=== PATIENT | male | born 1950 | race Caucasian/White ===

== ENCOUNTER 2020-11-12 14:30 | Outpatient (RCR) | payer MEDICARE, SELFPAY ==
[2020-10-07 12:52] VITALS: BMI 21.2
[2020-10-07 13:01] VITALS: BMI 21.2
== END 2020-12-17 11:57 | disposition home or self-care (01) ==
LOC: ANHDMC 14:30
PROVIDERS: PCP Physician Assistant; Visit Provider Physician Assistant
DX: E11.22 Type 2 diabetes mellitus with diabetic chronic kidney disease (principal); I12.9 Hypertensive chronic kidney disease with stage 1 through stage 4 chronic kidney disease, or unspecified chronic kidney disease; N18.9 Chronic kidney disease, unspecified; Z71.89 Other specified counseling; Z71.3 Dietary counseling and surveillance
CPT/HCPCS: 97802; G0108; G0109

== ENCOUNTER 2021-01-21 07:51 | Outpatient (CLI) | payer MEDICARE, SELFPAY ==
--- NOTE | ~2021-01-21 | US_ITS ---
EXAMINATION: US renal BI EXAM DATE: 01/21/2021 08:33 INDICATION: Nonspecific abnormal results of function study of kidney. TECHNIQUE: Multiple grayscale and Doppler images of the kidneys were obtained (by a technologist who performed the scan) and subsequently reviewed. There is no prior study for comparison. FINDINGS: Right kidney: There is normal contour and echogenicity. It measures 10.3 x 5.0 x 4.3 centimeters. T here are no focal renal lesions identified. There is no hydronephrosis. Left kidney: There is normal contour and echogenicity. It measures 10.4 x 4.5 x 5.1 centimeters. Th ere are no focal renal lesions identified. There is no hydronephrosis. Bladder unremarkable. Ureteral jets identified. Prostate is bulging into the bladder base. IMPRESSION: 1. Sonographically unremarkable kidneys. 2. Prostatomegaly. Reviewed, dictated and finalized at location A. [employer] [employer]
== END 2021-01-21 07:52 | disposition home or self-care (01) ==
LOC: ANHIMG 07:52
PROVIDERS: PCP Family Medicine; Visit Provider Internal Medicine Nephrology
DX: R94.4 Abnormal results of kidney function studies (principal); N40.0 Benign prostatic hyperplasia without lower urinary tract symptoms
CPT/HCPCS: 76775

== ENCOUNTER 2021-01-22 11:21 | Outpatient (RCR) | payer MEDICARE, SELFPAY | END 2021-01-22 16:15 | disposition home or self-care (01) | LOC: ANHDMC 11:21 | PROVIDERS: PCP Family Medicine; Visit Provider Physician Assistant | DX: E11.22 Type 2 diabetes mellitus with diabetic chronic kidney disease (principal); Z71.89 Other specified counseling | CPT/HCPCS: G0108 ==

== ENCOUNTER 2022-10-07 15:52 | Observation (INO) | payer MEDICARE, SELFPAY ==
[2022-10-07] VITALS (13 sets, daily range): BP systolic 164–190; BP diastolic 70–102; PULSE 63–89; RESP 16–22; TEMP 36.6–37.2; O2SAT 96–100
--- NOTE | ~2022-10-07 | XR_ITS ---
EXAMINATION: XR chest 2V DATE: 10/07/2022 16:36 INDICATION: Weakness TECHNIQUE: AP and lateral views of the chest are obtained. COMPARISON: 12/20/2015 FINDINGS: The lungs are free of acute opacities. No pleural effusion or pneumothorax. The cardiomedia stinal silhouette is normal. There is moderate thoracic spondylosis. There are healed bilateral rib a nd scapular fractures. Calcified pulmonary nodules are consistent with old granulomatous disease. IMPRESSION: 1. No acute cardiopulmonary abnormality. Reviewed, dictated and finalized at location L.
--- NOTE | 2022-10-07 15:53 | ECG_ITS ---
Measurements Intervals [place] Rate: 68 P: [place]: 0 QRS: 41 QRSD: 94 T: 32 QT: 397 QTc: 425 Interpretive Statements SINUS RHYTHM WITH SECOND-DEGREE AV BLOCK MOBITZ TYPE 1 ABNORMAL RHYTHM ECG NO PREVIOUS ECG AVAILABLE FOR COMPARISON Electronically Signed On 10-08-2022 7:39:54 CDT by Nguyễn Arias M.D.
[2022-10-07 16:06] LABS: Basophils Absolute Auto 0.1 K/mm3 (0.0-0.1); Basophils Percent Auto 0.7 % (0.2-1.2); Eosinophils Absolute Auto 0.2 K/mm3 (0-0.3); Eosinophils Percent Auto 1.6 % (0-4.4); Hematocrit 22.9 % (42.0-52.0); Immature Granulocyte Absolute 0.08 K/mm3 (0.00-0.031); Immature Granulocyte Percent A 0.6 % (0-0.5); Lymphocytes Absolute Auto 1.37 K/mm3 (0.9-3.2); Lymphocytes Percent Auto 10.3 % (18.3-44.2); Mean Corpuscular HGB Conc 26.2 g/dl (32-36); Mean Corpuscular Hemoglobin 17.2 pg (26-34); Mean Corpuscular Volume 65.8 fl (80-100); Mean Platelet Volume 9.3 fl (7.4-10.4); Monocytes Absolute Auto 1.2 K/mm3 (0.1-0.6); Monocytes Percent Auto 8.9 % (2.6-8.5); Neutrophils Absolute Auto 10.4 K/mm3 (1.3-6.7); Neutrophils Percent Auto 77.9 % (45.5-73.1); Platelet Count Result 618 k/mm3 (150-375); Red Blood Count 3.48 M/mm3 (4.6-6.20); Red Cell Distribution Width 21.1 % (11.5-14.5); White Blood Count 13.3 K/mm3 (4.5-10.0)
[2022-10-07 16:17] LABS: Alanine Aminotransferase 20 U/L (6-50); Albumin Level 3.9 g/dL (3.5-5.1); Alkaline Phosphatase 79 U/L (38-126); Anion Gap 10 mmol/L (8-16); Aspartate Amino Transferase 25 U/L (17-59); Bilirubin,Total 0.2 mg/dL (0.2-1.3); Blood Urea Nitrogen 26 mg/dL (9-20); Carbon Dioxide 24 mmol/L (22-30); Chloride 99 mmol/L (98-107); Estimated CRCL calculation 35 ml/min; Estimated Glomerular Filt Rate 46; Glucose 184 mg/dL (65-110); Sodium 133 mmol/L (137-145)
[2022-10-07 16:21] LABS: Anisocytosis 1+ (NORMAL); Hypochromasia 2+ (NORMAL); Microcytosis 2+ (NORMAL); Ovalocytes 1+ (NORMAL); Platelet Estimate Increased (Adequate); Target Cells 1+ (NORMAL)
[2022-10-07 16:22] LABS: Schistocytes None Seen (NORMAL)
[2022-10-07 16:38] LABS: Appearance Urine Clear (Clear); Bacteria Urine None Seen /hpf; Bilirubin Urine Negative (Negative); Blood Urine Negative (Negative); Color Urine Yellow (Yellow); Glucose Urine UA Negative (Negative); Ketones Urine Negative (Negative); Leukocyte Esterase Ur Negative LEU/UL (Negative); Nitrate Urine Negative (Negative); Protein Urine 3+ mg/dL (Negative); RBC Urine 0-2 /hpf (0-2); Specific Grav Ur 1.017 (1.001-1.035); Squamous Epithelial Cell Urine None seen /hpf (Few); Urobilinogen Urine 0.2 mg/dL (<2.0); WBC Urine 0-5 /hpf; pH Urine 5.5 (5.0-9.0)
[2022-10-07 16:49] LABS: Add Urine Microscopic? YES
--- NOTE | 2022-10-07 17:06 | ED.RECABL ---
HPI - Recheck/Abnormal Lab/Rx General Chief Complaint: Recheck/Abnormal Lab/Rx Stated Complaint: SENT IN FOR A TRANSFUSION Time Seen by Provider: 10/07/22 16:20 Source: patient, RN notes reviewed and old records reviewed Mode of arrival: ambulatory Limitations: no limitations History of Present Illness HPI narrative: This is a 72 year old male with history of chronic kidney disease, hypertension, hyperlipidemia who presents for evaluation of anemia. Patient had labs done 2 days for routine follow up . He states he was called today and told he needed to come to ER for transfusion. He denies history of anemia or blood transfusion. HE denies any blood loss. HE denies blood in his stool or nose bleeds. He reports stool is dark brown but that is normal. He denies chest pain, abdominal pain. HE reports shortness of breath for 2 years that is intermittent but he states it is not severe. Related Data Home Medications Medication Instructions Recorded Confirmed bupropion HCl 300 mg 24 hr tablet, 300 mg PO QAM 04/16/19 10/07/22 extended release lamotrigine 100 mg tablet 100 mg PO HS 04/16/19 10/07/22 paroxetine HCl 10 mg tablet 10 mg PO DAILY 04/16/19 10/07/22 paroxetine HCl 40 mg tablet 40 mg PO DAILY 04/16/19 10/07/22 prazosin 1 mg capsule 1 mg PO .QHS 04/16/19 10/07/22 sitagliptin phosphate 100 mg tablet 50 mg PO DAILY 10/07/22 10/07/22 Allergies Allergy/AdvReac Type Severity Reaction Status Date / Time No Known Allergies Allergy Verified 08/11/22 09:56 Review of Systems Constitutional: Constitutional: Denies weakness Cardiovascular: Cardiovascular: Denies syncope, Denies rapid heart rate, Denies irregular heart rhythm, Denies leg edema and Denies dyspnea Respiratory: Respiratory: Denies chest congestion, Denies hemoptysis, Denies excessive phlegm production and Denies dyspnea Gastrointestinal: Gastrointestinal: Denies abdominal pain, Denies hematochezia, Denies diarrhea and Denies vomiting Genitourinary: Genitourinary: Denies hematuria, Denies dysuria, Denies penile discharge and Denies testicular pain Musculoskeletal: Musculoskeletal: Denies joint swelling, Denies loss of height and Denies muscle weakness Neurologic: Denies syncope, Denies focal weakness and Denies weakness PMFSH Past Medical History Medical History (Updated 10/07/22 @ 18:30 by Yanna Boyer PA-C) Anxiety Chronic kidney disease, stage 3 Baseline creatinine ranges between 1.36 and 1.55. Hyperlipidemia Hypertension Type 2 diabetes mellitus Surgical History Surgical History (Updated 10/07/22 @ 18:25 by Yanna Boyer PA-C) History of appendectomy History of surgery on upper extremity Open reduction internal fixation of left upper extremity fracture. Family History Family History Grandparent Diabetes mellitus Hypertension Asthma Cerebrovascular accident Family history of coronary artery disease Mother Hypertension Family history of cardiovascular disease Family history of lymphoma Family history of rheumatic fever Father Family history of throat cancer Other Family history of alcoholism Family history of mental disorder Social History Social History (Updated 10/07/22 @ 21:37 by Yanna Boyer PA-C) Social History: Surrogate medical decision maker: Antonia iWlson, spouse. Code status: Full code. Smoking packs per day: 1 Smoking cigarettes per day: 20.0 Years smoked: 15 Smoking pack-years: 15.00 Smoking status: Never smoker Tobacco type: cigarettes Second hand tobacco smoke exposure: Yes Smoking end date: 02/21/77 Alcohol intake: never Substance use: current Substance use type: marijuana Other substance usage details: Smokes marijuana daily. Last use: Yesterday PM. Lack of Transportation: No Lack of Food: Never True Current Housing: I Have Housing Concerned About Future Housing: No Difficulty Paying Gas
[2022-10-07 17:24] LABS: Iron 33 ug/dL (49-181)
[2022-10-07 17:25] LABS: Reticulocyte Hemoglobin Conten 15.6 pg (28.2-35.7); Reticulocyte Percent 1.66 % (0.7-4.3); Reticulocytes Absolute 0.06 M/mm3 (0.02-0.1)
[2022-10-07 17:33] LABS: Percent Iron Saturation 7 % (20-50)
[2022-10-07 18:01] LABS: Ferritin 4.64 ng/mL (11.1-264)
[2022-10-07 18:21] LABS: Folic Acid 7.3 ng/mL (2.76->20)
--- NOTE | 2022-10-07 18:22 | PM.IMHP ---
H&P: HPI History of Present Illness Date/Time: 10/07/22 17:30 Chief Complaint: Low hemoglobin. Narrative: This is a very pleasant 72-year-old male with hypertension, hyperlipidemia, chronic kidney disease, type 2 diabetes mellitus, and anxiety who presented to the emergency department via private vehicle from home for evaluation of a low hemoglobin. The patient provides the following history. He had a routine appointment with his doctor yesterday, had labs drawn, and was told to come to the ER as his hemoglobin was 6.2. He actually feels fine and he denies feelings of lightheadedness, dizziness, racing heart, shortness of breath, and fatigue. He denies dark stools and he has not noticed any bright red blood in his stools. He also denies other sources of blood loss. Last colonoscopy was probably 5 years ago and was unremarkable, per patient report. He has lost about 35 lb in the past 2 years which he reports as being intentional. Labs done on arrival to the ED were significant for a WBC count of 13.3, RBC 3.48, hemoglobin 6.0, hematocrit 22.9%, MCV 65.8, platelets 618 BUN 26, creatinine 1.50. Stool was Hemoccult negative on rectal exam done per ED physician. He is being admitted in this setting for blood transfusion and further workup. Review of Systems Review of Systems: Twelve systems were reviewed and are negative except for as per HPI. [facility] Past Medical History Medical History (Updated 10/07/22 @ 18:30 by Yanna Boyer PA-C) Anxiety Chronic kidney disease, stage 3 Baseline creatinine ranges between 1.36 and 1.55. Hyperlipidemia Hypertension Type 2 diabetes mellitus Surgical History Surgical History (Updated 10/07/22 @ 18:25 by Yanna Boyer PA-C) History of appendectomy History of surgery on upper extremity Open reduction internal fixation of left upper extremity fracture. Family History Family History Grandparent Diabetes mellitus Hypertension Asthma Cerebrovascular accident Family history of coronary artery disease Mother Hypertension Family history of cardiovascular disease Family history of lymphoma Family history of rheumatic fever Father Family history of throat cancer Other Family history of alcoholism Family history of mental disorder Social History Social History (Updated 10/07/22 @ 21:37 by Yanna G Gerling, PA-C) Social History: Surrogate medical decision maker: Antonia Wilson, spouse. Code status: Full code. Smoking packs per day: 1 Smoking cigarettes per day: 20.0 Years smoked: 15 Smoking pack-years: 15.00 Smoking status: Never smoker Tobacco type: cigarettes Second hand tobacco smoke exposure: Yes Smoking end date: 02/21/77 Alcohol intake: never Substance use: current Substance use type: marijuana Other substance usage details: Smokes marijuana daily. Last use: Yesterday PM. Lack of Transportation: No Lack of Food: Never True Current Housing: I Have Housing Concerned About Future Housing: No Difficulty Paying Gas/Electric Bills: No Difficulty Paying for Meds: No Currently Unemployed: No Education: High School Diploma/GED Difficulty w/ Childcare or Family Care: No Living arrangements: with family Additional living arrangements comments: Lives with spouse in [place]. 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
[2022-10-07] MEDS: SODIUM CHLORIDE 0.9% IV 250 ML 30 ML IV CONT (20:12)
[2022-10-07 21:02] LABS: Glucose Point of Care 214 mg/dl (65-105)
[2022-10-07 21:43] LABS: Free T4 Free Thyroxine Reflex 0.93 ng/dL (0.78-2.19)
[2022-10-07 22:28] LABS: Total Triiodothyronine (T3) 1.27 NG/ML (0.97-1.69)
[2022-10-07] MEDS: hydrALAZINE HCL 20 MG/ML VIAL 10 MG IV PUSH (23:14)
[2022-10-08] VITALS (16 sets, daily range): BP systolic 152–202; BP diastolic 69–100; PULSE 50–93; RESP 14–20; TEMP 36.4–37.3; O2SAT 96–98
[2022-10-08 06:18] LABS: Basophils Absolute Auto 0.1 K/mm3 (0.0-0.1); Basophils Percent Auto 0.5 % (0.2-1.2); Eosinophils Absolute Auto 0.2 K/mm3 (0-0.3); Eosinophils Percent Auto 1.2 % (0-4.4); Hematocrit 29.6 % (42.0-52.0); Hemoglobin 8.7 g/dL (14.0-18.0); Immature Granulocyte Absolute 0.07 K/mm3 (0.00-0.031); Immature Granulocyte Percent A 0.5 % (0-0.5); Lymphocytes Absolute Auto 1.34 K/mm3 (0.9-3.2); Lymphocytes Percent Auto 10.3 % (18.3-44.2); Mean Corpuscular HGB Conc 29.4 g/dl (32-36); Mean Corpuscular Hemoglobin 20.4 pg (26-34); Mean Corpuscular Volume 69.3 fl (80-100); Mean Platelet Volume 9.3 fl (7.4-10.4); Monocytes Absolute Auto 1.3 K/mm3 (0.1-0.6); Monocytes Percent Auto 9.6 % (2.6-8.5); Neutrophils Absolute Auto 10.1 K/mm3 (1.3-6.7); Neutrophils Percent Auto 77.9 % (45.5-73.1); Platelet Count Result 544 k/mm3 (150-375); Red Blood Count 4.27 M/mm3 (4.6-6.20); Red Cell Distribution Width 22.5 % (11.5-14.5)
[2022-10-08 06:22] LABS: Hemoglobin A1C 7.2 % (<5.7)
[2022-10-08 06:24] LABS: Alanine Aminotransferase 16 U/L (6-50); Albumin Level 3.6 g/dL (3.5-5.1); Alkaline Phosphatase 86 U/L (38-126); Anion Gap 8 mmol/L (8-16); Aspartate Amino Transferase 23 U/L (17-59); Bilirubin,Total 0.6 mg/dL (0.2-1.3); Blood Urea Nitrogen 20 mg/dL (9-20); Calcium 8.9 mg/dL (8.4-10.2); Carbon Dioxide 26 mmol/L (22-30); Chloride 102 mmol/L (98-107); Estimated CRCL calculation 38 ml/min; Estimated Glomerular Filt Rate 54; Glucose 176 mg/dL (65-110); Potassium 3.6 mmol/L (3.4-5.0); Sodium 136 mmol/L (137-145)
[2022-10-08 06:25] LABS: Magnesium 1.7 mg/dL (1.6-2.3)
[2022-10-08 06:49] LABS: Anisocytosis 2+ (NORMAL); Hypochromasia 2+ (NORMAL); Microcytosis 1+ (NORMAL); Platelet Estimate Increased (Adequate)
[2022-10-08 06:50] LABS: Schistocytes None Seen (NORMAL)
--- NOTE | 2022-10-08 07:19 | PM.IMPN ---
Progress Note: A&P Assessment and Plan (1) Severe anemia: Code(s): D64.9 - Anemia, unspecified Status: Acute Assessment and Plan: Patient is now status post 2 units PRBCs and iron transfusion. No source of blood loss noted. Patient will likely need outpatient referral to Hematology as he does not have any evidence of acute blood loss or severe renal disease. (2) Microcytic anemia: Code(s): D50.9 - Iron deficiency anemia, unspecified Status: Acute Assessment and Plan: See 1. (3) 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: Code(s): E11.22 - Type 2 diabetes mellitus with diabetic chronic kidney disease; I12.9 - Hypertensive chronic kidney disease with stage 1 through stage 4 chronic kidney disease, or unspecified chronic kidney disease Status: Acute Assessment and Plan: ACHS fingerstick glucose with sliding scale insulin correction. Check hemoglobin A1c (4) Chronic kidney disease, stage 3: Code(s): N18.30 - Chronic kidney disease, stage 3 unspecified Status: Acute Assessment and Plan: Estimated GFR 54 BUN of 20 creatinine 1.3 estimated creatinine clearance 38 (5) Hypertension: Qualifiers: Hypertension type: essential hypertension Qualified Code(s): I10 - Essential (primary) hypertension Code(s): I10 - Essential (primary) hypertension Status: Acute Assessment and Plan: Significant hypertension noted. Continue home medications and p.r.n. medications (6) Anxiety: Code(s): F41.9 - Anxiety disorder, unspecified Status: Acute Assessment and Plan: Stable, continue home medications Plan Recheck a.m. labs for tomorrow. Guaiac stools Anticipate additional iron transfusion and outpatient hematology appointment. Time Spent With Patient Time with patient: 25 - 35 minutes Subjective Date/time seen: 10/08/22 07:19 Interval history: 10/08: Patient admitted to the hospital yesterday due to significant anemia. He was called by his primary care provider told to get to the emergency department for hemoglobin of 6. Patient received transfusion 2 units of PRBCs. Patient denies any bloody stools, shortness of breath, chest pain, diaphoresis with activity, nausea, vomiting, constipation, abdominal pain. He notes that his stools are a little loose attributes this to metformin. Patient reports that he has been active outside recently without any symptoms. Review of Systems Review of Systems: Twelve systems were reviewed and are negative except for as per HPI. Exam Narrative: General: Well-developed, nontoxic-appearing male sitting up in bed in no acute distress. HEENT: PERRL, EOMI. Sclera anicteric. Conjunctiva mildly pale. Oral mucosa moist. Oropharynx clear. Neck: Supple. Respiratory: Lungs are clear to inhalation with slight end-expiratory wheeze bilaterally. Cardiovascular: Normal rate rhythm normal S1-S2. Gastrointestinal: Abdomen is soft, nontender, and nondistended with positive bowel sounds. Skin: Warm and dry. Generalized pallor. Extremities: No cyanosis, clubbing, or edema. Radial and pedal pulses intact. Neurological: Alert. Cranial nerves 2-12 are grossly intact. No gross focal deficits to casual conversation. Psychiatric: Pleasant and cooperative with normal mood and affect. Judgment and insight intact. Objective Data Vital Signs Vital Signs: Vital Signs - 24 hr 10/07/22 15:58 10/07/22 16:39 10/07/22 17:47 Temperature 36.6 C Pulse Rate 68 72 68 Respiratory Rate 16 21 H 22 H Blood Pressure 168/70 H 175/102 H 171/86 H Pulse Oximetry 96 Oxygen Delivery Room Air 10/07/22 18:00 10/07/22 18:45 10/07/22 20:24 Temperature 37.1 C Pulse Rate 63 Respiratory Rate 18 16 Blood Pressure 176/94 H Pulse Oximetry 100 Oxygen Delivery Room Air 10/07/22 20:46 10/07/22 21:46 10/07/22 20:00 Temperature 37.2 C 37.0 C Pulse Rate 77
[2022-10-08 08:01] LABS: Glucose Point of Care 181 mg/dl (65-105)
[2022-10-08] MEDS: SIMVASTATIN 20 MG TABLET BY MOUTH (08:52)
[2022-10-08] MEDS: INDAPAMIDE 2.5 MG TABLET BY MOUTH (08:52)
[2022-10-08] MEDS: lisinopriL 20 MG TABLET 40 MG BY MOUTH (08:52)
[2022-10-08] MEDS: buPROPion HCL XL (24 HR) 150 MG TABCR 300 MG PO (08:52)
[2022-10-08] MEDS: PARoxetine 10 MG TABLET PO (09:28)
[2022-10-08] MEDS: PARoxetine 20 MG TABLET 40 MG PO (09:28)
[2022-10-08] MEDS: IRON SUCROSE COMPLEX 500 MG in SODIUM CHLORIDE 0.9% IV 250 ML 78.57 MG IVPB (09:28)
--- NOTE | 2022-10-08 09:55 | PM.IMPN ---
Subjective Date/time seen: 10/08/22 09:55 Objective Data Vital Signs Vital Signs: Vital Signs - 24 hr 10/07/22 15:58 10/07/22 16:39 10/07/22 17:47 Temperature 36.6 C Pulse Rate 68 72 68 Respiratory Rate 16 21 H 22 H Blood Pressure 168/70 H 175/102 H 171/86 H Pulse Oximetry 96 Oxygen Delivery Room Air 10/07/22 18:00 10/07/22 18:45 10/07/22 20:24 Temperature 37.1 C Pulse Rate 63 Respiratory Rate 18 16 Blood Pressure 176/94 H Pulse Oximetry 100 Oxygen Delivery Room Air 10/07/22 20:46 10/07/22 21:46 10/07/22 20:00 Temperature 37.2 C 37.0 C Pulse Rate 77 70 Respiratory Rate 16 16 Blood Pressure 178/88 H 190/92 H Pulse Oximetry 99 98 Oxygen Delivery Room Air 10/07/22 22:46 10/07/22 23:19 10/07/22 23:33 Temperature 37.2 C 36.8 C 36.8 C Pulse Rate 68 68 68 Respiratory Rate 16 16 16 Blood Pressure 182/90 H 178/86 H 178/86 H Pulse Oximetry 99 99 99 Oxygen Delivery 10/07/22 23:52 10/07/22 23:55 10/07/22 20:00 Temperature 36.9 C 37.2 C Pulse Rate 78 86 89 Respiratory Rate 16 16 Blood Pressure 180/82 H 164/93 H Pulse Oximetry 100 98 Oxygen Delivery 10/08/22 00:00 10/08/22 02:10 10/08/22 04:00 Temperature 36.9 C Pulse Rate 84 82 57 L Respiratory Rate 16 Blood Pressure 168/82 H Pulse Oximetry 98 Oxygen Delivery 10/08/22 04:35 10/08/22 08:00 Temperature 36.4 C L Pulse Rate 82 Respiratory Rate 16 Blood Pressure 181/69 H Pulse Oximetry 97 Oxygen Delivery Room Air Intake/Output Intake/Output: Intake & Output 10/05/22 10/06/22 10/07/22 10/08/22 23:59 23:59 23:59 23:59 Intake Total 350 830 Output Total 675 Balance 350 155 Meds/Results Medications: Active Medications Generic Name Dose Route Start Last Admin Trade Name Freq PRN Reason Stop Dose Admin Acetaminophen 650 mg 10/07/22 21:42 Acetaminophen 325 Mg Tablet PO Q6H PRN Mild Pain (1-3) or Fever Baclofen 10 mg 10/08/22 21:00 Baclofen 10 Mg Tablet PO QHS SUMANTH Bupropion HCl 300 mg 10/08/22 09:00 10/08/22 08:52 Bupropion Hcl Xl (24 Hr) 150 Mg Tabcr PO 300 mg QAM SUMANTH Administration Dextrose 12.5 gm 10/07/22 21:42 Dextrose 50% 25 Gm/50 Ml Syringe IV PUSH PRN PRN Hypoglycemia Protocol Glucagon 1 mg 10/07/22 21:42 Glucagon For Inj 1 Mg Vial IM PRN PRN Hypoglycemia Protocol Glucose 15 gm 10/07/22 21:42 Glucose Oral Gel 15 Gm Of Glucse In 37.5 Gm Tube PO PRN PRN Hypoglycemia Protocol Hydralazine HCl 10 mg 10/07/22 22:30 10/07/22 23:14 Hydralazine Hcl 20 Mg/Ml Vial IV PUSH 10 mg Q6H PRN Administration SBP > 165 or DBP > 105 Dextrose 1,000 mls @ 100 mls/hr 10/07/22 21:42 Dextrose 5% 1,000 Ml IVPB PRN PRN Hypoglycemia Protocol Iron Sucrose 500 mg/ Sodium 275 mls @ 78.571 mls/hr 10/08/22 08:00 10/08/22 09:28 Chloride IVPB 10/08/22 11:29 78.57 mls/hr ONCE ONE Administration Indapamide 2.5 mg 10/08/22 09:00 10/08/22 08:52 Indapamide 2.5 Mg Tablet BY MOUTH 2.5 mg DAILY SUMANTH Administration Insulin Aspart 2 - 5 units 10/08/22 08:00 10/08/22 08:02 Insulin Aspart (*Bkc) 100 Units/Ml SUB-Q Not Given TIDWM [facility] Protocol Insulin Aspart 1 - 2 units 10/08/22 21:00 Insulin Aspart (*Bkc) 100 Units/Ml SUB-Q HS [facility] Protocol Lamotrigine 100 mg 10/08/22 21:00 Lamotrigine 100 Mg Tablet PO HS [facility] Lisinopril 40 mg 10/08/22 09:00 10/08/22 08:52 Lisinopril 20 Mg Tablet BY MOUTH 40 mg DAILY SUMANTH Administration Paroxetine HCl 10 mg 10/08/22 09:00 10/08/22 09:28 Paroxetine 10 Mg Tablet PO 10 mg DAILY SUMANTH Administration Paroxetine HCl 40 mg 10/08/22 09:00 10/08/22 09:28 Paroxetine 20 Mg Tablet PO 40 mg DAILY SUMANTH Administration Prazosin HCl 1 mg 10/07/22 21:45 Prazosin Hcl 1 Mg Capsule PO .QHS SUMANTH Simvastatin 20 mg 10/08/22 09:00
[2022-10-08] MEDS: IPRATROPIUM BR 0.02% INH SOLN 0.5 MG/2.5 ML VIAL INHALATION (10:23)
[2022-10-08] MEDS: ALBUTEROL SULFATE NEB 2.5 MG/3 ML INH INHALATION (10:23)
[2022-10-08 11:48] LABS: Glucose Point of Care 151 mg/dl (65-105)
[2022-10-08 14:02] LABS: IFOB Positive Control Positive; Immunochemical Fecal Occult Bl Positive (N)
[2022-10-08] MEDS: hydrALAZINE HCL 20 MG/ML VIAL 10 MG IV PUSH ×3 (14:26→20:50)
--- NOTE | 2022-10-08 16:44 | ECG_ITS ---
Measurements Intervals [place] Rate: 64 P: 55 [place]: 290 QRS: 53 QRSD: 96 T: 29 QT: 470 QTc: 488 Interpretive Statements SINUS RHYTHM SECOND-DEGREE AV BLOCK MOBITZ TYPE 1 WITH FREQUENT SUPRAVENTRICULAR PREMATURE COMPLEXES ABNORMAL ECG COMPARED TO ECG 10/07/2022 16:23:34 NONCONDUCTED PACS ARE NOW SEEN Electronically Signed On 10-09-2022 7:24:22 CDT by Nguyễn Arias M.D.
[2022-10-08 17:03] LABS: Glucose Point of Care 177 mg/dl (65-105)
[2022-10-08 17:23] LABS: Hematocrit 32.8 % (42.0-52.0); Hemoglobin 9.8 g/dL (14.0-18.0)
[2022-10-08 20:30] LABS: Glucose Point of Care 210 mg/dl (65-105)
[2022-10-08] MEDS: BACLOFEN 10 MG TABLET PO (20:46)
[2022-10-08] MEDS: lamoTRIgine 100 MG TABLET PO (20:46)
[2022-10-08] MEDS: INSULIN ASPART (*BKC) 100 UNITS/ML SUB-Q (20:48)
[2022-10-09] VITALS (7 sets, daily range): BP systolic 176–193; BP diastolic 76–100; PULSE 51–89; RESP 18; TEMP 36.2; O2SAT 97–99
--- NOTE | 2022-10-09 00:44 | PC.NURSE ---
pt's daughter Leilani states that patient uses no oxygen during the day, but wears CPAP (or 4L O2 NC) at night. Pt brought CPAP from home. Respiratory has been called to check out the equipment to clear for use. In the meantime patient is currently wearing 4L O2 NC and tolerating it well
[2022-10-09 06:12] LABS: Hematocrit 33.3 % (42.0-52.0); Hemoglobin 9.8 g/dL (14.0-18.0); Mean Corpuscular HGB Conc 29.4 g/dl (32-36); Mean Corpuscular Hemoglobin 20.6 pg (26-34); Mean Platelet Volume 9.1 fl (7.4-10.4); Platelet Count Result 553 k/mm3 (150-375); Red Blood Count 4.76 M/mm3 (4.6-6.20); Red Cell Distribution Width 23.6 % (11.5-14.5); White Blood Count 14.3 K/mm3 (4.5-10.0)
[2022-10-09 06:25] LABS: Anion Gap 5 mmol/L (8-16); Blood Urea Nitrogen 18 mg/dL (9-20); Calcium 9.5 mg/dL (8.4-10.2); Carbon Dioxide 29 mmol/L (22-30); Chloride 102 mmol/L (98-107); Estimated CRCL calculation 35 ml/min; Estimated Glomerular Filt Rate 50; Glucose 191 mg/dL (65-110); Potassium 3.5 mmol/L (3.4-5.0); Sodium 136 mmol/L (137-145)
[2022-10-09] MEDS: hydrALAZINE HCL 20 MG/ML VIAL 10 MG IV PUSH (06:30)
[2022-10-09] MEDS: PARoxetine 20 MG TABLET 40 MG PO (08:05)
[2022-10-09] MEDS: lisinopriL 20 MG TABLET 40 MG BY MOUTH (08:05)
[2022-10-09] MEDS: INDAPAMIDE 2.5 MG TABLET BY MOUTH (08:05)
[2022-10-09] MEDS: SIMVASTATIN 20 MG TABLET BY MOUTH (08:05)
[2022-10-09] MEDS: PARoxetine 10 MG TABLET PO (08:05)
[2022-10-09] MEDS: buPROPion HCL XL (24 HR) 150 MG TABCR 300 MG PO (08:05)
[2022-10-09 08:21] LABS: Glucose Point of Care 210 mg/dl (65-105)
[2022-10-09] MEDS: INSULIN ASPART (*BKC) 100 UNITS/ML SUB-Q (08:56)
--- NOTE | 2022-10-09 09:49 | WPDGICN ---
Assessment and Plan Assessment and plan (1) SOHAN (iron deficiency anemia): Code(s): D50.9 - Iron deficiency anemia, unspecified Status: Acute Assessment and Plan: Patient with Chronic microcytic anemia with iron deficiency indices. This is a new diagnosis. No obvious bleeding reported. Stool Hemoccult noted on the floor. Plan to start iron replacement transfuse to a stable hemoglobin. Plan will be for an outpatient colonoscopy and endoscopy to evaluate this more thoroughly. Outpatient colonoscopy And EGD will be arranged. Patient should be directed to call the GI service for colonoscopy. Follow-up CBC 1 week after discharge advised. (2) Occult blood in stools: Code(s): R19.5 - Other fecal abnormalities Status: Acute Assessment and Plan: occult blood in the stool noted on stool testing on the floor. Plan to evaluate this with colonoscopy an EGD electively as an outpatient. GI Consult Note Consult date/time: 10/09/22 09:49 Reason for consult: Iron deficiency anemia HPI: Julian Wilson is a 72 year old male I asked to see because of newly diagnosed iron deficiency of anemia. Patient patient in usual state of health had routine laboratory testing as an outpatient. This revealed a significant microcytic anemia. Patient denies any obvious blood loss. he has no nose bleeds. No bruises. No bleeding elsewhere. Because rather profound microcytic anemia patient sent to the hospital where in the ER he had Hemoccult-negative stools. Patient's iron studies were found to be deficient. Repeat stool Hemoccult on the floor revealed that he had occult blood in stool at that time. Patient denies any abdominal pain. He has never had abdominal surgeries. Family history is noncontributory. Review of Systems Review of Systems: review of systems noncontributory. ON LICENSE OF [facility] Past Medical History Medical History (Updated 10/09/22 @ 09:51 by Liam Pena MD) Anxiety Chronic kidney disease, stage 3 Baseline creatinine ranges between 1.36 and 1.55. Hyperlipidemia Hypertension Type 2 diabetes mellitus Surgical History Surgical History (Updated 10/07/22 @ 18:25 by Yanna Boyer PA-C) History of appendectomy History of surgery on upper extremity Open reduction internal fixation of left upper extremity fracture. Family History Family History Grandparent Diabetes mellitus Hypertension Asthma Cerebrovascular accident Family history of coronary artery disease Mother Hypertension Family history of cardiovascular disease Family history of lymphoma Family history of rheumatic fever Father Family history of throat cancer Other Family history of alcoholism Family history of mental disorder Social History Social History (Updated 10/07/22 @ 21:37 by Yanna Boyer PA-C) Social History: Surrogate medical decision maker: Antonia Wilson, spouse. Code status: Full code. Smoking packs per day: 1 Smoking cigarettes per day: 20.0 Years smoked: 15 Smoking pack-years: 15.00 Smoking status: Never smoker Tobacco type: cigarettes Second hand tobacco smoke exposure: Yes Smoking end date: 02/21/77 Alcohol intake: never Substance use: current Substance use type: marijuana Other substance usage details: Smokes marijuana daily. Last use: Yesterday PM. Lack of Transportation: No Lack of Food: Never True Current Housing: I Have Housing Concerned About Future Housing: No Difficulty Paying Gas/Electric Bills: No Difficulty Paying for Meds: No Currently Unemployed: No Education: High School Diploma/GED Difficulty w/ Childcare or Family Care: No Living arrangements: with family Additional living arrangements comments: Lives with spouse in [place]. 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
[2022-10-09] MEDS: IRON SUCROSE COMPLEX 500 MG in SODIUM CHLORIDE 0.9% IV 250 ML 78.57 MG IVPB (09:51)
[2022-10-09 11:21] LABS: Glucose Point of Care 159 mg/dl (65-105)
--- NOTE | 2022-10-09 12:02 | PM.DS ---
DS: Admitting Diagnosis Discharge Date 10/09/2022 Admitting Diagnosis Microcytic anemia Chronic kidney disease stage 3 Type 2 diabetes mellitus Hypertension Anxiety DS: Discharge Diagnosis Discharge Diagnosis (1) Occult blood in stools: Code(s): R19.5 - Other fecal abnormalities Status: Acute Assessment and Plan: Workup to be completed outpatient with Dr. Pena (2) SOHAN (iron deficiency anemia): Code(s): D50.9 - Iron deficiency anemia, unspecified Status: Acute Assessment and Plan: Responded well to transfusions PRBC and Iron. D/C on iron supplements (3) Severe anemia: Code(s): D64.9 - Anemia, unspecified Status: Acute Assessment and Plan: See #2 (4) 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: Code(s): E11.22 - Type 2 diabetes mellitus with diabetic chronic kidney disease; I12.9 - Hypertensive chronic kidney disease with stage 1 through stage 4 chronic kidney disease, or unspecified chronic kidney disease Status: Acute Plan Outpatient GI follow up DS: Summary Hospital Course Reason for hospitalization: Patient was admitted for profound anemia noted on outpatient labs. Hospital Course: Patient had 2 units PRBC transfused. Iron studies showed significant iron deficiency. Hemoccult was positive and GI was consulted. Patient denied pain or vomiting. H&H greatly improved and stable after transfusions. Patient received second dose of IV iron today then discharged in stable condition with prescription for iron and albuterol inhaler. He will follow with Dr. Pena for outpatient EGD/colonoscopy and will get repeat CBC in 1 week. Status at Discharge Cognitive/behavioral status at discharge: Awake, alert, oriented and pleasant Functional status at discharge: independent ambulation Overall status at discharge: patient is back to baseline Time Spent with Patient Time attestation: Total time spent providing and/or coordinating discharge services: 40 minutes Time spent: Greater than 30 minutes Exam Narrative: General: Well-developed, nontoxic-appearing male sitting up in bed in no acute distress. HEENT: PERRL, EOMI. Sclera anicteric. Oral mucosa moist. Oropharynx clear. Neck: Supple. No JVD. Respiratory: Lungs are clear bilaterally. No respiratory distress. Cardiovascular: Normal rate rhythm normal S1-S2. Gastrointestinal: Abdomen is soft, nontender, and nondistended with positive bowel sounds. Skin: Warm and dry. Generalized pallor. Extremities: No cyanosis, clubbing, or edema. Radial and pedal pulses intact. Neurological: Alert. Cranial nerves 2-12 are grossly intact. No gross focal deficits to casual conversation. Psychiatric: Pleasant and cooperative with normal mood and affect. Judgment and insight intact. DS: Data Data Completed and Pending Completed studies during hospitalization: CXR Labs on day of discharge: Labs from last 24 hours 10/09/22 10/09/22 10/09/22 11:18 07:35 05:54 WBC 14.3 H RBC 4.76 Hgb 9.8 L Hct 33.3 L MCV 70.0 L MCH 20.6 L MCHC 29.4 L RDW 23.6 H Plt Count 553 H MPV 9.1 Sodium 136 L Potassium 3.5 Chloride 102 Carbon Dioxide 29 Anion Gap 5 L BUN 18 Creatinine 1.40 H Estim Creat Clear Calc 35 Estimated GFR 50 L Glucose 191 H POC Capillary Glucose 159 H 210 H Calcium 9.5 Stl Occult Blood (IFOB) 10/08/22 10/08/22 10/08/22 20:26 17:13 16:37 WBC RBC Hgb 9.8 L Hct 32.8 L MCV MCH MCHC RDW Plt Count MPV Sodium Potassium Chloride Carbon Dioxide Anion Gap BUN Creatinine Estim Creat Clear Calc Estimated GFR Glucose POC Capillary Glucose 210 H 177 H Calcium Stl Occult Blood (IFOB) 10/08/22 13:39 WBC RBC Hgb Hct MCV MCH MCHC RDW Plt Count MPV Sodium Potassium Chloride Carbon Dioxide Anion Gap
== END 2022-10-09 13:30 | disposition home or self-care (01) ==
LOC: ANHED 17:19 → ANH3MEDSUR 10-08 06:47
PROVIDERS: Emergency Medicine; Nurse Practitioner; Physician Assistant; Admitting Provider Internal Medicine; Emergency Provider General Practice; PCP Physician Assistant; Visit Provider Hospitalist
DX: R19.5 Other fecal abnormalities (principal); D50.9 Iron deficiency anemia, unspecified; I12.9 Hypertensive chronic kidney disease with stage 1 through stage 4 chronic kidney disease, or unspecified chronic kidney disease; E11.22 Type 2 diabetes mellitus with diabetic chronic kidney disease; N18.30 Chronic kidney disease, stage 3 unspecified; D63.1 Anemia in chronic kidney disease; E78.5 Hyperlipidemia, unspecified; F41.9 Anxiety disorder, unspecified; R94.31 Abnormal electrocardiogram [ECG] [EKG]; R00.1 Bradycardia, unspecified; D72.829 Elevated white blood cell count, unspecified; D75.839 Thrombocytosis, unspecified; R63.4 Abnormal weight loss; Z68.1 Body mass index [BMI] 19.9 or less, adult; F12.90 Cannabis use, unspecified, uncomplicated; Z77.22 Contact with and (suspected) exposure to environmental tobacco smoke (acute) (chronic); Z79.84 Long term (current) use of oral hypoglycemic drugs; Z79.899 Other long term (current) drug therapy; Z83.3 Family history of diabetes mellitus; Z82.49 Family history of ischemic heart disease and other diseases of the circulatory system
CPT/HCPCS: 36415; 36430; 71046; 80048; 80053; 81001; 82274; 82607; 82728; 82746; 82948; 83036; 83540; 83550; 83735; 84439; 84443; 84480; 85014; 85018; 85025; 85027; 85046; 86850; 86900; 86901; 86923; 93005; 94640; 96365; 96366; 96375; 96376; 99285; A9270; G0378; J0360; J1756; J1815; J7050; P9016

== ENCOUNTER 2022-11-02 00:33 | Day surgery (SDC) | payer MEDICARE, SELFPAY ==
[2022-10-27 14:14] VITALS: BMI 21.3
--- NOTE | 2022-11-01 09:47 | WPDANESEPPF ---
Anes - Initial Pre Proc Eval Procedure: Operation Date: 11/02/22 14:15 Proposed Procedures p Esophagogastroduodenoscopy & Colonoscopy - Liam Pena MD Date/Time: 11/01/22 09:47 Surgeon: Liam Pena MD Pre Op Diagnosis: SOHAN Patient Data Age: 72 Gender: M Height: 1.73 m Weight: 63.6 kg Allergies Allergy/AdvReac Type Severity Reaction Status Date / Time No Known Allergies Allergy Verified 11/02/22 12:55 Home Medications Medication Instructions Recorded Confirmed Type bupropion HCl 300 mg 24 hr tablet, 300 mg PO QAM 04/16/19 11/02/22 History extended release lamotrigine 100 mg tablet 100 mg PO HS 04/16/19 11/02/22 History paroxetine HCl 10 mg tablet 10 mg PO DAILY 04/16/19 11/02/22 History paroxetine HCl 40 mg tablet 40 mg PO DAILY 04/16/19 11/02/22 History prazosin 1 mg capsule 1 mg PO .QHS 04/16/19 11/02/22 History blood-glucose meter (OneTouch See Rx Instructions .Route 08/18/20 11/02/22 Rx Verio Reflect Meter) .COMPLEX #1 ea lancets 33 gauge (OneTouch Delica See Rx Instructions .Route 11/21/20 11/02/22 Rx Plus Lancet) .COMPLEX #100 ea blood sugar diagnostic (OneTouch See Rx Instructions .Route 06/26/21 11/02/22 Rx Verio test strips) .COMPLEX #100 strips lisinopril 40 mg tablet See Rx Instructions .Route 08/05/22 11/02/22 Rx .COMPLEX #90 tabs indapamide 2.5 mg tablet See Rx Instructions .Route 08/11/22 11/02/22 Rx .COMPLEX #90 tabs metformin 500 mg tablet,extended See Rx Instructions .Route 08/11/22 11/02/22 Rx release 24 hr .COMPLEX #360 tabs simvastatin 40 mg tablet See Rx Instructions .Route 08/11/22 11/02/22 Rx .COMPLEX #90 tabs sitagliptin phosphate 100 mg 50 mg PO DAILY 10/07/22 11/02/22 History tablet (Januvia) acetaminophen 325 mg tablet (Mapap 650 mg PO Q6H PRN Mild Pain (1-3) 10/09/22 11/02/22 Rx (acetaminophen)) Or Fever #0 tabs albuterol sulfate 90 mcg/actuation 2 puff inhalation QID PRN 10/09/22 11/02/22 Rx aerosol inhaler shortness of breath or wheezing #8.5 grams ferrous sulfate 325 mg (65 mg 325 mg PO BID #60 tabs 10/09/22 11/02/22 Rx iron) tablet (Iron (ferrous sulfate)) baclofen 10 mg tablet 10 mg PO QHS #90 tabs 10/19/22 11/02/22 Rx Patient hx anesthesia problems: none Family hx anesthesia problems: none Results Review: All pre-operative results and documents have been reviewed as part of the pre-operative evaluation. [facility] Past Medical History Medical History (Updated 10/15/22 @ 14:01 by Idalmis Veronica MD) Anxiety Chronic kidney disease, stage 3 Baseline creatinine ranges between 1.36 and 1.55. Hyperlipidemia Hypertension Second degree heart block by electrocardiogram (ECG) Type 2 diabetes mellitus Surgical History Surgical History History of appendectomy History of surgery on upper extremity Open reduction internal fixation of left upper extremity fracture. Family History Family History Grandparent Diabetes mellitus Hypertension Asthma Cerebrovascular accident Family history of coronary artery disease Mother Hypertension Family history of cardiovascular disease Family history of lymphoma Family history of rheumatic fever Father Family history of throat cancer Other Family history of alcoholism Family history of mental disorder Social History Social History Social History: Surrogate medical decision maker: Antonia Wilson, spouse. Code status: Full code. Smoking packs per day: 1 Smoking cigarettes per day: 20.0 Years smoked: 15 Smoking pack-years: 15.00 Smoking status: Never smoker Tobacco type: cigarettes Second hand tobacco smoke exposure: Yes Smoking end date: 02/21/77 Alcohol intake: never Substance use: current Substance use type: marijuana Other substance usage details: Smokes marijuana kierra
[2022-11-02 12:45] VITALS: BP 161/88; PULSE 83; RESP 18; TEMP 36.7; O2SAT 100; BMI 19.3
[2022-11-02] MEDS: LACTATED RINGERS 1,000 ML 150 ML IV CONT (13:15)
[2022-11-02 13:18] LABS: Glucose Point of Care 206 mg/dl (65-105)
--- NOTE | 2022-11-02 13:45 | WPDHPUPDATE1 ---
History and Physical Update Update Date/Time: 11/02/22 13:45 History and Physical has been reviewed, including an updated exam of the patient. There are NO changes in the patient's condition. Risks, benefits, and alternatives have been discussed and questions answered. Patient agrees to proceed with procedure.
--- NOTE | 2022-11-02 15:09 | SUR.OPER ---
EGD START 1442, END 1445 COLONOSCOPY START 1451, END 1509
[2022-11-02 15:16] VITALS: BP 126/86; PULSE 64; RESP 21; O2SAT 98
[2022-11-02 15:26] VITALS: BP 111/89; PULSE 66; RESP 18; O2SAT 99
[2022-11-02 15:36] VITALS: BP 113/69; PULSE 66; RESP 17; O2SAT 99
[2022-11-02 16:07] LABS: Basophils Absolute Auto 0.1 K/mm3 (0.0-0.1); Basophils Percent Auto 0.4 % (0.2-1.2); Eosinophils Percent Auto 0.1 % (0-4.4); Hematocrit 32.2 % (42.0-52.0); Hemoglobin 9.2 g/dL (14.0-18.0); Immature Granulocyte Absolute 0.08 K/mm3 (0.00-0.031); Immature Granulocyte Percent A 0.5 % (0-0.5); Lymphocytes Absolute Auto 1.09 K/mm3 (0.9-3.2); Lymphocytes Percent Auto 7.5 % (18.3-44.2); Mean Corpuscular HGB Conc 28.6 g/dl (32-36); Mean Corpuscular Hemoglobin 21.7 pg (26-34); Mean Corpuscular Volume 75.9 fl (80-100); Mean Platelet Volume 9.3 fl (7.4-10.4); Monocytes Absolute Auto 1.2 K/mm3 (0.1-0.6); Monocytes Percent Auto 7.9 % (2.6-8.5); Neutrophils Absolute Auto 12.2 K/mm3 (1.3-6.7); Neutrophils Percent Auto 83.6 % (45.5-73.1); Platelet Count Result 425 k/mm3 (150-375); Red Blood Count 4.24 M/mm3 (4.6-6.20); Red Cell Distribution Width 27.4 % (11.5-14.5); White Blood Count 14.6 K/mm3 (4.5-10.0)
[2022-11-02 16:18] LABS: Alanine Aminotransferase 15 U/L (6-50); Albumin Level 3.9 g/dL (3.5-5.1); Alkaline Phosphatase 80 U/L (38-126); Aspartate Amino Transferase 25 U/L (17-59); Bilirubin,Total 0.4 mg/dL (0.2-1.3)
[2022-11-02 16:39] LABS: Platelet Estimate Increased (Adequate)
[2022-11-02 16:40] LABS: Hypochromasia 1+ (NORMAL); Schistocytes None Seen (NORMAL)
[2022-11-02 16:41] LABS: Anisocytosis 3+ (NORMAL)
[2022-11-02 16:50] LABS: Carcinoembryonic Antigen 69.1 ng/mL (0.0-3.0)
== END 2022-11-02 16:16 | disposition home or self-care (01) ==
PROVIDERS: PCP Family Medicine; Visit Provider Internal Medicine Gastroenterology
PROC: 0DJ08ZZ Inspection of Upper Intestinal Tract, Via Natural or Artificial Opening Endoscopic (ICD-10-PCS; CPT 43235; principal; 2022-11-02 14:15)
DX: C18.0 Malignant neoplasm of cecum (principal); K64.8 Other hemorrhoids; D12.5 Benign neoplasm of sigmoid colon; D50.9 Iron deficiency anemia, unspecified; I12.9 Hypertensive chronic kidney disease with stage 1 through stage 4 chronic kidney disease, or unspecified chronic kidney disease; E11.22 Type 2 diabetes mellitus with diabetic chronic kidney disease; N18.30 Chronic kidney disease, stage 3 unspecified; E78.5 Hyperlipidemia, unspecified; F41.9 Anxiety disorder, unspecified; I44.1 Atrioventricular block, second degree; Z79.84 Long term (current) use of oral hypoglycemic drugs; Z79.51 Long term (current) use of inhaled steroids; Z87.891 Personal history of nicotine dependence; F12.90 Cannabis use, unspecified, uncomplicated
CPT/HCPCS: 45380; 45385; 43239; 36415; 80076; 82378; 82948; 85025; 88305; J2704; J7120

== ENCOUNTER 2022-11-04 12:42 | Emergency (ER) | payer MEDICARE, SELFPAY ==
[2022-11-04 13:18] VITALS: BP 178/86; PULSE 87; RESP 18; TEMP 36.2; O2SAT 99
[2022-11-04 13:30] LABS: Basophils Percent Auto 0.2 % (0.2-1.2); Hematocrit 31.6 % (42.0-52.0); Hemoglobin 9.2 g/dL (14.0-18.0); Immature Granulocyte Absolute 0.08 K/mm3 (0.00-0.031); Immature Granulocyte Percent A 0.5 % (0-0.5); Lymphocytes Absolute Auto 0.54 K/mm3 (0.9-3.2); Lymphocytes Percent Auto 3.2 % (18.3-44.2); Mean Corpuscular HGB Conc 29.1 g/dl (32-36); Mean Corpuscular Hemoglobin 21.8 pg (26-34); Mean Corpuscular Volume 74.9 fl (80-100); Mean Platelet Volume 9.3 fl (7.4-10.4); Monocytes Absolute Auto 0.7 K/mm3 (0.1-0.6); Monocytes Percent Auto 4.1 % (2.6-8.5); Neutrophils Absolute Auto 15.8 K/mm3 (1.3-6.7); Platelet Count Result 451 k/mm3 (150-375); Red Blood Count 4.22 M/mm3 (4.6-6.20); Red Cell Distribution Width 26.7 % (11.5-14.5); White Blood Count 17.1 K/mm3 (4.5-10.0)
[2022-11-04 13:42] LABS: Alanine Aminotransferase 16 U/L (6-50); Albumin Level 3.9 g/dL (3.5-5.1); Alkaline Phosphatase 82 U/L (38-126); Anion Gap 13 mmol/L (8-16); Aspartate Amino Transferase 26 U/L (17-59); Bilirubin,Total 0.4 mg/dL (0.2-1.3); Blood Urea Nitrogen 30 mg/dL (9-20); Calcium 9.7 mg/dL (8.4-10.2); Carbon Dioxide 27 mmol/L (22-30); Chloride 98 mmol/L (98-107); Estimated CRCL calculation 30 ml/min; Estimated Glomerular Filt Rate 40; Glucose 239 mg/dL (65-110); Potassium 3.5 mmol/L (3.4-5.0); Sodium 138 mmol/L (137-145)
[2022-11-04 13:45] LABS: INR 1.1; Prothrombin Time 14.7 Seconds (11.1-14.7)
[2022-11-04 13:46] LABS: Partial Thromboplastin Time 36.3 SECONDS (22.3-36.8)
[2022-11-04 13:48] LABS: Hypochromasia 2+ (NORMAL); Platelet Estimate Increased (Adequate)
[2022-11-04 13:49] LABS: Anisocytosis 2+ (NORMAL); Ovalocytes 1+ (NORMAL); Schistocytes None Seen (NORMAL); Target Cells 2+ (NORMAL)
--- NOTE | 2022-11-04 15:50 | PC.NURSE ---
pt up to desk stating he is going to go home. pt on phone talking with pmds office who suggests pt stays for workup. pt threatening to fadi office. pt asks to be direct admit and office denied request. iv lock discontinued and pt left without being seen by provider
== END 2022-11-04 17:17 | disposition left against medical advice (07) ==
LOC: ANHED 16:12
PROVIDERS: Emergency Provider Emergency Medicine; PCP Family Medicine
DX: D64.9 Anemia, unspecified (principal)
CPT/HCPCS: 36415; 80053; 85025; 85610; 85730; 86850; 86900; 86901; 99199

== ENCOUNTER 2022-11-04 16:51 | Emergency (ER) | payer MEDICARE, SELFPAY ==
--- NOTE | ~2022-11-04 | CT_ITS ---
EXAMINATION: CT abdomen pelvis wo con DATE: 11/04/2022 17:56 INDICATION: Nausea TECHNIQUE: Computed tomography (CT) of the abdomen and pelvis was performed without intravenous contr ast. The dose-length product (DLP) was 249.05 mGy-cm. Automated exposure control and iterative recons truction technique were employed. COMPARISON: 12/20/2015 FINDINGS: There is mild emphysema. Cardiomegaly is noted. There are old bilateral rib fractures, some of which demonstrate nonunion. The liver, spleen, pancreas, gallbladder are normal. There is chronic thickening of the adrenal glands. The kidneys are unremarkable. No pathologically enlarged abdominal or pelvic lymph nodes are identified. There is calcified atherosclerosis of the aorta and many of th e other arteries. There appears to be wall thickening in the cecum. The appendix is not definitely id entified. No free intraperitoneal gas or evidence of bowel obstruction. IMPRESSION: 1. Wall thickening of the cecum which could reflect colitis however there is concern for underlying m ass. Recommend correlation for right lower quadrant tenderness and correlate with colonoscopy history . Consider direct visualization. Reviewed, dictated and finalized at location F. IMPRESSION: 1. Wall thickening of the cecum which could reflect colitis however there is co ncern for underlying mass. Recommend correlation for right lower quadrant tende rness and correlate with colonoscopy history. Consider direct visualization.
[2022-11-04 17:09] VITALS: BP 156/90; PULSE 76; TEMP 36.3; O2SAT 98
--- NOTE | 2022-11-04 18:49 | ED.RECABL ---
HPI - Recheck/Abnormal Lab/Rx General Chief Complaint: Recheck/Abnormal Lab/Rx Stated Complaint: abnormal labs Time Seen by Provider: 11/04/22 17:07 Source: patient and family Mode of arrival: ambulatory Limitations: no limitations History of Present Illness HPI narrative: this is a 72-year-old gentleman that presents with his after they were told that he is anemic and he should follow up in the ER as records show that he was in the hospital in mid September with a hemoglobin of 6 and was discharged with iron and over the past several days with blood draws his hemoglobin has been 9 and 31 respectively. Otherwise there is no abdominal pain no chest pain no fever chills no nausea vomiting no diarrhea constipation. The patient requested a CT scan without contrast since he has kidney disease and was told that there is a schedule CT scan to be performed on Tuesday and that can do it earlier today. There is no flank pain no hematuria no dysuria. Related Data Home Medications Medication Instructions Recorded Confirmed bupropion HCl 300 mg 24 hr tablet, 300 mg PO QAM 04/16/19 11/02/22 extended release lamotrigine 100 mg tablet 100 mg PO HS 04/16/19 11/02/22 paroxetine HCl 10 mg tablet 10 mg PO DAILY 04/16/19 11/02/22 paroxetine HCl 40 mg tablet 40 mg PO DAILY 04/16/19 11/02/22 prazosin 1 mg capsule 1 mg PO .QHS 04/16/19 11/02/22 sitagliptin phosphate 100 mg 50 mg PO DAILY 10/07/22 11/02/22 tablet (Januvia) Allergies Allergy/AdvReac Type Severity Reaction Status Date / Time No Known Allergies Allergy Verified 11/02/22 12:55 Review of Systems Review of Systems: All systems reviewed & are unremarkable except as noted in HPI and below PMFSH Past Medical History Medical History Anxiety Chronic kidney disease, stage 3 Baseline creatinine ranges between 1.36 and 1.55. Hyperlipidemia Hypertension Second degree heart block by electrocardiogram (ECG) Type 2 diabetes mellitus Surgical History Surgical History History of appendectomy History of surgery on upper extremity Open reduction internal fixation of left upper extremity fracture. Family History Family History Grandparent Diabetes mellitus Hypertension Asthma Cerebrovascular accident Family history of coronary artery disease Mother Hypertension Family history of cardiovascular disease Family history of lymphoma Family history of rheumatic fever Father Family history of throat cancer Other Family history of alcoholism Family history of mental disorder Social History Social History Social History: Surrogate medical decision maker: Antonia Wilson, spouse. Code status: Full code. Smoking packs per day: 1 Smoking cigarettes per day: 20.0 Years smoked: 15 Smoking pack-years: 15.00 Smoking status: Never smoker Tobacco type: cigarettes Second hand tobacco smoke exposure: Yes Smoking end date: 02/21/77 Alcohol intake: never Substance use: current Substance use type: marijuana Other substance usage details: Smokes marijuana daily. Last use: Yesterday PM. Lack of Transportation: No Lack of Food: Never True Current Housing: I Have Housing Concerned About Future Housing: No Difficulty Paying Gas/Electric Bills: No Difficulty Paying for Meds: No Currently Unemployed: No Education: High School Diploma/GED Difficulty w/ Childcare or Family Care: No Living arrangements: with family Additional living arrangements comments: Lives with spouse in [place]. 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
[2022-11-04 19:05] VITALS: BP 198/80; PULSE 64; RESP 18; TEMP 36.9; O2SAT 97
== END 2022-11-04 19:13 | disposition home or self-care (01) ==
PROVIDERS: Emergency Provider Emergency Medicine; PCP Family Medicine
DX: D50.9 Iron deficiency anemia, unspecified (principal); K63.89 Other specified diseases of intestine; I12.9 Hypertensive chronic kidney disease with stage 1 through stage 4 chronic kidney disease, or unspecified chronic kidney disease; E11.22 Type 2 diabetes mellitus with diabetic chronic kidney disease; N18.30 Chronic kidney disease, stage 3 unspecified; F41.9 Anxiety disorder, unspecified; E78.5 Hyperlipidemia, unspecified; F17.210 Nicotine dependence, cigarettes, uncomplicated; Z79.899 Other long term (current) drug therapy
CPT/HCPCS: 74176; 99284

== ENCOUNTER 2022-11-29 09:40 | Outpatient (CLI) | payer MEDICARE, SELFPAY ==
[2022-11-29 11:02] LABS: Hematocrit 29.2 % (42.0-52.0); Hemoglobin 8.5 g/dL (14.0-18.0)
[2022-11-29 11:11] LABS: Anion Gap 9 mmol/L (8-16); Blood Urea Nitrogen 28 mg/dL (9-20); Carbon Dioxide 28 mmol/L (22-30); Chloride 100 mmol/L (98-107); Estimated Glomerular Filt Rate 50; Glucose 217 mg/dL (65-110); Sodium 137 mmol/L (137-145)
== END 2022-11-29 09:41 | disposition home or self-care (01) ==
LOC: ANHSURGERY 09:44
PROVIDERS: Anesthesiology; PCP Family Medicine; Visit Provider Surgery
DX: Z01.818 Encounter for other preprocedural examination (principal); E11.9 Type 2 diabetes mellitus without complications; D50.9 Iron deficiency anemia, unspecified
CPT/HCPCS: 36415; 80048; 85014; 85018

== ENCOUNTER 2022-12-03 03:03 | Day surgery (SDC) | payer MEDICARE, SELFPAY ==
[2022-12-02 16:45] VITALS: BMI 22.8
[2022-12-03] VITALS (9 sets, daily range): BP systolic 155–178; BP diastolic 66–103; PULSE 37–84; RESP 12–23; TEMP 36.3–37; O2SAT 95–98; BMI 20.9; BMI 21.7
--- NOTE | ~2022-12-03 | XR_ITS ---
XR chest 1V portable 12/03/2022 15:18 Indication: Pacemaker insertion Procedure: AP portable chest Comparison: 10/07/2022 Findings: Heart size upper normal. Interval placement of sequential pacemaker leads, tips in the righ t atrium and right ventricle respectively. Mild interstitial edema. No significant effusion. No pneum othorax. There are old healed scapular fractures. Impression: 1: Mild interstitial edema. Reviewed, dictated and finalized at location A. Impression: 1: Mild interstitial edema.
--- NOTE | 2022-12-03 11:30 | ECG_ITS ---
Measurements Intervals [place] Rate: 41 P: [place]: 0 QRS: 51 QRSD: 94 T: 34 QT: 468 QTc: 387 Interpretive Statements COMPLETE HEART BLOCK ABNORMAL ECG Electronically Signed On 12-03-2022 14:07:46 CDT by Nahid Bruce M.D.
[2022-12-03 12:20] LABS: Basophils Absolute Auto 0.1 K/mm3 (0.0-0.1); Basophils Percent Auto 0.7 % (0.2-1.2); Eosinophils Absolute Auto 0.1 K/mm3 (0-0.3); Eosinophils Percent Auto 0.5 % (0-4.4); Hematocrit 33.2 % (42.0-52.0); Hemoglobin 9.5 g/dL (14.0-18.0); Immature Granulocyte Percent A 0.8 % (0-0.5); Lymphocytes Absolute Auto 0.91 K/mm3 (0.9-3.2); Lymphocytes Percent Auto 7.4 % (18.3-44.2); Mean Corpuscular HGB Conc 28.6 g/dl (32-36); Mean Corpuscular Hemoglobin 22.8 pg (26-34); Mean Corpuscular Volume 79.6 fl (80-100); Mean Platelet Volume 9.7 fl (7.4-10.4); Monocytes Absolute Auto 0.7 K/mm3 (0.1-0.6); Monocytes Percent Auto 5.5 % (2.6-8.5); Neutrophils Absolute Auto 10.4 K/mm3 (1.3-6.7); Neutrophils Percent Auto 85.1 % (45.5-73.1); Platelet Count Result 505 k/mm3 (150-375); Red Blood Count 4.17 M/mm3 (4.6-6.20); Red Cell Distribution Width 25.3 % (11.5-14.5); White Blood Count 12.3 K/mm3 (4.5-10.0)
[2022-12-03 12:26] LABS: Anion Gap 12 mmol/L (8-16); Blood Urea Nitrogen 27 mg/dL (9-20); Calcium 9.6 mg/dL (8.4-10.2); Carbon Dioxide 30 mmol/L (22-30); Chloride 98 mmol/L (98-107); Estimated CRCL calculation 39 ml/min; Estimated Glomerular Filt Rate 54; Glucose 146 mg/dL (65-110); Potassium 3.5 mmol/L (3.4-5.0); Sodium 140 mmol/L (137-145)
[2022-12-03 12:27] LABS: Prothrombin Time 13.8 Seconds (11.1-14.7)
[2022-12-03 12:47] LABS: Anisocytosis 1+ (NORMAL); Hypochromasia 2+ (NORMAL); Platelet Estimate Increased (Adequate); Schistocytes None Seen (NORMAL)
--- NOTE | 2022-12-03 13:16 | HP_ITS ---
This report was moved to the correct visit on 12/14/2022. Original report was signed by Nguyễn Arias MD on 12/03/22 1317. Moderate Sedation Note-Pt Data Patient Data Diagnosis: high-grade AV block including third-degree heart block Present Complaint: generalized fatigue Procedure to be performed/Plan: implantation of permanent dual-chamber pacemaker Allergies Allergy/AdvReac Type Severity Reaction Status Date / Time No Known Allergies Allergy Verified 12/03/22 11:32 Home Medications Medication Instructions Recorded Confirmed Type bupropion HCl 300 mg 24 hr tablet, 300 mg PO QAM 04/16/19 12/02/22 History extended release lamotrigine 100 mg tablet 100 mg PO HS 04/16/19 12/02/22 History paroxetine HCl 10 mg tablet 10 mg PO DAILY 04/16/19 12/02/22 History paroxetine HCl 40 mg tablet 40 mg PO DAILY 04/16/19 12/02/22 History prazosin 1 mg capsule 1 mg PO .QHS PTSD 04/16/19 12/02/22 History blood-glucose meter (OneTouch See Rx Instructions .Route 08/18/20 12/02/22 Rx Verio Reflect Meter) .COMPLEX #1 ea lancets 33 gauge (OneTouch Delica See Rx Instructions .Route 11/21/20 12/02/22 Rx Plus Lancet) .COMPLEX #100 ea blood sugar diagnostic (OneTouch See Rx Instructions .Route 06/26/21 12/02/22 Rx Verio test strips) .COMPLEX #100 strips sitagliptin phosphate 100 mg 100 mg PO DAILY 10/07/22 12/02/22 History tablet (Januvia) albuterol sulfate 90 mcg/actuation 2 puff inhalation QID PRN 10/09/22 12/02/22 Rx aerosol inhaler shortness of breath or wheezing #8.5 grams baclofen 10 mg tablet 10 mg PO QHS #90 tabs 10/19/22 12/02/22 Rx ciprofloxacin HCl 500 mg tablet 500 mg PO .COMPLEX #1 tablet 11/22/22 12/02/22 Rx metronidazole 500 mg tablet 500 mg PO .COMPLEX #3 tabs 11/22/22 12/02/22 Rx ferrous sulfate 325 mg (65 mg 325 mg PO BID #60 tabs 12/01/22 12/02/22 Rx iron) tablet (Iron (ferrous sulfate)) indapamide 2.5 mg tablet 2.5 mg PO DAILY 12/02/22 12/02/22 History lisinopril 40 mg tablet 40 mg PO QHS 12/02/22 12/02/22 History metformin 500 mg tablet,extended 2,000 mg PO QACDINNER 12/02/22 12/02/22 History release 24 hr simvastatin 40 mg tablet 40 mg PO DAILY 12/02/22 12/02/22 History Sedation/Anesthesia: No previous sedation/anesthesia problems (including family history). [facility] Past Medical History Medical History (Updated 11/24/22 @ 11:17 by Lenin Petersen DO) Anxiety Chronic kidney disease, stage 3 Baseline creatinine ranges between 1.36 and 1.55. Hepatitis History of blood transfusion Hyperlipidemia Hypertension Second degree heart block by electrocardiogram (ECG) Type 2 diabetes mellitus Surgical History Surgical History History of appendectomy History of surgery on upper extremity Open reduction internal fixation of left upper extremity fracture. Family History Family History Grandparent Diabetes mellitus Hypertension Asthma Cerebrovascular accident Family history of coronary artery disease Mother Hypertension Family history of cardiovascular disease Family history of lymphoma Family history of rheumatic fever Father Family history of throat cancer Other Family history of alcoholism Family history of mental disorder Social History Social History Social History: Surrogate medical decision maker: Antonia Wilson, spouse. Code status: Full
--- NOTE | 2022-12-03 14:20 | ECG_ITS ---
Measurements Intervals [place] Rate: 78 P: 61 [place]: 210 QRS: -64 QRSD: 192 T: 92 QT: 470 QTc: 538 Interpretive Statements ELECTRONIC VENTRICULAR PACEMAKER Electronically Signed On 12-04-2022 17:07:57 CDT by Parrish Georges M.D.
--- NOTE | 2022-12-03 14:24 | WPDCARDPROC ---
Cardiac Cath Procedure Note Date of procedure:: 12/03/22 Performing physician:: Nguyễn Arias MD Indication:: high-grade AV block including complete heart block Brief clinical history:: this is a 72-year-old man with a previous history of second-degree AV block which has been asymptomatic. As an outpatient he is found to have developed high-grade AV block including evidence of complete heart block. He has not had a syncopal episode. His principal comorbidity is colon cancer and is anticipating colectomy later this month Procedure Procedure performed:: implantation of permanent pacemaker Sedation/Medication given:: fentanyl 50 mg Versed 2 mg Access site:: left subclavian vein Estimated blood loss:: 25 cc Procedure note:: patient was brought to the cardiac catheterization lab in the postabsorptive state where the left anterior chest wall was prepped and draped in the usual fashion. Anesthesia was provided with 1% lidocaine infiltrated locally. An incision was then made about an inch below the clavicle from the midclavicular line to the deltopectoral groove. Electrocautery was used to provide cutaneous hemostasis. Sharp and blunt dissection was used to separate the subcutaneous tissue to the level of the prepectoral fascia. A blunt dissection was used to create a pacemaker pocket inferior to the incision. Pocket was then packed with antibiotic soaked 4 x 4. Following this attention was turned to vascular access. Using 2 6 Spanish pacemaker safe sheath kits 2 separate punctures were made of the left subclavian vein and the J-tip guidewires were advanced to the level of the right atrium. The ventricular lead mentioned below was then advanced into the venous circulation. The straight stylet was removed and replaced with J-tip stylet that I for with a 3 cc syringe. Following this the lead was steered through the RV out to the pulmonary artery position. The curved stylet was replaced with a straight stylet and the lead was withdrawn and placed into the right ventricular apical position. The fixation screw was deployed and the analyzed was used to test the lead. Appropriate pacing and sensing performance was demonstrated. Following this attention was turned to the atrial lead. The 2nd 6 Spanish SafeSheath was used to advanced this lead into the venous circulation to the level of right atrium. Following this the straight stylet was withdrawn and a preformed J stylet was used to place the lead into the right atrial appendage. The fixation screw was deployed upon withdrawal of the stylet the lead tip was fixed into position. The lead was tested using the analyzer and appropriate pacing and sensing for meds was again demonstrated. A 10 volt stimulation both leads showed no evidence of extracardiac stimulation. The 2nd sheath was peeled away and the leads were secured to the base of the pocket using the suture sleeves and 2-0 silk ties. Following this the retained sponge was removed from the pocket. The leads were connected to the pacemaker generator detailed below. The entire assembly was placed into the newly created pocket. This was then closed in layers using 3-0 Vicryl in interrupted fashion for the subcutaneous tissue and 4-0 Vicryl in a running subcuticular fashion for the skin. The wound was dressed with an Aquacel dressing and a pressure dressing. Following this patient was taken to his room for post pacer implant recovery. Procedure was well tolerated and uncomplicated. Postop antibiotics and analgesics were ordered. Postop ECG and chest x-ray were also ordered. Findings:: Patient received a Biotronik dual-chamber pacemaker model Edora 8 [id number]. serial number [id number]. Device is programmed in the DDD mode lower rate limit 60 upper rate limit 120 AV delay 180/140 millisecond. The ventricular lead is a Biotronik screw-in bipolar lead model Solia S [id number]. serial number [id number]. R waves are sensed a
--- NOTE | 2022-12-03 14:30 | PC.NURSE ---
This patient, Julian Wilson, was admitted to IMU status, and placed in Intensive Care Unit-7. Patient/family oriented to hospital policies and general routines including ID bracelet, bed and alarms, visiting hours, pain management, procedures, bathroom and other care routines, personal items, smoking policy, room service/diet, and visiting hours. Valuables list has been completed. Information on how to activate the Rapid Response Team has been discussed. Patient/Family are encouraged to report perceived risks to care and to ask questions if they do not understand what they are told or what they should do.
--- NOTE | 2022-12-03 14:35 | ADMGEN ---
This patient, Julian Wilson, was admitted to Intensive Care Unit-7. Patient/family oriented to hospital policies and general routines including ID bracelet, bed and alarms, visiting hours, pain management, procedures, bathroom and other care routines, personal items, smoking policy, room service/diet, and visiting hours. Information on how to activate the Rapid Response Team has been discussed. Patient/Family are encouraged to report perceived risks to care and to ask questions if they do not understand what they are told or what they should do.
[2022-12-03] MEDS: buPROPion HCL XL (24 HR) 150 MG TABCR 300 MG PO (15:24)
[2022-12-03] MEDS: PARoxetine 20 MG TABLET 40 MG PO (15:25)
[2022-12-03] MEDS: INDAPAMIDE 2.5 MG TABLET PO (15:25)
[2022-12-03] MEDS: PARoxetine 10 MG TABLET PO (15:25)
[2022-12-03] MEDS: HYDROcodone/acetaminophen (*CRX) 5-325 MG TABLET 1 TAB PO ×2 (15:57→20:30)
[2022-12-03] MEDS: metFORMIN HCL XR 500 MG TAB.SR.24H 2000 MG PO (17:26)
[2022-12-03] MEDS: FERROUS SULFATE 325 MG TABLET DR PO (17:26)
[2022-12-03] MEDS: lamoTRIgine 100 MG TABLET PO (20:29)
[2022-12-03] MEDS: BACLOFEN 10 MG TABLET PO (20:29)
[2022-12-03] MEDS: PRAZOSIN HCL 1 MG CAPSULE PO (20:29)
[2022-12-03] MEDS: lisinopriL 20 MG TABLET 40 MG PO (20:30)
[2022-12-03] MEDS: ceFAZolin 1 GM/NS 50 ML 1 GM/50 ML BAG IVPB (20:31)
[2022-12-03 21:30] LABS: Glucose Point of Care 171 mg/dl (65-105)
[2022-12-04] VITALS (8 sets, daily range): BP systolic 121–150; BP diastolic 78–96; PULSE 74–93; RESP 16–20; TEMP 36.6–36.9; O2SAT 94–95
[2022-12-04] MEDS: ceFAZolin 1 GM/NS 50 ML 1 GM/50 ML BAG IVPB (04:51)
[2022-12-04] MEDS: HYDROcodone/acetaminophen (*CRX) 5-325 MG TABLET 1 TAB PO ×2 (04:59→11:05)
--- NOTE | 2022-12-04 05:57 | PC.NURSE ---
Patient's O2 sat down to 88-90% on room air. Having incisional pain and mild SOB with productive cough that is new. [place] given for pain. O2 applied at 2L. Moving air bilaterally with few wheezes. Will follow closely. Sat up to 92-93% on 2LNC.
[2022-12-04] MEDS: buPROPion HCL XL (24 HR) 150 MG TABCR 300 MG PO (08:20)
[2022-12-04] MEDS: PARoxetine 20 MG TABLET 40 MG PO (08:20)
[2022-12-04] MEDS: FERROUS SULFATE 325 MG TABLET DR PO (08:20)
[2022-12-04] MEDS: INDAPAMIDE 2.5 MG TABLET PO (08:21)
[2022-12-04] MEDS: PARoxetine 10 MG TABLET PO (08:21)
[2022-12-04] MEDS: SIMVASTATIN 20 MG TABLET 40 MG PO (08:21)
--- NOTE | 2022-12-04 10:53 | PM.DS ---
DS: Admitting Diagnosis Discharge Date 12/04/2022 Admitting Diagnosis Complete heart block DS: Discharge Diagnosis Discharge Diagnosis Plan Complete heart block, status post pacemaker placement DS: Summary Hospital Course Reason for hospitalization: Pacemaker placement for Bradyarrhythmia/heart block Hospital Course: 72-year-old male with av block, hypertension, diabetes mellitus. Patient underwent Biotronik dual-chamber pacemaker placement by Dr. Davis on 12/03/2022 for symptomatic complete heart block. He was observed overnight. He did reasonably well without any major postprocedural complications. On telemetry, he is in sinus rhythm. At the time of evaluation, patient was essentially asymptomatic and eager to go home. I got the message from Biotronik device after that patient has pacemaker interrogation showed appropriate device function. No pneumothorax on chest x-ray. Patient will follow-up at our clinic in 1 week for wound check. He was advised to follow-up with his primary athletics director. Patient also needs monitoring of renal function as an outpatient. He verbalized understanding with instructions. Time Spent with Patient Time attestation: Total time spent providing and/or coordinating discharge services:36 minutes Time spent: Greater than 30 minutes Exam Narrative: PHYSICAL EXAMINATION: GENERAL: Alert, oriented, no acute distress MENTAL STATUS: affect appropriate to mood EYES: Extraocular movements intact, no pallor EARS: External ears appear normal, hearing grossly normal NOSE: Normal and patent, no discharge MOUTH: Mucous membranes moist, tongue normal NECK: Supple, no JVD CHEST: Slightly diminished breath sounds HEART: Normal rate, regular rhythm/paced rhythm ABDOMEN: Soft, nontender NEUROLOGICAL: Alert, oriented, normal speech, no gross motor deficits MUSCULOSKELETAL: No major deformity, no amputation EXTREMITIES: No pedal edema, no clubbing, no cyanosis; left subclavicular pacemaker site without hematoma or bleeding SKIN: no rash on the exposed area, no cyanosis PSYCHIATRIC: Normal mood, appropriate affect DS: Data Data Completed and Pending Labs on day of discharge: Labs from last 24 hours 12/03/22 12/03/22 21:28 11:36 WBC 12.3 H RBC 4.17 L Hgb 9.5 L Hct 33.2 L MCV 79.6 L MCH 22.8 L MCHC 28.6 L RDW 25.3 H Plt Count 505 H MPV 9.7 Immature Gran % (Auto) 0.8 H Neut % (Auto) 85.1 H Lymph % (Auto) 7.4 L [place] % (Auto) 5.5 Eos % (Auto) 0.5 Baso % (Auto) 0.7 Lymph # (Auto) 0.91 [place] # (Auto) 0.7 H Eos # (Auto) 0.1 Baso # (Auto) 0.1 Abs Immat Gran (auto) 0.10 H Absolute Neuts (auto) 10.4 H Absolute Nucleated RBC 0.0 Nucleated RBC % 0.0 Platelet Estimate Increased Hypochromasia 2+ Anisocytosis 1+ Schistocytes None seen PT 13.8 INR 1.0 Sodium 140 Potassium 3.5 Chloride 98 Carbon Dioxide 30 Anion Gap 12 BUN 27 H Creatinine 1.30 Estim Creat Clear Calc 39 Estimated GFR 54 L Glucose 146 H POC Capillary Glucose 171 H Calcium 9.6 Discharge Plan Discharge Patient Disposition: Home, Self-Care Discharge Instructions: [facility] [address] [place], [place] [id number] DISCHARGE INSTRUCTIONS - POST PACEMAKER Activity 1. No driving until you are seen in the office for your incision check. 2. No lifting, pushing or pulling more than 5 pounds with affected arm for 1 MONTH 3
[2022-12-04] MEDS: FUROSEMIDE 40 MG TABLET PO (11:05)
--- NOTE | 2022-12-04 11:45 | PC.NURSE ---
Patient discharged home. Exits per wheelchair and assisted to vehicle by nursing staff. Respirations easy on room air.
== END 2022-12-04 11:45 | disposition home or self-care (01) ==
LOC: ANHCATHLAB 11:17 → ANHICU 15:04 → ANHCATHLAB 12-10 15:34 → ANHSUROVER 12-10 15:50
PROVIDERS: PCP Family Medicine; Visit Provider Specialist
PROC: 0JH606Z Insertion of Pacemaker, Dual Chamber into Chest Subcutaneous Tissue and Fascia, Open Approach (ICD-10-PCS; CPT 33208; principal; 2022-12-03 13:00)
DX: I44.2 Atrioventricular block, complete (principal); C18.9 Malignant neoplasm of colon, unspecified; D64.9 Anemia, unspecified; I10 Essential (primary) hypertension; E78.5 Hyperlipidemia, unspecified; E11.9 Type 2 diabetes mellitus without complications; Z79.84 Long term (current) use of oral hypoglycemic drugs
CPT/HCPCS: 33208; 36415; 71045; 80048; 82948; 85025; 85610; 93005; A9270; C1779; C1785; J0690; J2250; J3010; J7040

== ENCOUNTER 2022-12-07 10:12 | Outpatient (CLI) | payer MEDICARE, SELFPAY ==
[2022-12-07 10:47] LABS: Hematocrit 30.9 % (42.0-52.0); Hemoglobin 8.9 g/dL (14.0-18.0)
== END 2022-12-07 10:13 | disposition home or self-care (01) ==
PROVIDERS: PCP Family Medicine; Visit Provider Surgery
DX: D64.9 Anemia, unspecified (principal)
CPT/HCPCS: 36415; 85014; 85018

== ENCOUNTER 2022-12-10 10:27 | Inpatient (IN) | payer MEDICARE, SELFPAY ==
--- NOTE | 2022-11-29 10:24 | PC.NURSE ---
Report to the Outpatient Waiting Room, entrance under the green pavilion located off [facility], at time _0830 on date __12/10/22 . Planned Procedure Time: ___1030 . Time changes happen often and if your time is changed the preop area will call you the afternoon before. - You and your visitor will be asked to self-screen and do not enter if you have any COVID symptoms. - A mask is optional within the hospital at this time. Patients may have clear liquids (water, carbonated beverages, clear teas, apple juice) until 3 hours prior to surgery with a maximum of 20 ounces. - No food from midnight until time of surgery - Infants may have breast milk until 4 hours before surgery, formula 6 hours prior to surgery. - Children will be allowed to drink immediately following surgery. If applicable, please bring a bottle or sippy cup to assist with drinking. Juice, water, soda, and popsicles are readily available. For infants on formula, please bring formula the day of surgery. Pacifiers are allowed. Take the following medications with a SIP of water the morning of surgery: ____PAROXETINE,INHALER IF NEEDED_,BUPROPION DO NOT STOP ANY OF YOUR OTHER PRESCRIPTION MEDICATIONS PRIOR TO SURGERY ?EXCEPT THE FOLLOWING Medications to discontinue per physician NONE Date to take last dose BOWEL PREP PER DR HAKAN HICKS SHOWER DAY BEFORE SURGERY AND MORNING OF SURGERY Please no make-up, nail french, hairspray, perfume, deodorant, or body powder the day of surgery. No jewelry (including any body piercings) or valuables the day of surgery, leave them at home. Please take a shower or bath the night before, or the morning of, surgery with an antibacterial soap. Wear comfortable, loose fitting clothing. Children are encouraged to wear pajamas. - Jewelry must be removed prior to entering the operating room. Rings and piercings that are not removed may be cut off. - The hospital will not accept responsibility for valuables. - Please leave all valuables, including medications, at home the day of surgery. If you are going home after surgery, a licensed livery car driver must drive you home. - NO public transportation without another adult if you receive anesthesia. - We recommend that an adult stay with you for 24 hours following discharge. - We also recommend that you do not drive, make important decision, drink alcoholic beverages, or take any drugs that were not prescribed by your health care provider for at least 24 hours after your discharge time. For Pediatric surgeries, we recommend two adults accompany the child home. Follow any additional instructions given to you from your surgeon. If you or anyone in your household have experienced Covid symptoms in the past week, please notify your surgeon or the nurse liaison at the phone number below for possible testing. VERBAL [employer] WRIITEN instructions given to ___PATIENT AND OLIVIA and asked if any additional questions and then verbalized understanding. Patient advised to call surgeon office or pre surgery nurse liaison [phone] if any additional questions.
[2022-11-29 10:47] VITALS: BMI 21.5
[2022-11-29 12:59] VITALS: BP 182/63; PULSE 50; RESP 18; TEMP 36.8; O2SAT 99
--- NOTE | 2022-12-03 13:15 | WPDMODSED ---
Moderate Sedation Note-Pt Data Patient Data Diagnosis: high-grade AV block including third-degree heart block Present Complaint: generalized fatigue Procedure to be performed/Plan: implantation of permanent dual-chamber pacemaker Allergies Allergy/AdvReac Type Severity Reaction Status Date / Time No Known Allergies Allergy Verified 12/03/22 11:32 Home Medications Medication Instructions Recorded Confirmed Type bupropion HCl 300 mg 24 hr tablet, 300 mg PO QAM 04/16/19 12/02/22 History extended release lamotrigine 100 mg tablet 100 mg PO HS 04/16/19 12/02/22 History paroxetine HCl 10 mg tablet 10 mg PO DAILY 04/16/19 12/02/22 History paroxetine HCl 40 mg tablet 40 mg PO DAILY 04/16/19 12/02/22 History prazosin 1 mg capsule 1 mg PO .QHS PTSD 04/16/19 12/02/22 History blood-glucose meter (OneTouch See Rx Instructions .Route 08/18/20 12/02/22 Rx Verio Reflect Meter) .COMPLEX #1 ea lancets 33 gauge (OneTouch Delica See Rx Instructions .Route 11/21/20 12/02/22 Rx Plus Lancet) .COMPLEX #100 ea blood sugar diagnostic ([employer] SolutionsTouch See Rx Instructions .Route 06/26/21 12/02/22 Rx Verio test strips) .COMPLEX #100 strips sitagliptin phosphate 100 mg 100 mg PO DAILY 10/07/22 12/02/22 History tablet (Januvia) albuterol sulfate 90 mcg/actuation 2 puff inhalation QID PRN 10/09/22 12/02/22 Rx aerosol inhaler shortness of breath or wheezing #8.5 grams baclofen 10 mg tablet 10 mg PO QHS #90 tabs 10/19/22 12/02/22 Rx ciprofloxacin HCl 500 mg tablet 500 mg PO .COMPLEX #1 tablet 11/22/22 12/02/22 Rx metronidazole 500 mg tablet 500 mg PO .COMPLEX #3 tabs 11/22/22 12/02/22 Rx ferrous sulfate 325 mg (65 mg 325 mg PO BID #60 tabs 12/01/22 12/02/22 Rx iron) tablet (Iron (ferrous sulfate)) indapamide 2.5 mg tablet 2.5 mg PO DAILY 12/02/22 12/02/22 History lisinopril 40 mg tablet 40 mg PO QHS 12/02/22 12/02/22 History metformin 500 mg tablet,extended 2,000 mg PO QACDINNER 12/02/22 12/02/22 History release 24 hr simvastatin 40 mg tablet 40 mg PO DAILY 12/02/22 12/02/22 History Sedation/Anesthesia: No previous sedation/anesthesia problems (including family history). [facility] Past Medical History Medical History (Updated 11/24/22 @ 11:17 by Lenin Petersen DO) Anxiety Chronic kidney disease, stage 3 Baseline creatinine ranges between 1.36 and 1.55. Hepatitis History of blood transfusion Hyperlipidemia Hypertension Second degree heart block by electrocardiogram (ECG) Type 2 diabetes mellitus Surgical History Surgical History History of appendectomy History of surgery on upper extremity Open reduction internal fixation of left upper extremity fracture. Family History Family History Grandparent Diabetes mellitus Hypertension Asthma Cerebrovascular accident Family history of coronary artery disease Mother Hypertension Family history of cardiovascular disease Family history of lymphoma Family history of rheumatic fever Father Family history of throat cancer Other Family history of alcoholism Family history of mental disorder Social History Social History Social History: Surrogate medical decision maker: Antonia Wilson, spouse. Code status: Full code. Smoking packs per day: 1 Smoking cigarettes per day: 20.0 Years smoked: 15 Smoking pack-years: 15.00 Smoking status: Former smoker Tobacco type: cigarettes Second hand tobacco smoke exposure: Yes Smoking end date: 02/21/77 Alcohol intake: never Substance use: current Substance use type: marijuana Other substance usage details: SMOKES MARIJUANA DAILY Last use: 12/02/22 Lack of Transportation: No Lack of Food: Never True Current Housing: I Have Housing Concerned About Future Housing: No Difficulty Paying Gas/Electric Bills: No Difficulty
[2022-12-10] VITALS (14 sets, daily range): BP systolic 118–161; BP diastolic 66–99; PULSE 74–97; RESP 14–20; TEMP 36.6–37.4; O2SAT 94–100
[2022-12-10] MEDS: LACTATED RINGERS 1,000 ML 30 ML IV CONT ×2 (09:19→15:00)
[2022-12-10] MEDS: ACETAMINOPHEN 500 MG TABLET 1000 MG PO (09:24)
[2022-12-10] MEDS: KETOROLAC 15 MG/ML VIAL (*BKC) IV PUSH (09:25)
[2022-12-10 09:30] LABS: Glucose Point of Care 211 mg/dl (65-105)
--- NOTE | 2022-12-10 09:37 | WPDANESEPPF ---
Anes - Initial Pre Proc Eval Procedure: Operation Date: 12/10/22 10:30 Proposed Procedures p Robotic Assisted Right Hemicolectomy,Possible Open - Shar Martin MD Date/Time: 12/10/22 09:37 Surgeon: Shar Martin MD Pre Op Diagnosis: right colon CA Patient Data Age: 72 Gender: M Height: 1.7 m Weight: 59.5 kg Last Vital Signs Temp 36.9 C 12/10/22 08:44 Pulse 97 12/10/22 08:44 Resp 18 12/10/22 08:44 BP 161/99 H 12/10/22 08:44 Pulse Ox 98 12/10/22 08:44 O2 Del Method Room Air 12/10/22 08:44 Allergies Allergy/AdvReac Type Severity Reaction Status Date / Time No Known Allergies Allergy Verified 12/03/22 11:32 Home Medications Medication Instructions Recorded Confirmed Type bupropion HCl 300 mg 24 hr tablet, 300 mg PO QAM 04/16/19 12/10/22 History extended release lamotrigine 100 mg tablet 100 mg PO HS 04/16/19 12/10/22 History paroxetine HCl 10 mg tablet 10 mg PO DAILY 04/16/19 12/10/22 History paroxetine HCl 40 mg tablet 40 mg PO DAILY 04/16/19 12/10/22 History prazosin 1 mg capsule 1 mg PO .QHS PTSD 04/16/19 12/10/22 History blood-glucose meter (OneTouch See Rx Instructions .Route 08/18/20 12/02/22 Rx Verio Reflect Meter) .COMPLEX #1 ea lancets 33 gauge (OneTouch Delica See Rx Instructions .Route 11/21/20 12/02/22 Rx Plus Lancet) .COMPLEX #100 ea blood sugar diagnostic (OneTouch See Rx Instructions .Route 06/26/21 12/02/22 Rx Verio test strips) .COMPLEX #100 strips sitagliptin phosphate 100 mg 100 mg PO DAILY 10/07/22 12/10/22 History tablet (Januvia) albuterol sulfate 90 mcg/actuation 2 puff inhalation QID PRN 10/09/22 12/10/22 Rx aerosol inhaler shortness of breath or wheezing #8.5 grams baclofen 10 mg tablet 10 mg PO QHS #90 tabs 10/19/22 12/10/22 Rx ferrous sulfate 325 mg (65 mg 325 mg PO BID #60 tabs 12/01/22 12/02/22 Rx iron) tablet (Iron (ferrous sulfate)) indapamide 2.5 mg tablet 2.5 mg PO DAILY 12/02/22 12/02/22 History lisinopril 40 mg tablet 40 mg PO QHS 12/02/22 12/02/22 History metformin 500 mg tablet,extended 2,000 mg PO QACDINNER 12/02/22 12/02/22 History release 24 hr simvastatin 40 mg tablet 40 mg PO DAILY 12/02/22 12/02/22 History Laboratory Tests 12/10/22 09:27 POC Capillary Glucose 211 H mg/dl (65-105) Patient hx anesthesia problems: none Family hx anesthesia problems: none Results Review: All pre-operative results and documents have been reviewed as part of the pre-operative evaluation. [facility] Past Medical History Medical History Anxiety Chronic kidney disease, stage 3 Baseline creatinine ranges between 1.36 and 1.55. Hepatitis History of blood transfusion Hyperlipidemia Hypertension Second degree heart block by electrocardiogram (ECG) Type 2 diabetes mellitus Surgical History Surgical History History of appendectomy History of surgery on upper extremity Open reduction internal fixation of left upper extremity fracture. Family History Family History Grandparent Diabetes mellitus Hypertension Asthma Cerebrovascular accident Family history of coronary artery disease Mother Hypertension Family history of cardiovascular disease Family history of lymphoma Family history of rheumatic fever Father Family history of throat cancer Other Family history of alcoholism Family history of mental disorder Social History Social History Social History: Surrogate medical decision maker: Antonia Wilson, spouse. Code status: Full code. Smoking packs per day: 1 Smoking cigarettes per day: 20.0 Years smoked: 20 Smoking pack-years: 20.00 Smoking status: Former smoker Tobacco type: cigarettes Second hand tobacco smoke exposure: Yes Smoking end date: 02/21/77 Alc
--- NOTE | 2022-12-10 09:54 | WPDHPUPDATE1 ---
History and Physical Update Update Date/Time: 12/10/22 09:54 History and Physical has been reviewed, including an updated exam of the patient. There are NO changes in the patient's condition. Risks, benefits, and alternatives have been discussed and questions answered. Patient agrees to proceed with procedure. In the interim the patient has had placement of a pacemaker. He has done well with that and the wound is healing. Plan for robotic assisted laparoscopic right hemicolectomy, possible conversion open is unchanged.
[2022-12-10] MEDS: ALVIMOPAN 12 MG CAPSULE PO (10:00)
[2022-12-10] MEDS: ceFAZolin 2 GM/D5W 50 ML 2 GM/50 ML BAG IVPB (10:23)
[2022-12-10] MEDS: metroNIDAZOLE 500 MG/ISO 100ML 500 MG/100 ML BAG 100 MG IVPB (10:45)
[2022-12-10] MEDS: LIDO 1%/EPINEPHRINE 1:100,000 20 ML VIAL INFILTRATE (10:52)
--- NOTE | 2022-12-10 12:39 | SUR.OPER ---
see anesthesia record for IV ICG Dye use.
[2022-12-10] MEDS: ceFAZolin SODIUM 1 GM VIAL 2 GM IV PUSH (14:30)
--- NOTE | 2022-12-10 15:00 | SUR.OPER ---
LEFT UPPER CHEST PACEMAKER SITE DRESSING OFF AND SITE INTACT. LEFT [facility] REMAIN[facility] RIGHT CHEST SCAB REMAINED UNCHANGED.
--- NOTE | 2022-12-10 15:05 | SUR.PHASEI ---
reapplied patient's left arm immobilizer
--- NOTE | 2022-12-10 15:48 | W.PM.PROC2 ---
Procedure Note - Detailed Date of Procedure 12/10/22 Pre-op Diagnosis right colon CA Post-op Diagnosis Same Procedure Performed Robotic assisted laparoscopic right hemicolectomy with stapled intracorporeal ileocolic anastomosis Surgeon Shar Martin MD Supervisor Lump Room NINO Wilde Anesthesia General Indications patient is a 72-year-old gentleman who had a colonoscopy before because he was having bloody stools. He also had anemia. Colonoscopy revealed a large mass which was partially obstructing the cecum. Biopsy of the mass showed invasive adenocarcinoma. He presents now for resection of the tumor via body assisted laparoscopic approach. Findings The patient had a large tumor in the cecum which had a portion of the omentum fixed to the cecum. There is no fixation of the cecum to the lateral abdominal wall. No obvious metastatic implants were seen on the peritoneum and no masses were seen on the surface of the liver. There is no evidence of bowel obstruction. No masses were seen in the mesentery. Description of Procedure After informed consent was obtained patient brought to the operating room was placed supine position and general endotracheal anesthesia was administered. A Fox catheter was placed decompress the bladder and orogastric tube was placed decompress the stomach. The abdomen was then prepped and draped in usual sterile fashion. I 1st started by performing a time-out in which the the patient's name and procedure were confirmed and he was verified to be given some perioperative IV antibiotics. I then entered the abdomen left upper quadrant utilizing a 5mm Optiview port. Once inside the abdomen insufflated to adequate pneumoperitoneum [id number] of CO2. I then advanced additional robotic trocar ports into the abdomen under direct visualization on the patient's left side. I visualized the quadrant the abdomen and there were no adhesions of the bowel to the abdominal wall. A portion of the omentum was densely adherent to the cecum and there was a large tumor within the cecum. Cecum was mobile aside from the lateral peritoneal attachments and there is no evidence of direct extension of tumor into the lateral abdominal sidewall. However there was changes in the serosa suggestive of extension of the tumor at least into the serosa. I then proceeded to nookedi robot brought to the patient's bedside and then the robot was docked and the robotic arms attached the robotic ports. Robotic instruments were then advanced into the abdomen. Utilizing the vessel sealer I then proceeded to perform a robotic assisted laparoscopic right hemicolectomy with EN bloc resection of a portion of the omentum which was adherent to the cecum. The vessel sealer was used to divide the omentum or appeared normal leaving the portion attached to the cecum that could be involved with tumor extension through the wall of the colon. Once this was done the omentum was then reflected cephalad over the transverse colon. I was then able to retract the cecum laterally and then exposed the ileocolic pedicle. I very carefully dissected out the ileocolic pedicle with robotic dissection and then divided the ileocolic vessels with the vessel sealer. I then dissected in retroperitoneal space taking great care to identify the 2nd portion the duodenum and keeping it free of injury. Asked identified the right ureter and it was preserved without injury as well. Dissected cephalad the retroperitoneum until I reached the hepatocolic ligament and then open window through the peritoneum worked see the right lobe of the liver. At this point I then continued dissection with the vessel sealer dividing the lateral peritoneal reflection and to the ascending colon and the cecum reflecting the bowel medially. The terminal ileum was mobilized as well utilizing the vessel sealer. Divided the mesentery to the distal terminal ileum. Also divided the mesentery and the omentum to the proximal tr
--- NOTE | 2022-12-10 16:52 | PC.NURSE ---
This patient, Julian Wilson, was admitted to Medical Room 259-. Patient/family oriented to hospital policies and general routines including ID bracelet, bed and alarms, visiting hours, pain management, procedures, bathroom and other care routines, personal items, smoking policy, room service/diet, and visiting hours. Information on how to activate the Rapid Response Team has been discussed. Patient/Family are encouraged to report perceived risks to care and to ask questions if they do not understand what they are told or what they should do.
[2022-12-10] MEDS: SODIUM CHLORIDE 0.9% IV 1,000 ML 90 ML IV CONT (17:52)
[2022-12-10] MEDS: IBUPROFEN IV 800 MG/200 ML 800 MG/200 ML BAG 400 MG IVPB (17:52)
[2022-12-10] MEDS: ceFAZolin 1 GM/NS 50 ML 1 GM/50 ML BAG IVPB (18:40)
[2022-12-10 20:33] LABS: Glucose Point of Care 308 mg/dl (65-105)
[2022-12-10] MEDS: BACLOFEN 10 MG TABLET PO (20:43)
[2022-12-10] MEDS: FAMOTIDINE 20 MG TABLET PO (20:43)
[2022-12-10] MEDS: lamoTRIgine 100 MG TABLET PO (20:43)
[2022-12-10] MEDS: PRAZOSIN HCL 1 MG CAPSULE PO (20:43)
[2022-12-10 22:29] LABS: Glucose Point of Care 255 mg/dl (65-105)
[2022-12-10] MEDS: HYDROcodone/acetaminophen (*CRX) 5-325 MG TABLET 1 TAB PO (22:33)
[2022-12-11] MEDS: IBUPROFEN IV 800 MG/200 ML 800 MG/200 ML BAG 400 MG IVPB ×3 (00:50→17:28)
[2022-12-11] MEDS: ceFAZolin 1 GM/NS 50 ML 1 GM/50 ML BAG IVPB ×3 (01:25→18:24)
[2022-12-11 03:53] VITALS: BP 105/60; PULSE 71; RESP 20; TEMP 36.6; O2SAT 98
[2022-12-11 05:47] LABS: Basophils Percent Auto 0.4 % (0.2-1.2); Eosinophils Percent Auto 0.3 % (0-4.4); Hemoglobin 7.4 g/dL (14.0-18.0); Immature Granulocyte Absolute 0.04 K/mm3 (0.00-0.031); Immature Granulocyte Percent A 0.4 % (0-0.5); Lymphocytes Absolute Auto 1.15 K/mm3 (0.9-3.2); Lymphocytes Percent Auto 12.1 % (18.3-44.2); Mean Corpuscular HGB Conc 29.6 g/dl (32-36); Mean Corpuscular Hemoglobin 23.8 pg (26-34); Mean Corpuscular Volume 80.4 fl (80-100); Mean Platelet Volume 9.4 fl (7.4-10.4); Monocytes Absolute Auto 0.8 K/mm3 (0.1-0.6); Monocytes Percent Auto 8.8 % (2.6-8.5); Neutrophils Absolute Auto 7.4 K/mm3 (1.3-6.7); Platelet Count Result 356 k/mm3 (150-375); Red Blood Count 3.11 M/mm3 (4.6-6.20); Red Cell Distribution Width 23.4 % (11.5-14.5); White Blood Count 9.5 K/mm3 (4.5-10.0)
[2022-12-11 06:10] LABS: Alanine Aminotransferase 8 U/L (6-50); Albumin Level 2.8 g/dL (3.5-5.1); Alkaline Phosphatase 56 U/L (38-126); Anion Gap 8 mmol/L (8-16); Aspartate Amino Transferase 21 U/L (17-59); Bilirubin,Total 0.2 mg/dL (0.2-1.3); Blood Urea Nitrogen 20 mg/dL (9-20); Calcium 7.6 mg/dL (8.4-10.2); Carbon Dioxide 26 mmol/L (22-30); Chloride 103 mmol/L (98-107); Estimated CRCL calculation 30 ml/min; Estimated Glomerular Filt Rate 40; Glucose 169 mg/dL (65-110); Potassium 2.8 mmol/L (3.4-5.0); Sodium 137 mmol/L (137-145)
[2022-12-11] MEDS: SODIUM CHLORIDE 0.9% IV 1,000 ML 90 ML IV CONT (06:21)
[2022-12-11] MEDS: POTASSIUM CHLORIDE 20 MEQ ER TABLET 40 MEQ PO (06:30)
[2022-12-11] MEDS: POTASSIUM CHLORIDE INJ 40 MEQ in SODIUM CHLORIDE 0.9% IV 500 ML 130 MEQ IVPB (06:40)
[2022-12-11 08:00] LABS: Glucose Point of Care 187 mg/dl (65-105)
[2022-12-11] MEDS: FAMOTIDINE 20 MG TABLET PO ×2 (08:16→20:49)
[2022-12-11] MEDS: buPROPion HCL XL (24 HR) 150 MG TABCR 300 MG PO (08:16)
[2022-12-11] MEDS: PARoxetine 20 MG TABLET 40 MG PO (08:16)
[2022-12-11] MEDS: HYDROcodone/acetaminophen (*CRX) 5-325 MG TABLET 1 TAB PO ×3 (08:17→22:16)
[2022-12-11] MEDS: PARoxetine 10 MG TABLET PO (08:17)
[2022-12-11 08:21] LABS: Magnesium 1.5 mg/dL (1.6-2.3)
--- NOTE | 2022-12-11 11:22 | PM.PNGS ---
Progress Note: A&P Assessment and Plan (1) Cancer of right colon: Code(s): C18.2 - Malignant neoplasm of ascending colon Status: Acute Assessment and Plan: Postoperative day 1., status post resection with robotic assisted laparoscopic right hemicolectomy and ileocolic anastomosis. He seems to be progressing well. Tolerated full liquids last night and this morning. Will advance him to soft low-fiber diet today. Ambulate to chair and hallways with assistance. We removed the Fox catheter today. Repeat electrolytes are pending after his magnesium and potassium boluses. Replete these as indicated. Continue supportive management. Subjective Subjective Date/Time Seen: 12/11/22 11:22 Interval history: Patient is postop day 1 after robotic assisted laparoscopic right hemicolectomy with stapled ileocolic anastomosis for large cecal invasive adenocarcinoma. Today he is doing very well. He is sitting up in the chair and pain is well controlled. Fox catheter is in place and urine output is good. Potassium was low at 2.8 today and he is receiving IV potassium bolus as well as oral potassium. Repeat potassium level is pending. Magnesium level was slightly low at 1.5 and he is receiving 1g of magnesium sulfate IV. Not passed flatus yet but feels like he might need to pass some soon. White blood cell count is normal. No fever and vital signs are stable. Exam Const: General: comfortable and no acute distress Resp: Effort & Inspection: normal respiratory effort Auscultation: clear to auscultation bilaterally Cardio: Rate: regular rate Rhythm: regular rhythm GI: Other: Abdomen is soft and nondistended. Decreased bowel sounds. Incisions are healing well without any redness or drainage. Urinary Catheter: Urinary Catheter: patent and draining and urine clear Objective Data Vital Signs Vital Signs: Vital Signs - 24 hr 12/10/22 15:00 12/10/22 15:15 12/10/22 15:24 Temperature 37.4 C Pulse Rate 76 78 Respiratory Rate 14 14 Blood Pressure 143/88 H 141/93 H Pulse Oximetry 99 100 96 Oxygen Delivery Simple Face Mask Simple Face Mask Room Air Oxygen Flow Rate 8 8 12/10/22 15:30 12/10/22 15:45 12/10/22 15:58 Temperature Pulse Rate 79 76 79 Respiratory Rate 14 16 14 Blood Pressure 151/93 H 138/83 148/89 H Pulse Oximetry 95 95 96 Oxygen Delivery Room Air Room Air Room Air Oxygen Flow Rate 12/10/22 16:13 12/10/22 16:35 12/10/22 16:50 Temperature 36.8 C 36.7 C Pulse Rate 78 74 75 Respiratory Rate 18 16 16 Blood Pressure 141/85 H 136/80 142/84 H Pulse Oximetry 94 96 97 Oxygen Delivery Room Air Oxygen Flow Rate 12/10/22 17:20 12/10/22 18:20 12/10/22 20:00 Temperature 36.6 C 36.9 C 36.6 C Pulse Rate 87 82 78 Respiratory Rate 16 17 18 Blood Pressure 134/76 130/67 144/84 H Pulse Oximetry 97 98 98 Oxygen Delivery Oxygen Flow Rate 12/10/22 23:53 12/11/22 03:53 12/11/22 08:12 Temperature 36.6 C 36.6 C Pulse Rate 83 71 Respiratory Rate 20 20 Blood Pressure 118/66 105/60 Pulse Oximetry 97 98 Oxygen Delivery Room Air Oxygen Flow Rate Intake/Output Intake/Output: Intake & Output 12/08/22 12/09/22 12/10/22 12/11/22 23:59 23:59 23:59 23:59 Intake Total 960 1450 Output Total 300 Balance 960 1150 Meds/Results Medications: Active Medications Generic Name Dose Route Start Last Admin Trade Name Freq PRN Reason Stop Dose Admin Hydrocodone Bitart/Acetaminophen 1 tab 12/10/22 16:17 12/11/22 08:17 Hydrocodone/Acetaminophen (*Crx) 5-325 Mg Tablet PO 1 tab Q4H PRN Administration Pain Rated 4-6 Albuterol 2 puff 12/10/22 16:17 Albuterol Sulfate (*Sp) Aerosol 1 Puff INHALATION QID PRN shortness of breath or wheezing Baclofen 10 mg 12/10/22 21:00 12/10/22 20:43 Baclofen 10 Mg Tablet PO 10 mg QHS SUMANTH Administration Bupropion HCl 300 mg 12/11/22 09:00 12/11/22 08:16 Bupropion Hcl Xl
[2022-12-11] MEDS: MAGNESIUM SULF 1 GM/D5W 100 ML 1 GM/100 ML BAG IVPB (12:01)
[2022-12-11 12:25] LABS: Glucose Point of Care 293 mg/dl (65-105)
[2022-12-11 15:53] VITALS: BP 154/83; PULSE 82; RESP 16; TEMP 36.5; O2SAT 100
[2022-12-11 17:00] LABS: Glucose Point of Care 223 mg/dl (65-105)
[2022-12-11] MEDS: metFORMIN HCL XR 500 MG TAB.SR.24H 2000 MG PO (17:27)
[2022-12-11 19:53] VITALS: BP 150/88; PULSE 81; RESP 16; TEMP 36.5; O2SAT 100
[2022-12-11 20:00] VITALS: PULSE 78; RESP 16; O2SAT 99
[2022-12-11] MEDS: SODIUM CHLORIDE 0.9% IV 1,000 ML 60 ML IV CONT (20:48)
[2022-12-11] MEDS: lamoTRIgine 100 MG TABLET PO (20:49)
[2022-12-11] MEDS: PRAZOSIN HCL 1 MG CAPSULE PO (20:49)
[2022-12-11] MEDS: BACLOFEN 10 MG TABLET PO (20:49)
[2022-12-11 20:52] LABS: Glucose Point of Care 246 mg/dl (65-105)
[2022-12-12] MEDS: IBUPROFEN IV 800 MG/200 ML 800 MG/200 ML BAG 400 MG IVPB ×2 (01:45→09:46)
[2022-12-12] MEDS: ceFAZolin 1 GM/NS 50 ML 1 GM/50 ML BAG IVPB ×2 (01:46→10:24)
[2022-12-12 05:32] LABS: Basophils Absolute Auto 0.1 K/mm3 (0.0-0.1); Basophils Percent Auto 0.4 % (0.2-1.2); Eosinophils Absolute Auto 0.1 K/mm3 (0-0.3); Eosinophils Percent Auto 0.7 % (0-4.4); Hematocrit 26.4 % (42.0-52.0); Hemoglobin 7.6 g/dL (14.0-18.0); Immature Granulocyte Absolute 0.08 K/mm3 (0.00-0.031); Immature Granulocyte Percent A 0.7 % (0-0.5); Lymphocytes Absolute Auto 0.99 K/mm3 (0.9-3.2); Lymphocytes Percent Auto 8.5 % (18.3-44.2); Mean Corpuscular HGB Conc 28.8 g/dl (32-36); Mean Corpuscular Hemoglobin 23.4 pg (26-34); Mean Corpuscular Volume 81.2 fl (80-100); Mean Platelet Volume 9.5 fl (7.4-10.4); Monocytes Absolute Auto 0.8 K/mm3 (0.1-0.6); Monocytes Percent Auto 6.4 % (2.6-8.5); Neutrophils Absolute Auto 9.7 K/mm3 (1.3-6.7); Neutrophils Percent Auto 83.3 % (45.5-73.1); Platelet Count Result 357 k/mm3 (150-375); Red Blood Count 3.25 M/mm3 (4.6-6.20); White Blood Count 11.7 K/mm3 (4.5-10.0)
[2022-12-12 05:37] VITALS: BP 121/66; PULSE 100; RESP 16; TEMP 36.4; O2SAT 93
[2022-12-12 05:42] LABS: Anion Gap 7 mmol/L (8-16); Blood Urea Nitrogen 21 mg/dL (9-20); Carbon Dioxide 23 mmol/L (22-30); Chloride 106 mmol/L (98-107); Estimated CRCL calculation 30 ml/min; Estimated Glomerular Filt Rate 40; Glucose 159 mg/dL (65-110); Magnesium 1.7 mg/dL (1.6-2.3); Potassium 3.4 mmol/L (3.4-5.0); Sodium 136 mmol/L (137-145)
[2022-12-12 05:52] LABS: Platelet Estimate Adequate (Adequate)
[2022-12-12 05:53] LABS: Hypochromasia 1+ (NORMAL)
[2022-12-12 05:54] LABS: Anisocytosis 2+ (NORMAL); Schistocytes Rare (NORMAL)
[2022-12-12 08:04] LABS: Glucose Point of Care 174 mg/dl (65-105)
[2022-12-12] MEDS: buPROPion HCL XL (24 HR) 150 MG TABCR 300 MG PO (08:40)
[2022-12-12] MEDS: FAMOTIDINE 20 MG TABLET PO (08:40)
[2022-12-12] MEDS: PARoxetine 20 MG TABLET 40 MG PO (08:41)
[2022-12-12] MEDS: PARoxetine 10 MG TABLET PO (08:41)
[2022-12-12] MEDS: HYDROcodone/acetaminophen (*CRX) 5-325 MG TABLET 1 TAB PO (08:42)
--- NOTE | 2022-12-12 10:41 | PM.PNGS ---
Progress Note: A&P Assessment and Plan (1) Cancer of right colon: Code(s): C18.2 - Malignant neoplasm of ascending colon Status: Acute Assessment and Plan: Status post resection of cecal cancer with robotic assisted laparoscopic right hemicolectomy. He is doing very well and bowel function has returned. Will Hep-Lock his IV fluids and keep him on low-fiber diet. There may be a small amount of cellulitis to the extraction site. Keep him on some Keflex. Will stop his IV ibuprofen relying mostly on oral Tylenol for pain. He continues to do well with the rest the day he potentially could be discharged later today this evening. Subjective Subjective Date/Time Seen: 12/12/22 10:41 Interval history: Patient is doing very well this morning. He has postoperative day 2 after a robotic assisted laparoscopic right hemicolectomy with ileocolic anastomosis for cecal cancer. He has had multiple bowel movements since last evening which had been loose. He has tolerated low-fiber diet without nausea. White blood cell count did elevate to 10,100 today. He has been afebrile. Exam GI: Other: Abdomen is soft and minimally distended. Although left-sided port sites are healing well without any redness. The lower abdominal wall midline extraction incision has a small amount of erythema superior to the closed incision. There is no drainage. Objective Data Vital Signs Vital Signs: Vital Signs - 24 hr 12/11/22 15:53 12/11/22 19:53 12/11/22 20:00 Temperature 36.5 C 36.5 C Pulse Rate 82 81 78 Respiratory Rate 16 16 16 Blood Pressure 154/83 H 150/88 H Pulse Oximetry 100 100 99 Oxygen Delivery Room Air 12/12/22 05:37 12/12/22 08:38 Temperature 36.4 C Pulse Rate 100 Respiratory Rate 16 Blood Pressure 121/66 Pulse Oximetry 93 Oxygen Delivery Room Air Intake/Output Intake/Output: Intake & Output 12/09/22 12/10/22 12/11/22 12/12/22 23:59 23:59 23:59 23:59 Intake Total 960 4420 890 Output Total 300 Balance 960 4120 890 Meds/Results Medications: Active Medications Generic Name Dose Route Start Last Admin Trade Name Freq PRN Reason Stop Dose Admin Hydrocodone Bitart/Acetaminophen 1 tab 12/10/22 16:17 12/12/22 08:42 Hydrocodone/Acetaminophen (*Crx) 5-325 Mg Tablet PO 1 tab Q4H PRN Administration Pain Rated 4-6 Albuterol 2 puff 12/10/22 16:17 Albuterol Sulfate (*Sp) Aerosol 1 Puff INHALATION QID PRN shortness of breath or wheezing Baclofen 10 mg 12/10/22 21:00 12/11/22 20:49 Baclofen 10 Mg Tablet PO 10 mg QHS SUMANTH Administration Bupropion HCl 300 mg 12/11/22 09:00 12/12/22 08:40 Bupropion Hcl Xl (24 Hr) 150 Mg Tabcr PO 300 mg QAM SUMANTH Administration Dextrose 12.5 gm 12/10/22 15:07 Dextrose 50% 25 Gm/50 Ml Syringe IV PUSH PRN PRN Hypoglycemia Protocol Famotidine 20 mg 12/10/22 21:00 12/12/22 08:40 Famotidine 20 Mg Tablet PO 20 mg Q12HR SUMANTH Administration Glucagon 1 mg 12/10/22 15:07 Glucagon For Inj 1 Mg Vial IM PRN PRN Hypoglycemia Protocol Glucose 15 gm 12/10/22 15:07 Glucose Oral Gel 15 Gm Of Glucse In 37.5 Gm Tube PO PRN PRN Hypoglycemia Protocol Dextrose 1,000 mls @ 100 mls/hr 12/10/22 15:07 Dextrose 5% 1,000 Ml IVPB PRN PRN Hypoglycemia Protocol Cefazolin Sodium 1 gm in 50 mls @ 100 mls/hr 12/10/22 18:00 12/12/22 10:24 Ancef 1 Gm/Ns 50 Ml IVPB 100 mls/hr Q8H SUMANTH Administration Sodium Chloride 1,000 mls @ 60 mls/hr 12/10/22 15:15 12/11/22 20:48 Normal Saline Iv IV CONT 60 mls/hr .[id number] SUMANTH Administration Ibuprofen 800 mg in 200 mls @ 400 mls/hr 12/10/22 17:00 12/12/22 10:16 Caldolor 800 Mg/200 Ml IVPB Infused Q8H SUMANTH Infusion Lamotrigine 100 mg 12/10/22 21:00 12/11/22 20:49 Lamotrigine 100 Mg Tablet PO 100 mg HS SUMANTH Administration Metformin HCl 2,000 mg 12/11/22 17:00
[2022-12-12 11:46] LABS: Glucose Point of Care 189 mg/dl (65-105)
[2022-12-12] MEDS: CEPHALEXIN 500 MG CAPSULE PO (12:24)
[2022-12-12] MEDS: POTASSIUM CHLORIDE 20 MEQ PACKET (FOR LIQUID) 40 MEQ PO (12:24)
--- NOTE | 2022-12-12 12:31 | PM.DS ---
DS: Admitting Diagnosis Discharge Date December 12, 2022 Admitting Diagnosis Invasive cecal adenocarcinoma DS: Discharge Diagnosis Discharge Diagnosis (1) Cancer of right colon: Code(s): C18.2 - Malignant neoplasm of ascending colon Status: Acute Assessment and Plan: Patient has successful robotic assisted laparoscopic right hemicolectomy with ileocolic anastomosis. Pathology is pending on the surgical specimen. He has done very well in the hospital will be discharged today. Follow-up in the office in 2 weeks. Referral to see Dr. Kolb for oncology. DS: Summary Hospital Course Reason for hospitalization: Invasive cecal adenocarcinoma Hospital Course: Patient came to [facility] on December 10, 2022 and then went to the operating room and underwent an uncomplicated robotic assisted laparoscopic right hemicolectomy with stapled ileocolic anastomosis. Postoperatively his course and recovery was uneventful needs transfer to the surgical floor for routine postoperative care. On the surgical floor he did very well and tolerated clear liquids. The next morning he was seen and was sitting up in a chair was doing very well. He is passing some flatus bed not had a bowel movement yet. No nausea. He was advanced to full liquids on postop day 1 which he tolerated well. Later in the day was advanced to a low-fiber soft diet which he again tolerated well. On postop day 2 he had bowel movements which were nonbloody and semi formed. His pain was well controlled with oral pain medications. The catheter was removed on postop day 1. He is able to urinate well. Abdominal exam revealed slight erythema just above the lower transverse extraction incision. For this reason he was placed on some oral Keflex and the Ancef was stopped. On postop day 2, he tolerated lunch and was discharged home soon after in improved condition. Status at Discharge Functional status at discharge: independent ambulation Overall status at discharge: patient is progressing back to baseline Time Spent with Patient Time attestation: Total time spent providing and/or coordinating discharge services: Time spent: Less than 30 minutes Exam Const: General: cooperative and comfortable Eyes: General: appearance normal, both eyes and all related structures Visual Meraz: normal visual meraz by confrontation Alignment and Position: alignment normal Neck: Neck: normal visual inspection and full ROM Chest: Chest palpation & inspection: normal inspection of the chest Resp: Effort & Inspection: normal respiratory effort and able to speak in complete sentences Cardio: Rate: regular rate Rhythm: regular rhythm GI: Other: Abdomen is soft and nondistended. Left-sided abdominal wall port sites healing well without redness or drainage. Low suprapubic adverse extraction site incision slight erythema in the superior part of the incision without drainage. Skin: Wounds: no wounds Neuro: General: patient oriented x3 Speech: normal speech Gait exam (Neuro): Normal gait present Psych: Appearance: grossly normal and well kempt DS: Data Data Completed and Pending Pending studies at discharge: Pending at discharge 12/10/22 14:32 Surgical [PTH] Routine Labs on day of discharge: Labs from last 24 hours 12/12/22 12/12/22 12/12/22 11:39 07:54 04:28 WBC 11.7 H RBC 3.25 L Hgb 7.6 L Hct 26.4 L MCV 81.2 MCH 23.4 L MCHC 28.8 L RDW 24.0 H Plt Count 357 MPV 9.5 Immature Gran % (Auto) 0.7 H Neut % (Auto) 83.3 H Lymph % (Auto) 8.5 L [place] % (Auto) 6.4 Eos % (Auto) 0.7 Baso % (Auto) 0.4 Lymph # (Auto) 0.99 [place] # (Auto) 0.8 H Eos # (Auto) 0.1 Baso # (Auto) 0.1 Abs Immat Gran (auto) 0.08 H Absolute Neuts (auto) 9.7 H Absolute Nucleated RBC 0.0 Nucleated RBC % 0.0 Platelet Estimate Adequate Hypochromasia 1+ Anisocytosis 2+ Schistocytes Rare Sodium
[2022-12-13 07:20] LABS: Glucose Point of Care 232 mg/dl (65-105)
== END 2022-12-12 14:25 | disposition home or self-care (01) | DRG 330 ==
LOC: ANHSURGERY 17:16 → ANH2MED 17:17
PROVIDERS: Admitting Provider Surgery; PCP Family Medicine; Visit Provider Surgery
PROC: 0DTF4ZZ Resection of Right Large Intestine, Percutaneous Endoscopic Approach (ICD-10-PCS; principal; 2022-12-10 10:30)
DX: C18.0 Malignant neoplasm of cecum (principal); L03.311 Cellulitis of abdominal wall; T81.49XA Infection following a procedure, other surgical site, initial encounter; I12.9 Hypertensive chronic kidney disease with stage 1 through stage 4 chronic kidney disease, or unspecified chronic kidney disease; E11.22 Type 2 diabetes mellitus with diabetic chronic kidney disease; N18.30 Chronic kidney disease, stage 3 unspecified; D64.9 Anemia, unspecified; E78.5 Hyperlipidemia, unspecified; F41.9 Anxiety disorder, unspecified; Z90.49 Acquired absence of other specified parts of digestive tract; Z87.891 Personal history of nicotine dependence
CPT/HCPCS: 36415; 80048; 80053; 82948; 83735; 84132; 85014; 85018; 85025; 86850; 86900; 86901; 88309; A9270; J0690; J1100; J1170; J1741; J1836; J1885; J2405; J2704; J2710; J3010; J3475; J3480; J7030; J7040; J7120

== ENCOUNTER 2022-12-14 01:31 | Inpatient (IN) | payer MEDICARE, SELFPAY ==
[2022-12-14] VITALS (22 sets, daily range): BP systolic 124–172; BP diastolic 73–122; PULSE 73–119; RESP 16–24; TEMP 36–37.1; O2SAT 94–100; BMI 24.0
--- NOTE | ~2022-12-14 | XR_ITS ---
EXAMINATION: XR fl guide central line place DATE: 12/20/2022 13:15 INDICATION: Port catheter insertion TECHNIQUE: Single frontal view of the right chest was obtained during procedure performed by Dr. Martin . Radiologist was not present for the imaging or procedure. The amount of fluoroscopy time used evelyn g this procedure was 0.5 minutes. COMPARISON: 12/19/2022 FINDINGS: Image demonstrates a right internal jugular central venous catheter with distal tip at the caudal sup erior vena cava. Again seen are right atrial and right ventricular cardiac pacemaker leads in expecte d positions. There are some linear discoid atelectasis in the right midlung zone. No evident pneumoth orax. IMPRESSION: 1. Right internal jugular central venous catheter tip at the caudal superior vena cava. Reviewed, dictated and finalized at location A. IMPRESSION: 1. Right internal jugular central venous catheter tip at the caudal superior ve na cava.
--- NOTE | ~2022-12-14 | XR_ITS ---
EXAMINATION: XR chest port-a-cath/central DATE: 12/20/2022 13:46 INDICATION: Port placement. TECHNIQUE: A single frontal view of the chest was obtained. COMPARISON: Chest single view 12/19/2022, CT abdomen and pelvis 11/04/2022 FINDINGS: There are small pleural effusions. There is a diffuse interstitial pattern in the lungs. Th ere are airspace opacities in right mid and lower lung zones and left lower lung zone. No pneumothora x. Cardiomegaly is noted. There is a left chest wall pacer with leads in the right atrium and right v entricle. There is a right internal jugular port with tip in superior vena cava. IMPRESSION: 1. Port tip in superior vena cava. 2. Worsened diffuse lung disease, consistent with pulmonary edema and dependent atelectasis versus pn eumonia. 3. Small pleural effusions with worsening on the left. 4. Cardiomegaly. Reviewed, dictated and finalized at location E. IMPRESSION: 1. Port tip in superior vena cava. 2. Worsened diffuse lung disease, consistent with pulmonary edema and dependent atelectasis versus pneumonia. 3. Small pleural effusions with worsening on the left. 4. Cardiomegaly.
--- NOTE | ~2022-12-14 | CT_ITS ---
EXAMINATION: CT brain wo con INDICATION: Altered mental status COMPARISON: 12/20/2015 TECHNIQUE: Standard unenhanced head CT. The dose-length product (DLP) was 908.00 mGy-cm. The mA was a djusted according to patient size. Iterative reconstruction technique was employed. FINDINGS: Motion artifact slightly limits the examination. No acute intraparenchymal hemorrhage. No e vidence of mass lesion. No evidence of acute infarction. There is mild periventricular and subcortica l hypodensity probably related to small vessel ischemic disease. There is mild prominence of the sulc i and ventricles related to cerebral atrophy. Intracranial calcified cerebral atherosclerosis is note d. No extra-axial collections. No mass effect or midline shift. The orbits and soft tissues are unrem arkable. The visualized sinuses and mastoid air cells are well aerated. IMPRESSION: 1. No acute intracranial abnormality. 2. Age related findings. Reviewed, dictated and finalized at location A.
--- NOTE | ~2022-12-14 | XR_ITS ---
Portable chest x-ray Comparison: 12/03/2022 Clinical History: Dyspnea Findings: There is moderate to advanced pulmonary edema pattern. Correlate clinically for infection. Cardiomediastinal silhouette is stable, with pacemaker device. Bones and soft tissues are unremarka ble. Impression: Moderate to advanced pulmonary edema pattern. Correlate clinically for infection. Pacemaker device. Reviewed, dictated and finalized at [facility]. Impression: Moderate to advanced pulmonary edema pattern. Correlate clinically for infectio n. Pacemaker device.
--- NOTE | ~2022-12-14 | XR_ITS ---
EXAMINATION: XR chest 1V portable Exam Date/Time: 12/19/2022 11:55 CDT HISTORY: confusion Comparison: 12/14/2022. RESULT: Lines, tubes, and devices: Left chest pacer with intact leads. Lungs and pleura: Slightly improved moderate interstitial opacities. Right costophrenic angle blunti ng. Cardiomediastinal silhouette: Stable. Other: No acute osseous or upper abdominal finding. IMPRESSION: Slightly improved interstitial edema. Small right pleural effusion. Reviewed, dictated and finalized at location K.
--- NOTE | ~2022-12-14 | XR_ITS ---
XR chest 1V portable 12/24/2022 21:41 Indication: Increasing oxygen requirements Procedure: AP portable chest Comparison: Comparison to multiple prior studies sequentially, with oldest reviewed study dated 11/21. Findings: Cardiomegaly. Port catheter tip in the SVC. Pacemaker leads stable. Focal right basilar air space disease has improved since prior study. Small pleural effusions. Impression: 1: Improving right basilar airspace disease which may represent atelectasis and/or pneumonia. 2: Small pleural effusions. Reviewed, dictated and finalized at location A. Impression: 1: Improving right basilar airspace disease which may represent atelectasis and /or pneumonia. 2: Small pleural effusions.
--- NOTE | ~2022-12-14 | XR_ITS ---
MODIFIED ESOPHAGRAM HISTORY: Witnessed choking TECHNIQUE: Modified barium esophagram was performed on 12/27/2022. I administered fluoroscopy and perf ormed the exam with speech pathologist. Patient was seated for lateral fluoroscopic imaging for christopher stion of thin liquids, pudding, solids and quantified amounts, followed by thin liquids in uncontroll ed amounts. This was recorded on tape. A single fluoroscopic spot image was also recorded. The DAP fo r this procedure was 2.302 Gycm2. The amount of fluoroscopy time used during this procedure was 3.7 m inutes. FINDINGS: Oral stage: Reduced labial seal/attention and reduced lingual movement. Excessive mastication. Pharyngeal stage: Laryngeal penetration and aspiration with thin liquids with straw. Cervical/esophageal stage: Adequate function. IMPRESSION: Laryngeal penetration and aspiration with thin liquids with straw. Please correlate with speech pathologist findings and specific feeding recommendations. Reviewed, dictated and finalized at location A. UTING MACHINE OPERATOR IMPRESSION: Laryngeal penetration and aspiration with thin liquids with straw. Please correlate with speech pathologist findings and specific feeding recomme ndations.
--- NOTE | ~2022-12-14 | US_ITS ---
EXAMINATION: US renal BI DATE: 12/26/2022 11:23 INDICATION: Hydronephrosis on recent CT TECHNIQUE: Multiple grayscale and Doppler ultrasound images of the kidneys were obtained. COMPARISON: 12/23/2022 FINDINGS: The right kidney measures 11.3 x 4.7 x 6.1 cm. The left kidney measures 11.5 x 5.9 x 5.2 cm . The kidneys demonstrate normal parenchymal echogenicity. There is no hydronephrosis. The bladder is decompressed by a Fox catheter. IMPRESSION: 1. Normal kidneys without hydronephrosis. Reviewed, dictated and finalized at location F. STMENT RECOVERY TECHNICIAN
--- NOTE | ~2022-12-14 | XR_ITS ---
Portable chest x-ray Comparison: 12/24/2022 Clinical History: Aspiration Findings: Right-sided Mediport in place. Lungs are clear, without focal consolidation or pleural eff usion. Cardiomediastinal silhouette is stable, with pacemaker device. Bones and soft tissues are unr emarkable. Impression: Clear lungs. Mediport and pacemaker device, unchanged. Reviewed, dictated and finalized at location M. PUMPER Impression: Clear lungs. Mediport and pacemaker device, unchanged.
--- NOTE | ~2022-12-14 | CT_ITS ---
EXAMINATION: CT chest abdomen pelvis wo con DATE: 12/23/2022 15:31 CDT INDICATION: Infection of unknown origin. TECHNIQUE: Computed tomography (CT) of the chest, abdomen, and pelvis was performed without intraveno us contrast. The dose-length product was 594.83 mGy-cm. COMPARISON: CT dated 11/04/2022 FINDINGS: CHEST CT: Moderate right and small left pleural effusions. There is underlying compressive atelectasis. Superim posed pneumonia not excluded. Cardiomegaly. Emphysema. No endobronchial lesions. No pneumothorax. The re are a few scattered 2-3 mm upper lobe nodules, likely benign. No significant thoracic lymphadenopa thy. ABDOMEN/PELVIS CT: The liver, spleen, and pancreas are unremarkable. There is bilateral hypertrophy of the adrenal gland s, likely benign. There is bilateral hydronephrosis, right greater than left. No obstructing stone or mass identified. Bladder is distended. Prostate gland is enlarged. Moderate diffuse atherosclerosis without aneurysm. There is nonspecific bilateral perinephric stranding. Findings suspicious for ascen ding urinary tract infection/pyelonephritis. There are surgical changes of the cecum. Nonobstructive bowel pattern. Moderate thoracic and lumbar spondylosis. IMPRESSION: 1. Bilateral hydronephrosis with developing perinephric stranding. Cannot exclude ascending urinary t ract infection/pyelonephritis. No obstructing stone or mass identified. 2: Enlarged prostate gland with significantly distended bladder, possibly outlet obstruction. 3: Bilateral pleural effusions, right greater than left with underlying atelectasis. Cannot exclude superimposed pneumonia. Reviewed, dictated and finalized at location A. IMPRESSION: 1. Bilateral hydronephrosis with developing perinephric stranding. Cannot exclu de ascending urinary tract infection/pyelonephritis. No obstructing stone or ma ss identified. 2: Enlarged prostate gland with significantly distended bladder, possibly outl et obstruction. 3: Bilateral pleural effusions, right greater than left with underlying atelec tasis. Cannot exclude superimposed pneumonia.
--- NOTE | 2022-12-14 01:44 | ECG_ITS ---
Measurements Intervals [place] Rate: 86 P: 66 [place]: 211 QRS: -67 QRSD: 186 T: 109 QT: 443 QTc: 532 Interpretive Statements SINUS RHYTHM eLECTRONIC VENTRICULAR PACEMAKER WITH RUNS OF TACHYCARDIA ABNORMAL RHYTHM ECG COMPARED TO ECG 12/03/2022 15:27:44 THE TACHYCARDIA IS NEW Electronically Signed On 12-14-2022 19:50:46 CDT by Arely Lawson M.D.
[2022-12-14 02:02] LABS: Basophils Percent Auto 0.3 % (0.2-1.2); Hematocrit 33.2 % (42.0-52.0); Hemoglobin 9.5 g/dL (14.0-18.0); Immature Granulocyte Absolute 0.21 K/mm3 (0.00-0.031); Immature Granulocyte Percent A 1.5 % (0-0.5); Lymphocytes Absolute Auto 0.78 K/mm3 (0.9-3.2); Lymphocytes Percent Auto 5.6 % (18.3-44.2); Mean Corpuscular HGB Conc 28.6 g/dl (32-36); Mean Corpuscular Hemoglobin 23.5 pg (26-34); Mean Platelet Volume 9.8 fl (7.4-10.4); Monocytes Absolute Auto 0.8 K/mm3 (0.1-0.6); Monocytes Percent Auto 5.6 % (2.6-8.5); Platelet Count Result 506 k/mm3 (150-375); Red Blood Count 4.05 M/mm3 (4.6-6.20); Red Cell Distribution Width 24.4 % (11.5-14.5); White Blood Count 13.8 K/mm3 (4.5-10.0)
[2022-12-14 02:13] LABS: Alkaline Phosphatase 70 U/L (38-126); Anion Gap 17 mmol/L (8-16); Aspartate Amino Transferase 442 U/L (17-59); Bilirubin,Total 0.7 mg/dL (0.2-1.3); Blood Urea Nitrogen 30 mg/dL (9-20); Calcium 9.3 mg/dL (8.4-10.2); Carbon Dioxide 18 mmol/L (22-30); Chloride 103 mmol/L (98-107); Estimated CRCL calculation 30 ml/min; Estimated Glomerular Filt Rate 35; Glucose 264 mg/dL (65-110); INR 1.2; Lipase 38 U/L (23-300); Potassium 5.3 mmol/L (3.4-5.0); Prothrombin Time 16.2 Seconds (11.1-14.7); Sodium 138 mmol/L (137-145)
[2022-12-14 02:14] LABS: Partial Thromboplastin Time 35.1 SECONDS (22.3-36.8)
[2022-12-14 02:25] LABS: NT Pro B Type Natriuretic Pept > 30000 pg/mL (19.9-100); Troponin I 0.616 ng/mL (0.000-0.034)
[2022-12-14 02:27] LABS: Alanine Aminotransferase 163 U/L (6-50)
[2022-12-14] MEDS: FUROSEMIDE INJ 40 MG/4 ML VIAL IV PUSH ×4 (02:44→20:53)
[2022-12-14] MEDS: ASPIRIN 81 MG CHEWABLE TABLET 324 MG PO (02:44)
--- NOTE | 2022-12-14 02:55 | ED.GENADULT ---
HPI - General Adult General Chief complaint: Shortness of Breath/Dyspnea Stated complaint: NEW PACEMAKER, SOB, WEAKNESS, LE SWELLING Time Seen by Provider: 12/14/22 01:38 History of Present Illness HPI narrative: Patient is a 72-year-old gentleman who presents emergency department with chief complaint of shortness of breath. Patient recently had a pacemaker placed at our facility and also had surgery for right a bowel resection by Dr. hoffmann. Patient reports that he is not on oxygen at home reports that he has had increased peripheral edema. Related Data Home Medications Medication Instructions Recorded Confirmed bupropion HCl 300 mg 24 hr tablet, 300 mg PO QAM 04/16/19 12/13/22 extended release lamotrigine 100 mg tablet 100 mg PO HS 04/16/19 12/13/22 paroxetine HCl 10 mg tablet 10 mg PO DAILY 04/16/19 12/13/22 paroxetine HCl 40 mg tablet 40 mg PO DAILY 04/16/19 12/13/22 prazosin 1 mg capsule 1 mg PO .QHS PTSD 04/16/19 12/13/22 sitagliptin phosphate 100 mg 100 mg PO DAILY 10/07/22 12/13/22 tablet (Januvia) indapamide 2.5 mg tablet 2.5 mg PO DAILY 12/02/22 12/13/22 lisinopril 40 mg tablet 40 mg PO QHS 12/02/22 12/13/22 metformin 500 mg tablet,extended 2,000 mg PO QACDINNER 12/02/22 12/13/22 release 24 hr simvastatin 40 mg tablet 40 mg PO HS 12/02/22 12/13/22 Allergies Allergy/AdvReac Type Severity Reaction Status Date / Time No Known Allergies Allergy Verified 12/03/22 11:32 Review of Systems Review of Systems: A 10 system review of systems was completed on the patient and is negative except for what is stated in the HPI. Nursing and ancillary documentation was reviewed. [facility] Past Medical History Medical History Anxiety Chronic kidney disease, stage 3 Baseline creatinine ranges between 1.36 and 1.55. Hepatitis History of blood transfusion Hyperlipidemia Hypertension Second degree heart block by electrocardiogram (ECG) Type 2 diabetes mellitus Surgical History Surgical History History of appendectomy History of surgery on upper extremity Open reduction internal fixation of left upper extremity fracture. Family History Family History Grandparent Diabetes mellitus Hypertension Asthma Cerebrovascular accident Family history of coronary artery disease Mother Hypertension Family history of cardiovascular disease Family history of lymphoma Family history of rheumatic fever Father Family history of throat cancer Other Family history of alcoholism Family history of mental disorder Social History Social History Social History: Surrogate medical decision maker: Olivia Wilson, spouse. Code status: Full code. Smoking packs per day: 1 Smoking cigarettes per day: 20.0 Years smoked: 20 Smoking pack-years: 20.00 Smoking status: Former smoker Tobacco type: cigarettes Second hand tobacco smoke exposure: Yes Smoking end date: 02/21/77 Alcohol intake: never Substance use: never Substance use type: marijuana Other substance usage details: SMOKES MARIJUANA DAILY Last use: 12/08/22 Lack of Transportation: No Lack of Food: Never True Current Housing: I Have Housing Concerned About Future Housing: No Difficulty Paying Gas/Electric Bills: No Difficulty Paying for Meds: No Currently Unemployed: No Education: High School Diploma/GED Difficulty w/ Childcare or Family Care: No Living arrangements: with family Additional living arrangements comments: LIVES WITH OLIVIA Occupation/Education: retired 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
--- NOTE | 2022-12-14 03:04 | PC.NURSE ---
spoke w/ [employer] states he will fax pt. pacemaker interrogation information over.
[2022-12-14] MEDS: HEPARIN SODIUM 5,000 UNITS/ML VIAL 4000 UNITS IV PUSH ×3 (03:29→17:37)
[2022-12-14] MEDS: NITROGLYCERIN OINTMENT 1 INCH DOSE TRANSDERM (03:29)
[2022-12-14] MEDS: HEPARIN SOD/D5W 100 UNITS/ML 25,000 UNITS/250 ML BAG 8 UNITS IV CONT (03:31)
[2022-12-14 03:51] LABS: Add Urine Microscopic? YES; Appearance Urine Cloudy (Clear); Bacteria Urine None Seen /hpf; Bilirubin Urine Negative (Negative); Blood Urine 1+ (Negative); Color Urine Yellow (Yellow); Glucose Urine UA Trace mg/dL (Negative); Ketones Urine Trace mg/dL (Negative); Leukocyte Esterase Ur Trace LEU/UL (Negative); Need Manual Microscopic Reviewed; Nitrate Urine Negative (Negative); Protein Urine 3+ mg/dL (Negative); RBC Urine 0-2 /hpf (0-2); Specific Grav Ur 1.018 (1.001-1.035); Squamous Epithelial Cell Urine Moderate /hpf (Few); Urobilinogen Urine 0.2 mg/dL (<2.0); WBC Urine 0-5 /hpf
--- NOTE | 2022-12-14 04:41 | ADMGEN ---
This patient, Julain Wilson, was admitted to IMU Room 205-01. Patient/family oriented to hospital policies and general routines including ID bracelet, bed and alarms, visiting hours, pain management, procedures, bathroom and other care routines, personal items, smoking policy, room service/diet, and visiting hours. Information on how to activate the Rapid Response Team has been discussed. Patient/Family are encouraged to report perceived risks to care and to ask questions if they do not understand what they are told or what they should do.
[2022-12-14 05:09] LABS: Basophils Percent Auto 0.2 % (0.2-1.2); Hematocrit 31.7 % (42.0-52.0); Hemoglobin 9.1 g/dL (14.0-18.0); Immature Granulocyte Absolute 0.16 K/mm3 (0.00-0.031); Immature Granulocyte Percent A 1.2 % (0-0.5); Lymphocytes Absolute Auto 0.51 K/mm3 (0.9-3.2); Lymphocytes Percent Auto 3.7 % (18.3-44.2); Mean Corpuscular HGB Conc 28.7 g/dl (32-36); Mean Corpuscular Hemoglobin 23.6 pg (26-34); Mean Corpuscular Volume 82.1 fl (80-100); Mean Platelet Volume 9.7 fl (7.4-10.4); Monocytes Absolute Auto 0.7 K/mm3 (0.1-0.6); Monocytes Percent Auto 5.4 % (2.6-8.5); Neutrophils Absolute Auto 12.3 K/mm3 (1.3-6.7); Neutrophils Percent Auto 89.5 % (45.5-73.1); Platelet Count Result 448 k/mm3 (150-375); Red Blood Count 3.86 M/mm3 (4.6-6.20); Red Cell Distribution Width 24.1 % (11.5-14.5); White Blood Count 13.7 K/mm3 (4.5-10.0)
[2022-12-14 05:21] LABS: INR 1.4; Prothrombin Time 17.9 Seconds (11.1-14.7)
[2022-12-14 05:23] LABS: Partial Thromboplastin Time 86.2 SECONDS (22.3-36.8)
[2022-12-14 05:34] LABS: Troponin I 0.633 ng/mL (0.000-0.034)
--- NOTE | 2022-12-14 08:57 | PM.IMHP ---
H&P: HPI History of Present Illness Date/Time: 12/14/22 08:57 Chief Complaint: shortness of breath Narrative: Patient is a 72-year-old gentleman who presents emergency department with chief complaint of shortness of breath.? Patient recently had a pacemaker placed at our facility and also had surgery for right a bowel resection by Dr. hoffmann.? Patient reports that he is not on oxygen at home reports that he has had increased peripheral edema. Review of Systems Review of Systems: - CONSTITUTIONAL: Denies weight loss, fever and chills. - HEENT: Denies changes in vision and hearing - RESPIRATORY: see HPI - CV: Denies palpitations and CP. - GI: Denies abdominal pain, nausea, vomiting and diarrhea. - : Denies dysuria and urinary frequency. - MSK: Denies myalgia and joint pain. - SKIN: Denies rash and pruritus. - NEUROLOGICAL: Denies headache and syncope. - PSYCHIATRIC: Denies recent changes in mood. Denies anxiety and depression. [facility] Past Medical History Medical History Anxiety Chronic kidney disease, stage 3 Baseline creatinine ranges between 1.36 and 1.55. Hepatitis History of blood transfusion Hyperlipidemia Hypertension Second degree heart block by electrocardiogram (ECG) Type 2 diabetes mellitus Surgical History Surgical History History of appendectomy History of surgery on upper extremity Open reduction internal fixation of left upper extremity fracture. Family History Family History Grandparent Diabetes mellitus Hypertension Asthma Cerebrovascular accident Family history of coronary artery disease Mother Hypertension Family history of cardiovascular disease Family history of lymphoma Family history of rheumatic fever Father Family history of throat cancer Other Family history of alcoholism Family history of mental disorder Social History Social History Social History: Surrogate medical decision maker: Olivia Wilson, spouse. Code status: Full code. Smoking packs per day: 1 Smoking cigarettes per day: 20.0 Years smoked: 20 Smoking pack-years: 20.00 Smoking status: Former smoker Tobacco type: cigarettes Second hand tobacco smoke exposure: Yes Smoking end date: 02/21/77 Alcohol intake: never Substance use: current Substance use type: marijuana Other substance usage details: weekly Last use: 12/08/22 Lack of Transportation: No Lack of Food: Never True Current Housing: I Have Housing Concerned About Future Housing: No Difficulty Paying Gas/Electric Bills: No Difficulty Paying for Meds: No Currently Unemployed: No Education: Decline to Answer Difficulty w/ Childcare or Family Care: No Living arrangements: with family Additional living arrangements comments: LIVES WITH , OLIVIA Occupation/Education: retired 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 Spiritual care concerns: No Agree to blood products: Yes Meds Home Medications and Allergies Home Medications Medication Instructions Recorded Confirmed Type bupropion HCl 300 mg 24 hr tablet, 300 mg PO QAM 04/16/19 12/14/22 History extended release lamotrigine 100 mg tablet 100 mg PO HS 04/16/19 12/14/22 History paroxetine HCl 10 mg tablet 10 mg PO DAILY 04/16/19 12/14/22 History paroxetine HCl 40 mg tablet 40 mg PO DAILY 04/16/19 12/14/22 History prazosin 1 mg capsule 1 mg PO QHS PTSD 04/16/19 12/14/22 History sitagliptin phosphate 100 mg 100 mg PO DAILY 10/07/22 12/14/22 History tablet (Januvia) albuterol sulfate 90 mcg/actuation 2 puff inhalation QID PRN 10/09/22 12/14/22 Rx aerosol inhaler shortness of breath or wheezing #8.5 grams baclofen 10 mg tablet 10 mg PO QHS #90 tabs 0
--- NOTE | 2022-12-14 09:19 | PM.CNCAR ---
History of Present Illness History of Present Illness Consult date/time: 12/14/22 09:19 Reason For Visit: CHF, Elevated troponin, Pulmonary Edema, MARGARITA Narrative: Troponin 0.63, 0.62, proBNP greater than 30,000 [facility] Past Medical History Medical History Anxiety Chronic kidney disease, stage 3 Baseline creatinine ranges between 1.36 and 1.55. Hepatitis History of blood transfusion Hyperlipidemia Hypertension Second degree heart block by electrocardiogram (ECG) Type 2 diabetes mellitus Surgical History Surgical History History of appendectomy History of surgery on upper extremity Open reduction internal fixation of left upper extremity fracture. Family History Family History Grandparent Diabetes mellitus Hypertension Asthma Cerebrovascular accident Family history of coronary artery disease Mother Hypertension Family history of cardiovascular disease Family history of lymphoma Family history of rheumatic fever Father Family history of throat cancer Other Family history of alcoholism Family history of mental disorder Social History Social History Social History: Surrogate medical decision maker: Antonia Wilson, spouse. Code status: Full code. Smoking packs per day: 1 Smoking cigarettes per day: 20.0 Years smoked: 20 Smoking pack-years: 20.00 Smoking status: Former smoker Tobacco type: cigarettes Second hand tobacco smoke exposure: Yes Smoking end date: 02/21/77 Alcohol intake: never Substance use: current Substance use type: marijuana Other substance usage details: weekly Last use: 12/08/22 Lack of Transportation: No Lack of Food: Never True Current Housing: I Have Housing Concerned About Future Housing: No Difficulty Paying Gas/Electric Bills: No Difficulty Paying for Meds: No Currently Unemployed: No Education: Decline to Answer Difficulty w/ Childcare or Family Care: No Living arrangements: with family Additional living arrangements comments: LIVES WITH , ANTONIA Occupation/Education: retired 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 Spiritual care concerns: No Agree to blood products: Yes Meds Home Medications and Allergies Home Medications Medication Instructions Recorded Confirmed Type bupropion HCl 300 mg 24 hr tablet, 300 mg PO QAM 04/16/19 12/14/22 History extended release lamotrigine 100 mg tablet 100 mg PO HS 04/16/19 12/14/22 History paroxetine HCl 10 mg tablet 10 mg PO DAILY 04/16/19 12/14/22 History paroxetine HCl 40 mg tablet 40 mg PO DAILY 04/16/19 12/14/22 History prazosin 1 mg capsule 1 mg PO QHS PTSD 04/16/19 12/14/22 History sitagliptin phosphate 100 mg 100 mg PO DAILY 10/07/22 12/14/22 History tablet (Januvia) albuterol sulfate 90 mcg/actuation 2 puff inhalation QID PRN 10/09/22 12/14/22 Rx aerosol inhaler shortness of breath or wheezing #8.5 grams baclofen 10 mg tablet 10 mg PO QHS #90 tabs 10/19/22 12/14/22 Rx ferrous sulfate 325 mg (65 mg 325 mg PO BID #60 tabs 12/01/22 12/14/22 Rx iron) tablet (Iron (ferrous sulfate)) indapamide 2.5 mg tablet 2.5 mg PO DAILY 12/02/22 12/14/22 History lisinopril 40 mg tablet 40 mg PO QHS 12/02/22 12/14/22 History metformin 500 mg tablet,extended 2,000 mg PO QACDINNER 12/02/22 12/14/22 History release 24 hr simvastatin 40 mg tablet 40 mg PO HS 12/02/22 12/14/22 History cephalexin 500 mg capsule 500 mg PO Q8H #21 caps 12/12/22 12/14/22 Rx oxycodone 5 mg tablet 5 mg PO Q6H PRN Moderate Pain 12/14/22 12/14/22 History (Scale Score 5-6) Allergies Allergy/AdvReac Type Severity Reaction Status Date / Time No Known Allergies Allergy Verified 12/03/22 11:32 Vital Signs Vital Signs
[2022-12-14 10:13] LABS: Partial Thromboplastin Time 37.8 SECONDS (22.3-36.8)
[2022-12-14 10:22] LABS: Troponin I 0.684 ng/mL (0.000-0.034)
[2022-12-14] MEDS: PARoxetine 20 MG TABLET 40 MG PO (10:39)
[2022-12-14] MEDS: INDAPAMIDE 2.5 MG TABLET PO (10:39)
[2022-12-14] MEDS: buPROPion HCL XL (24 HR) 150 MG TABCR 300 MG PO (10:39)
[2022-12-14] MEDS: FERROUS SULFATE 325 MG TABLET DR BY MOUTH ×2 (10:39→17:20)
[2022-12-14] MEDS: PARoxetine 10 MG TABLET PO (10:40)
--- NOTE | 2022-12-14 12:27 | PM.CNCAR ---
Assessment and Plan Assessment and plan (1) CHF (congestive heart failure): Code(s): I50.9 - Heart failure, unspecified Status: Acute Assessment and Plan: Unknown type of CHF. NTproBNP >83337. CXR shows mod pulm edema. Currently diuresed with Lasix 40 mg IV BID. Obtain echo. (2) Elevated troponin: Code(s): R79.89 - Other specified abnormal findings of blood chemistry Status: Acute Assessment and Plan: Troponin trending up at .68. (3) MAGRARITA (acute kidney injury): Code(s): N17.9 - Acute kidney failure, unspecified Status: Acute Assessment and Plan: Monitor as patient is being diuresed. (4) Pacemaker: Code(s): Z95.0 - Presence of cardiac pacemaker Status: Acute Assessment and Plan: Interrogate [employer] pacemaker. (5) Hyperlipidemia: Qualifiers: Hyperlipidemia type: mixed hyperlipidemia Qualified Code(s): E78.2 - Mixed hyperlipidemia Code(s): E78.5 - Hyperlipidemia, unspecified Status: Acute Assessment and Plan: On Simvastatin. (6) Hypertension: Qualifiers: Hypertension type: essential hypertension Qualified Code(s): I10 - Essential (primary) hypertension Code(s): I10 - Essential (primary) hypertension Status: Acute Assessment and Plan: Stable. (7) Transaminitis: Code(s): R74.01 - Elevation of levels of liver transaminase levels Status: Acute Assessment and Plan: Probably related to CHF with passive congestion. History of Present Illness History of Present Illness Consult date/time: 12/14/22 12:27 Reason For Visit: CHF, Elevated troponin, Pulmonary Edema, MARGARITA Narrative: 72 yr old man who is my regular cardiology patient and a patient of Dr. Veronica presents to ER with sob. He has a history of recent implant of dual chamber [employer] pacemaker for CHB, DM, hypertension, dyslipidemia. Reports he had pacemaker implanted on 12/03/22 and robotic hemicolectomy on 12/10/22. In the last 3 days he has progressive sob, orthopnea. He can walk 1 block prior to BUSH or fatigue. Denies chest pain, sob, orthopnea, PND, edema, dizziness, syncope, palpitations. Cardiovascular Procedures Electrophysiology:: 10/08/22 EKG: Sinus rhythm with second degree AV block, type I, frequent PAC's. Review of Systems Review of Systems: All systems reviewed & are unremarkable except as noted in HPI and below Constitutional: Constitutional: Reports as per HPI, Denies chills, Reports fatigue and Denies fever(s) Cardiovascular: Cardiovascular: Reports as per HPI, Denies chest pain and Denies leg edema Respiratory: Respiratory: Reports as per HPI and Reports dyspnea Gastrointestinal: Gastrointestinal: Reports as per HPI and Denies abdominal pain Genitourinary: Genitourinary: Reports as per HPI and Denies dysuria Musculoskeletal: Musculoskeletal: Reports as per HPI Neurologic: Reports as per HPI, Denies dizziness and Denies syncope [facility] Past Medical History Medical History Anxiety Chronic kidney disease, stage 3 Baseline creatinine ranges between 1.36 and 1.55. Hepatitis History of blood transfusion Hyperlipidemia Hypertension Second degree heart block by electrocardiogram (ECG) Type 2 diabetes mellitus Surgical History Surgical History History of appendectomy History of surgery on upper extremity Open reduction internal fixation of left upper extremity fracture. Family History Family History Grandparent Diabetes mellitus Hypertension Asthma Cerebrovascular accident Family history of coronary artery disease Mother Hypertension Family history of cardiovascular disease Family history of lymphoma Family history of rheumatic fever Father Family history of throat cancer Other Family
[2022-12-14 13:59] LABS: Anion Gap 16 mmol/L (8-16); Blood Urea Nitrogen 35 mg/dL (9-20); Calcium 8.9 mg/dL (8.4-10.2); Carbon Dioxide 17 mmol/L (22-30); Chloride 103 mmol/L (98-107); Estimated CRCL calculation 27 ml/min; Estimated Glomerular Filt Rate 31; Glucose 288 mg/dL (65-110); Potassium 4.3 mmol/L (3.4-5.0); Sodium 136 mmol/L (137-145)
[2022-12-14 14:18] LABS: Troponin I 0.772 ng/mL (0.000-0.034)
--- NOTE | 2022-12-14 15:14 | ECG_ITS ---
Measurements Intervals [place] Rate: 112 P: -1 [place]: 106 QRS: -63 QRSD: 184 T: 114 QT: 422 QTc: 578 Interpretive Statements SINUS TACHYCARDIA eLECTRONIC VENTRICULAR PACEMAKER ABNORMAL RHYTHM ECG COMPARED TO ECG 12/14/2022 01:43:42 NO SIGNIFICANT CHANGES Electronically Signed On 12-14-2022 20:00:35 CDT by Arely Lawson M.D.
[2022-12-14] MEDS: MAGNESIUM SULF 1 GM/D5W 100 ML 1 GM/100 ML BAG IVPB (15:46)
[2022-12-14] MEDS: METOPROLOL TARTRATE 50 MG TAB PO ×2 (15:46→20:55)
[2022-12-14 17:16] LABS: Partial Thromboplastin Time 37.1 SECONDS (22.3-36.8)
[2022-12-14] MEDS: BACLOFEN 10 MG TABLET PO (20:52)
[2022-12-14] MEDS: SIMVASTATIN 20 MG TABLET 40 MG PO (20:52)
[2022-12-14] MEDS: PRAZOSIN HCL 1 MG CAPSULE PO (20:52)
[2022-12-14] MEDS: lamoTRIgine 100 MG TABLET PO (20:52)
[2022-12-15] VITALS (18 sets, daily range): BP systolic 117–161; BP diastolic 67–96; PULSE 59–82; RESP 16–22; TEMP 36–36.9; O2SAT 97–100
[2022-12-15] MEDS: HEPARIN SOD/D5W 100 UNITS/ML 25,000 UNITS/250 ML BAG 14 UNITS IV CONT (01:42)
[2022-12-15 02:42] LABS: Basophils Percent Auto 0.3 % (0.2-1.2); Hematocrit 27.5 % (42.0-52.0); Hemoglobin 7.9 g/dL (14.0-18.0); Immature Granulocyte Absolute 0.14 K/mm3 (0.00-0.031); Immature Granulocyte Percent A 1.3 % (0-0.5); Lymphocytes Absolute Auto 0.79 K/mm3 (0.9-3.2); Lymphocytes Percent Auto 7.5 % (18.3-44.2); Mean Corpuscular HGB Conc 28.7 g/dl (32-36); Mean Corpuscular Hemoglobin 23.6 pg (26-34); Mean Corpuscular Volume 82.1 fl (80-100); Mean Platelet Volume 9.8 fl (7.4-10.4); Monocytes Absolute Auto 0.7 K/mm3 (0.1-0.6); Monocytes Percent Auto 6.2 % (2.6-8.5); Neutrophils Absolute Auto 8.9 K/mm3 (1.3-6.7); Neutrophils Percent Auto 84.7 % (45.5-73.1); Nucleated Red Blood Cells Perc 0.2 % (0.0-0.2); Platelet Count Result 282 k/mm3 (150-375); Red Blood Count 3.35 M/mm3 (4.6-6.20); Red Cell Distribution Width 24.8 % (11.5-14.5); White Blood Count 10.5 K/mm3 (4.5-10.0)
[2022-12-15 02:55] LABS: Partial Thromboplastin Time 65.6 SECONDS (22.3-36.8)
[2022-12-15 03:03] LABS: Alanine Aminotransferase 675 U/L (6-50); Albumin Level 2.8 g/dL (3.5-5.1); Alkaline Phosphatase 63 U/L (38-126); Anion Gap 8 mmol/L (8-16); Bilirubin,Total 0.4 mg/dL (0.2-1.3); Blood Urea Nitrogen 45 mg/dL (9-20); Calcium 8.6 mg/dL (8.4-10.2); Carbon Dioxide 22 mmol/L (22-30); Chloride 102 mmol/L (98-107); Estimated CRCL calculation 27 ml/min; Estimated Glomerular Filt Rate 31; Glucose 266 mg/dL (65-110); Magnesium 1.9 mg/dL (1.6-2.3); Potassium 3.6 mmol/L (3.4-5.0); Sodium 132 mmol/L (137-145)
[2022-12-15] MEDS: HEPARIN SODIUM 5,000 UNITS/ML VIAL 2500 UNITS IV PUSH ×2 (03:03→16:39)
[2022-12-15 03:16] LABS: Anisocytosis 2+ (NORMAL); Burr Cells 2+ (NORMAL); Hypochromasia 2+ (NORMAL); Platelet Estimate Adequate (Adequate); Poikilocytosis 2+ (NORMAL); Schistocytes Rare (NORMAL)
[2022-12-15 03:23] LABS: Troponin I 0.844 ng/mL (0.000-0.034)
[2022-12-15 03:24] LABS: Aspartate Amino Transferase 1490 U/L (17-59)
--- NOTE | 2022-12-15 06:00 | ECHO_ITS ---
Patient Info Name: Julian Wilson Age: 72 years : 1950 Gender: Male Ht: 67 in Wt: 137 lbs BSA: 1.71 m2 HR: 79 bpm BP: 143 / 95 mmHg Heart Rhythm: Sinus Rhythm Technical Quality: Good Exam Date: 12/15/2022 9:40 AM Exam Location: [facility] Patient Status: Outpatient Admit Date: 12/14/2022 Staff Ordering Physician: Fredrick Goode MD Gear Inspector: Marcie Hughes RDCS Attending Provider: Ricardo Yun MD Referring Physician: Russel CASTELLANOS; Exam Type: CA echo doppler color flow Study Info Indications - CHF Complete two-dimensional, color flow and Doppler transthoracic echocardiogram is performed. Summary 1. Complete two-dimensional, color flow and Doppler transthoracic echocardiogram is performed. 2. Left ventricular chamber dimension is moderately enlarged. 3. Left ventricular systolic function is moderately globally reduced, estimated at 40-45%. 4. Mid to apical inferior wall is severely hypokinetic. 5. The left ventricular diastolic function is abnormal. 6. E/e' 22 is significantly elevated. 7. Linear artifact in right ventricle suggestive of catheter(s), pacemaker lead(s), or ICD lead(s). 8. Left atrial chamber dimension is severely enlarged. 9. Right atrial chamber dimension is mildly enlarged. 10. Linear artifact in the right atrium suggestive of catheter(s), pacemaker lead(s), or ICD lead(s). 11. There is mild aortic valve sclerosis. 12. There is mild mitral valve regurgitation. 13. There is mild to moderate tricuspid valve regurgitation. 14. Mild pulmonary hypertension, estimated pulmonary arterial systolic pressure is 43 mmHg. 15. There is trivial pericardial effusion. Left Ventricle E/e' 22 is significantly elevated. Mid to apical inferior wall is severely hypokinetic. Left ventricular systolic function is moderately globally reduced, estimated at 40-45%. Left ventricular chamber dimension is moderately enlarged. The left ventricular diastolic function is abnormal. Right Ventricle Right ventricular systolic function is normal and with normal TAPSE 2.8 cm. Linear artifact in right ventricle suggestive of catheter(s), pacemaker lead(s), or ICD lead(s). Right ventricular chamber dimension is normal. Left Atria Left atrial chamber dimension is severely enlarged. Right Atria Linear artifact in the right atrium suggestive of catheter(s), pacemaker lead(s), or ICD lead(s). Right atrial chamber dimension is mildly enlarged. Aortic Valve The aortic valve is trileaflet. There is mild aortic valve sclerosis. There is no aortic valve stenosis. There is no aortic valve regurgitation. Pulmonic Valve There is no pulmonic regurgitation. Mitral Valve There is no mitral valve stenosis. There is mild mitral valve regurgitation. Tricuspid Valve There is mild to moderate tricuspid valve regurgitation. Mild pulmonary hypertension, estimated pulmonary arterial systolic pressure is 43 mmHg. Pericardium/Pleural There is trivial pericardial effusion. Inferior Vena Cava Normal inferior vena cava with >50% collapse upon inspiration consistent with normal right atrial pressure, 5 mmHg. Aorta The aortic root size at the sinus of Valsalva is normal. Left Ventricular Outflow Tract Name Value Normal LVOT 2D LVOT Diameter 2.1 cm
--- NOTE | 2022-12-15 07:43 | PM.PNCARD ---
Progress Note: A&P Assessment and Plan (1) CHF (congestive heart failure): Code(s): I50.9 - Heart failure, unspecified Status: Acute Assessment and Plan: Unknown type of CHF. NTproBNP >47510. CXR shows significant pulm edema. Currently diuresed with Lasix 40 mg IV BID. Obtain echo today as it was not done yesterday. (2) Elevated troponin: Code(s): R79.89 - Other specified abnormal findings of blood chemistry Status: Acute Assessment and Plan: Troponin trending up at .84. Probably has underlying CAD. Will need LHC but when more stable including renal function and well-diuresed, and does not have any active bleeding (anemia) which would preclude PCI. (3) MARGARITA (acute kidney injury): Code(s): N17.9 - Acute kidney failure, unspecified Status: Acute Assessment and Plan: Monitor as patient is being diuresed. (4) Pacemaker: Code(s): Z95.0 - Presence of cardiac pacemaker Status: Acute Assessment and Plan: Interrogate Biotronik pacemaker showing evidence of PMT and PAT. Biotronik rep came in 12/14/22 and turned on Auto-PVARP to prevent PMT. (5) Hyperlipidemia: Qualifiers: Hyperlipidemia type: mixed hyperlipidemia Qualified Code(s): E78.2 - Mixed hyperlipidemia Code(s): E78.5 - Hyperlipidemia, unspecified Status: Acute Assessment and Plan: Hold Simvastatin due to shock liver.. (6) Hypertension: Qualifiers: Hypertension type: essential hypertension Qualified Code(s): I10 - Essential (primary) hypertension Code(s): I10 - Essential (primary) hypertension Status: Acute Assessment and Plan: Stable. (7) Transaminitis: Code(s): R74.01 - Elevation of levels of liver transaminase levels Status: Acute Assessment and Plan: Shock liver probably related to CHF with passive congestion. Continue to monitor. Hold Simvastatin. Subjective Date/time seen: 12/15/22 07:43 Interval history: Has some sob. No chest pains. Exam Const: General: cooperative and comfortable Orientation/consciousness: oriented to person, oriented to place and oriented to time Resp: Auscultation: rales, no rhonchi, no wheezes and diminished lung sounds Cardio: Rate: regular rate Rhythm: regular rhythm Heart sounds: no murmurs Peripheral pulses: dorsalis pedis present Neuro: General: oriented to person, oriented to place and oriented to time Extrem: Right lower extremity: no edema Left lower extremity: no edema Objective Data Vital Signs Vital Signs: Vital Signs - 24 hr 12/14/22 08:00 12/14/22 08:00 12/14/22 08:00 Temperature 98.7 F Pulse Rate 118 H 117 H Respiratory Rate 16 Blood Pressure 151/95 H Pulse Oximetry 100 100 Oxygen Delivery Nasal Cannula Oxygen Flow Rate 2 12/14/22 10:00 12/14/22 11:54 12/14/22 12:00 Temperature 98.0 F Pulse Rate 89 117 H 117 H Respiratory Rate 24 H Blood Pressure 139/98 H Pulse Oximetry 98 Oxygen Delivery Oxygen Flow Rate 12/14/22 12:00 12/14/22 14:00 12/14/22 15:43 Temperature 97.7 F Pulse Rate 113 H 113 H Respiratory Rate 24 H Blood Pressure 143/95 H Pulse Oximetry 98 99 Oxygen Delivery Nasal Cannula Oxygen Flow Rate 2 12/14/22 16:00 12/14/22 16:00 12/14/22 14:05 Temperature Pulse Rate 119 H Respiratory Rate Blood Pressure Pulse Oximetry 99 95 Oxygen Delivery Nasal Cannula Nasal Cannula Oxygen Flow Rate 2 2 12/14/22 18:00 12/14/22 20:00 12/14/22 20:55 Temperature 96.8 F L Pulse Rate 78 88 82 Respiratory Rate 24 H Blood Pressure 147/108 H Pulse Oximetry 100 Oxygen Delivery Oxygen Flow Rate 12/14/22 20:00 12/14/22 20:00 12/14/22 21:16 Temperature Pulse Rate 88 88 84 Respiratory Rate 24 H Blood Pressure Pulse Oximetry 100 Oxygen Delivery Nasal Cannula Oxygen Flow Rate 2 12/14/22 23:52 12/15/22 00:00 12/15/22 00:00 Temperature
[2022-12-15 09:39] LABS: Partial Thromboplastin Time 99.5 SECONDS (22.3-36.8)
[2022-12-15] MEDS: FUROSEMIDE INJ 40 MG/4 ML VIAL IV PUSH ×2 (10:37→20:15)
[2022-12-15] MEDS: PARoxetine 20 MG TABLET 40 MG PO (10:37)
[2022-12-15] MEDS: INDAPAMIDE 2.5 MG TABLET PO (10:38)
[2022-12-15] MEDS: METOPROLOL TARTRATE 50 MG TAB PO ×2 (10:38→20:15)
[2022-12-15] MEDS: buPROPion HCL XL (24 HR) 150 MG TABCR 300 MG PO (10:38)
[2022-12-15] MEDS: ASPIRIN 81 MG CHEWABLE TABLET PO (10:38)
[2022-12-15] MEDS: FERROUS SULFATE 325 MG TABLET DR BY MOUTH ×2 (10:38→16:40)
[2022-12-15] MEDS: PARoxetine 10 MG TABLET PO (10:39)
--- NOTE | 2022-12-15 15:20 | PM.PNGS ---
Progress Note: A&P Assessment and Plan (1) Adenocarcinoma of cecum: Code(s): C18.0 - Malignant neoplasm of cecum Status: Acute Assessment and Plan: T4 N0 M0 invasive cecal adenocarcinoma. Consult medical oncology to evaluate the patient for recommendations regarding adjuvant chemotherapy. The patient is a dayami catheter placed for chemotherapy may be possible to place a during this admission once he is medically stable. Subjective Subjective Date/Time Seen: 12/15/22 15:20 Interval history: Mr. Nunez is 72-year-old gentleman who I am seeing for continuity of care but not a formal general surgery consult. Last week I performed a robotic assisted laparoscopic right hemicolectomy for a large 12.5cm nearly obstructing invasive cecal adenocarcinoma. He did very well after the surgery and was discharged home on postop day 2. Unfortunately he was readmitted to [facility] yesterday for exacerbation of CHF. I examined his incisions today and they are healing well. His breathing is better after getting treatment and diuresis. His pathology report is now available and he has a large tumor with extension through the wall of the colon into the pericolic fat and involving a portion of the omentum which was resected with the tumor. 0 of 22 lymph nodes were positive for metastatic disease. Given the T4 extension of tumor through the wall of the colon he would likely benefit from chemotherapy treatment. I am going to consult Dr. Kolb to see him while he is here for a medical oncology evaluation. This was streamline his care since he would not have to have an outpatient consult. If he needs placement of a dayami catheter to administer chemotherapy after recovers from surgery then I could possibly replace the dayami catheter during this admission again avoid having the patient come back for an outpatient placement of a dayami catheter. I discussed with the patient and he understands and agrees. Objective Data Vital Signs Vital Signs: Vital Signs - 24 hr 12/14/22 15:43 12/14/22 16:00 12/14/22 16:00 Temperature 36.5 C Pulse Rate 113 H 119 H Respiratory Rate 24 H Blood Pressure 143/95 H Pulse Oximetry 99 99 Oxygen Delivery Nasal Cannula Oxygen Flow Rate 2 12/14/22 18:00 12/14/22 20:00 12/14/22 20:55 Temperature 36.0 C L Pulse Rate 78 88 82 Respiratory Rate 24 H Blood Pressure 147/108 H Pulse Oximetry 100 Oxygen Delivery Oxygen Flow Rate 12/14/22 20:00 12/14/22 20:00 12/14/22 21:16 Temperature Pulse Rate 88 88 84 Respiratory Rate 24 H Blood Pressure Pulse Oximetry 100 Oxygen Delivery Nasal Cannula Oxygen Flow Rate 2 12/14/22 23:52 12/15/22 00:00 12/15/22 00:00 Temperature 36.2 C L Pulse Rate 98 63 63 Respiratory Rate 22 H 22 H Blood Pressure 124/73 Pulse Oximetry 100 100 Oxygen Delivery Nasal Cannula Oxygen Flow Rate 2 12/15/22 02:00 12/15/22 03:11 12/15/22 03:19 Temperature 36.1 C L Pulse Rate 74 60 62 Respiratory Rate 20 Blood Pressure 144/86 H Pulse Oximetry 100 Oxygen Delivery Oxygen Flow Rate 12/15/22 03:19 12/14/22 22:45 12/14/22 22:45 Temperature Pulse Rate 62 73 Respiratory Rate 20 22 H Blood Pressure Pulse Oximetry 100 99 99 Oxygen Delivery Nasal Cannula Nasal Cannula BiPAP Oxygen Flow Rate 2 2 12/15/22 05:17 12/15/22 08:00 12/15/22 10:38 Temperature 36.0 C L Pulse Rate 60 75 78 Respiratory Rate 18 Blood Pressure 144/88 H Pulse Oximetry 100 Oxygen Delivery Oxygen Flow Rate 12/15/22 11:28 12/15/22 12:00 Temperature 36.2 C L Pulse Rate 72 Respiratory Rate 20 Blood Pressure 154/96 H Pulse Oximetry 100 Oxygen Delivery Nasal Cannula Oxygen Flow Rate 2 Intake/Output Intake/Output: Intake & Output 12/12/22 12/13/22 12/14/22 12/15/22 23:59 23:59 23:59 23:59 Intake Total 1100 550 Output Total 500 1700 Balance 600 -1150 Meds/Results Medicati
[2022-12-15 15:33] LABS: Partial Thromboplastin Time 55.9 SECONDS (22.3-36.8)
--- NOTE | 2022-12-15 17:13 | PC.NURSE ---
On 12/15/22, the student, Jose Manuel [facility], provided care and completed [facility] documentation on this patient. I have reviewed the student's documentation and agree with the findings.
--- NOTE | 2022-12-15 18:09 | PM.IMPN ---
Progress Note: A&P Assessment and Plan (1) Transaminitis: Code(s): R74.01 - Elevation of levels of liver transaminase levels Status: Acute (2) CHF (congestive heart failure): Code(s): I50.9 - Heart failure, unspecified Status: Acute (3) MARGARITA (acute kidney injury): Code(s): N17.9 - Acute kidney failure, unspecified Status: Acute Plan transamanitis hf, improved. continue diuresis npo at midnight, pending LHC and portacath placement anemia, check iron panel, consult heme-onc trend troponin and obtain 2d echo Subjective Date/time seen: 12/15/22 18:09 Interval history: NAOE. sob improved. no chest pain Review of Systems Cardiovascular: Cardiovascular: Denies chest pain and Denies dyspnea Respiratory: Respiratory: Denies cough and Denies dyspnea Gastrointestinal: Gastrointestinal: Denies abdominal pain and Denies vomiting Exam Const: General: no acute distress, alert and Physically active Resp: Effort & Inspection: normal respiratory effort Auscultation: clear to auscultation bilaterally Cardio: Rate: regular rate Rhythm: regular rhythm Heart sounds: S1 normal heart sound present and S2 normal heart sound present GI: Inspection: non-distended GI Palp: No abdominal tenderness Auscultation: normal bowel sounds Extrem: Right upper extremity: no edema Objective Data Vital Signs Vital Signs: Vital Signs - 24 hr 12/14/22 20:00 12/14/22 20:55 12/14/22 20:00 Temperature 96.8 F L Pulse Rate 88 82 88 Respiratory Rate 24 H Blood Pressure 147/108 H Pulse Oximetry 100 Oxygen Delivery Oxygen Flow Rate 12/14/22 20:00 12/14/22 21:16 12/14/22 23:52 Temperature 97.1 F L Pulse Rate 88 84 98 Respiratory Rate 24 H 22 H Blood Pressure 124/73 Pulse Oximetry 100 100 Oxygen Delivery Nasal Cannula Oxygen Flow Rate 2 12/15/22 00:00 12/15/22 00:00 12/15/22 02:00 Temperature Pulse Rate 63 63 74 Respiratory Rate 22 H Blood Pressure Pulse Oximetry 100 Oxygen Delivery Nasal Cannula Oxygen Flow Rate 2 12/15/22 03:11 12/15/22 03:19 12/15/22 03:19 Temperature 96.9 F L Pulse Rate 60 62 62 Respiratory Rate 20 20 Blood Pressure 144/86 H Pulse Oximetry 100 100 Oxygen Delivery Nasal Cannula Oxygen Flow Rate 2 12/14/22 22:45 12/14/22 22:45 12/15/22 05:17 Temperature Pulse Rate 73 60 Respiratory Rate 22 H Blood Pressure Pulse Oximetry 99 99 Oxygen Delivery Nasal Cannula BiPAP Oxygen Flow Rate 2 12/15/22 08:00 12/15/22 10:38 12/15/22 11:28 Temperature 96.8 F L Pulse Rate 75 78 Respiratory Rate 18 Blood Pressure 144/88 H Pulse Oximetry 100 Oxygen Delivery Nasal Cannula Oxygen Flow Rate 2 12/15/22 12:00 12/15/22 17:11 Temperature 97.2 F L 97.4 F L Pulse Rate 72 70 Respiratory Rate 20 18 Blood Pressure 154/96 H 140/78 Pulse Oximetry 100 100 Oxygen Delivery Oxygen Flow Rate Intake/Output Intake/Output: Intake & Output 12/12/22 12/13/22 12/14/22 12/15/22 23:59 23:59 23:59 23:59 Intake Total 1100 1150 Output Total 500 3900 Balance 600 -2750 Meds/Results Medications: Active Medications Generic Name Dose Route Start Last Admin Trade Name Freq PRN Reason Stop Dose Admin Albuterol 2 puff 12/14/22 09:09 Albuterol Sulfate (*Sp) Aerosol 1 Puff INHALATION QID PRN shortness of breath or wheezing Aspirin 81 mg 12/15/22 08:00 12/15/22 10:38 Aspirin 81 Mg Chewable Tablet PO 81 mg DAILY@0800 SUMANTH Administration Baclofen 10 mg 12/14/22 21:00 12/14/22 20:52 Baclofen 10 Mg Tablet PO 10 mg QHS SUMANTH Administration Bupropion HCl 300 mg 12/14/22 09:00 12/15/22 10:38 Bupropion Hcl Xl (24 Hr) 150 Mg Tabcr PO 300 mg QAM SUMANTH Administration Ferrous Sulfate 325 mg 12/14/22 09:00 12/15/22 16:40 Ferrous Sulfate [address] BY MOUTH 325 mg BID SUMANTH Administration Furosemide 40 mg 12/14/22 21:00
[2022-12-15] MEDS: HEPARIN SOD/D5W 100 UNITS/ML 25,000 UNITS/250 ML BAG 16 UNITS IV CONT (18:19)
[2022-12-15] MEDS: BACLOFEN 10 MG TABLET PO (20:15)
[2022-12-15] MEDS: lamoTRIgine 100 MG TABLET PO (20:15)
[2022-12-15] MEDS: PRAZOSIN HCL 1 MG CAPSULE PO (20:15)
[2022-12-15 23:27] LABS: Partial Thromboplastin Time 85.4 SECONDS (22.3-36.8)
[2022-12-16] VITALS (15 sets, daily range): BP systolic 133–157; BP diastolic 78–97; PULSE 59–70; RESP 16–24; TEMP 36–36.9; O2SAT 95–100
[2022-12-16 05:35] LABS: Hematocrit 25.9 % (42.0-52.0); Hemoglobin 7.9 g/dL (14.0-18.0); Mean Corpuscular HGB Conc 30.5 g/dl (32-36); Mean Corpuscular Hemoglobin 23.7 pg (26-34); Mean Corpuscular Volume 77.5 fl (80-100); Mean Platelet Volume 9.9 fl (7.4-10.4); Platelet Count Result 343 k/mm3 (150-375); Red Blood Count 3.34 M/mm3 (4.6-6.20); White Blood Count 12.6 K/mm3 (4.5-10.0)
[2022-12-16 05:49] LABS: INR 1.3; Prothrombin Time 17.2 Seconds (11.1-14.7)
[2022-12-16 05:51] LABS: Partial Thromboplastin Time 98.4 SECONDS (22.3-36.8)
[2022-12-16 05:52] LABS: Alanine Aminotransferase 438 U/L (6-50); Alkaline Phosphatase 69 U/L (38-126); Anion Gap 7 mmol/L (8-16); Aspartate Amino Transferase 396 U/L (17-59); Bilirubin,Total 0.4 mg/dL (0.2-1.3); Blood Urea Nitrogen 48 mg/dL (9-20); Calcium 8.5 mg/dL (8.4-10.2); Carbon Dioxide 30 mmol/L (22-30); Chloride 94 mmol/L (98-107); Estimated CRCL calculation 30 ml/min; Estimated Glomerular Filt Rate 35; Glucose 263 mg/dL (65-110); Potassium 2.4 mmol/L (3.4-5.0); Sodium 131 mmol/L (137-145)
[2022-12-16 06:04] LABS: Troponin I 0.621 ng/mL (0.000-0.034)
[2022-12-16 06:18] LABS: Iron 38 ug/dL (49-181)
[2022-12-16 06:28] LABS: Percent Iron Saturation 16 % (20-50)
--- NOTE | 2022-12-16 07:37 | PM.PNCARD ---
Progress Note: A&P Assessment and Plan (1) CHF (congestive heart failure): Code(s): I50.9 - Heart failure, unspecified Status: Acute Assessment and Plan: Flash pulm edema secondary to NSTEMI. Acute systolic and diastolic heart failure. NTproBNP >97527. CXR shows significant pulm edema. 12/15/22 Echo: EF 40-45%, globally reduced with mid to apical inferior wall severely hypokinetic, diastolic dysfunction with E/e' 22, severe LAE, mild FIGUEROA, mild MR, mild-mod TR, RVSP 43 mmHg, trace pericardial effusion. Currently diuresed with Lasix 40 mg IV BID. Replete potassium today. (2) Elevated troponin: Code(s): R79.89 - Other specified abnormal findings of blood chemistry Status: Acute Assessment and Plan: Troponin peaked at 0.84. Probably has underlying CAD. Discuss LHC and he is agreeable to it. Suspect he has multivessel CAD, but won't know until cath is done. Will consult [facility] for possible LHC tomorrow as renal function stabilized, liver function stabilized. He is significantly anemic probably from recent colon cancer that has recently been resected, and hematology consulted. (3) MARGARITA (acute kidney injury): Code(s): N17.9 - Acute kidney failure, unspecified Status: Acute Assessment and Plan: Stabilized. Monitor as patient is being diuresed. (4) Pacemaker: Code(s): Z95.0 - Presence of cardiac pacemaker Status: Acute Assessment and Plan: Interrogated Biotronik pacemaker showing evidence of PMT and PAT. Biotron[employer] rep came in 12/14/22 and turned on Auto-PVARP to prevent PMT. Started Metoprolol to treat PAT. (5) Hyperlipidemia: Qualifiers: Hyperlipidemia type: mixed hyperlipidemia Qualified Code(s): E78.2 - Mixed hyperlipidemia Code(s): E78.5 - Hyperlipidemia, unspecified Status: Acute Assessment and Plan: Hold Simvastatin due to shock liver.. (6) Hypertension: Qualifiers: Hypertension type: essential hypertension Qualified Code(s): I10 - Essential (primary) hypertension Code(s): I10 - Essential (primary) hypertension Status: Acute Assessment and Plan: Stable. (7) Transaminitis: Code(s): R74.01 - Elevation of levels of liver transaminase levels Status: Acute Assessment and Plan: Shock liver probably related to CHF with passive congestion. Continue to monitor. Hold Simvastatin. Subjective Date/time seen: 12/16/22 07:37 Interval history: Denies chest pain or sob today. Exam Const: General: cooperative, healthy appearing and comfortable Orientation/consciousness: oriented to person, oriented to place and oriented to time Resp: Auscultation: clear to auscultation bilaterally, no crackles, no rales, no rhonchi and no wheezes Cardio: Rate: regular rate Rhythm: regular rhythm Heart sounds: no murmurs Peripheral pulses: dorsalis pedis present Neuro: General: oriented to person, oriented to place and oriented to time Extrem: Right lower extremity: no edema Left lower extremity: no edema Objective Data Vital Signs Vital Signs: Vital Signs - 24 hr 12/15/22 08:00 12/15/22 10:38 12/15/22 11:28 Temperature 96.8 F L Pulse Rate 75 78 Respiratory Rate 18 Blood Pressure 144/88 H Pulse Oximetry 100 Oxygen Delivery Nasal Cannula Oxygen Flow Rate 2 12/15/22 12:00 12/15/22 17:11 12/15/22 08:00 Temperature 97.2 F L 97.4 F L Pulse Rate 72 70 60 Respiratory Rate 20 18 Blood Pressure 154/96 H 140/78 Pulse Oximetry 100 100 Oxygen Delivery Oxygen Flow Rate 12/15/22 10:00 12/15/22 12:00 12/15/22 14:00 Temperature Pulse Rate 78 69 63 Respiratory Rate Blood Pressure Pulse Oximetry Oxygen Delivery Oxygen Flow Rate 12/15/22 18:00 12/15/22 08:00 12/15/22 12:00 Temperature Pulse Rate 70 Respiratory Rate Blood Pressure Pulse Oximetry 100 100 Oxygen Delivery Nasal Cannula Nasal Cannula Ox
[2022-12-16] MEDS: buPROPion HCL XL (24 HR) 150 MG TABCR 300 MG PO (08:49)
[2022-12-16] MEDS: ASPIRIN 81 MG CHEWABLE TABLET PO (08:49)
[2022-12-16] MEDS: POTASSIUM CHLORIDE INJ 40 MEQ in SODIUM CHLORIDE 0.9% IV 500 ML 130 MEQ IVPB ×2 (08:49→17:58)
[2022-12-16] MEDS: METOPROLOL TARTRATE 50 MG TAB PO ×2 (08:49→21:36)
[2022-12-16] MEDS: PARoxetine 20 MG TABLET 40 MG PO (08:50)
[2022-12-16] MEDS: INDAPAMIDE 2.5 MG TABLET PO (08:50)
[2022-12-16] MEDS: FERROUS SULFATE 325 MG TABLET DR BY MOUTH ×2 (08:50→17:58)
[2022-12-16] MEDS: PARoxetine 10 MG TABLET PO (08:50)
[2022-12-16] MEDS: FUROSEMIDE INJ 40 MG/4 ML VIAL IV PUSH (08:50)
[2022-12-16] MEDS: HEPARIN SOD/D5W 100 UNITS/ML 25,000 UNITS/250 ML BAG 16 UNITS IV CONT (10:06)
--- NOTE | 2022-12-16 11:05 | PM.CNCAR ---
Assessment and Plan Assessment and plan (1) Elevated troponin: Code(s): R79.89 - Other specified abnormal findings of blood chemistry Status: Acute Assessment and Plan: Elevated troponins: Probable underlying coronary disease with segmental wall motion abnormalities noted on echo and some anterior T-wave inversion briefly seen on EKG. No typical angina but presents with CHF post colectomy. --will discuss with Dr. Arias; probable cardiac catheterization will be scheduled tomorrow with Dr. Arias. --counseled patient and . Reviewed possible risks and complications with patient including breathing problems, bleeding problems, blood vessel problems, unanticipated surgery, allergic reactions, kidney problems, CVA, MS, and among others. Emphasize increase risk of renal complications in renal failure with IV contrast exposure which we will try to minimize. Discussed possibility of stenting and possible need for DAPT. Discussed the possibility that if DAPT is interrupted stent thrombosis can occur resulting in heart attack and . Patient understands risks and desires to proceed. --continue heparin, statin, metoprolol --daily BMP --daily CBC --hold furosemide and hydrate prior to procedure (2) Acute systolic (congestive) heart failure: Code(s): I50.21 - Acute systolic (congestive) heart failure Status: Acute Assessment and Plan: Patient has developed acute systolic heart failure with a cardiomyopathy and ejection fraction of 40-45%. --cardiac catheterization to determine how much CAD the patient has --continue metoprolol --hold furosemide temporarily for preservation of renal function with the IV contrast (3) Cardiomyopathy: Code(s): I42.9 - Cardiomyopathy, unspecified Status: Acute Assessment and Plan: EF 40-45% (4) Chronic kidney disease, stage 3a: Code(s): N18.31 - Chronic kidney disease, stage 3a Status: Acute Assessment and Plan: Hydrate and check daily BMPs (5) Anemia: Qualifiers: Anemia type: iron deficiency Iron deficiency anemia type: unspecified iron deficiency Qualified Code(s): D50.9 - Iron deficiency anemia, unspecified Code(s): D64.9 - Anemia, unspecified Status: Inactive Assessment and Plan: Postop anemia, check CBC in the morning (6) Pacemaker: Code(s): Z95.0 - Presence of cardiac pacemaker Status: Acute Assessment and Plan: Telemetry reviewed, patient's sitter is functioning appropriately History of Present Illness History of Present Illness Consult date/time: 12/16/22 11:05 Invasive Cardiology Consultation Reason For Visit: CHF, Elevated troponin, Pulmonary Edema, MARGARITA Narrative: Buddy Wilson is a 72 y.o. male whom we were asked to see at [facility] request of Dr. Petersen for our advise and opinion re: his NSTEMI evaluation and possible cardiac cath, in consultation. Mr. Wilson had a Biotronik pacemaker for complete heart block on 12/03/[address] Arias. He also has hypertension, diabetes and dyslipidemia. He had a robotic hemicolectomy 12/10/[address] Dr. Martin. The patient was readmitted on 12/14/2022 with progressive BUSH and orthopnea secondary to new onset of CHF. He has been getting furosemide 40 mg IV push b.i.d. and diuresing well. He has no BUSH w/ minor activity and no PND/orthopnea or edema. s. Troponins are elevated, to 0.8. Denies typical anginal sx. 12/15/22 Echo: EF 40-45%, globally reduced with mid to apical inferior wall severely hypokinetic, diastolic dysfunction with E/e' 22, severe LAE, mild FIGUEROA, mild MR, mild-mod TR, RVSP 43 mmHg, trace pericardial effusion. Troponins: 0.62, 0.63, 0.68, 0.77, 0.84, 0.62 12/14/2022 prolonged BMP greater than 30,000 BUN 48, creatinine 1.9, GFR 35, improving (GFR was running 40-50 slowly in October and November). Hematocrit ranging from 25-33, was 26 12/16/2022 12/14/2022 chest x
--- NOTE | 2022-12-16 14:50 | PM.IMPN ---
Progress Note: A&P Assessment and Plan (1) Transaminitis: Code(s): R74.01 - Elevation of levels of liver transaminase levels Status: Acute (2) CHF (congestive heart failure): Code(s): I50.9 - Heart failure, unspecified Status: Acute (3) MARGARITA (acute kidney injury): Code(s): N17.9 - Acute kidney failure, unspecified Status: Acute Plan 72M w/ PMH CKD stage 3, hepatitis, HLD, HTN, DM, PPM anxiety presented with complaint of peripheral edema. troponemia, downtrended now. cont heparin GTT, npo at midnight for heart cath. he is high risk but aware of the risks new onset HF, EF 40-45%, cardiology has held furosemide and hydrated, agree with this. will have to avail to worsened kidney function and chf transiently. pt aware of the risk of this as well. oncology to see. they don't suspect to start chemo for another month. if patient is placed on DAPT, would be rizvi to hold off on interuppting that and placing a portacath in a few weeks as outpatient leukocytosis. check procal and trend, does not appear toxic transmanitis - due to shock liver, improving, ctm ckd stage III - baseline cr 1.5 - 1.7, now 2.10 - 1.90. ctm full code, npo at midnight. fluids Subjective Date/time seen: 12/16/22 14:50 Interval history: NAOE Review of Systems Review of Systems: All systems reviewed & are unremarkable except as noted in HPI and below Exam Const: General: no acute distress, alert and Physically active Resp: Effort & Inspection: normal respiratory effort Auscultation: clear to auscultation bilaterally Cardio: Rate: regular rate Rhythm: regular rhythm Heart sounds: S1 normal heart sound present and S2 normal heart sound present GI: Inspection: non-distended Auscultation: normal bowel sounds Extrem: Right upper extremity: no edema Objective Data Vital Signs Vital Signs: Vital Signs - 24 hr 12/15/22 17:11 12/15/22 18:00 12/15/22 16:00 Temperature 97.4 F L Pulse Rate 70 70 Respiratory Rate 18 Blood Pressure 140/78 Pulse Oximetry 100 100 Oxygen Delivery Nasal Cannula Oxygen Flow Rate 2 12/15/22 19:35 12/15/22 16:00 12/15/22 20:15 Temperature 98.2 F Pulse Rate 72 66 82 Respiratory Rate 16 Blood Pressure 161/95 H Pulse Oximetry 99 Oxygen Delivery Oxygen Flow Rate 12/15/22 20:00 12/15/22 20:00 12/15/22 21:25 Temperature Pulse Rate 82 82 78 Respiratory Rate 16 Blood Pressure Pulse Oximetry 99 Oxygen Delivery Nasal Cannula Oxygen Flow Rate 2 12/15/22 23:58 12/16/22 00:00 12/16/22 00:00 Temperature 98.4 F Pulse Rate 59 L 68 68 Respiratory Rate 16 16 Blood Pressure 117/67 Pulse Oximetry 97 97 Oxygen Delivery Room Air Oxygen Flow Rate 12/16/22 02:00 12/16/22 04:00 12/16/22 04:00 Temperature 98.5 F Pulse Rate 60 68 60 Respiratory Rate 18 Blood Pressure 157/96 H Pulse Oximetry 95 Oxygen Delivery Oxygen Flow Rate 12/16/22 04:00 12/16/22 06:00 12/16/22 08:49 Temperature Pulse Rate 60 62 60 Respiratory Rate 18 Blood Pressure Pulse Oximetry 95 Oxygen Delivery Room Air Oxygen Flow Rate 12/16/22 08:00 12/16/22 12:00 Temperature 96.8 F L 97.3 F L Pulse Rate 60 59 L Respiratory Rate 20 24 H Blood Pressure 133/78 140/97 H Pulse Oximetry 100 99 Oxygen Delivery Oxygen Flow Rate Intake/Output Intake/Output: Intake & Output 12/13/22 12/14/22 12/15/22 12/16/22 23:59 23:59 23:59 23:59 Intake Total 1100 1400 250 Output Total 500 4700 1900 Balance 600 -3300 -1650 Meds/Results Medications: Active Medications Generic Name Dose Route Start Last Admin Trade Name Freq PRN Reason Stop Dose Admin Albuterol 2 puff 12/14/22 09:09 Albuterol Sulfate (*Sp) Aerosol 1 Puff INHALATION QID PRN shortness of breath or wheezing Aspirin 81 mg 12/15/22 08:00 12/16/22 08:49 Aspirin 81 Mg Chewable Tablet PO 81 mg DAILY@0800 [facility] Admin
[2022-12-16 15:12] LABS: Hematocrit 29.3 % (42.0-52.0); Hemoglobin 8.7 g/dL (14.0-18.0); Mean Corpuscular HGB Conc 29.7 g/dl (32-36); Mean Corpuscular Hemoglobin 23.1 pg (26-34); Mean Corpuscular Volume 77.9 fl (80-100); Mean Platelet Volume 9.6 fl (7.4-10.4); Platelet Count Result 404 k/mm3 (150-375); Red Blood Count 3.76 M/mm3 (4.6-6.20); Red Cell Distribution Width 23.9 % (11.5-14.5); White Blood Count 12.6 K/mm3 (4.5-10.0)
[2022-12-16 15:44] LABS: Anion Gap 7 mmol/L (8-16); Blood Urea Nitrogen 45 mg/dL (9-20); Calcium 8.7 mg/dL (8.4-10.2); Carbon Dioxide 34 mmol/L (22-30); Chloride 92 mmol/L (98-107); Estimated CRCL calculation 33 ml/min; Estimated Glomerular Filt Rate 40; Glucose 235 mg/dL (65-110); Magnesium 1.5 mg/dL (1.6-2.3); Potassium 2.6 mmol/L (3.4-5.0); Sodium 133 mmol/L (137-145)
--- NOTE | 2022-12-16 17:56 | PDONCCN ---
HPI - Date of Consult Date/Time: 12/16/22 17:56 Requesting Physician: Ricardo Yun MD Primary Care Provider: Idalmis Veronica MD - Consult Narrative Reason for consult: Colon cancer Narrative: Julian Wilson is a 72 year old male with history of chronic kidney stage 3 disease and type 2 diabetes admitted to the hospital with shortness of breath. Patient had pacemaker placement. Patient also had laparoscopic right hemicolectomy done on December 10, 2022. He was dealing with diarrhea and has lost 10-15 lb weight. Patient had colonoscopy done on November 02 that showed partially obstructing mass in the cecum and biopsies were taken. 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 22- for metastatic adenocarcinoma. It was T4 disease. CT scan on November 04 showed wall thickening of the cecum without metastatic disease. CEA was elevated at 69.1 he remains short of breath. Denies any other complaints. Denies any previous history of malignancy. Review of Systems - Review of Systems All systems reviewed & are unremarkable except as noted in HPI and bel - Neurologic Reports system reviewed and no additional complaints, except as documented, Denies behavioral changes, Denies confusion, Denies syncope PMFSH Medical History: Medical History (Last Reviewed 12/16/22 @ 14:14 by Arely Lawson MD) Anxiety Cardiomyopathy Chronic kidney disease, stage 3 Baseline creatinine ranges between 1.36 and 1.55. Hepatitis History of blood transfusion Hyperlipidemia Hypertension Second degree heart block by electrocardiogram (ECG) Type 2 diabetes mellitus Surgical History: Surgical History (Last Reviewed 12/16/22 @ 14:14 by Arely Lawson MD) History of appendectomy History of surgery on upper extremity Open reduction internal fixation of left upper extremity fracture. Family History: Family History (Last Reviewed 12/16/22 @ 14:14 by Arely Lawson MD) Grandparent Diabetes mellitus Hypertension Asthma Cerebrovascular accident Family history of coronary artery disease Mother Hypertension Family history of cardiovascular disease Family history of lymphoma Family history of rheumatic fever Father Family history of throat cancer Other Family history of alcoholism Family history of mental disorder - Social History Social History: Social History (Last Reviewed 12/16/22 @ 14:14 by Arely Lawson MD) Alcohol Use: Alcohol intake: never Substance Use: Substance use: current Substance use type: marijuana Other substance usage details: weekly Last use: 12/08/22 Others: Spiritual care concerns: No Agree to blood products: Yes Living Arrangements: Living arrangements: with family Oppucation/Education: Occupation/Education: retired Smoking Status: Smoking status: Former smoker Tobacco type: cigarettes Second hand tobacco smoke exposure: Yes Smoking end date: 02/21/77 Smoking Pack-years: Smoking packs per day: 1 Smoking cigarettes per day: 20.0 Years smoked: 20 Smoking pack-years: 20.00 Social Determinants of Health: Has the Lack of Transportation Kept You From Medical Appointments or From Getting Medications?: No Within the Past 12 Months, Were You Worried Whether Your Food Would Run Out Before You Got Money to Buy More?: Never True What is Your Housing Situation Today?: I Have Housing Are You Worried That in the Next 2 Months, You May Not Have Your Own Housing to Live In?: No Do You Have Trouble Paying Your Heating Or Electricity Bill?: No Do You Have Trouble Paying For Medicines?: No Are You Currently Unemployed and Looking for Work?: No Highest Level of Education Completed: Decline to Answer Do You Have Trouble With Childcare or the Care of a Family Member?: No Exam - Yahaira
[2022-12-16] MEDS: POTASSIUM CHLORIDE 20 MEQ ER TABLET PO (17:58)
[2022-12-16] MEDS: IRON SUCROSE COMPLEX 500 MG in SODIUM CHLORIDE 0.9% IV 250 ML 78.57 MG IVPB (19:53)
[2022-12-16] MEDS: EPOETIN ALFA 20,000 UNITS/ML VIAL 20000 UNITS SUB-Q (19:54)
[2022-12-16 20:53] LABS: Lactate Dehydrogenase 478 U/L (120-246)
[2022-12-16] MEDS: lamoTRIgine 100 MG TABLET PO (21:36)
[2022-12-16] MEDS: BACLOFEN 10 MG TABLET PO (21:36)
[2022-12-16] MEDS: PRAZOSIN HCL 1 MG CAPSULE PO (21:37)
[2022-12-16 21:51] LABS: Vitamin B12 > 1000.0 pg/mL (239-931)
[2022-12-17] VITALS (16 sets, daily range): BP systolic 114–163; BP diastolic 69–97; PULSE 60–68; RESP 16–24; TEMP 36–36.5; O2SAT 94–100
[2022-12-17] MEDS: HEPARIN SOD/D5W 100 UNITS/ML 25,000 UNITS/250 ML BAG 16 UNITS IV CONT (03:33)
[2022-12-17 05:44] LABS: Partial Thromboplastin Time 154.2 SECONDS (22.3-36.8)
[2022-12-17 05:45] LABS: Alanine Aminotransferase 389 U/L (6-50); Albumin Level 2.9 g/dL (3.5-5.1); Alkaline Phosphatase 73 U/L (38-126); Aspartate Amino Transferase 289 U/L (17-59); Bilirubin,Total 0.4 mg/dL (0.2-1.3); Magnesium 1.4 mg/dL (1.6-2.3)
[2022-12-17 07:31] LABS: Alanine Aminotransferase 426 U/L (6-50); Albumin Level 2.8 g/dL (3.5-5.1); Alkaline Phosphatase 73 U/L (38-126); Anion Gap 8 mmol/L (8-16); Aspartate Amino Transferase 289 U/L (17-59); Bilirubin,Total 0.4 mg/dL (0.2-1.3); Blood Urea Nitrogen 37 mg/dL (9-20); Calcium 8.4 mg/dL (8.4-10.2); Carbon Dioxide 32 mmol/L (22-30); Chloride 95 mmol/L (98-107); Estimated CRCL calculation 44 ml/min; Estimated Glomerular Filt Rate 43; Glucose 226 mg/dL (65-110); Potassium 2.6 mmol/L (3.4-5.0); Sodium 135 mmol/L (137-145)
[2022-12-17 07:34] LABS: Procalcitonin 0.2 ng/mL
--- NOTE | 2022-12-17 07:48 | PM.PNCARD ---
Progress Note: A&P Assessment and Plan (1) CHF (congestive heart failure): Code(s): I50.9 - Heart failure, unspecified Status: Acute Assessment and Plan: Flash pulm edema secondary to NSTEMI. Acute systolic and diastolic heart failure. NTproBNP >45062. CXR shows significant pulm edema. 12/15/22 Echo: EF 40-45%, globally reduced with mid to apical inferior wall severely hypokinetic, diastolic dysfunction with E/e' 22, severe LAE, mild FIGUEROA, mild MR, mild-mod TR, RVSP 43 mmHg, trace pericardial effusion. Currently diuresed with Lasix 40 mg IV BID. Replete potassium and Mag. (2) Elevated troponin: Code(s): R79.89 - Other specified abnormal findings of blood chemistry Status: Acute Assessment and Plan: Troponin peaked at 0.84. Probably has underlying CAD. On heparin drip. Discuss LHC and he is agreeable to it. Suspect he has multivessel CAD, but won't know until cath is done. Consulted [facility] for possible LHC and was seen by Dr. Lawson; appreciate her note. Possible LHC today. (3) MARGARITA (acute kidney injury): Code(s): N17.9 - Acute kidney failure, unspecified Status: Acute Assessment and Plan: Stabilized. Monitor as patient is being diuresed. (4) Pacemaker: Code(s): Z95.0 - Presence of cardiac pacemaker Status: Acute Assessment and Plan: Interrogated Biotronik pacemaker showing evidence of PMT and PAT. Bi[employer]ron[employer] rep came in 12/14/22 and turned on Auto-PVARP to prevent PMT. Started Metoprolol to treat PAT. (5) Hyperlipidemia: Qualifiers: Hyperlipidemia type: mixed hyperlipidemia Qualified Code(s): E78.2 - Mixed hyperlipidemia Code(s): E78.5 - Hyperlipidemia, unspecified Status: Acute Assessment and Plan: Hold Simvastatin due to shock liver.. (6) Hypertension: Qualifiers: Hypertension type: essential hypertension Qualified Code(s): I10 - Essential (primary) hypertension Code(s): I10 - Essential (primary) hypertension Status: Acute Assessment and Plan: Stable. (7) Transaminitis: Code(s): R74.01 - Elevation of levels of liver transaminase levels Status: Acute Assessment and Plan: Shock liver probably related to CHF with passive congestion. Continue to monitor. Hold Simvastatin. Subjective Date/time seen: 12/17/22 07:48 Interval history: Denies chest pain or sob today. Exam Const: General: cooperative, healthy appearing and comfortable Orientation/consciousness: oriented to person, oriented to place and oriented to time Resp: Auscultation: clear to auscultation bilaterally, no crackles, no rales, no rhonchi, no wheezes and diminished lung sounds Cardio: Rate: regular rate Rhythm: regular rhythm Heart sounds: no murmurs Peripheral pulses: dorsalis pedis present Neuro: General: oriented to person, oriented to place and oriented to time Extrem: Right lower extremity: no edema Left lower extremity: no edema Objective Data Vital Signs Vital Signs: Vital Signs - 24 hr 12/16/22 08:49 12/16/22 08:00 12/16/22 12:00 Temperature 96.8 F L 97.3 F L Pulse Rate 60 60 59 L Respiratory Rate 20 24 H Blood Pressure 133/78 140/97 H Pulse Oximetry 100 99 Oxygen Delivery 12/16/22 08:00 12/16/22 12:00 12/16/22 16:00 Temperature 97.7 F Pulse Rate 60 Respiratory Rate 20 Blood Pressure 147/81 H Pulse Oximetry 95 Oxygen Delivery Room Air Room Air 12/16/22 08:00 12/16/22 10:00 12/16/22 12:00 Temperature Pulse Rate 60 70 60 Respiratory Rate Blood Pressure Pulse Oximetry Oxygen Delivery 12/16/22 14:00 12/16/22 16:00 12/16/22 16:00 Temperature Pulse Rate 60 60 Respiratory Rate Blood Pressure Pulse Oximetry Oxygen Delivery Room Air 12/16/22 18:00 12/16/22 19:38 12/16/22 21:36 Temperature 97.6 F Pulse Rate 68 64 63 Respiratory Rate 16 Blood Pressure 138/95 H Pulse Oximetry 95 O
[2022-12-17] MEDS: PARoxetine 20 MG TABLET 40 MG PO (08:39)
[2022-12-17] MEDS: MAGNESIUM SULF 2 GM/WATER 50ML 2 GM/50 ML BAG IVPB (08:39)
[2022-12-17] MEDS: FERROUS SULFATE 325 MG TABLET DR BY MOUTH ×2 (08:39→17:31)
[2022-12-17] MEDS: PARoxetine 10 MG TABLET PO (08:39)
[2022-12-17] MEDS: METOPROLOL TARTRATE 50 MG TAB PO ×2 (08:39→22:15)
[2022-12-17] MEDS: buPROPion HCL XL (24 HR) 150 MG TABCR 300 MG PO (08:39)
[2022-12-17] MEDS: INDAPAMIDE 2.5 MG TABLET PO (08:39)
[2022-12-17] MEDS: POTASSIUM CHLORIDE 20 MEQ ER TABLET PO ×2 (08:39→17:31)
[2022-12-17] MEDS: ASPIRIN 81 MG CHEWABLE TABLET PO (08:39)
[2022-12-17] MEDS: SODIUM CHLORIDE 0.9% IV 500 ML 125 ML IV CONT ×4 (08:44→20:10)
[2022-12-17] MEDS: POTASSIUM CHLORIDE INJ 40 MEQ in SODIUM CHLORIDE 0.9% IV 500 ML 130 MEQ IVPB ×2 (09:37→14:05)
--- NOTE | 2022-12-17 12:55 | PM.PNGS ---
Progress Note: A&P Assessment and Plan (1) Adenocarcinoma of cecum: Code(s): C18.0 - Malignant neoplasm of cecum Status: Acute Assessment and Plan: Patient scheduled dayami catheter placed for administration of chemotherapy treatments on Tuesday December 20, 2022 at 12:30 p.m.. Subjective Subjective Date/Time Seen: 12/17/22 12:55 Interval history: Patient is sitting up and eating lunch today. Apparently his heart catheterization procedure today was canceled due to low potassium. He otherwise is feeling pretty good. Medical oncology consultation has been done and Dr. Kolb recommends chemotherapy for the patient. The patient is planning on moving forward with chemotherapy. He will need to have a dayami catheter placed for administration of the chemotherapy treatments. Back be done while he is here in the hospital. It can be done under IV sedation and a local anesthetic. If okay with Cardiology would plan on placement of the dayami catheter on Tuesday December 20, 2022 at 12:30 p.m.. Then later in the day or the next day heart catheterization can be done and if intervention is performed and stent placed acquired tool antiplatelet therapy then have to be stopped to place a port catheter since OR to be done. This was discussed with the patient he is agreeable to this plan. Also discussed with hospitalist service and they understand and agree as well. Objective Data Vital Signs Vital Signs: Vital Signs - 24 hr 12/16/22 16:00 12/16/22 14:00 12/16/22 16:00 Temperature 36.5 C Pulse Rate 60 60 60 Respiratory Rate 20 Blood Pressure 147/81 H Pulse Oximetry 95 Oxygen Delivery Fraction of Inspired Oxygen 12/16/22 16:00 12/16/22 18:00 12/16/22 19:38 Temperature 36.4 C Pulse Rate 68 64 Respiratory Rate 16 Blood Pressure 138/95 H Pulse Oximetry 95 Oxygen Delivery Room Air Fraction of Inspired Oxygen 12/16/22 21:36 12/16/22 20:00 12/16/22 22:00 Temperature Pulse Rate 63 60 66 Respiratory Rate Blood Pressure Pulse Oximetry Oxygen Delivery Fraction of Inspired Oxygen 12/17/22 00:00 12/17/22 00:00 12/17/22 02:00 Temperature 36.1 C L Pulse Rate 60 60 63 Respiratory Rate 16 Blood Pressure 139/78 Pulse Oximetry 94 Oxygen Delivery Fraction of Inspired Oxygen 12/17/22 04:18 12/17/22 04:00 12/17/22 06:00 Temperature 36.5 C Pulse Rate 60 64 63 Respiratory Rate 16 Blood Pressure 133/72 Pulse Oximetry 94 Oxygen Delivery Fraction of Inspired Oxygen 12/17/22 08:00 12/17/22 08:42 12/17/22 08:00 Temperature 36.0 C L Pulse Rate 66 Respiratory Rate 20 Blood Pressure 163/97 H Pulse Oximetry 98 97 97 Oxygen Delivery Room Air Room Air Fraction of Inspired Oxygen 21 12/17/22 12:00 Temperature 36.1 C L Pulse Rate 60 Respiratory Rate 24 H Blood Pressure 141/76 H Pulse Oximetry Oxygen Delivery Fraction of Inspired Oxygen Intake/Output Intake/Output: Intake & Output 12/14/22 12/15/22 12/16/22 12/17/22 23:59 23:59 23:59 23:59 Intake Total 1100 1400 970 550 Output Total 500 4700 5100 1050 Balance 600 -5106 -0148 -500 Meds/Results Medications: Active Medications Generic Name Dose Route Start Last Admin Trade Name Freq PRN Reason Stop Dose Admin Albuterol 2 puff 12/14/22 09:09 Albuterol Sulfate (*Sp) Aerosol 1 Puff INHALATION QID PRN shortness of breath or wheezing Aspirin 81 mg 12/15/22 08:00 12/17/22 08:39 Aspirin 81 Mg Chewable Tablet PO 81 mg DAILY@0800 SUMANTH Administration Baclofen 10 mg 12/14/22 21:00 12/16/22 21:36 Baclofen 10 Mg Tablet PO 10 mg QHS SUMANTH Administration Bupropion HCl 300 mg 12/14/22 09:00 12/17/22 08:39 Bupropion Hcl Xl (24 Hr) 150 Mg Tabcr PO 300 mg QAM SUMANTH Administration Ferrous Sulfate 325 mg 12/14/22 09:00 12/17/22 08:39 Ferrous Sulfate [address] BY MOUTH 325 mg BID SUMANTH Administration F
--- NOTE | 2022-12-17 15:05 | PM.IMPN ---
Progress Note: A&P Assessment and Plan (1) Cardiomyopathy: Code(s): I42.9 - Cardiomyopathy, unspecified Status: Acute (2) Acute systolic (congestive) heart failure: Code(s): I50.21 - Acute systolic (congestive) heart failure Status: Acute (3) Adenocarcinoma of cecum: Code(s): C18.0 - Malignant neoplasm of cecum Status: Acute (4) Transaminitis: Code(s): R74.01 - Elevation of levels of liver transaminase levels Status: Acute (5) Pacemaker: Code(s): Z95.0 - Presence of cardiac pacemaker Status: Acute Plan hypokalemia and hypomagnesemia being replaced and rechecked. surgeries postponed due to this iron def anemia, procrit and iron started leukocytosis. check procal and trend, does not appear toxic transmanitis - due to shock liver, improving, ctm ckd stage III - baseline cr 1.5 - 1.7, now 2.10 - 1.90 --> 1.4 stop fluids, give another few doses of lasix and re asses in am heparin given for 3 days. d/c. no chest pain. trops trended down plan to go for portacatch tuesday first around noon. then won't need interupttin of doac if he needs it after angiogram/PCI. will be here over the weekend full code stable. Subjective Date/time seen: 12/17/22 15:05 Interval history: NAOE. pt is without complaints. feels at baseline Review of Systems Review of Systems: All systems reviewed & are unremarkable except as noted in HPI and below Exam Resp: Auscultation: crackles (bases, scant) Cardio: Rate: regular rate Rhythm: regular rhythm GI: Auscultation: normal bowel sounds Extrem: General: no edema Objective Data Vital Signs Vital Signs: Vital Signs - 24 hr 12/16/22 16:00 12/16/22 16:00 12/16/22 16:00 Temperature 97.7 F Pulse Rate 60 60 Respiratory Rate 20 Blood Pressure 147/81 H Pulse Oximetry 95 Oxygen Delivery Room Air Fraction of Inspired Oxygen 12/16/22 18:00 12/16/22 19:38 12/16/22 21:36 Temperature 97.6 F Pulse Rate 68 64 63 Respiratory Rate 16 Blood Pressure 138/95 H Pulse Oximetry 95 Oxygen Delivery Fraction of Inspired Oxygen 12/16/22 20:00 12/16/22 22:00 12/17/22 00:00 Temperature 97 F L Pulse Rate 60 66 60 Respiratory Rate 16 Blood Pressure 139/78 Pulse Oximetry 94 Oxygen Delivery Fraction of Inspired Oxygen 12/17/22 00:00 12/17/22 02:00 12/17/22 04:18 Temperature 97.7 F Pulse Rate 60 63 60 Respiratory Rate 16 Blood Pressure 133/72 Pulse Oximetry 94 Oxygen Delivery Fraction of Inspired Oxygen 12/17/22 04:00 12/17/22 06:00 12/17/22 08:00 Temperature 96.8 F L Pulse Rate 64 63 66 Respiratory Rate 20 Blood Pressure 163/97 H Pulse Oximetry 98 Oxygen Delivery Fraction of Inspired Oxygen 12/17/22 08:42 12/17/22 08:00 12/17/22 12:00 Temperature 97 F L Pulse Rate 60 Respiratory Rate 24 H Blood Pressure 141/76 H Pulse Oximetry 97 97 Oxygen Delivery Room Air Room Air Fraction of Inspired Oxygen 21 Intake/Output Intake/Output: Intake & Output 12/14/22 12/15/22 12/16/22 12/17/22 23:59 23:59 23:59 23:59 Intake Total 1100 3372 014 0467 Output Total 500 4700 5100 1050 Balance 600 -5160 -0960 240 Meds/Results Medications: Active Medications Generic Name Dose Route Start Last Admin Trade Name Freq PRN Reason Stop Dose Admin Albuterol 2 puff 12/14/22 09:09 Albuterol Sulfate (*Sp) Aerosol 1 Puff INHALATION QID PRN shortness of breath or wheezing Aspirin 81 mg 12/15/22 08:00 12/17/22 08:39 Aspirin 81 Mg Chewable Tablet PO 81 mg DAILY@0800 SUMANTH Administration Baclofen 10 mg 12/14/22 21:00 12/16/22 21:36 Baclofen 10 Mg Tablet PO 10 mg QHS SUMANTH Administration Bupropion HCl 300 mg 12/14/22 09:00 12/17/22 08:39 Bupropion Hcl Xl (24 Hr) 150 Mg Tabcr PO 300 mg QAM SUMANTH Administration Ferrous Sulfate 325 mg 12/14/22 09:00 12/17/22 08:39 Ferrous Sulf
[2022-12-17 15:17] LABS: Anion Gap 8 mmol/L (8-16); Blood Urea Nitrogen 33 mg/dL (9-20); Calcium 8.4 mg/dL (8.4-10.2); Carbon Dioxide 31 mmol/L (22-30); Chloride 96 mmol/L (98-107); Estimated CRCL calculation 50 ml/min; Estimated Glomerular Filt Rate 50; Glucose 260 mg/dL (65-110); Magnesium 2.1 mg/dL (1.6-2.3); Potassium 3.4 mmol/L (3.4-5.0); Sodium 135 mmol/L (137-145)
[2022-12-17 17:20] LABS: Partial Thromboplastin Time 56.5 SECONDS (22.3-36.8)
[2022-12-17] MEDS: FUROSEMIDE INJ 40 MG/4 ML VIAL IV PUSH ×2 (17:30→22:19)
[2022-12-17] MEDS: SIMVASTATIN 20 MG TABLET 40 MG PO ×2 (22:14→22:27)
[2022-12-17] MEDS: BACLOFEN 10 MG TABLET PO (22:15)
[2022-12-17] MEDS: lamoTRIgine 100 MG TABLET PO (22:15)
[2022-12-17] MEDS: PRAZOSIN HCL 1 MG CAPSULE PO (22:16)
[2022-12-17] MEDS: HEPARIN SODIUM 5,000 UNITS/ML VIAL 5000 UNITS SUB-Q (22:20)
[2022-12-18] VITALS (17 sets, daily range): BP systolic 129–146; BP diastolic 65–90; PULSE 60–86; RESP 16–20; TEMP 36.1–36.9; O2SAT 93–100
[2022-12-18 05:26] LABS: Basophils Absolute Auto 0.1 K/mm3 (0.0-0.1); Basophils Percent Auto 0.5 % (0.2-1.2); Eosinophils Absolute Auto 0.1 K/mm3 (0-0.3); Eosinophils Percent Auto 0.6 % (0-4.4); Hematocrit 26.9 % (42.0-52.0); Hemoglobin 7.6 g/dL (14.0-18.0); Immature Granulocyte Absolute 0.22 K/mm3 (0.00-0.031); Immature Granulocyte Percent A 2.2 % (0-0.5); Lymphocytes Absolute Auto 0.92 K/mm3 (0.9-3.2); Lymphocytes Percent Auto 9.3 % (18.3-44.2); Mean Corpuscular HGB Conc 28.3 g/dl (32-36); Mean Corpuscular Hemoglobin 23.7 pg (26-34); Mean Corpuscular Volume 83.8 fl (80-100); Mean Platelet Volume 10.1 fl (7.4-10.4); Monocytes Absolute Auto 0.9 K/mm3 (0.1-0.6); Neutrophils Absolute Auto 7.8 K/mm3 (1.3-6.7); Neutrophils Percent Auto 78.4 % (45.5-73.1); Nucleated Red Blood Cells Absolute Auto 0.1 K/mm3 (0.0-0.012); Nucleated Red Blood Cells Perc 1.3 % (0.0-0.2); Platelet Count Result 326 k/mm3 (150-375); Red Blood Count 3.21 M/mm3 (4.6-6.20); Red Cell Distribution Width 24.3 % (11.5-14.5); White Blood Count 9.9 K/mm3 (4.5-10.0)
[2022-12-18 05:36] LABS: Partial Thromboplastin Time 31.1 SECONDS (22.3-36.8)
[2022-12-18 05:46] LABS: Alanine Aminotransferase 302 U/L (6-50); Albumin Level 3.1 g/dL (3.5-5.1); Alkaline Phosphatase 72 U/L (38-126); Anion Gap 6 mmol/L (8-16); Aspartate Amino Transferase 132 U/L (17-59); Bilirubin,Total 0.5 mg/dL (0.2-1.3); Blood Urea Nitrogen 29 mg/dL (9-20); Calcium 8.4 mg/dL (8.4-10.2); Carbon Dioxide 31 mmol/L (22-30); Chloride 98 mmol/L (98-107); Estimated CRCL calculation 37 ml/min; Estimated Glomerular Filt Rate 50; Glucose 223 mg/dL (65-110); Magnesium 1.7 mg/dL (1.6-2.3); Potassium 2.9 mmol/L (3.4-5.0); Sodium 135 mmol/L (137-145)
[2022-12-18 05:54] LABS: Hypochromasia 2+ (NORMAL); Platelet Estimate Adequate (Adequate)
[2022-12-18 05:55] LABS: Anisocytosis 2+ (NORMAL); Polychromasia 1+ (NORMAL); Schistocytes Rare (NORMAL)
[2022-12-18 06:02] LABS: Procalcitonin 0.2 ng/mL
[2022-12-18] MEDS: HEPARIN SODIUM 5,000 UNITS/ML VIAL 5000 UNITS SUB-Q ×3 (06:09→20:06)
--- NOTE | 2022-12-18 08:29 | PM.PNCARD ---
Progress Note: A&P Assessment and Plan (1) CHF (congestive heart failure): Code(s): I50.9 - Heart failure, unspecified Status: Acute Assessment and Plan: Flash pulm edema secondary to NSTEMI. Acute systolic and diastolic heart failure. NTproBNP >53183. CXR shows significant pulm edema. 12/15/22 Echo: EF 40-45%, globally reduced with mid to apical inferior wall severely hypokinetic, diastolic dysfunction with E/e' 22, severe LAE, mild FIGUEROA, mild MR, mild-mod TR, RVSP 43 mmHg, trace pericardial effusion. Currently diuresed with Lasix 40 mg IV BID. Replete potassium and Mag. (2) Elevated troponin: Code(s): R79.89 - Other specified abnormal findings of blood chemistry Status: Acute Assessment and Plan: Troponin peaked at 0.84. Probably has underlying CAD. Heparin drip discontinued as troponin peaked 2 days ago. Discuss LHC and he is agreeable to it. Suspect he has multivessel CAD, but won't know until cath is done. Consulted [facility] [place] for possible LHC and was seen by Dr. Lawson. LHC not performed on 12/17/22 due to hypokalemia. Surgery is planning on placing dayami-cath on Tuesday at noon. Therefore, hold off on LHC until Tuesday. (3) MARGARITA (acute kidney injury): Code(s): N17.9 - Acute kidney failure, unspecified Status: Acute Assessment and Plan: Stabilized. Monitor as patient is being diuresed. (4) Pacemaker: Code(s): Z95.0 - Presence of cardiac pacemaker Status: Acute Assessment and Plan: Interrogated Biotronik pacemaker showing evidence of PMT and PAT. [employer] rep came in 12/14/22 and turned on Auto-PVARP to prevent PMT. Started Metoprolol to treat PAT. (5) Hyperlipidemia: Qualifiers: Hyperlipidemia type: mixed hyperlipidemia Qualified Code(s): E78.2 - Mixed hyperlipidemia Code(s): E78.5 - Hyperlipidemia, unspecified Status: Acute Assessment and Plan: He is back on Simvastatin as liver enzymes decreasing. (6) Hypertension: Qualifiers: Hypertension type: essential hypertension Qualified Code(s): I10 - Essential (primary) hypertension Code(s): I10 - Essential (primary) hypertension Status: Acute Assessment and Plan: Stable. (7) Transaminitis: Code(s): R74.01 - Elevation of levels of liver transaminase levels Status: Acute Assessment and Plan: Shock liver probably related to CHF with passive congestion. Improving liver enzymes. Subjective Date/time seen: 12/18/22 08:29 Interval history: Denies chest pain or sob today. Exam Const: General: cooperative, healthy appearing and comfortable Orientation/consciousness: oriented to person, oriented to place and oriented to time Resp: Auscultation: no crackles, no rales, no rhonchi and wheezes (Slight scattered wheezing) Cardio: Rate: regular rate Rhythm: regular rhythm Heart sounds: no murmurs Peripheral pulses: dorsalis pedis present Neuro: General: oriented to person, oriented to place and oriented to time Extrem: Right lower extremity: no edema Left lower extremity: no edema Objective Data Vital Signs Vital Signs: Vital Signs - 24 hr 12/17/22 08:42 12/17/22 12:00 12/17/22 12:00 Temperature 97 F L Pulse Rate 60 Respiratory Rate 24 H Blood Pressure 141/76 H Pulse Oximetry 97 97 Oxygen Delivery Room Air Room Air Fraction of Inspired Oxygen 21 12/17/22 16:00 12/17/22 12:00 12/17/22 10:00 Temperature Pulse Rate 60 64 Respiratory Rate Blood Pressure Pulse Oximetry 97 Oxygen Delivery Room Air Fraction of Inspired Oxygen 12/17/22 14:00 12/17/22 16:00 12/17/22 16:00 Temperature 97.5 F L Pulse Rate 60 60 60 Respiratory Rate 20 Blood Pressure 139/77 Pulse Oximetry 99 Oxygen Delivery Fraction of Inspired Oxygen 12/17/22 18:00 12/17/22 20:00 12/17/22 22:15 Temperature 97 F L Pulse Rate 63 64 60 Respiratory Rate 16 Blood Pres
[2022-12-18] MEDS: POTASSIUM CHLORIDE 20 MEQ ER TABLET PO (09:38)
[2022-12-18] MEDS: ASPIRIN 81 MG CHEWABLE TABLET PO (09:38)
[2022-12-18] MEDS: INDAPAMIDE 2.5 MG TABLET PO (09:38)
[2022-12-18] MEDS: FERROUS SULFATE 325 MG TABLET DR BY MOUTH ×2 (09:38→16:25)
[2022-12-18] MEDS: METOPROLOL TARTRATE 50 MG TAB PO ×2 (09:38→20:05)
[2022-12-18] MEDS: PARoxetine 20 MG TABLET 40 MG PO (09:38)
[2022-12-18] MEDS: buPROPion HCL XL (24 HR) 150 MG TABCR 300 MG PO (09:38)
[2022-12-18] MEDS: PARoxetine 10 MG TABLET PO (09:39)
[2022-12-18] MEDS: FUROSEMIDE INJ 40 MG/4 ML VIAL IV PUSH ×2 (09:45→20:04)
--- NOTE | 2022-12-18 11:57 | PM.IMPN ---
Progress Note: A&P Assessment and Plan (1) Cardiomyopathy: Code(s): I42.9 - Cardiomyopathy, unspecified Status: Acute (2) Acute systolic (congestive) heart failure: Code(s): I50.21 - Acute systolic (congestive) heart failure Status: Acute (3) Pacemaker: Code(s): Z95.0 - Presence of cardiac pacemaker Status: Acute (4) Transaminitis: Code(s): R74.01 - Elevation of levels of liver transaminase levels Status: Acute (5) CHF (congestive heart failure): Code(s): I50.9 - Heart failure, unspecified Status: Acute (6) MARGARITA (acute kidney injury): Code(s): N17.9 - Acute kidney failure, unspecified Status: Acute (7) Elevated troponin: Code(s): R79.89 - Other specified abnormal findings of blood chemistry Status: Acute Plan hypokalemia and hypomagnesemia being replaced and rechecked. surgeries postponed due to this. on 12/18 increasing the kcl tabs to 40mg bid. giving magnesium and IVPB kcl today as well. consider decreasing lasix administration tomorrow. iron def anemia, procrit and iron started leukocytosis, resolved transmanitis - resolving ckd stage III - baseline cr 1.5 - 1.7, now 2.10 - 1.90 --> 1.4, stable now. chf - continue diuresis nstemi - cath on tuesday. cont aspirin. trops downtrended. plan to go for portacatch tuesday first around noon. then won't need interupttin of doac if he needs it after angiogram/PCI. will be here over the weekend full code stable. More than 35 minutes spent on chart review, patient interaction and assessment and plan. Subjective Date/time seen: 12/18/22 11:58 Interval history: NAOE. pt is without complaints. daughter and another family member at bedside, all questions answered, they have no inquiries Review of Systems Review of Systems: All systems reviewed & are unremarkable except as noted in HPI and below Exam Eyes: Pupils: Equal, round and reactive pupils present Neck: Neck: supple Resp: Effort & Inspection: normal respiratory effort Auscultation: crackles (moderate, up to mid lungs) Cardio: Rate: regular rate Rhythm: regular rhythm GI: Auscultation: normal bowel sounds Extrem: General: no edema Objective Data Vital Signs Vital Signs: Vital Signs - 24 hr 12/17/22 12:00 12/17/22 12:00 12/17/22 16:00 Temperature 97 F L Pulse Rate 60 Respiratory Rate 24 H Blood Pressure 141/76 H Pulse Oximetry 97 97 Oxygen Delivery Room Air Room Air 12/17/22 12:00 12/17/22 14:00 12/17/22 16:00 Temperature Pulse Rate 60 60 60 Respiratory Rate Blood Pressure Pulse Oximetry Oxygen Delivery 12/17/22 16:00 12/17/22 18:00 12/17/22 20:00 Temperature 97.5 F L 97 F L Pulse Rate 60 63 64 Respiratory Rate 20 16 Blood Pressure 139/77 152/97 H Pulse Oximetry 99 100 Oxygen Delivery 12/17/22 22:15 12/17/22 20:00 12/17/22 20:00 Temperature Pulse Rate 60 64 60 Respiratory Rate 16 Blood Pressure Pulse Oximetry 100 Oxygen Delivery Room Air 12/17/22 22:00 12/17/22 23:56 12/18/22 00:00 Temperature 97.4 F L Pulse Rate 64 60 60 Respiratory Rate 16 16 Blood Pressure 114/69 Pulse Oximetry 100 100 Oxygen Delivery Room Air 12/18/22 00:00 12/18/22 01:17 12/18/22 04:00 Temperature 97 F L Pulse Rate 60 60 64 Respiratory Rate 16 Blood Pressure 129/65 Pulse Oximetry 99 Oxygen Delivery 12/18/22 04:00 12/18/22 04:00 12/18/22 06:00 Temperature Pulse Rate 64 60 67 Respiratory Rate 16 Blood Pressure Pulse Oximetry 99 Oxygen Delivery Room Air 12/18/22 08:00 12/18/22 08:00 12/18/22 09:38 Temperature 97.8 F Pulse Rate 86 69 69 Respiratory Rate 16 Blood Pressure 138/90 Pulse Oximetry 98 Oxygen Delivery 12/18/22 08:00 12/18/22 10:00 12/18/22 10:57 Temperature Pulse Rate 73 Respiratory Rate Blood Pressure Pulse Oximetry 93 Oxygen Delivery Room Air Ro
[2022-12-18] MEDS: KCL 20 MEQ/SW 100 ML 100 ML 50 MEQ IVPB (16:21)
[2022-12-18] MEDS: MAGNESIUM SULF 1 GM/D5W 100 ML 1 GM/100 ML BAG IVPB (16:21)
[2022-12-18] MEDS: POTASSIUM CHLORIDE 20 MEQ ER TABLET 40 MEQ PO (16:25)
[2022-12-18] MEDS: BACLOFEN 10 MG TABLET PO (20:04)
[2022-12-18] MEDS: lamoTRIgine 100 MG TABLET PO (20:05)
[2022-12-18] MEDS: PRAZOSIN HCL 1 MG CAPSULE PO (20:05)
[2022-12-18] MEDS: SIMVASTATIN 20 MG TABLET 40 MG PO (20:06)
[2022-12-18] MEDS: HALOPERIDOL LACTATE 5 MG/ML VIAL IM (21:47)
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
[2022-12-19] VITALS (17 sets, daily range): BP systolic 115–162; BP diastolic 56–93; PULSE 60–98; RESP 16–24; TEMP 36.2–36.9; O2SAT 92–100
[2022-12-19 05:33] LABS: Basophils Percent Auto 0.4 % (0.2-1.2); Eosinophils Absolute Auto 0.1 K/mm3 (0-0.3); Eosinophils Percent Auto 0.7 % (0-4.4); Hematocrit 28.9 % (42.0-52.0); Hemoglobin 8.1 g/dL (14.0-18.0); Immature Granulocyte Absolute 0.19 K/mm3 (0.00-0.031); Immature Granulocyte Percent A 1.9 % (0-0.5); Lymphocytes Absolute Auto 0.86 K/mm3 (0.9-3.2); Lymphocytes Percent Auto 8.5 % (18.3-44.2); Mean Corpuscular Hemoglobin 23.8 pg (26-34); Mean Platelet Volume 10.2 fl (7.4-10.4); Monocytes Absolute Auto 0.9 K/mm3 (0.1-0.6); Monocytes Percent Auto 8.8 % (2.6-8.5); Neutrophils Absolute Auto 8.1 K/mm3 (1.3-6.7); Neutrophils Percent Auto 79.7 % (45.5-73.1); Nucleated Red Blood Cells Absolute Auto 0.1 K/mm3 (0.0-0.012); Nucleated Red Blood Cells Perc 1.2 % (0.0-0.2); Platelet Count Result 378 k/mm3 (150-375); White Blood Count 10.2 K/mm3 (4.5-10.0)
[2022-12-19 05:44] LABS: Partial Thromboplastin Time 30.4 SECONDS (22.3-36.8)
[2022-12-19] MEDS: HEPARIN SODIUM 5,000 UNITS/ML VIAL 5000 UNITS SUB-Q ×3 (05:45→20:37)
[2022-12-19 05:53] LABS: Anion Gap 6 mmol/L (8-16); Blood Urea Nitrogen 27 mg/dL (9-20); Calcium 9.3 mg/dL (8.4-10.2); Carbon Dioxide 35 mmol/L (22-30); Chloride 96 mmol/L (98-107); Estimated CRCL calculation 31 ml/min; Estimated Glomerular Filt Rate 43; Glucose 204 mg/dL (65-110); Magnesium 1.8 mg/dL (1.6-2.3); Potassium 2.8 mmol/L (3.4-5.0); Sodium 137 mmol/L (137-145)
[2022-12-19 05:55] LABS: Anisocytosis 2+ (NORMAL); Hypochromasia 2+ (NORMAL); Platelet Estimate Adequate (Adequate); Polychromasia 1+ (NORMAL)
[2022-12-19 05:56] LABS: Schistocytes Rare (NORMAL)
[2022-12-19] MEDS: MAGNESIUM SULF 2 GM/WATER 50ML 2 GM/50 ML BAG IVPB (06:52)
[2022-12-19] MEDS: POTASSIUM CHLORIDE 20 MEQ PACKET (FOR LIQUID) 40 MEQ PO (06:55)
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
[2022-12-19 09:05] LABS: Glucose Point of Care 221 mg/dl (65-105)
[2022-12-19] MEDS: buPROPion HCL XL (24 HR) 150 MG TABCR 300 MG PO (11:09)
[2022-12-19] MEDS: FUROSEMIDE 40 MG TABLET PO (11:09)
[2022-12-19] MEDS: FERROUS SULFATE 325 MG TABLET DR BY MOUTH ×2 (11:10→18:27)
[2022-12-19] MEDS: PARoxetine 20 MG TABLET 40 MG PO (11:10)
[2022-12-19] MEDS: POTASSIUM CHLORIDE 20 MEQ ER TABLET 40 MEQ PO ×2 (11:11→18:26)
[2022-12-19] MEDS: METOPROLOL TARTRATE 50 MG TAB PO ×2 (11:12→20:36)
[2022-12-19] MEDS: PARoxetine 10 MG TABLET PO (11:13)
[2022-12-19] MEDS: ASPIRIN 81 MG CHEWABLE TABLET PO (11:13)
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
[2022-12-19] MEDS: INSULIN ASPART (*BKC) 100 UNITS/ML SUB-Q ×2 (12:34→18:26)
[2022-12-19] MEDS: POTASSIUM CHLORIDE INJ 40 MEQ in SODIUM CHLORIDE 0.9% IV 500 ML 130 MEQ IVPB (12:35)
[2022-12-19 14:20] LABS: Ammonia < 9 umol/L (9-30); Anion Gap 7 mmol/L (8-16); Blood Urea Nitrogen 25 mg/dL (9-20); Calcium 9.3 mg/dL (8.4-10.2); Carbon Dioxide 33 mmol/L (22-30); Chloride 97 mmol/L (98-107); Estimated CRCL calculation 31 ml/min; Estimated Glomerular Filt Rate 43; Glucose 301 mg/dL (65-110); Potassium 3.7 mmol/L (3.4-5.0); Sodium 137 mmol/L (137-145)
[2022-12-19 14:44] LABS: Glucose Point of Care 219 mg/dl (65-105)
[2022-12-19] MEDS: oxyCODONE HCL (*CRX) 5 MG TAB IR PO (14:47)
[2022-12-19 16:57] LABS: Glucose Point of Care 223 mg/dl (65-105)
[2022-12-19 17:22] LABS: Appearance Urine Clear (Clear); Bacteria Urine None Seen /hpf; Bilirubin Urine Negative (Negative); Blood Urine Negative (Negative); Color Urine Yellow (Yellow); Glucose Urine UA Negative (Negative); Ketones Urine Negative (Negative); Leukocyte Esterase Ur Negative LEU/UL (NEGATIVE); Nitrate Urine Negative (Negative); Non Pathogenic Casts 0-2; Protein Urine 3+ mg/dL (Negative); RBC Urine 0-2 /hpf (0-2); Specific Grav Ur 1.013 (1.001-1.035); Squamous Epithelial Cell Urine None seen /hpf (Few); Urobilinogen Urine 0.2 mg/dL (<2.0); WBC Urine 0-5 /hpf (0-3)
[2022-12-19 17:32] LABS: Add Urine Microscopic? YES
[2022-12-19] MEDS: BACLOFEN 10 MG TABLET PO (20:36)
[2022-12-19] MEDS: PRAZOSIN HCL 1 MG CAPSULE PO (20:36)
[2022-12-19] MEDS: lamoTRIgine 100 MG TABLET PO (20:36)
[2022-12-19] MEDS: SIMVASTATIN 20 MG TABLET 40 MG PO (20:37)
[2022-12-19 21:19] LABS: Glucose Point of Care 199 mg/dl (65-105)
[2022-12-19] MEDS: HALOPERIDOL LACTATE 5 MG/ML VIAL IM (22:51)
--- NOTE | 2022-12-19 23:14 | PC.NURSE ---
2045-CAROLINA Salas notified of Pt's increasing confusion. Order requested for a PO medication to calm patient and for a new soft wrist restraint order if we should need one. No orders received at this time. Yanna states to call back if confusion worsens. 2229-Patient noted to have worsening confusion and agitation. Repeatedly attempting to get out of bed, taking of gown, attempting to pull out IV, cussing and hitting at staff. Pt is unable to be redirected and is refusing to answer orientation questions at this time. 2246-CAROLINA Salas notified of patient's worsening confusion and previously stated symptoms. New orders received for bilateral soft wrist restraints and haldol x1 dose. 2302-Pt's spouse, Antonia Wilson called and updated with patient's condition and need for soft wrist restraints and stat haldol. Pt's spouse is agreeable to careplan. Patient monitoring ongoing.
[2022-12-20] VITALS (26 sets, daily range): BP systolic 107–162; BP diastolic 73–103; PULSE 60–98; RESP 11–22; TEMP 35.9–36.8; O2SAT 94–100
[2022-12-20 04:18] LABS: Basophils Percent Auto 0.3 % (0.2-1.2); Eosinophils Percent Auto 0.3 % (0-4.4); Hematocrit 28.1 % (42.0-52.0); Hemoglobin 8.1 g/dL (14.0-18.0); Immature Granulocyte Absolute 0.13 K/mm3 (0.00-0.031); Immature Granulocyte Percent A 1.1 % (0-0.5); Lymphocytes Absolute Auto 0.92 K/mm3 (0.9-3.2); Lymphocytes Percent Auto 7.6 % (18.3-44.2); Mean Corpuscular HGB Conc 28.8 g/dl (32-36); Mean Corpuscular Hemoglobin 24.4 pg (26-34); Mean Corpuscular Volume 84.6 fl (80-100); Monocytes Absolute Auto 0.9 K/mm3 (0.1-0.6); Monocytes Percent Auto 7.5 % (2.6-8.5); Neutrophils Absolute Auto 10.1 K/mm3 (1.3-6.7); Neutrophils Percent Auto 83.2 % (45.5-73.1); Nucleated Red Blood Cells Absolute Auto 0.1 K/mm3 (0.0-0.012); Nucleated Red Blood Cells Perc 0.7 % (0.0-0.2); Platelet Count Result 346 k/mm3 (150-375); Red Blood Count 3.32 M/mm3 (4.6-6.20); Red Cell Distribution Width 25.6 % (11.5-14.5); White Blood Count 12.1 K/mm3 (4.5-10.0)
[2022-12-20 04:30] LABS: Alanine Aminotransferase 190 U/L (6-50); Albumin Level 3.3 g/dL (3.5-5.1); Alkaline Phosphatase 75 U/L (38-126); Anion Gap 5 mmol/L (8-16); Aspartate Amino Transferase 54 U/L (17-59); Bilirubin,Total 0.5 mg/dL (0.2-1.3); Blood Urea Nitrogen 23 mg/dL (9-20); Calcium 9.2 mg/dL (8.4-10.2); Carbon Dioxide 31 mmol/L (22-30); Chloride 101 mmol/L (98-107); Estimated CRCL calculation 31 ml/min; Estimated Glomerular Filt Rate 43; Glucose 224 mg/dL (65-110); Potassium 4.4 mmol/L (3.4-5.0); Sodium 137 mmol/L (137-145)
[2022-12-20 04:47] LABS: Partial Thromboplastin Time 29.3 SECONDS (22.3-36.8)
[2022-12-20 05:18] LABS: Basophilic Stippling 1+ (NORMAL); Hypochromasia 1+ (NORMAL); Large Platelets Present; Platelet Estimate Adequate (Adequate); Poikilocytosis 1+ (NORMAL)
[2022-12-20 05:19] LABS: Anisocytosis 2+ (NORMAL)
[2022-12-20 05:21] LABS: Schistocytes None Seen (NORMAL)
--- NOTE | 2022-12-20 07:47 | PM.PNCARD ---
Progress Note: A&P Assessment and Plan (1) CHF (congestive heart failure): Code(s): I50.9 - Heart failure, unspecified Status: Acute Assessment and Plan: Flash pulm edema secondary to NSTEMI. Acute systolic and diastolic heart failure. NTproBNP >96210. CXR shows significant pulm edema. 12/15/22 Echo: EF 40-45%, globally reduced with mid to apical inferior wall severely hypokinetic, diastolic dysfunction with E/e' 22, severe LAE, mild FIGUEROA, mild MR, mild-mod TR, RVSP 43 mmHg, trace pericardial effusion. Increase Lasix 40 mg PO BID. (2) Elevated troponin: Code(s): R79.89 - Other specified abnormal findings of blood chemistry Status: Acute Assessment and Plan: Troponin peaked at 0.84. Probably has underlying CAD. Heparin drip discontinued as troponin peaked 2 days ago. Discuss LHC and he is agreeable to it. Suspect he has multivessel CAD, but won't know until cath is done. Consulted [facility] [place] for possible LHC and was seen by Dr. Lawson. LHC not performed on 12/17/22 due to hypokalemia. Surgery is planning on placing dayami-cath today at noon. Therefore, hold off on LHC until Tuesday. (3) MARGARITA (acute kidney injury): Code(s): N17.9 - Acute kidney failure, unspecified Status: Acute Assessment and Plan: Stabilized. Monitor as patient is being diuresed. (4) Pacemaker: Code(s): Z95.0 - Presence of cardiac pacemaker Status: Acute Assessment and Plan: Interrogated Biotronik pacemaker showing evidence of PMT and PAT. Biotronik rep came in 12/14/22 and turned on Auto-PVARP to prevent PMT. Started Metoprolol to treat PAT. (5) Hyperlipidemia: Qualifiers: Hyperlipidemia type: mixed hyperlipidemia Qualified Code(s): E78.2 - Mixed hyperlipidemia Code(s): E78.5 - Hyperlipidemia, unspecified Status: Acute Assessment and Plan: He is back on Simvastatin as liver enzymes decreasing. (6) Hypertension: Qualifiers: Hypertension type: essential hypertension Qualified Code(s): I10 - Essential (primary) hypertension Code(s): I10 - Essential (primary) hypertension Status: Acute Assessment and Plan: Stable. (7) Transaminitis: Code(s): R74.01 - Elevation of levels of liver transaminase levels Status: Acute Assessment and Plan: Shock liver probably related to CHF with passive congestion. Improving liver enzymes. Subjective Date/time seen: 12/20/22 07:47 Interval history: Denies chest pain or sob today. He has soft restraints of arms currently. Currently alert and oriented and not confused but apparently having intermittent confusion. Exam Const: General: cooperative, healthy appearing and comfortable Orientation/consciousness: oriented to person, oriented to place and oriented to time Resp: Auscultation: clear to auscultation bilaterally, no crackles, no rales, no rhonchi, no wheezes (Slight scattered wheezing) and lung sounds not diminished Cardio: Rate: regular rate Rhythm: regular rhythm Heart sounds: no murmurs Peripheral pulses: dorsalis pedis present Neuro: General: oriented to person, oriented to place and oriented to time Extrem: Right lower extremity: no edema Left lower extremity: no edema Objective Data Vital Signs Vital Signs: Vital Signs - 24 hr 12/19/22 07:50 12/19/22 11:12 12/19/22 12:01 Temperature 97.8 F 97.1 F L Pulse Rate 67 98 72 Respiratory Rate 22 H 20 Blood Pressure 154/80 H 162/85 H Pulse Oximetry 98 96 Oxygen Delivery 12/19/22 08:00 12/19/22 10:00 12/19/22 12:00 Temperature Pulse Rate 69 66 75 Respiratory Rate Blood Pressure Pulse Oximetry Oxygen Delivery 12/19/22 14:00 12/19/22 08:00 12/19/22 12:00 Temperature Pulse Rate 62 60 60 Respiratory Rate 16 16 Blood Pressure Pulse Oximetry 95 95 Oxygen Delivery Room Air Room Air 12/19/22 16:00 12/19/22 16:00 12/19/22 18:00 Temperature Pulse
[2022-12-20] MEDS: ASPIRIN 81 MG CHEWABLE TABLET PO (09:08)
[2022-12-20] MEDS: PARoxetine 20 MG TABLET 40 MG PO (09:08)
[2022-12-20] MEDS: POTASSIUM CHLORIDE 20 MEQ ER TABLET 40 MEQ PO ×2 (09:09→17:34)
[2022-12-20] MEDS: METOPROLOL TARTRATE 50 MG TAB PO ×2 (09:09→21:25)
[2022-12-20] MEDS: FERROUS SULFATE 325 MG TABLET DR BY MOUTH ×2 (09:09→17:35)
[2022-12-20] MEDS: buPROPion HCL XL (24 HR) 150 MG TABCR 300 MG PO (09:09)
[2022-12-20] MEDS: PARoxetine 10 MG TABLET PO (09:09)
[2022-12-20] MEDS: FUROSEMIDE 40 MG TABLET PO ×2 (09:09→17:35)
[2022-12-20] MEDS: INSULIN ASPART (*BKC) 100 UNITS/ML SUB-Q (09:27)
[2022-12-20 10:26] LABS: Glucose Point of Care 226 mg/dl (65-105)
--- NOTE | 2022-12-20 11:10 | PC.NURSE ---
To OR per bed, IV patent. Report given to LUCHO Desir.
[2022-12-20 11:51] LABS: Glucose Point of Care 207 mg/dl (65-105)
[2022-12-20] MEDS: LACTATED RINGERS 1,000 ML 30 ML IV CONT (11:51)
--- NOTE | 2022-12-20 12:02 | WPDHPUPDATE1 ---
History and Physical Update Update Date/Time: 12/20/22 12:02 History and Physical has been reviewed, including an updated exam of the patient. There are NO changes in the patient's condition. Risks, benefits, and alternatives have been discussed and questions answered. Patient agrees to proceed with procedure.
--- NOTE | 2022-12-20 12:36 | PCNFU ---
Nutrition Follow-Up Complete: Inadequate oral intake related to loss of appetite, recent surgery as evidenced by medical history, poor appetite Goal:Improve PO intake to at least 50% meals and supplements Maintain weight Pt is not meeting goal. Continue with same goals. Pt current nutrition is Diabetic diet. Nutrition recommendation: Add Ensure compact BID per previous recommendations Last recorded weight is 58.3 kg. Bowel Motility: +BM 12/19 Labs Reviewed:Hgb:8.1, HCT:28.1, Alb:3.3, BUN:23, Cr:1.6, Glu:224 Meds Noted: lasix, novolog, KCL Skin: no skin issues noted Additional Notes: Pt diet changed to diabetic consistent carb, intake remains suboptimal at 0-25% of meals. Recommend to order Ensure compact TID for supplementation at meals. Monitoring intakes, weights, labs, supplement tolerance, plan of care Follow up in 5 days
[2022-12-20] MEDS: ceFAZolin 2 GM/D5W 50 ML 2 GM/50 ML BAG IVPB (12:38)
--- NOTE | 2022-12-20 12:52 | PCOTNOTE ---
The patient treatment was not able to be completed. Patient out of the room for surgery. Will plan to continue treatment per plan of care.
--- NOTE | 2022-12-20 12:59 | PCPTNOTE ---
Attempted to see patient for PT, however patient out of the room for a procedure and RN advised not to see patient for PT today.
[2022-12-20] MEDS: LIDO 1%/EPINEPHRINE 1:100,000 50 ML VIAL 30 ML INFILTRATE (13:11)
[2022-12-20] MEDS: HEPARIN SODIUM 1,000 UNITS/ML VIAL 1000 UNITS XX (13:12)
[2022-12-20] MEDS: HEPARIN SODIUM, PORCINE 10,000 UNITS/10 ML VIAL 5000 UNITS IRRIGATION (13:14)
--- NOTE | 2022-12-20 13:37 | W.PM.PROC2 ---
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 All 22 lymph nodes harvested were negative for metastatic disease. He was seen by medical oncology and is recommended that he undergo adjuvant chemotherapy treatment. He was admitted to the hospital for exacerbation of CHF and he is somewhat medically stabilized. He presents now for placement of dayami catheter to facilitate chemotherapy treatments in the near future. Findings None Description of Procedure After informed consent was obtained patient brought to the operating room was placed supine position and IV sedation was administered by anesthesia. The upper right anterior chest and neck was then prepped and draped usual sterile fashion. Patient had a pacemaker placed in left anterior chest and so we had to use the right side. A time-out was then performed correctly identifying the patient as well as procedure to be performed verifying the was given perioperative IV antibiotics. With the patient head-down Trendelenburg position I then anesthetized between the 2 heads of the right sternocleidomastoid muscle with 1% lidocaine mixed with 0.5% Marcaine 50 50 mixture. I then cannulated the right internal jugular vein on 1st pass without any difficulty with an 18gauge spinal needle. There was prompt return of dark venous appearing blood. A guidewire was advanced through the needle into the right internal jugular vein assessment down into the superior vena cava. Intraoperative fluoroscopy was used to visualize the tip of the guidewire in the proper position. I then created a subcu port pocket by dissecting more local anesthetic mixture just below the medial right 3rd of the clavicle. A transverse incision was then made with a scalpel dissection carried down to the pectoralis major fascia with electrocautery. Blunt finger dissection was then used to create subcu port pocket just below the incision. I then enlarged incision in the neck area with a scalpel and then tunneled the 9.6 Singaporean catheter between the chest incision and neck incision without difficulty. A dilator and breakaway sheath was advanced over the guidewire and the guidewire and dilator were removed leaving the sheath in place. The catheter was advanced through the sheath into the right internal jugular vein assessment down into the right atrium of the heart. Intraoperative fluoroscopy was then used to visualize the tip of the catheter then was pulled back into the tip of the catheter was in the distal superior vena cava. The catheter was then cut to the appropriate length the skin level and then attached to the Smart Port. The port was then secured in the subcutaneous port pocket on 3 sides utilizing interrupted 3-0 Prolene sutures. A year yet the port pocket with sterile saline solution hemostasis was good. I accessed the port percutaneously with a White needle and aspirated blood easily and was flushed with heparinized saline solution. The incision was then closed utilizing interrupted 3-0 Vicryl sutures in subcutaneous tissues. The skin edges on both incisions with an approximate utilizing a running subcuticular 4-0 Monocryl suture. Both incisions were then covered with skin glue. Lastly I percutaneously accessed the port and again it milan back blood easily and was flushed with heparinized saline solution. The patient tolerated the procedure well no complications. All sponges, needles, and instrument counts were correct at the end procedure. EBL was _10__cc. T
[2022-12-20 13:51] LABS: Glucose Point of Care 186 mg/dl (65-105)
--- NOTE | 2022-12-20 15:14 | PM.IMPN ---
Progress Note: A&P Assessment and Plan (1) Dementia: Code(s): F03.90 - Unspecified dementia, unspecified severity, without behavioral disturbance, psychotic disturbance, mood disturbance, and anxiety Status: Acute (2) Delirium: Code(s): R41.0 - Disorientation, unspecified Status: Acute (3) Acute systolic (congestive) heart failure: Code(s): I50.21 - Acute systolic (congestive) heart failure Status: Acute (4) Transaminitis: Code(s): R74.01 - Elevation of levels of liver transaminase levels Status: Acute (5) Pacemaker: Code(s): Z95.0 - Presence of cardiac pacemaker Status: Acute (6) MARGARITA (acute kidney injury): Code(s): N17.9 - Acute kidney failure, unspecified Status: Acute (7) Chronic kidney disease, stage 3: Code(s): N18.30 - Chronic kidney disease, stage 3 unspecified Status: Acute Plan 72M w/ PMH CKD stage 3, dementia, anxiety, HLD, HTN, NIDDM, heart block s/p PPM, adenocarcinoma of the colon dx dec 13 presented with shortness of breath on 12/14/22. He has since had a complicated course. see each problem below 1) new dx acute decompensated HFrEF - cardiology consulted. pt originally scheduled last week for angiogram but cancelled due to MARGARITA. reschedule pending - aggressive diuresis achieved improvement, and at one point worsening of his MARGARITA. new balance with oral lasix achieved, increased to 40mg po BID today - cont fluid restriction, daily weights and low salt diet NSTEMI. trops downtrended. continue aspirin. to go for cath 2) hypokalemia - difficult to resolve during MARGARITA. now on KCL tab 40meq po BID and MARGARITA is resolving so monitor this closely 3) delirium on dementia - sundowning at night, has been aggressive with nursing staff. received haldol 2 nights in a row now. start seroquel 25mg po qhs and re-assess. unable to obtain CT head due to pt unwilling to lay still 4) iron deficiency anemia w/ AOCD - procrit and iron started by nephrology 5) transaminitis - resolving, related to CHF 6) MARGARITA on CKD III - baseline sCR 1.5-1.7. MARGARITA resolved with diuresis. nephrology following - renal dose meds 7) HTN - ctm 8) adenocarcinoma of colon stage 4 - recent dx, had colectomy. portacath placed 12/20. to f/u with oncology as outpatient for chemo 9) leukocytosis - increasing again since 12/19. 12/20 CXR revealing worsening lung disease. UA and blood cultures redrawn on 12/19. f/u WBC and procalcitonin tomorrow. he is high risk will start cefepime and vancomycin today for empiric measures FEN: cardiac diabetic diet, NPO at midnight, saline lock IV GI prophylaxis: DVT prophylaxis: restart HSC, hold for procedure in AM Lines: pIV, portacath RIJ Code Status: Full Code Dispo: Improved but guarded. PT/OT on consult. More than 35 minutes spent on chart review, patient interaction and assessment and plan. Subjective Date/time seen: 12/20/22 15:14 Interval history: NAOE. patient has no complaints. he appears a bit drowsy, just came back from portacath placement Review of Systems Review of Systems: All systems reviewed & are unremarkable except as noted in HPI and below Exam Const: General: comfortable and no acute distress Other: weak Eyes: Pupils: Equal, round and reactive pupils present Neck: Neck: supple Resp: Effort & Inspection: abnormal respiratory effort Auscultation: crackles Cardio: Rate: regular rate Rhythm: regular rhythm GI: GI Palp: Yes Soft to palpation and No Tenderness to palpation present (GI) Auscultation: normal bowel sounds Extrem: General: no edema Other: right upper chest surgical site c/d/i, minimal bruising Objective Data Vital Signs Vital Signs: Vital Signs - 24 hr 12/19/22 16:00 12/19/22 16:00 12/19/22 18:00 Temperature Pulse Rate 61 60 62 Respiratory Rate 16 Blood Pressure Pulse Oximetry 95 Oxygen Delivery Room Air Oxygen Flow Rate 12/19/22 1
[2022-12-20] MEDS: CEFEPIME 2 GM/NS 50 ML 2 GM/50 ML BAG IVPB (17:28)
[2022-12-20] MEDS: oxyCODONE HCL (*CRX) 5 MG TAB IR PO (17:33)
[2022-12-20 19:39] LABS: Glucose Point of Care 331 mg/dl (65-105)
--- NOTE | 2022-12-20 20:01 | PC.NURSE ---
Patient has had increased confusion today. Patient found with diaphoretic forehead, shivering, no blankets on. Denied pain. States he is cold. Temp currently 96.6, 147/91, 20, 60 paced, 98% on room air. skin w/d other than forehead. fingerstick 331. Lungs clear, Abdomen soft/ nondistended. nontender. Incisions well approximated with surgical glue intact and rotary cutter otherwise. 2 pacemaker related incisions are well approximated with surgical glue intact and bertha otherwise. No signs of infection to surgical sites. Covered patient with warm blankets. Patient's brow unfurrowed. Yanna Boyer notified. Will continue to monitor.
[2022-12-20 21:11] LABS: MRSA (PCR) NOT DETECTED (NOT DETECTE)
[2022-12-20] MEDS: lamoTRIgine 100 MG TABLET PO (21:24)
[2022-12-20] MEDS: QUEtiapine FUMARATE 25 MG TABLET PO (21:25)
[2022-12-20] MEDS: PRAZOSIN HCL 1 MG CAPSULE PO (21:25)
[2022-12-20] MEDS: SIMVASTATIN 20 MG TABLET 40 MG PO (21:25)
[2022-12-20] MEDS: BACLOFEN 10 MG TABLET PO (21:25)
[2022-12-21] VITALS (16 sets, daily range): BP systolic 114–139; BP diastolic 74–96; PULSE 64–108; RESP 20–26; TEMP 35.9–38.1; O2SAT 91–100
[2022-12-21] MEDS: CEFEPIME 2 GM/NS 50 ML 2 GM/50 ML BAG IVPB ×2 (02:50→16:26)
--- NOTE | 2022-12-21 03:37 | PC.NURSE ---
patient continues to be oriented x1. Pulled out IV earlier tonight. Started pulling telemetry off and continued pulling at IV, gown, Purewick, blankets...anything touching him. Attempted redirection, distraction with multiple objects, etc without success. Order received for Mitts. Mitts are on, patient is able to wiggle his fingers, circulation intact.
[2022-12-21 05:02] LABS: Basophils Percent Auto 0.2 % (0.2-1.2); Eosinophils Percent Auto 0.2 % (0-4.4); Hematocrit 28.2 % (42.0-52.0); Immature Granulocyte Percent A 0.7 % (0-0.5); Lymphocytes Percent Auto 5.1 % (18.3-44.2); Mean Corpuscular HGB Conc 28.4 g/dl (32-36); Mean Corpuscular Hemoglobin 24.5 pg (26-34); Mean Corpuscular Volume 86.2 fl (80-100); Mean Platelet Volume 10.6 fl (7.4-10.4); Monocytes Absolute Auto 1.2 K/mm3 (0.1-0.6); Monocytes Percent Auto 8.7 % (2.6-8.5); Neutrophils Absolute Auto 11.7 K/mm3 (1.3-6.7); Neutrophils Percent Auto 85.1 % (45.5-73.1); Nucleated Red Blood Cells Absolute Auto 0.1 K/mm3 (0.0-0.012); Nucleated Red Blood Cells Perc 0.8 % (0.0-0.2); Platelet Count Result 350 k/mm3 (150-375); Red Blood Count 3.27 M/mm3 (4.6-6.20); Red Cell Distribution Width 26.3 % (11.5-14.5); White Blood Count 13.7 K/mm3 (4.5-10.0)
[2022-12-21 05:12] LABS: Partial Thromboplastin Time 22.4 SECONDS (22.3-36.8)
[2022-12-21 05:14] LABS: Anion Gap 9 mmol/L (8-16); Blood Urea Nitrogen 28 mg/dL (9-20); Calcium 9.2 mg/dL (8.4-10.2); Carbon Dioxide 27 mmol/L (22-30); Chloride 99 mmol/L (98-107); Estimated CRCL calculation 25 ml/min; Estimated Glomerular Filt Rate 33; Glucose 233 mg/dL (65-110); Magnesium 1.7 mg/dL (1.6-2.3); Potassium 4.3 mmol/L (3.4-5.0); Sodium 135 mmol/L (137-145)
[2022-12-21 05:27] LABS: Platelet Estimate Adequate (Adequate)
[2022-12-21] MEDS: oxyCODONE HCL (*CRX) 5 MG TAB IR PO (05:29)
[2022-12-21 05:31] LABS: Anisocytosis 3+ (NORMAL)
[2022-12-21 05:32] LABS: Hypochromasia 2+ (NORMAL); Schistocytes None Seen (NORMAL)
[2022-12-21 05:33] LABS: Polychromasia 1+ (NORMAL)
--- NOTE | 2022-12-21 08:08 | PM.PNCARD ---
Progress Note: A&P Assessment and Plan (1) CHF (congestive heart failure): Code(s): I50.9 - Heart failure, unspecified Status: Acute Assessment and Plan: Flash pulm edema secondary to NSTEMI. Acute systolic and diastolic heart failure. NTproBNP >29997. CXR shows significant pulm edema. 12/15/22 Echo: EF 40-45%, globally reduced with mid to apical inferior wall severely hypokinetic, diastolic dysfunction with E/e' 22, severe LAE, mild FIGUEROA, mild MR, mild-mod TR, RVSP 43 mmHg, trace pericardial effusion. Decrease Lasix 40 mg PO daily. (2) Elevated troponin: Code(s): R79.89 - Other specified abnormal findings of blood chemistry Status: Acute Assessment and Plan: Troponin peaked at 0.84. Probably has underlying CAD. Heparin drip discontinued as troponin peaked 2 days ago. Discuss LHC and he is agreeable to it. Suspect he has multivessel CAD, but won't know until cath is done. Consulted [facility] [place] for possible LHC and was seen by Dr. Lawson. LHC not performed on 12/17/22 due to hypokalemia. Surgery placed dayami-cath 12/20/22. He is NPO for LHC and HCG is following. (3) MARGARITA (acute kidney injury): Code(s): N17.9 - Acute kidney failure, unspecified Status: Acute Assessment and Plan: Stabilized. Monitor as patient is being diuresed. (4) Pacemaker: Code(s): Z95.0 - Presence of cardiac pacemaker Status: Acute Assessment and Plan: Interrogated Biotronik pacemaker showing evidence of PMT and PAT. Biotronik rep came in 12/14/22 and turned on Auto-PVARP to prevent PMT. Started Metoprolol to treat PAT. (5) Hyperlipidemia: Qualifiers: Hyperlipidemia type: mixed hyperlipidemia Qualified Code(s): E78.2 - Mixed hyperlipidemia Code(s): E78.5 - Hyperlipidemia, unspecified Status: Acute Assessment and Plan: He is back on Simvastatin as liver enzymes decreasing. (6) Hypertension: Qualifiers: Hypertension type: essential hypertension Qualified Code(s): I10 - Essential (primary) hypertension Code(s): I10 - Essential (primary) hypertension Status: Acute Assessment and Plan: Stable. (7) Transaminitis: Code(s): R74.01 - Elevation of levels of liver transaminase levels Status: Acute Assessment and Plan: Shock liver probably related to CHF with passive congestion. Improving liver enzymes. Subjective Date/time seen: 12/21/22 08:08 Interval history: Denies chest pain or sob today. He has mittens on and is confused. Exam Const: General: anxious and confusion Resp: Auscultation: clear to auscultation bilaterally, no crackles, no rales, no rhonchi, no wheezes (Slight scattered wheezing) and lung sounds not diminished Cardio: Rate: regular rate Rhythm: regular rhythm Heart sounds: no murmurs Peripheral pulses: dorsalis pedis present Neuro: General: oriented to person, oriented to place and oriented to time Extrem: Right lower extremity: no edema Left lower extremity: no edema Objective Data Vital Signs Vital Signs: Vital Signs - 24 hr 12/20/22 09:09 12/20/22 10:00 12/20/22 11:43 Temperature 98 F Pulse Rate 86 79 62 Respiratory Rate 16 Blood Pressure 107/98 H Pulse Oximetry 97 Oxygen Delivery Room Air Oxygen Flow Rate Fraction of Inspired Oxygen 12/20/22 13:34 12/20/22 13:45 12/20/22 14:00 Temperature 97.1 F L Pulse Rate 60 67 63 Respiratory Rate 11 L 14 16 Blood Pressure 121/77 154/91 H 147/96 H Pulse Oximetry 100 100 96 Oxygen Delivery Simple Face Mask Room Air Oxygen Flow Rate 10 Fraction of Inspired Oxygen 12/20/22 14:15 12/20/22 14:30 12/20/22 14:45 Temperature Pulse Rate 73 69 75 Respiratory Rate 18 15 20 Blood Pressure 162/99 H 160/99 H 159/103 H Pulse Oximetry 100 100 100 Oxygen Delivery Room Air Room Air Oxygen Flow Rate Fraction of Inspired Oxygen 12/20/22 16:03 12/20/22 16:00 12/20/22 18:00 [place]
[2022-12-21 08:56] LABS: Glucose Point of Care 206 mg/dl (65-105)
[2022-12-21] MEDS: FUROSEMIDE 40 MG TABLET PO (09:13)
[2022-12-21] MEDS: POTASSIUM CHLORIDE 20 MEQ ER TABLET 40 MEQ PO ×2 (09:13→16:25)
[2022-12-21] MEDS: FERROUS SULFATE 325 MG TABLET DR BY MOUTH ×2 (09:13→16:26)
[2022-12-21] MEDS: PARoxetine 20 MG TABLET 40 MG PO (09:13)
[2022-12-21] MEDS: buPROPion HCL XL (24 HR) 150 MG TABCR 300 MG PO (09:13)
[2022-12-21] MEDS: PARoxetine 10 MG TABLET PO (09:13)
[2022-12-21] MEDS: METOPROLOL TARTRATE 50 MG TAB PO ×2 (09:13→21:29)
[2022-12-21] MEDS: ASPIRIN 81 MG CHEWABLE TABLET PO (09:13)
--- NOTE | 2022-12-21 10:05 | PM.PNCARD ---
Progress Note: A&P Assessment and Plan (1) Elevated troponin: Code(s): R79.89 - Other specified abnormal findings of blood chemistry Status: Acute Assessment and Plan: Interventional Cardiology has been consulted for [facility] by Dr. Petersen. Cardiac catheterization not done last week due to electrolyte issues with significant hypokalemia. Upon my assessment today, patient is not appropriate for cardiac cath at this time. Patient is not oriented, is confused, in mittens due to pulling at things, has been aggressive with nursing staff, difficulty laying still and following commands. Also his Scr increased from 1.6 to 2.0 overnight. Will continue to follow along and reassess candidacy for cardiac cath. Will plan on cardiac cath when his mental status and MARGARITA has improved. Recommendations/plan discussed with referring Geomorphologist, Dr. Petersen. Subjective Date/time seen: 12/21/22 10:05 Interval history: Reason for visit: Cardiac Catheterization HPI: Julian Wilson is a 72 y.o. male whom we were asked to see at the request of Dr. Petersen for our advise and opinion re: his NSTEMI evaluation and possible cardiac cath, in consultation. Mr. Wilson had a Biotronik pacemaker for complete heart block on 12/03/[address] Arias.? He also has hypertension, diabetes and dyslipidemia.? He had a robotic hemicolectomy 12/10/[address] for [address] cancer [address] Dr. Martin. The patient was readmitted on 12/14/2022 with progressive BUSH and orthopnea secondary to new onset of CHF.? He has been getting furosemide 40 mg IV push b.i.d. and diuresing well.? He has no BUSH w/ minor activity and no PND/orthopnea or edema.?Troponins are elevated, to 0.8.? Denies typical anginal sx. 12/15/22 Echo: EF 40-45%, globally reduced with mid to apical inferior wall severely hypokinetic, diastolic dysfunction with E/e' 22, severe LAE, mild FIGUEROA, mild MR, mild-mod TR, RVSP 43 mmHg, trace pericardial effusion. Troponins:? 0.62, 0.63, 0.68, 0.77, 0.84, 0.62. 12/14/2022 prolonged BMP greater than 30,000. BUN 48, creatinine 1.9, GFR 35, improving? (GFR was running 40-50 slowly in October and November). Hematocrit ranging from 25-33, was 26 12/16/2022. 12/14/2022 chest x-ray:? Moderate to advanced pulmonary edema.? Personally reviewed, agree, pacemaker leads in appropriate position. 12/14/2022 EKG at 1:43 a.m.:? Atrially sensing, ventricular pacing, and normal sinus rhythm.??T-wave inversion noted in V2 and V3. 12/14/2022 EKG at 3:41 p.m.:? Sinus tachycardia rate 112 with ventricular pacing. Both EKGs reviewed personally. Date of service 12/21/2022: Interventional Cardiology asked about possible LHC today. Upon my evaluation, patient is not oriented, is confused, in mittens due to pulling at things, has been aggressive with nursing staff, difficulty laying still. Son at bedside. Discussed with patient's RN regarding his clinical status as well. Review of Systems Review of Systems: ROS unobtainable: Yes unobtainable due to mental status Exam Const: General: no acute distress Other: Mittens on both hands, slightly agitated, moving around. Resp: Effort & Inspection: normal respiratory effort Auscultation: clear to auscultation bilaterally Cardio: Rate: regular rate Rhythm: regular rhythm Skin: General skin exam: normal color Neuro: Other: Confused Objective Data Vital Signs Vital Signs: Vital Signs - 24 hr 12/20/22 11:43 12/20/22 13:34 12/20/22 13:45 Temperature 36.6 C 36.2 C L Pulse Rate 62 60 67 Respiratory Rate 16 11 L 14 Blood Pressure 107/98 H 121/77 154/91 H Pulse Oximetry 97 100 100 Oxygen Delivery Room Air Simple Face Mask Oxygen Flow Rate 10 Fraction of Inspired Oxygen 12/20/22 14:00 12/20/22 14:15 12/20/22 14:30 Temperature Pulse Rate 63 73 69 Respiratory Rate 16 18 15 Blood Pressure 147/96 H 162/99 H 160/99 H Pulse Oximetry 96 100 100 Oxygen Delivery Room Air Room Air Oxygen Flow Rate Fraction of Inspired Oxygen
[2022-12-21 13:07] LABS: Glucose Point of Care 182 mg/dl (65-105)
--- NOTE | 2022-12-21 14:54 | PM.IMPN ---
Progress Note: A&P Assessment and Plan (1) Dementia: Code(s): F03.90 - Unspecified dementia, unspecified severity, without behavioral disturbance, psychotic disturbance, mood disturbance, and anxiety Status: Acute (2) Delirium: Code(s): R41.0 - Disorientation, unspecified Status: Acute (3) Acute systolic (congestive) heart failure: Code(s): I50.21 - Acute systolic (congestive) heart failure Status: Acute (4) Transaminitis: Code(s): R74.01 - Elevation of levels of liver transaminase levels Status: Acute (5) Pacemaker: Code(s): Z95.0 - Presence of cardiac pacemaker Status: Acute (6) MARGARITA (acute kidney injury): Code(s): N17.9 - Acute kidney failure, unspecified Status: Acute (7) Chronic kidney disease, stage 3: Code(s): N18.30 - Chronic kidney disease, stage 3 unspecified Status: Acute Plan 1) new dx acute decompensated HFrEF - cardiology consulted. pt originally scheduled last week for angiogram but cancelled due to MARGARITA. reschedule pending - aggressive diuresis achieved improvement, and at one point worsening of his MARGARITA. new balance with oral lasix achieved, increased to 40mg po BID today - cont fluid restriction, daily weights and low salt diet NSTEMI. trops downtrended. continue aspirin. to go for cath cath deferred until later 2) hypokalemia - difficult to resolve during MARGARITA. now on KCL tab 40meq po BID and MARGARITA is resolving so monitor this closely 3) delirium on dementia - sundowning at night, has been aggressive with nursing staff. received haldol 2 nights in a row now. start seroquel 25mg po qhs and re-assess. unable to obtain CT head due to pt unwilling to lay still consult neurology for ongoing confusion soft restraints for now 4) iron deficiency anemia w/ AOCD - procrit and iron started by nephrology 5) transaminitis - resolving, related to CHF 6) MARGARITA on CKD III - baseline sCR 1.5-1.7. MARGARITA resolved with diuresis. nephrology following - renal dose meds 7) HTN - chronic 8) adenocarcinoma of colon stage 4 - recent dx, had colectomy. portacath placed 12/20. to f/u with oncology as outpatient for chemo 9) leukocytosis - increasing again since 12/19. 12/20 CXR revealing worsening lung disease. UA and blood cultures redrawn on 12/19. f/u WBC and procalcitonin tomorrow. empiric ABX started Subjective Date/time seen: 12/21/22 14:54 Interval history: 2-year-old gentleman who presents emergency department with chief complaint of shortness of breath.? Patient recently had a pacemaker placed at our facility and also had surgery for right a bowel resection by Dr. hoffmann. Pt appears conused and agitated here Pt also has PMH CKD stage 3, dementia, anxiety, HLD, HTN, NIDDM, heart block s/p PPM, adenocarcinoma of the colon dx oct Review of Systems Review of Systems: Ongoing confusion and agitation All systems reviewed & are unremarkable except as noted in HPI and below Exam Narrative: GENERAL: confusion and agitation HEAD: Normocephalic, atraumatic. EYES: PERRLA and EOMI. ENT: Nares clear, no rhinorrhea or epistaxis.? Mucous membranes moist. NECK: Supple. CHEST: Clear to auscultation.? Mild respiratory distress.? tachypneic Pacemaker in place in the left anterior chest wall HEART: Regular rate and rhythm.? No murmur heard.? Normal peripheral pulses. ABDOMEN: Soft, nontender, nondistended, normal active bowel sounds. EXTREMITIES: Normal range of motion.? +1 edema. SKIN: Warm, dry, no rash. NEURO: No focal deficits.? Alert and oriented x3. Objective Data Vital Signs Vital Signs: Vital Signs - 24 hr 12/20/22 16:03 12/20/22 16:00 12/20/22 18:00 Temperature 36.6 C Pulse Rate 73 73 76 Respiratory Rate 19 Blood Pressure 152/97 H Pulse Oximetry 98 Oxygen Delivery Fraction of Inspired Oxygen 12/20/22 16:00 12/20/22 19:48 12/20/22 19:48 Temperature 35.9 C L Pulse Rate 76 60
[2022-12-21] MEDS: ACETAMINOPHEN 325 MG TABLET 650 MG PO (16:25)
[2022-12-21] MEDS: INSULIN ASPART (*BKC) 100 UNITS/ML SUB-Q (16:58)
[2022-12-21 16:59] LABS: Glucose Point of Care 237 mg/dl (65-105)
[2022-12-21] MEDS: LORazepam (*CRX) 0.5 MG TABLET PO (17:23)
[2022-12-21 20:30] LABS: Glucose Point of Care 200 mg/dl (65-105)
[2022-12-21] MEDS: SIMVASTATIN 20 MG TABLET 40 MG PO (21:30)
[2022-12-21] MEDS: BACLOFEN 10 MG TABLET PO (21:30)
[2022-12-21] MEDS: QUEtiapine FUMARATE 25 MG TABLET PO (21:30)
[2022-12-21] MEDS: lamoTRIgine 100 MG TABLET PO (21:30)
[2022-12-21] MEDS: PRAZOSIN HCL 1 MG CAPSULE PO (21:30)
[2022-12-22] VITALS (17 sets, daily range): BP systolic 113–150; BP diastolic 55–92; PULSE 64–95; RESP 16–22; TEMP 36.4–37.2; O2SAT 92–100
[2022-12-22 01:05] LABS: Glucose Point of Care 186 mg/dl (65-105)
[2022-12-22] MEDS: CEFEPIME 2 GM/NS 50 ML 2 GM/50 ML BAG IVPB (04:48)
[2022-12-22 05:11] LABS: Glucose Point of Care 188 mg/dl (65-105)
[2022-12-22 05:22] LABS: Estimated CRCL calculation 25 ml/min; Estimated Glomerular Filt Rate 35
[2022-12-22] MEDS: VANCOMYCIN 1,000 MG/NS 250 ML 1,000 MG/250 ML BAG 250 MG IVPB (05:28)
--- NOTE | 2022-12-22 07:42 | PM.PNCARD ---
Progress Note: A&P Assessment and Plan (1) CHF (congestive heart failure): Code(s): I50.9 - Heart failure, unspecified Status: Acute Assessment and Plan: Flash pulm edema secondary to NSTEMI. Acute systolic and diastolic heart failure. NTproBNP >20566. CXR shows significant pulm edema. 12/15/22 Echo: EF 40-45%, globally reduced with mid to apical inferior wall severely hypokinetic, diastolic dysfunction with E/e' 22, severe LAE, mild FIGUEROA, mild MR, mild-mod TR, RVSP 43 mmHg, trace pericardial effusion. On Lasix 40 mg PO daily. (2) Elevated troponin: Code(s): R79.89 - Other specified abnormal findings of blood chemistry Status: Acute Assessment and Plan: Troponin peaked at 0.84. Probably has underlying CAD. Heparin drip discontinued as troponin peaked 2 days ago. Discuss LHC and he is agreeable to it. Suspect he has multivessel CAD, but won't know until cath is done. Consulted [facility] [place] for possible LHC and was seen by Dr. Lawson/Dr. Tanner. LHC not performed on 12/17/22 due to hypokalemia. Surgery placed dayami-cath 12/20/22. He did not have LHC 12/21/22 due to confusion/uncooperative and ARF. HCG following when he is deemed ready for LHC. (3) MARGARITA (acute kidney injury): Code(s): N17.9 - Acute kidney failure, unspecified Status: Acute Assessment and Plan: Stabilized. Monitor as patient is being diuresed. (4) Pacemaker: Code(s): Z95.0 - Presence of cardiac pacemaker Status: Acute Assessment and Plan: Interrogated Biotronik pacemaker showing evidence of PMT and PAT. Bi[employer]ron[employer] rep came in 12/14/22 and turned on Auto-PVARP to prevent PMT. Started Metoprolol to treat PAT. (5) Hyperlipidemia: Qualifiers: Hyperlipidemia type: mixed hyperlipidemia Qualified Code(s): E78.2 - Mixed hyperlipidemia Code(s): E78.5 - Hyperlipidemia, unspecified Status: Acute Assessment and Plan: He is back on Simvastatin as liver enzymes decreasing. (6) Hypertension: Qualifiers: Hypertension type: essential hypertension Qualified Code(s): I10 - Essential (primary) hypertension Code(s): I10 - Essential (primary) hypertension Status: Acute Assessment and Plan: Stable. (7) Transaminitis: Code(s): R74.01 - Elevation of levels of liver transaminase levels Status: Acute Assessment and Plan: Shock liver probably related to CHF with passive congestion. Improving liver enzymes. Subjective Date/time seen: 12/22/22 07:42 Interval history: Denies chest pain or sob today. He has mittens on and is confused. Exam Const: General: cooperative, healthy appearing, comfortable, anxious and confusion Orientation/consciousness: oriented to person, oriented to place, oriented to time and confusion Resp: Auscultation: clear to auscultation bilaterally, no crackles, no rales, no rhonchi, no wheezes (Slight scattered wheezing) and lung sounds not diminished Cardio: Rate: regular rate Rhythm: regular rhythm Heart sounds: no murmurs Peripheral pulses: dorsalis pedis present Neuro: General: oriented to person, oriented to place, oriented to time and confusion Extrem: Right lower extremity: no edema Left lower extremity: no edema Objective Data Vital Signs Vital Signs: Vital Signs - 24 hr 12/21/22 08:00 12/21/22 08:00 12/21/22 08:00 Temperature 96.7 F L Pulse Rate 108 H 79 Respiratory Rate 24 H Blood Pressure 114/74 Pulse Oximetry 93 93 Oxygen Delivery Room Air Fraction of Inspired Oxygen 12/21/22 10:00 12/21/22 11:39 12/21/22 12:00 Temperature 97.1 F L Pulse Rate 71 64 Respiratory Rate 26 H Blood Pressure 131/85 Pulse Oximetry 95 95 Oxygen Delivery Room Air Fraction of Inspired Oxygen 12/21/22 12:00 12/21/22 14:00 12/21/22 16:00 Temperature 100.6 F H Pulse Rate 73 82 68 Respiratory Rate 24 H Blood Pressure 129/83 Pulse Oximetry 91 Oxygen Deli
[2022-12-22 07:45] LABS: Glucose Point of Care 220 mg/dl (65-105)
[2022-12-22] MEDS: INSULIN ASPART (*BKC) 100 UNITS/ML SUB-Q ×2 (08:17→17:33)
[2022-12-22] MEDS: METOPROLOL TARTRATE 50 MG TAB PO ×2 (08:18→22:19)
[2022-12-22] MEDS: FUROSEMIDE 40 MG TABLET PO (08:18)
[2022-12-22] MEDS: FERROUS SULFATE 325 MG TABLET DR BY MOUTH ×2 (08:18→17:32)
[2022-12-22] MEDS: PARoxetine 20 MG TABLET 40 MG PO (08:18)
[2022-12-22] MEDS: ASPIRIN 81 MG CHEWABLE TABLET PO (08:18)
[2022-12-22] MEDS: PARoxetine 10 MG TABLET PO (08:18)
[2022-12-22] MEDS: POTASSIUM CHLORIDE 20 MEQ ER TABLET 40 MEQ PO ×2 (08:18→17:32)
[2022-12-22] MEDS: buPROPion HCL XL (24 HR) 150 MG TABCR 300 MG PO (08:18)
--- NOTE | 2022-12-22 11:04 | PM.PNGS ---
Progress Note: A&P Assessment and Plan (1) Delirium: Code(s): R41.0 - Disorientation, unspecified Status: Acute Assessment and Plan: Delirium seems to be a little bit better today. Causes seem to be more acute stress of recent surgery and hospitalization. Continue medical management. (2) Adenocarcinoma of cecum: Code(s): C18.0 - Malignant neoplasm of cecum Status: Acute Assessment and Plan: Surgical skin incisions are healing well. Right internal jugular vein dayami catheter has been placed during this admission. He can probably start chemotherapy in 3 to 4 weeks as long as he is medically stable. From a surgical standpoint he can be discharged from the hospital when medically optimized. Subjective Subjective Date/Time Seen: 12/22/22 11:04 Interval history: Patient remains a little restless and remains in restraints. He does answer questions appropriately and recognizes me today. He did eat some solid food for breakfast. Family states that he did get a little bit of sleep last night. Exam GI: Other: Abdomen is soft and nondistended. Laparoscopic extraction site incisions all healing well without any redness or drainage. No incisional hernias. Right upper anterior chest port incision healing well without any redness or drainage. Objective Data Vital Signs Vital Signs: Vital Signs - 24 hr 12/21/22 11:39 12/21/22 12:00 12/21/22 12:00 Temperature 36.2 C L Pulse Rate 64 73 Respiratory Rate 26 H Blood Pressure 131/85 Pulse Oximetry 95 95 Oxygen Delivery Room Air Fraction of Inspired Oxygen 12/21/22 14:00 12/21/22 16:00 12/21/22 16:00 Temperature 38.1 C H Pulse Rate 82 68 Respiratory Rate 24 H Blood Pressure 129/83 Pulse Oximetry 91 91 Oxygen Delivery Room Air Fraction of Inspired Oxygen 12/21/22 16:00 12/21/22 18:00 12/21/22 19:48 Temperature 37.1 C Pulse Rate 81 64 72 Respiratory Rate 22 H Blood Pressure 139/96 H Pulse Oximetry 100 Oxygen Delivery Fraction of Inspired Oxygen 12/21/22 21:29 12/21/22 20:00 12/21/22 20:00 Temperature Pulse Rate 75 75 66 Respiratory Rate 22 H Blood Pressure Pulse Oximetry 100 Oxygen Delivery Room Air Fraction of Inspired Oxygen 21 12/21/22 22:00 12/22/22 00:00 12/22/22 00:00 Temperature 37.2 C Pulse Rate 68 70 64 Respiratory Rate 16 Blood Pressure 121/55 L Pulse Oximetry 98 Oxygen Delivery Fraction of Inspired Oxygen 12/22/22 00:00 12/22/22 02:00 12/22/22 04:00 Temperature 36.6 C Pulse Rate 64 75 80 Respiratory Rate 16 16 Blood Pressure 139/89 Pulse Oximetry 98 98 Oxygen Delivery Room Air Fraction of Inspired Oxygen 21 12/22/22 04:00 12/22/22 04:00 12/22/22 06:00 Temperature Pulse Rate 80 76 95 Respiratory Rate 16 Blood Pressure Pulse Oximetry 98 Oxygen Delivery Room Air Fraction of Inspired Oxygen 21 12/22/22 07:29 Temperature 36.4 C Pulse Rate 85 Respiratory Rate 20 Blood Pressure 113/89 Pulse Oximetry 97 Oxygen Delivery Fraction of Inspired Oxygen Intake/Output Intake/Output: Intake & Output 12/19/22 12/20/22 12/21/22 12/22/22 23:59 23:59 23:59 23:59 Intake Total 1160 1290 430 120 Output Total 2150 1450 3050 950 Balance -990 -160 -2620 -830 Meds/Results Medications: Active Medications Generic Name Dose Route Start Last Admin Trade Name Freq PRN Reason Stop Dose Admin Acetaminophen 650 mg 12/21/22 16:08 12/21/22 16:25 Acetaminophen 325 Mg Tablet PO 650 mg Q4H PRN Administration Headache Albuterol 2 puff 12/14/22 09:09 Albuterol Sulfate (*Sp) Aerosol 1 Puff INHALATION QID PRN shortness of breath or wheezing Aspirin 81 mg 12/15/22 08:00 12/22/22 08:18 Aspirin 81 Mg Chewable Tablet PO 81 mg DAILY@0800 SUMANTH Administration Baclofen 10 mg 12/14/22 21:00 12/21/22 21:30 Baclofen 10 Mg Tablet PO 10 mg QHS SC
[2022-12-22 12:17] LABS: Glucose Point of Care 190 mg/dl (65-105)
[2022-12-22] MEDS: LORazepam (*CRX) 0.5 MG TABLET PO (12:38)
--- NOTE | 2022-12-22 15:03 | PM.IMPN ---
Progress Note: A&P Assessment and Plan (1) Dementia: Code(s): F03.90 - Unspecified dementia, unspecified severity, without behavioral disturbance, psychotic disturbance, mood disturbance, and anxiety Status: Acute (2) Delirium: Code(s): R41.0 - Disorientation, unspecified Status: Acute (3) Acute systolic (congestive) heart failure: Code(s): I50.21 - Acute systolic (congestive) heart failure Status: Acute (4) Transaminitis: Code(s): R74.01 - Elevation of levels of liver transaminase levels Status: Acute (5) Pacemaker: Code(s): Z95.0 - Presence of cardiac pacemaker Status: Acute (6) MARGARITA (acute kidney injury): Code(s): N17.9 - Acute kidney failure, unspecified Status: Acute (7) Chronic kidney disease, stage 3: Code(s): N18.30 - Chronic kidney disease, stage 3 unspecified Status: Acute Plan 1) new dx acute decompensated HFrEF - cardiology consulted. pt originally scheduled last week for angiogram but cancelled due to MARGARITA. reschedule pending - aggressive diuresis achieved improvement, and at one point worsening of his MARGARITA. - transition to oral lasix daily - cont fluid restriction, daily weights and low salt diet 1) NSTEMI. trops downtrended. continue aspirin. -cath cath deferred until later 2) hypokalemia - resolved 3) delirium on dementia - owning at night, has been aggressive with nursing staff. received haldol in previous nights, start seroquel 25mg po qhs and re-assess. unable to obtain CT head due to pt unwilling to lay still consult neurology for confusion try CT HEAD vandana long discussion with pt son 4) iron deficiency anemia w/ AOCD - procrit and iron started by nephrology 5) transaminitis - resolving, related to CHF 6) MARGARITA on CKD III - baseline sCR 1.5-1.7. MARGARITA resolved with diuresis. nephrology following - renal dose meds 7) HTN - chronic 8) adenocarcinoma of colon stage 4 - recent dx, had colectomy. portacath placed 12/20. to f/u with oncology as outpatient for chemo 9) leukocytosis - increasing again since 12/19. 12/20 CXR revealing worsening lung disease. UA and blood cultures redrawn on 12/19. f/u WBC and procalcitonin tomorrow. empiric ABX started changes to iv zosyn surgical sites reviewed healing well Subjective Date/time seen: 12/22/22 15:03 Interval history: 72-year-old gentleman who presents emergency department with chief complaint of shortness of breath.? Patient recently had a pacemaker placed at our facility and also had surgery for right a bowel resection by . Pt appears confused and agitated yesterday pt had mittens on and was not making any coherent conversation today is more calm but seems little better Pt also has PMH CKD stage 3, dementia, anxiety, HLD, HTN, NIDDM, heart block s/p PPM, adenocarcinoma of the colon dx nov. Pt has surgical skin incisions which are healing well and dayami cath in situ. recent diagnosis of [place] carcinoma of the colon Pt was spiking fevers yesterday fevers seem better today iv abx changed from cef and vanc to zosyn. Surgery team rounding Review of Systems Review of Systems: Mild confusion no agitation today All systems reviewed & are unremarkable except as noted in HPI and below Exam Narrative: GENERAL: confusion and agitation HEAD: Normocephalic, atraumatic. EYES: PERRLA and EOMI. ENT: Nares clear, no rhinorrhea or epistaxis.? Mucous membranes moist. NECK: Supple. CHEST: Clear to auscultation.? Mild respiratory distress.? tachypneic Pacemaker in place in the left anterior chest wall HEART: Regular rate and rhythm.? No murmur heard.? Normal peripheral pulses. ABDOMEN: Soft, nontender, nondistended, normal active bowel sounds. EXTREMITIES: Normal range of motion.? +1 edema. SKIN: Warm, dry, no rash. NEURO: No focal deficits.? Alert and oriented x3. Objective Data Vital Signs Vital Signs: Vital Signs - 24 hr 12/21/
[2022-12-22 16:50] LABS: Glucose Point of Care 288 mg/dl (65-105)
[2022-12-22] MEDS: PIPERACILLN/TAZ 3.375GM/NS50ML 3.375 GM/50 ML BAG IVPB (17:33)
[2022-12-22] MEDS: BACLOFEN 10 MG TABLET PO (19:32)
[2022-12-22] MEDS: ACETAMINOPHEN 325 MG TABLET 650 MG PO (19:32)
[2022-12-22 20:58] LABS: Glucose Point of Care 267 mg/dl (65-105)
[2022-12-22] MEDS: PRAZOSIN HCL 1 MG CAPSULE PO (22:19)
[2022-12-22] MEDS: SIMVASTATIN 20 MG TABLET 40 MG PO (22:19)
[2022-12-22] MEDS: QUEtiapine FUMARATE 25 MG TABLET PO (22:19)
[2022-12-22] MEDS: lamoTRIgine 100 MG TABLET PO (22:20)
[2022-12-23] VITALS (15 sets, daily range): BP systolic 104–169; BP diastolic 74–102; PULSE 61–82; RESP 16–24; TEMP 36.6–37.2; O2SAT 97–100
[2022-12-23] MEDS: PIPERACILLN/TAZ 3.375GM/NS50ML 3.375 GM/50 ML BAG IVPB ×4 (00:45→17:28)
[2022-12-23 01:18] LABS: Glucose Point of Care 214 mg/dl (65-105)
[2022-12-23 05:35] LABS: Glucose Point of Care 209 mg/dl (65-105)
[2022-12-23 05:41] LABS: Hematocrit 34.4 % (42.0-52.0); Hemoglobin 9.8 g/dL (14.0-18.0); Mean Corpuscular Volume 87.5 fl (80-100); Red Blood Count 3.93 M/mm3 (4.6-6.20); White Blood Count 13.8 K/mm3 (4.5-10.0)
[2022-12-23 05:42] LABS: Mean Corpuscular HGB Conc 28.5 g/dl (32-36); Mean Corpuscular Hemoglobin 24.9 pg (26-34); Mean Platelet Volume 10.4 fl (7.4-10.4); Platelet Count Result 381 k/mm3 (150-375); Red Cell Distribution Width 26.5 % (11.5-14.5)
[2022-12-23 05:57] LABS: Anion Gap 8 mmol/L (8-16); Blood Urea Nitrogen 35 mg/dL (9-20); Calcium 9.8 mg/dL (8.4-10.2); Carbon Dioxide 33 mmol/L (22-30); Chloride 101 mmol/L (98-107); Estimated CRCL calculation 18 ml/min; Estimated Glomerular Filt Rate 24; Glucose 225 mg/dL (65-110); Potassium 3.9 mmol/L (3.4-5.0); Sodium 142 mmol/L (137-145)
--- NOTE | 2022-12-23 08:09 | PM.PNCARD ---
Progress Note: A&P Assessment and Plan (1) CHF (congestive heart failure): Code(s): I50.9 - Heart failure, unspecified Status: Acute Assessment and Plan: Flash pulm edema secondary to NSTEMI. Acute systolic and diastolic heart failure. NTproBNP >51970. CXR shows significant pulm edema. 12/15/22 Echo: EF 40-45%, globally reduced with mid to apical inferior wall severely hypokinetic, diastolic dysfunction with E/e' 22, severe LAE, mild FIGUEROA, mild MR, mild-mod TR, RVSP 43 mmHg, trace pericardial effusion. On Lasix 40 mg PO daily. (2) Elevated troponin: Code(s): R79.89 - Other specified abnormal findings of blood chemistry Status: Acute Assessment and Plan: Troponin peaked at 0.84. Probably has underlying CAD. Heparin drip discontinued as troponin peaked 2 days ago. Discuss LHC and he is agreeable to it. Suspect he has multivessel CAD, but won't know until cath is done. Consulted [facility] [place] for possible LHC and was seen by Dr. Lawson/Dr. Tanner. LHC not performed on 12/17/22 due to hypokalemia. Surgery placed dayami-cath 12/20/22. He did not have LHC 12/21/22 due to confusion/uncooperative and ARF. HCG following when he is deemed ready for LHC. (3) MARGARITA (acute kidney injury): Code(s): N17.9 - Acute kidney failure, unspecified Status: Acute Assessment and Plan: Stabilized. Monitor as patient is being diuresed. (4) Pacemaker: Code(s): Z95.0 - Presence of cardiac pacemaker Status: Acute Assessment and Plan: Interrogated Biotronik pacemaker showing evidence of PMT and PAT. [employer] rep came in 12/14/22 and turned on Auto-PVARP to prevent PMT. Started Metoprolol to treat PAT. (5) Hyperlipidemia: Qualifiers: Hyperlipidemia type: mixed hyperlipidemia Qualified Code(s): E78.2 - Mixed hyperlipidemia Code(s): E78.5 - Hyperlipidemia, unspecified Status: Acute Assessment and Plan: He is back on Simvastatin as liver enzymes decreasing. (6) Hypertension: Qualifiers: Hypertension type: essential hypertension Qualified Code(s): I10 - Essential (primary) hypertension Code(s): I10 - Essential (primary) hypertension Status: Acute Assessment and Plan: Stable. (7) Transaminitis: Code(s): R74.01 - Elevation of levels of liver transaminase levels Status: Acute Assessment and Plan: Shock liver probably related to CHF with passive congestion. Improving liver enzymes. Subjective Date/time seen: 12/23/22 08:09 Interval history: Denies chest pain or sob today. He has mittens on and is confused. Exam Const: General: anxious and confusion Orientation/consciousness: confusion Resp: Auscultation: clear to auscultation bilaterally, no crackles, no rales, no rhonchi, no wheezes (Slight scattered wheezing) and lung sounds not diminished Cardio: Rate: regular rate Rhythm: regular rhythm Heart sounds: no murmurs Peripheral pulses: dorsalis pedis present Neuro: General: oriented to person, oriented to place, oriented to time and confusion Extrem: Right lower extremity: no edema Left lower extremity: no edema Objective Data Vital Signs Vital Signs: Vital Signs - 24 hr 12/22/22 10:00 12/22/22 11:41 12/22/22 12:00 Temperature Pulse Rate 65 66 Respiratory Rate 22 H Blood Pressure 150/75 H Pulse Oximetry 92 Oxygen Delivery Room Air Fraction of Inspired Oxygen 12/22/22 12:00 12/22/22 14:00 12/22/22 15:51 Temperature 97.7 F Pulse Rate 80 74 83 Respiratory Rate 18 Blood Pressure 141/92 H Pulse Oximetry 99 Oxygen Delivery Fraction of Inspired Oxygen 12/22/22 16:00 12/22/22 16:00 12/22/22 18:00 Temperature Pulse Rate 80 75 Respiratory Rate Blood Pressure Pulse Oximetry Oxygen Delivery Room Air Fraction of Inspired Oxygen 12/22/22 19:39 12/22/22 20:05 12/23/22 00:00 Temperature 98 F 98.9 F Pulse Rate 79 69 Res
[2022-12-23] MEDS: buPROPion HCL XL (24 HR) 150 MG TABCR 300 MG PO (09:54)
[2022-12-23] MEDS: FUROSEMIDE 40 MG TABLET PO (09:54)
[2022-12-23] MEDS: FERROUS SULFATE 325 MG TABLET DR BY MOUTH ×2 (09:55→17:28)
[2022-12-23] MEDS: ASPIRIN 81 MG CHEWABLE TABLET PO (09:55)
[2022-12-23] MEDS: POTASSIUM CHLORIDE 20 MEQ ER TABLET 40 MEQ PO ×2 (09:55→17:27)
[2022-12-23] MEDS: METOPROLOL TARTRATE 50 MG TAB PO ×2 (09:55→21:55)
[2022-12-23] MEDS: PARoxetine 10 MG TABLET PO (09:55)
[2022-12-23] MEDS: PARoxetine 20 MG TABLET 40 MG PO (09:55)
[2022-12-23 10:01] LABS: Glucose Point of Care 248 mg/dl (65-105)
[2022-12-23] MEDS: INSULIN ASPART (*BKC) 100 UNITS/ML SUB-Q ×2 (10:04→13:37)
--- NOTE | 2022-12-23 11:50 | PM.PNGS ---
Progress Note: A&P Assessment and Plan (1) Delirium: Code(s): R41.0 - Disorientation, unspecified Status: Acute Assessment and Plan: Patient's delirium agitation is about the same , maybe slightly improved. Continue management as per primary service. (2) Adenocarcinoma of cecum: Code(s): C18.0 - Malignant neoplasm of cecum Status: Acute Assessment and Plan: Patient has a dayami catheter in place now and can start chemotherapy if he is medically stable and 2 to 3 weeks. However at this point is nutrition has been poor as his delirium has made it so that he is not taking too much p.o. intake. His GI tract is working and so consideration for improving his nutrition by placement of a PEG feeding to her gastroenterology may need to be discussed with the patient's family. Subjective Subjective Date/Time Seen: 12/23/22 11:50 Interval history: Patient continues to have confusion is in restraints. He does open his eyes and recognizes me as his surgeon. According to his son is at the bedside he is not been able to take more than a few sips of Ensure and a few bites of applesauce. Exam GI: Other: Abdomen is soft and nondistended. Some mild tenderness to palpation around the surgical incision on port sites. No redness or drainage from the surgical port sites. No incisional hernia. Objective Data Vital Signs Vital Signs: Vital Signs - 24 hr 12/22/22 12:00 12/22/22 12:00 12/22/22 14:00 Temperature Pulse Rate 80 74 Respiratory Rate Blood Pressure Pulse Oximetry Oxygen Delivery Room Air Fraction of Inspired Oxygen 12/22/22 15:51 12/22/22 16:00 12/22/22 16:00 Temperature 36.5 C Pulse Rate 83 80 Respiratory Rate 18 Blood Pressure 141/92 H Pulse Oximetry 99 Oxygen Delivery Room Air Fraction of Inspired Oxygen 12/22/22 18:00 12/22/22 19:39 12/22/22 20:05 Temperature 36.6 C Pulse Rate 75 79 Respiratory Rate 16 Blood Pressure 139/60 Pulse Oximetry 99 Oxygen Delivery Fraction of Inspired Oxygen 12/23/22 00:00 12/22/22 20:00 12/22/22 22:00 Temperature 37.2 C Pulse Rate 69 69 78 Respiratory Rate 18 18 Blood Pressure 104/77 Pulse Oximetry 100 100 Oxygen Delivery Room Air Fraction of Inspired Oxygen 21 12/22/22 20:00 12/23/22 00:00 12/23/22 02:00 Temperature Pulse Rate 76 72 67 Respiratory Rate Blood Pressure Pulse Oximetry Oxygen Delivery Fraction of Inspired Oxygen 12/23/22 00:00 12/23/22 04:00 12/23/22 04:00 Temperature 36.7 C Pulse Rate 67 74 74 Respiratory Rate 18 18 18 Blood Pressure 128/93 H Pulse Oximetry 100 100 100 Oxygen Delivery Room Air Room Air Fraction of Inspired Oxygen 21 21 12/23/22 04:00 12/23/22 06:00 12/23/22 07:47 Temperature 36.6 C Pulse Rate 65 76 80 Respiratory Rate 16 Blood Pressure 152/74 H Pulse Oximetry 100 Oxygen Delivery Fraction of Inspired Oxygen 12/23/22 08:00 12/23/22 08:00 12/23/22 10:00 Temperature Pulse Rate 80 67 Respiratory Rate Blood Pressure Pulse Oximetry 100 Oxygen Delivery Room Air Fraction of Inspired Oxygen 12/23/22 11:21 Temperature 36.9 C Pulse Rate 75 Respiratory Rate 24 H Blood Pressure 135/87 Pulse Oximetry 99 Oxygen Delivery Fraction of Inspired Oxygen Intake/Output Intake/Output: Intake & Output 12/20/22 12/21/22 12/22/22 12/23/22 23:59 23:59 23:59 23:59 Intake Total 0152 116 2268 170 Output Total 1450 3050 1600 200 Balance -160 -2620 1260 -30 Meds/Results Medications: Active Medications Generic Name Dose Route Start Last Admin Trade Name Freq PRN Reason Stop Dose Admin Acetaminophen 650 mg 12/21/22 16:08 12/22/22 19:32 Acetaminophen 325 Mg Tablet PO 650 mg Q4H PRN Administration Headache Albuterol 2 puff 12/14/22 09:09 Albuterol Sulfate (*Sp) Aerosol 1 Puff INHALATION QID PRN shortness of hans
[2022-12-23 12:35] LABS: Toxigenic C. Diff NEGATIVE (NEGATIVE)
[2022-12-23 13:40] LABS: Glucose Point of Care 228 mg/dl (65-105)
[2022-12-23 16:59] LABS: Glucose Point of Care 175 mg/dl (65-105)
--- NOTE | 2022-12-23 17:21 | PM.IMPN ---
Progress Note: A&P Assessment and Plan (1) Dementia: Code(s): F03.90 - Unspecified dementia, unspecified severity, without behavioral disturbance, psychotic disturbance, mood disturbance, and anxiety Status: Acute (2) Delirium: Code(s): R41.0 - Disorientation, unspecified Status: Acute (3) Acute systolic (congestive) heart failure: Code(s): I50.21 - Acute systolic (congestive) heart failure Status: Acute (4) Transaminitis: Code(s): R74.01 - Elevation of levels of liver transaminase levels Status: Acute (5) Pacemaker: Code(s): Z95.0 - Presence of cardiac pacemaker Status: Acute (6) MARGARITA (acute kidney injury): Code(s): N17.9 - Acute kidney failure, unspecified Status: Acute (7) Chronic kidney disease, stage 3: Code(s): N18.30 - Chronic kidney disease, stage 3 unspecified Status: Acute Plan 1) new dx acute decompensated HFrEF - cardiology consulted. pt originally scheduled last week for angiogram but cancelled due to MARGARITA. reschedule pending - aggressive diuresis achieved improvement - transition to oral lasix daily - cont fluid restriction, daily weights and low salt diet 1) NSTEMI. trops downtrended. continue aspirin. -cath cath deferred until later 2) hypokalemia - resolved 3) delirium on dementia - owning at night, has been aggressive with nursing staff. received haldol in previous nights, start seroquel 25mg po qhs and re-assess. unable to obtain CT head due to pt unwilling to lay still consult neurology for confusion try CT HEAD vandana long discussion with pt son 4) iron deficiency anemia w/ AOCD - procrit and iron started by nephrology 5) transaminitis - resolving, related to CHF 6) MARGARITA on CKD III - baseline sCR 1.5-1.7. MARGRAITA resolved with diuresis. nephrology following - renal dose meds 7) HTN - chronic 8) adenocarcinoma of colon stage 4 - recent dx, had colectomy. portacath placed 12/20. to f/u with oncology as outpatient for chemo 9) leukocytosis - increasing again since 12/19. 12/20 CXR revealing worsening lung disease. UA and blood cultures redrawn on 10/29. f/u WBC and procalcitonin tomorrow. empiric ABX started changes to iv zosyn surgical sites reviewed healing well 10) Confusion Pt had ct head which was nl, pt had ct abdomen and pelvis which showed Bilateral hydronephrosis with developing perinephric stranding. Cannot exclude ascending urinary tract infection/pyelonephritis. No obstructing stone or mass identified. 2:? Enlarged prostate gland with significantly distended bladder, possibly outlet obstruction. 3:? Bilateral pleural effusions, right greater than left with underlying atelectasis. Cannot exclude superimposed pneumonia. Likely cause of confusion is pneumonia plus pylonephritis Subjective Date/time seen: 12/23/22 17:21 Interval history: 72-year-old gentleman who presents emergency department with chief complaint of shortness of breath.? Patient recently had a pacemaker placed at our facility and also had surgery for right a bowel resection by . Pt appears confused and agitated yesterday pt had mittens on and was not making any coherent conversation today is more calm but seems little better Pt also has PMH CKD stage 3, dementia, anxiety, HLD, HTN, NIDDM, heart block s/p PPM, adenocarcinoma of the colon dx oct. Pt has surgical skin incisions which are healing well and dayami cath in situ. recent diagnosis of Adeno carcinoma of the colon Pt still confused and restless pt to have CT HEAD ABDO and pelvis today Review of Systems Review of Systems: Ongoing confusion and restlessness Exam Narrative: GENERAL: confusion and agitation HEAD: Normocephalic, atraumatic. ENT: Nares clear, no rhinorrhea or epistaxis.? Mucous membranes moist. NECK: Supple. CHEST: Clear to auscultation.? Mild respiratory distress.? tachypneic Pacemaker in place in the left anterior chest wall HEAR
[2022-12-23 20:26] LABS: Glucose Point of Care 320 mg/dl (65-105)
[2022-12-23] MEDS: PRAZOSIN HCL 1 MG CAPSULE PO (21:55)
[2022-12-23] MEDS: BACLOFEN 10 MG TABLET PO (21:55)
[2022-12-23] MEDS: QUEtiapine FUMARATE 25 MG TABLET PO (21:55)
[2022-12-23] MEDS: SIMVASTATIN 20 MG TABLET 40 MG PO (21:55)
[2022-12-23] MEDS: lamoTRIgine 100 MG TABLET PO (21:55)
[2022-12-24] VITALS (18 sets, daily range): BP systolic 119–171; BP diastolic 75–98; PULSE 59–100; RESP 17–20; TEMP 36.6–37.1; O2SAT 88–100
--- NOTE | 2022-12-24 | ECHOL_ITS ---
Patient Info Name: Julian Wilson Age: 72 years : 1950 Gender: Male Ht: 67 in Wt: 119 lbs BSA: 1.59 m2 HR: 78 bpm BP: 160 / 86 mmHg Technical Quality: Fair Exam Date: 12/24/2022 3:33 PM Exam Location: Echo Lab Exam Room: Formerly named [facility] Patient Status: Inpatient Admit Date: 12/15/2022 Staff Ordering Physician: Judi Ross MD Measuring Machine Operator: Rajani Johnson RDCS Attending Provider: Ricardo Yun MD Referring Physician: Cody TREJO; Exam Type: CA echo limited Study Info Indications - R/O ENDOCARDITIS Limited two-dimensional transthoracic echocardiogram is performed. Summary 1. Limited echocardiogram to assess for endocarditis. 2. There is moderate aortic valve sclerosis. 3. There is mild to moderate mitral valve regurgitation. 4. There is mild tricuspid valve regurgitation. 5. No pulmonary hypertension, estimated pulmonary arterial systolic pressure is 35 mmHg. Aortic Valve Limited echocardiogram to assess for endocarditis. The aortic valve is trileaflet. There is moderate aortic valve sclerosis. There is no aortic valve stenosis. There is no aortic valve regurgitation. No aortic valve vegetation visualized. Pulmonic Valve There is no pulmonic regurgitation. No pulmonic valve vegetation visualized. Mitral Valve There is no mitral valve stenosis. There is mild to moderate mitral valve regurgitation. No mitral valve vegetation visualized. Tricuspid Valve There is no significant tricuspid valve stenosis. There is mild tricuspid valve regurgitation. No pulmonary hypertension, estimated pulmonary arterial systolic pressure is 35 mmHg. No tricuspid valve vegetation visualized. Left Ventricular Outflow Tract Name Value Normal LVOT 2D LVOT Diameter 2.0 cm Pulmonic Valve Name Value Normal PV Doppler PV Peak Gradient 3 mmHg Tricuspid Valve Name Value Normal TV Regurgitation Doppler TR Peak Velocity 273 cm/s TR Peak Gradient 30 mmHg Estimated PAP/RSVP RA Pressure 5 mmHg <=5 PA Systolic Pressure 35 mmHg <36 RV Systolic Pressure 35 mmHg <36 Aorta Name Value Normal Ascending Aorta Ao Root Diameter (MM) 2.9 cm Ao Root Diam Index (MM) 1.8 cm/m2 Aortic Valve Name Value Normal ------
[2022-12-24 00:49] LABS: Glucose Point of Care 280 mg/dl (65-105)
[2022-12-24 05:26] LABS: Glucose Point of Care 248 mg/dl (65-105)
[2022-12-24 05:48] LABS: Appearance Urine Cloudy (Clear); Bacteria Urine None Seen /hpf; Bilirubin Urine Negative (Negative); Budding Yeast Urine Present /hpf; Color Urine Yellow (Yellow); Glucose Urine UA Negative (Negative); Ketones Urine Negative (Negative); Leukocyte Esterase Ur 2+ LEU/UL (Negative); Nitrate Urine Negative (Negative); Protein Urine 2+ mg/dL (Negative); RBC Urine 21-50 /hpf (0-2); Specific Grav Ur 1.018 (1.001-1.035); Squamous Epithelial Cell Urine Occasional /hpf (Few); Triple Phosphate Crystal Urine Present /hpf; Urobilinogen Urine 0.2 mg/dL (<2.0); WBC Urine 21-50 /hpf; pH Urine 7.5 (5.0-9.0)
[2022-12-24 05:50] LABS: Add Urine Microscopic? YES
[2022-12-24 07:39] LABS: Anion Gap 12 mmol/L (8-16); Blood Urea Nitrogen 39 mg/dL (9-20); Calcium 9.4 mg/dL (8.4-10.2); Carbon Dioxide 25 mmol/L (22-30); Chloride 109 mmol/L (98-107); Estimated CRCL calculation 14 ml/min; Estimated Glomerular Filt Rate 18; Glucose 269 mg/dL (65-110); Potassium 4.2 mmol/L (3.4-5.0); Sodium 146 mmol/L (137-145)
--- NOTE | 2022-12-24 07:39 | PM.PNCARD ---
Progress Note: A&P Assessment and Plan (1) CHF (congestive heart failure): Code(s): I50.9 - Heart failure, unspecified Status: Acute Assessment and Plan: Flash pulm edema secondary to NSTEMI. Acute systolic and diastolic heart failure. NTproBNP >70261. CXR shows significant pulm edema. 12/15/22 Echo: EF 40-45%, globally reduced with mid to apical inferior wall severely hypokinetic, diastolic dysfunction with E/e' 22, severe LAE, mild FIGUEROA, mild MR, mild-mod TR, RVSP 43 mmHg, trace pericardial effusion. On Lasix 40 mg PO daily. He has possible pneumonia also on CT chest. Manage as per hospitalist for pneumonia. (2) Elevated troponin: Code(s): R79.89 - Other specified abnormal findings of blood chemistry Status: Acute Assessment and Plan: Troponin peaked at 0.84. Probably has underlying CAD. Heparin drip discontinued as troponin peaked 2 days ago. Discuss LHC and he is agreeable to it. Suspect he has multivessel CAD, but won't know until cath is done. Consulted [facility] for possible LHC and was seen by Dr. Lawson/Dr. Tanner. LHC not performed on 12/17/22 due to hypokalemia. Surgery placed dayami-cath 12/20/22. He did not have LHC 12/21/22 due to confusion/uncooperative and ARF. HCG following when he is deemed ready for LHC. (3) MARGARITA (acute kidney injury): Code(s): N17.9 - Acute kidney failure, unspecified Status: Acute Assessment and Plan: Worsened. Monitor as patient is being diuresed. He has possible bladder outlet obstruction. Manage as per hospitalist. (4) Pacemaker: Code(s): Z95.0 - Presence of cardiac pacemaker Status: Acute Assessment and Plan: Interrogated Biotron[employer] pacemaker showing evidence of PMT and PAT. [employer] rep came in 12/14/22 and turned on Auto-PVARP to prevent PMT. Started Metoprolol to treat PAT. (5) Hyperlipidemia: Qualifiers: Hyperlipidemia type: mixed hyperlipidemia Qualified Code(s): E78.2 - Mixed hyperlipidemia Code(s): E78.5 - Hyperlipidemia, unspecified Status: Acute Assessment and Plan: He is back on Simvastatin as liver enzymes decreasing. (6) Hypertension: Qualifiers: Hypertension type: essential hypertension Qualified Code(s): I10 - Essential (primary) hypertension Code(s): I10 - Essential (primary) hypertension Status: Acute Assessment and Plan: Stable. (7) Transaminitis: Code(s): R74.01 - Elevation of levels of liver transaminase levels Status: Acute Assessment and Plan: Shock liver probably related to CHF with passive congestion. Improving liver enzymes. Subjective Date/time seen: 12/24/22 07:39 Interval history: Denies chest pain or sob today. He has mittens on and is confused. Exam Const: General: cooperative, healthy appearing, comfortable, anxious and confusion Orientation/consciousness: oriented to person, oriented to place, oriented to time and confusion Resp: Auscultation: clear to auscultation bilaterally, no crackles, no rales, no rhonchi, no wheezes (Slight scattered wheezing) and lung sounds not diminished Cardio: Rate: regular rate Rhythm: regular rhythm Heart sounds: no murmurs Peripheral pulses: dorsalis pedis present Neuro: General: oriented to person, oriented to place, oriented to time and confusion Extrem: Right lower extremity: no edema Left lower extremity: no edema Objective Data Vital Signs Vital Signs: Vital Signs - 24 hr 12/23/22 07:47 12/23/22 08:00 12/23/22 08:00 Temperature 97.9 F Pulse Rate 80 80 Respiratory Rate 16 Blood Pressure 152/74 H Pulse Oximetry 100 100 Oxygen Delivery Room Air Fraction of Inspired Oxygen 12/23/22 10:00 12/23/22 11:21 12/23/22 12:00 Temperature 98.5 F Pulse Rate 67 75 61 Respiratory Rate 24 H Blood Pressure 135/87 Pulse Oximetry 99 Oxygen Delivery Fraction of Inspired Oxygen 12/23/22 14:00 12/23/22 12:00 11
[2022-12-24 08:40] LABS: Glucose Point of Care 235 mg/dl (65-105)
[2022-12-24] MEDS: ASPIRIN 81 MG CHEWABLE TABLET PO (09:00)
[2022-12-24] MEDS: POTASSIUM CHLORIDE 20 MEQ ER TABLET 40 MEQ PO ×2 (09:15→17:13)
[2022-12-24] MEDS: PARoxetine 20 MG TABLET 40 MG PO (09:15)
[2022-12-24] MEDS: buPROPion HCL XL (24 HR) 150 MG TABCR 300 MG PO (09:15)
[2022-12-24] MEDS: FUROSEMIDE 40 MG TABLET PO (09:16)
[2022-12-24] MEDS: FERROUS SULFATE 325 MG TABLET DR BY MOUTH ×2 (09:16→17:13)
[2022-12-24] MEDS: METOPROLOL TARTRATE 50 MG TAB PO (09:17)
[2022-12-24] MEDS: PARoxetine 10 MG TABLET PO (09:17)
[2022-12-24] MEDS: INSULIN ASPART (*BKC) 100 UNITS/ML SUB-Q (09:19)
[2022-12-24 11:47] LABS: Glucose Point of Care 192 mg/dl (65-105)
--- NOTE | 2022-12-24 12:29 | PM.IMPN ---
Progress Note: A&P Assessment and Plan (1) Dementia: Code(s): F03.90 - Unspecified dementia, unspecified severity, without behavioral disturbance, psychotic disturbance, mood disturbance, and anxiety Status: Acute (2) Delirium: Code(s): R41.0 - Disorientation, unspecified Status: Acute (3) Acute systolic (congestive) heart failure: Code(s): I50.21 - Acute systolic (congestive) heart failure Status: Acute (4) Transaminitis: Code(s): R74.01 - Elevation of levels of liver transaminase levels Status: Acute (5) Pacemaker: Code(s): Z95.0 - Presence of cardiac pacemaker Status: Acute (6) MARGARITA (acute kidney injury): Code(s): N17.9 - Acute kidney failure, unspecified Status: Acute (7) Chronic kidney disease, stage 3: Code(s): N18.30 - Chronic kidney disease, stage 3 unspecified Status: Acute Plan 1) new dx acute decompensated HFrEF - cardiology consulted. pt originally scheduled last week for angiogram but cancelled due to MARGARITA. reschedule pending - transition to oral lasix daily - cont fluid restriction, daily weights and low salt diet 1) NSTEMI. trops downtrended. continue aspirin. -cath cath deferred until later 2) hypokalemia - resolved 3) delirium on dementia - ing at night, has been aggressive with nursing staff. received haldol in previous nights, start seroquel 25mg po qhs and re-assess. unable to obtain CT head due to pt unwilling to lay still consult neurology for confusion ongoing confusion CT HEAD, chest abdo men and pelvis ordered BC rpted echo ordered to rukle out endo carditis 4) iron deficiency anemia w/ AOCD - procrit and iron started by nephrology 5) transaminitis - resolving, related to CHF 6) MARGARITA on CKD III - baseline sCR 1.5-1.7. MARGARITA resolved with diuresis. nephrology following - renal dose meds 7) HTN - chronic 8) adenocarcinoma of colon stage 4 - recent dx, had colectomy. portacath placed 12/20. to f/u with oncology as outpatient for chemo Surgery team rounding 9) leukocytosis - increasing again since 12/19. 12/20 CXR revealing worsening lung disease. UA and blood cultures redrawn on 12/19. f/u WBC and procalcitonin tomorrow. surgical sites are good ongoing confusion CT HEAD, chest abdomen and pelvis ordered BC rpted echo ordered t rule out endocarditis 10) Confusion Pt had ct head which was nl, pt had ct chest ,ct abdomen and pelvis which showed Bilateral hydronephrosis with developing perinephric stranding. Cannot exclude ascending urinary tract infection/pyelonephritis. No obstructing stone or mass identified. 2:? Enlarged prostate gland with significantly distended bladder, possibly outlet obstruction. 3:? Bilateral pleural effusions, right greater than left with underlying atelectasis. Cannot exclude superimposed pneumonia. Likely cause of confusion is pneumonia plus pyelonephritis continue to treat with iv rocephin Pt treated so far with iv cef and vanc, IV zosyn now IV rocephin Family requesting transfer to [facility] for ID consultation and higher level of care Awaiting transfer call back Subjective Date/time seen: 12/24/22 12:29 Interval history: 72-year-old gentleman who presents emergency department with chief complaint of shortness of breath.? Patient recently had a pacemaker placed at our facility and also had surgery for right a bowel resection by . Pt also has PMH CKD stage 3, dementia, anxiety, HLD, HTN, NIDDM, heart block s/p PPM, adenocarcinoma of the colon dx nov. Pt has surgical skin incisions which are healing well and dayami cath in situ. recent diagnosis of Adeno carcinoma of the colon. Pt had recent dx, had colectomy. portacath placed 12/20. to f/u with oncology as outpatient for chemo Pt still confused and restless today no fever today pt to have CT HEAD CHEST ABDO and pelvis yesterday ordered echo and rpt Family requesting transfer to [facility]
--- NOTE | 2022-12-24 13:19 | PCOTNOTE ---
The patient treatment was not able to be completed. Upon entry to his room patient was swinging his hands into the air and was comforting him. Patient soothed but was laying without gown or sheets on him. Patient is not appropriate to be seen on this date. Will plan to continue treatment per plan of care.
--- NOTE | 2022-12-24 13:47 | PM.CNNEP ---
Assessment and Plan Assessment and plan (1) MARGARITA (acute kidney injury): Code(s): N17.9 - Acute kidney failure, unspecified Status: Acute Assessment and Plan: acute decline noted on 12/21 with ongoing deterioration till now likely due to onstructive uropathy with possible ongoing infection evaluation to date: CT imaging notes bilateral hydronephrosis, right greater than left. No obstructing stone or mass identified. Bladder is distended. Prostate gland is enlarged. There is nonspecific bilateral perinephric stranding. Findings suspicious for ascending urinary tract infection/pyelonephritis hernandez catheter placed with almost immediate return of 950cc or urine UA also suggestive on infection check urine studies and CPK follow repeat labs and UOP (2) Chronic kidney disease, stage 3: Code(s): N18.30 - Chronic kidney disease, stage 3 unspecified Status: Chronic Assessment and Plan: baseline creatinine runs around 1.3 - 1.7mg/dl over the last few years this causes him to fluctuate between CKD stage 3A and stage 3B presumably due to hypertension, diabetes, possibly vascular disease, and age-related changed based on outpatient evaluation: bland UA immunofixation negative normal ultrasound had been following with Dr. Edward for CKD management (last seen in January 2022) (3) Altered mental status: Code(s): R41.82 - Altered mental status, unspecified Status: Acute Assessment and Plan: dementia versus delirium or secondary to infection versus other? evaluation ongoing Echo ordered follow blood cultures consider lumbar puncture possible transfer to [facility] when bed available (4) CHF (congestive heart failure): Code(s): I50.9 - Heart failure, unspecified Status: Acute Assessment and Plan: though to be due to flash pulmonary edema secondary NSTEMI Echo (12/15/22) with EF 40-45%, globally reduced with mid to apical inferior wall severely hypokinetic, diastolic dysfunction with mild MR, mild-mod TR, RVSP 43 mmHg hence a component of systolic and diastolic dysfunction improved with diuresis diuresis currently on hold due to #1 (5) NSTEMI (non-ST elevated myocardial infarction): Code(s): I21.4 - Non-ST elevation (NSTEMI) myocardial infarction Status: Acute Assessment and Plan: as noted by trend of troponins cardiac catheterization deferred due to issues relating to altered mental status, hypokalemia, and MARGARITA/ARF Echo noted (see #4) Cardiology following (6) Hypertension: Qualifiers: Hypertension type: essential hypertension Qualified Code(s): I10 - Essential (primary) hypertension Code(s): I10 - Essential (primary) hypertension Status: Chronic Assessment and Plan: reasonable control follow trend of hemodynamics (7) Mucinous adenocarcinoma of colon: Code(s): C18.9 - Malignant neoplasm of colon, unspecified Status: Chronic Assessment and Plan: s/p recent colectomy with pathology noted portacath placed 12/20 F/U with oncology as outpatient for chemotherapy (8) Type 2 diabetes mellitus: Code(s): E11.9 - Type 2 diabetes mellitus without complications Status: Chronic Assessment and Plan: follow accu-checks glycemic control per hospitalists Long extensive discussion (> 20 minutes) with the patient's at bedside regarding his multitude of medical issues and problems including his ongoing renal dysfunction / renal failure with the suspicion that obstructive uropathy may be playing a significant role on top of his other medical issues / problems at this time. Hopefully, with Hernandez catheter placement / decompression, his renal function will start to improve along with ongoing supportive therapy. I will continue to follow the patient with you while he remains hospitalized and make further recommendations as needed. Thank you for all
--- NOTE | 2022-12-24 13:47 | P.CONNP_ITS ---
Assessment and Plan Assessment and plan (1) MARGARITA (acute kidney injury): Code(s): N17.9 - Acute kidney failure, unspecified Status: Acute Assessment and Plan: * acute decline noted on 12/21 with ongoing deterioration till now * likely due to onstructive uropathy with possible ongoing infection * evaluation to date: * CT imaging notes bilateral hydronephrosis, right greater than left. No obstructing stone or mass identified. Bladder is distended. Prostate gland is enlarged. There is nonspecific bilateral perinephric stranding. Findings suspicious for ascending urinary tract infection/pyelonephritis * hernandez catheter placed with almost immediate return of 950cc or urine * UA also suggestive on infection * check urine studies and CPK * follow repeat labs and UOP (2) Chronic kidney disease, stage 3: Code(s): N18.30 - Chronic kidney disease, stage 3 unspecified Status: Chronic Assessment and Plan: * baseline creatinine runs around 1.3 - 1.7mg/dl over the last few years * this causes him to fluctuate between CKD stage 3A and stage 3B * presumably due to hypertension, diabetes, possibly vascular disease, and age- related changed based on outpatient evaluation: * bland UA * immunofixation negative * normal ultrasound * had been following with Dr. Edward for CKD management (last seen in January 2022) (3) Altered mental status: Code(s): R41.82 - Altered mental status, unspecified Status: Acute Assessment and Plan: * dementia versus delirium or secondary to infection versus other? * evaluation ongoing * Echo ordered * follow blood cultures * consider lumbar puncture * possible transfer to [facility] when bed available (4) CHF (congestive heart failure): Code(s): I50.9 - Heart failure, unspecified Status: Acute Assessment and Plan: * though to be due to flash pulmonary edema secondary NSTEMI * Echo (12/15/22) with EF 40-45%, globally reduced with mid to apical inferior wall severely hypokinetic, diastolic dysfunction with mild MR, mild-mod TR, RVSP 43 mmHg * hence a component of systolic and diastolic dysfunction * improved with diuresis * diuresis currently on hold due to #1 (5) NSTEMI (non-ST elevated myocardial infarction): Code(s): I21.4 - Non-ST elevation (NSTEMI) myocardial infarction Status: Acute Assessment and Plan: * as noted by trend of troponins * cardiac catheterization deferred due to issues relating to altered mental status, hypokalemia, and MARGARITA/ARF * Echo noted (see #4) * Cardiology following (6) Hypertension: Qualifiers: Hypertension type: essential hypertension Qualified Code(s): I10 - Essential (primary) hypertension Code(s): I10 - Essential (primary) hypertension Status: Chronic Assessment and Plan: * reasonable control * follow trend of hemodynamics (7) Mucinous adenocarcinoma of colon: Code(s): C18.9 - Malignant neoplasm of colon, unspecified Status: Chronic Assessment and Plan: * s/p recent colectomy with pathology noted * portacath placed 12/20 * F/U with oncology as outpatient for chemotherapy (8) Type 2 diabetes mellitus: Code(s): E11.9 - Type 2 diabetes mellitus without complications Status: Chronic Assessment and Plan: * follow accu-checks * glycemic control per hospitalists Long extensive discussion (> 20 minutes) with the patient's at bedside regarding his multitude of medical issues and problems including h
[2022-12-24] MEDS: SODIUM CHLORIDE 0.9% IV 250 ML 70 ML IV CONT (14:03)
--- NOTE | 2022-12-24 15:43 | PC.NURSE ---
Patient's spouse requested patient transfer to [facility] this morning. This was communicated to Dr. Ross who contacted [facility] transfer center and patient was placed on transfer wait list. behavioral health care coordinator reports it may be days before bed is obtained. Patient's spouse states she would like him transferred now to any hospital with an infectious disease specialist. This was reported by me to Dr. Ross.
[2022-12-24 16:47] LABS: Glucose Point of Care 200 mg/dl (65-105)
--- NOTE | 2022-12-24 16:52 | WPDURCON ---
Assessment and Plan Assessment and plan (1) Other retention of urine: Code(s): R33.8 - Other retention of urine Status: Acute Assessment and Plan: Multifactorial. Could be due to his mental status. Could be due to infection. Could be due to benign prostatic hyperplasia. Fox catheter is in place. I would maintain it in till his mental function clears. At that point could start Flomax and potentially a voiding trial before discharge (2) Hydronephrosis: Code(s): N13.30 - Unspecified hydronephrosis Status: Acute Assessment and Plan: Likely due to urinary retention. Fox catheter in place. Monitor creatinine (3) Abnormal urinalysis: Code(s): R82.90 - Unspecified abnormal findings in urine Status: Acute Assessment and Plan: Urine culture. Treat with culture specific antibiotics Urology Consult Note HPI Date Seen: 12/24/22 Requesting Physician: Ricardo Yun MD Primary Care Provider: Idalmis Veronica MD Consult Narrative Narrative: Julian Wilson is a 72 year old male. He has been here for several days. He has multiple medical issues including shortness of breath, delirium, possible dementia, status post surgery for colon cancer. I am specifically consult for abnormal radiographic findings. He has bilateral hydronephrosis with a significantly distended bladder. He has an enlarged prostate. There was concern for pyelonephritis as well. he has evidence of worsening renal failure. Nephrology has seen the patient. Urinary retention and bilateral hydronephrosis could be a significant source of his renal failure as well as other possibilities. Fox catheter is already in place. There was 950+ cc in his bladder. is present in the room. Patient is non communicative. He is apparently waiting transfer to [place] Review of Systems Review of Systems: Unable to obtain any review of systems ROS unobtainable: Yes unobtainable due to mental status PMFSH Past Medical History Medical History Anxiety Cardiomyopathy Chronic kidney disease, stage 3 Baseline creatinine ranges between 1.36 and 1.55. Dementia Hepatitis History of blood transfusion Hyperlipidemia Hypertension Second degree heart block by electrocardiogram (ECG) Type 2 diabetes mellitus Surgical History Surgical History History of appendectomy History of surgery on upper extremity Open reduction internal fixation of left upper extremity fracture. Family History Family History Grandparent Diabetes mellitus Hypertension Asthma Cerebrovascular accident Family history of coronary artery disease Mother Hypertension Family history of cardiovascular disease Family history of lymphoma Family history of rheumatic fever Father Family history of throat cancer Other Family history of alcoholism Family history of mental disorder Social History Social History Social History: Surrogate medical decision maker: Antonia Wilson, spouse. Code status: Full code. Smoking packs per day: 1 Smoking cigarettes per day: 20.0 Years smoked: 20 Smoking pack-years: 20.00 Smoking status: Former smoker Tobacco type: cigarettes Second hand tobacco smoke exposure: Yes Smoking end date: 02/21/77 Alcohol intake: never Substance use: current Substance use type: marijuana Other substance usage details: weekly Last use: 12/08/22 Lack of Transportation: No Lack of Food: Never True Current Housing: I Have Housing Concerned About Future Housing: No Difficulty Paying Gas/Electric Bills: No Difficulty Paying for Meds: No Currently Unemployed: No Education: Decline to Answer Difficulty w/ Childcare or Family Care: No Living arrangeme
[2022-12-24 18:59] LABS: Influenza A QL RT-PCR Negative (Negative); Influenza B QL RT-PCR Negative (Negative); SARS-CoV-2 RNA PCR Negative (Negative)
[2022-12-24] MEDS: CEFEPIME 1 GM/NS 50 ML 1 GM/50 ML BAG IVPB (20:18)
[2022-12-24 20:22] LABS: Glucose Point of Care 218 mg/dl (65-105)
[2022-12-24 20:51] LABS: Creatinine Urine 24.5 mg/dL; Total Protein Urine Random 168 mg/dL; Ur Ttl Prot Creatinine Ratio 6.86 mg/mg (0-0.20)
[2022-12-24 20:54] LABS: Sodium Urine Random 114 meq/L
[2022-12-24 22:53] LABS: Eosinophil Urine None Seen % (None Seen); Urine Eos QC 2nd Tech Confirmed
[2022-12-25] VITALS (25 sets, daily range): BP systolic 159–183; BP diastolic 93–105; PULSE 64–99; RESP 16–20; TEMP 36.5–37.1; O2SAT 92–97
[2022-12-25 00:26] LABS: Glucose Point of Care 235 mg/dl (65-105)
[2022-12-25 04:35] LABS: Glucose Point of Care 278 mg/dl (65-105)
[2022-12-25 05:14] LABS: Creatine Kinase < 20 U/L (55-170)
[2022-12-25] MEDS: SODIUM CHLOR 3% 15 ML NEB (RESPIRATORY THERAPY) 6 ML INHALATION (05:19)
[2022-12-25] MEDS: METOPROLOL TARTRATE 50 MG TAB PO (05:58)
[2022-12-25 07:34] LABS: Alanine Aminotransferase 60 U/L (6-50); Alkaline Phosphatase 93 U/L (38-126); Anion Gap 13 mmol/L (8-16); Aspartate Amino Transferase 31 U/L (17-59); Bilirubin,Total 0.7 mg/dL (0.2-1.3); Blood Urea Nitrogen 41 mg/dL (9-20); Carbon Dioxide 27 mmol/L (22-30); Chloride 111 mmol/L (98-107); Estimated CRCL calculation 13 ml/min; Estimated Glomerular Filt Rate 19; Glucose 275 mg/dL (65-110); Potassium 4.4 mmol/L (3.4-5.0); Sodium 151 mmol/L (137-145)
[2022-12-25 08:55] LABS: Glucose Point of Care 280 mg/dl (65-105)
--- NOTE | 2022-12-25 09:04 | PM.PNCARD ---
Progress Note: A&P Assessment and Plan (1) CHF (congestive heart failure): Code(s): I50.9 - Heart failure, unspecified Status: Acute Assessment and Plan: Flash pulm edema secondary to NSTEMI. Acute systolic and diastolic heart failure. NTproBNP >19097. CXR shows significant pulm edema. 12/15/22 Echo: EF 40-45%, globally reduced with mid to apical inferior wall severely hypokinetic, diastolic dysfunction with E/e' 22, severe LAE, mild FIGUEROA, mild MR, mild-mod TR, RVSP 43 mmHg, trace pericardial effusion. Hold Lasix 40 mg PO daily as he appears euvolemic today. He has possible pneumonia also on CT chest. Manage as per hospitalist for pneumonia. (2) Elevated troponin: Code(s): R79.89 - Other specified abnormal findings of blood chemistry Status: Acute Assessment and Plan: Troponin peaked at 0.84. Probably has underlying CAD. Heparin drip discontinued as troponin peaked 2 days ago. Discuss LHC and he is agreeable to it. Suspect he has multivessel CAD, but won't know until cath is done. Consulted [facility] [place] possible LHC and was seen by Dr. Lawson/Dr. Tanner. LHC not performed on 12/17/22 due to hypokalemia. Surgery placed dayami-cath 12/20/22. He did not have LHC 12/21/22 due to confusion/uncooperative and ARF. HCG following when he is deemed ready for LHC. (3) MARGARITA (acute kidney injury): Code(s): N17.9 - Acute kidney failure, unspecified Status: Acute Assessment and Plan: Worsened. Monitor as patient is being diuresed. He has possible bladder outlet obstruction. Manage as per urologist. (4) Pacemaker: Code(s): Z95.0 - Presence of cardiac pacemaker Status: Acute Assessment and Plan: Interrogated Biotronik pacemaker showing evidence of PMT and PAT. [employer] rep came in 12/14/22 and turned on Auto-PVARP to prevent PMT. Started Metoprolol to treat PAT. (5) Hyperlipidemia: Qualifiers: Hyperlipidemia type: mixed hyperlipidemia Qualified Code(s): E78.2 - Mixed hyperlipidemia Code(s): E78.5 - Hyperlipidemia, unspecified Status: Acute Assessment and Plan: He is back on Simvastatin as liver enzymes decreasing. (6) Hypertension: Qualifiers: Hypertension type: essential hypertension Qualified Code(s): I10 - Essential (primary) hypertension Code(s): I10 - Essential (primary) hypertension Status: Chronic Assessment and Plan: High. Start Hydralazine 25 mg PO TID with parameters. Start Heparin 5,000 units SQ Q12 HR for DVT prophylaxis. (7) Transaminitis: Code(s): R74.01 - Elevation of levels of liver transaminase levels Status: Acute Assessment and Plan: Shock liver probably related to CHF with passive congestion. Improving liver enzymes. Subjective Date/time seen: 12/25/22 09:04 Interval history: Denies chest pain or sob today. He has mittens on and is alert and oriented this morning. Exam Const: General: cooperative and anxious Orientation/consciousness: oriented to person, oriented to place and oriented to time Resp: Auscultation: clear to auscultation bilaterally, no crackles, no rales, no rhonchi, no wheezes (Slight scattered wheezing) and lung sounds not diminished Cardio: Rate: regular rate Rhythm: regular rhythm Heart sounds: no murmurs Peripheral pulses: dorsalis pedis present Neuro: General: oriented to person, oriented to place, oriented to time and confusion Extrem: Right lower extremity: no edema Left lower extremity: no edema Objective Data Vital Signs Vital Signs: Vital Signs - 24 hr 12/24/22 09:17 12/24/22 10:00 12/24/22 11:40 Temperature 98.0 F Pulse Rate 71 60 63 Respiratory Rate 17 Blood Pressure 160/86 H Pulse Oximetry 100 Oxygen Delivery Oxygen Flow Rate Fraction of Inspired Oxygen 12/24/22 12:00 12/24/22 12:00 12/24/22 14:00 Temperature Pulse Rate 67 67 60 Respiratory Rate 17 Blood Pressure Pul
[2022-12-25 09:23] LABS: Basophils Absolute Auto 0.1 K/mm3 (0.0-0.1); Basophils Percent Auto 0.3 % (0.2-1.2); Eosinophils Percent Auto 0.1 % (0-4.4); Hematocrit 45.5 % (42.0-52.0); Hemoglobin 12.3 g/dL (14.0-18.0); Immature Granulocyte Absolute 0.12 K/mm3 (0.00-0.031); Immature Granulocyte Percent A 0.6 % (0-0.5); Lymphocytes Absolute Auto 0.46 K/mm3 (0.9-3.2); Lymphocytes Percent Auto 2.4 % (18.3-44.2); Mean Corpuscular Hemoglobin 25.1 pg (26-34); Mean Corpuscular Volume 92.9 fl (80-100); Mean Platelet Volume 11.3 fl (7.4-10.4); Monocytes Absolute Auto 0.8 K/mm3 (0.1-0.6); Monocytes Percent Auto 4.3 % (2.6-8.5); Neutrophils Absolute Auto 17.8 K/mm3 (1.3-6.7); Neutrophils Percent Auto 92.3 % (45.5-73.1); Nucleated Red Blood Cells Absolute Auto 0.1 K/mm3 (0.0-0.012); Nucleated Red Blood Cells Perc 0.3 % (0.0-0.2); Platelet Count Result 452 k/mm3 (150-375); Red Cell Distribution Width 27.4 % (11.5-14.5); White Blood Count 19.2 K/mm3 (4.5-10.0)
[2022-12-25 09:44] LABS: Platelet Estimate Increased (Adequate)
[2022-12-25 09:45] LABS: Poikilocytosis 1+ (NORMAL)
[2022-12-25 09:46] LABS: Anisocytosis 2+ (NORMAL); Burr Cells 1+ (NORMAL); Macrocytosis 1+ (NORMAL); Schistocytes Rare (NORMAL)
--- NOTE | 2022-12-25 09:51 | PM.PNGS ---
Progress Note: A&P Assessment and Plan (1) Mucinous adenocarcinoma of colon: Code(s): C18.9 - Malignant neoplasm of colon, unspecified Status: Chronic Assessment and Plan: cont routine postop care, abd exam benign, encourage po intake, PT/OT Subjective Subjective Date/Time Seen: 12/25/22 09:51 Interval history: still lethargic and confused, no acute issues, some breakfast does look eaten this morning Review of Systems Review of Systems: ROS unobtainable: Yes unobtainable due to mental status Exam Const: General: no acute distress, confusion, ill appearing, lethargic and malnourished Resp: Auscultation: diminished lung sounds Cardio: Rate: regular rate Rhythm: regular rhythm GI: Inspection: normal to inspection and non-distended GI Palp: No abdominal tenderness, Yes Soft to palpation, No Tenderness to palpation present (GI), No Guarding due to palpation present (GI) and No Rigid due to palpation Objective Data Vital Signs Vital Signs: Vital Signs - 24 hr 12/24/22 10:00 12/24/22 11:40 12/24/22 12:00 Temperature 36.7 C Pulse Rate 60 63 67 Respiratory Rate 17 17 Blood Pressure 160/86 H Pulse Oximetry 100 100 Oxygen Delivery Room Air Oxygen Flow Rate Fraction of Inspired Oxygen 21 12/24/22 12:00 12/24/22 14:00 12/24/22 16:00 Temperature Pulse Rate 67 60 60 Respiratory Rate Blood Pressure Pulse Oximetry Oxygen Delivery Oxygen Flow Rate Fraction of Inspired Oxygen 12/24/22 16:00 12/24/22 16:00 12/24/22 18:00 Temperature 37.1 C Pulse Rate 60 60 72 Respiratory Rate 17 Blood Pressure 155/98 H Pulse Oximetry 100 Oxygen Delivery Room Air Oxygen Flow Rate Fraction of Inspired Oxygen 12/24/22 20:00 12/24/22 20:00 12/24/22 20:00 Temperature 37.0 C Pulse Rate 78 85 Respiratory Rate 20 Blood Pressure 171/97 H Pulse Oximetry 93 91 Oxygen Delivery Room Air Oxygen Flow Rate Fraction of Inspired Oxygen 12/24/22 20:30 12/24/22 22:00 12/24/22 22:24 Temperature Pulse Rate 61 Respiratory Rate Blood Pressure Pulse Oximetry 88 L 95 Oxygen Delivery Nasal Cannula Nasal Cannula Oxygen Flow Rate 2 1 Fraction of Inspired Oxygen 12/25/22 00:00 12/25/22 00:00 12/25/22 02:30 Temperature 36.5 C Pulse Rate 73 Respiratory Rate 16 Blood Pressure 166/93 H Pulse Oximetry 95 95 95 Oxygen Delivery Nasal Cannula Room Air Oxygen Flow Rate 1 Fraction of Inspired Oxygen 12/25/22 03:00 12/25/22 00:00 12/25/22 02:00 Temperature Pulse Rate 64 71 Respiratory Rate Blood Pressure Pulse Oximetry 93 Oxygen Delivery Room Air Oxygen Flow Rate Fraction of Inspired Oxygen 12/25/22 04:00 12/25/22 05:02 12/25/22 05:22 Temperature 37.1 C Pulse Rate 88 80 Respiratory Rate 18 18 Blood Pressure 183/96 H 171/103 H Pulse Oximetry 97 Oxygen Delivery Oxygen Flow Rate Fraction of Inspired Oxygen 12/25/22 05:33 12/25/22 04:00 12/25/22 05:58 Temperature Pulse Rate 88 87 86 Respiratory Rate 18 Blood Pressure Pulse Oximetry Oxygen Delivery Oxygen Flow Rate Fraction of Inspired Oxygen 12/25/22 06:00 12/25/22 07:32 12/25/22 08:00 Temperature 37.0 C Pulse Rate 81 89 87 Respiratory Rate 18 Blood Pressure 169/103 H Pulse Oximetry 97 Oxygen Delivery Oxygen Flow Rate Fraction of Inspired Oxygen Intake/Output Intake/Output: Intake & Output 12/22/22 12/23/22 12/24/22 12/25/22 23:59 23:59 23:59 23:59 Intake Total 2860 1040 50 Output Total 8732 539 1151 1250 Balance 1260 640 -1900 -1250 Meds/Results Medications: Active Medications Generic Name Dose Route Start Last Admin Trade Name Jai PRN Reason Stop Dose Admin Acetaminophen 650 mg 12/21/22 16:08 12/22/22 19:32 Acetaminophen 325 Mg Tablet PO 650 mg Q4H PRN Administration Headache Albuterol 2 puff 12/14/22 09:09 Albu
--- NOTE | 2022-12-25 10:21 | P.PNIM_ITS ---
Progress Note: A&P Assessment and Plan (1) Delirium: Code(s): R41.0 - Disorientation, unspecified Status: Acute Assessment and Plan: * Likely due to underlying dementia, acute illness, hospitalization, MARGARITA, hype rnatremia, uncontrolled diabetes, possibly psychoactive drugs * 12/25 correct electrolytes, intensify diabetes control, stop quetiapine and baclofen, reduce paroxetine (2) Pneumonia: Code(s): J18.9 - Pneumonia, unspecified organism Status: Acute Assessment and Plan: * Right basilar by CXR * Continue ceftriaxone and monitor WBC as he is hydrated * Urine C/s pending (3) Hypernatremia: Code(s): E87.0 - Hyperosmolality and hypernatremia Status: Acute Assessment and Plan: * Due to prior loop diuretic, poor po intake, hyperglycemia * Furosemide on hold * 12/25 swallowing eval due to choking episode overnight * 12/25 IV 0.45% NS, intensify diabetes control, f/u lab (4) Type 2 diabetes mellitus: Code(s): E11.9 - Type 2 diabetes mellitus without complications Status: Chronic Assessment and Plan: * 12/25/22 Add glargine insulin 25 U q AM * 12/25/22 Low-dose SSI while NPO (5) Dementia: Code(s): F03.90 - Unspecified dementia, unspecified severity, without behavioral disturbance, psychotic disturbance, mood disturbance, and anxiety Status: Acute Assessment and Plan: * Current mental status worse than baseline (6) Acute systolic (congestive) heart failure: Code(s): I50.21 - Acute systolic (congestive) heart failure Status: Acute Assessment and Plan: * Clinically resolved and now volume depleted (7) NSTEMI (non-ST elevated myocardial infarction): Code(s): I21.4 - Non-ST elevation (NSTEMI) myocardial infarction Status: Acute Assessment and Plan: * Further evaluation deferred due to current acute issues as outlined above (8) Mucinous adenocarcinoma of colon: Code(s): C18.9 - Malignant neoplasm of colon, unspecified Status: Chronic Assessment and Plan: * Stage 4 by hx * Given current functional status and medical issues intermediate to fpc prognosis is very poor (9) MARGARITA (acute kidney injury): Code(s): N17.9 - Acute kidney failure, unspecified Status: Acute Assessment and Plan: * 11/4 creatinine stable at 3.3 (10) Transaminitis: Code(s): R74.01 - Elevation of levels of liver transaminase levels Status: Acute Assessment and Plan: * Resolving (11) Pacemaker: Code(s): Z95.0 - Presence of cardiac pacemaker Status: Acute Assessment and Plan: * Functioning by telemetry (12) Chronic kidney disease, stage 3: Code(s): N18.30 - Chronic kidney disease, stage 3 unspecified Status: Chronic Assessment and Plan: * Baseline creatinine 1.4-1.6 (13) Leukocytosis: Code(s): D72.829 - Elevated white blood cell count, unspecified Status: Acute Assessment and Plan: * Likely increasing due to hemoconcentration (14) SOHAN (iron deficiency anemia): Code(s): D50.9 - Iron deficiency anemia, unspecified Status: Acute Assessment and Plan: * 11/4 H/H stable Subjective Date/time seen: 12/25/22 10:21 Interval history: Remains confused. Restrained. Poor po intake. Witnessed choking episode last PM. Review of Systems Review of Systems: ROS unobtainable: Yes unobtainable due to medical condition Exam Narr
--- NOTE | 2022-12-25 10:21 | PM.IMPN ---
Progress Note: A&P Assessment and Plan (1) Delirium: Code(s): R41.0 - Disorientation, unspecified Status: Acute Assessment and Plan: Likely due to underlying dementia, acute illness, hospitalization, MARGARITA, hypernatremia, uncontrolled diabetes, possibly psychoactive drugs 12/25 correct electrolytes, intensify diabetes control, stop quetiapine and baclofen, reduce paroxetine (2) Pneumonia: Code(s): J18.9 - Pneumonia, unspecified organism Status: Acute Assessment and Plan: Right basilar by CXR Continue ceftriaxone and monitor WBC as he is hydrated Urine C/s pending (3) Hypernatremia: Code(s): E87.0 - Hyperosmolality and hypernatremia Status: Acute Assessment and Plan: Due to prior loop diuretic, poor po intake, hyperglycemia Furosemide on hold 12/25 swallowing eval due to choking episode overnight 12/25 IV 0.45% NS, intensify diabetes control, f/u lab (4) Type 2 diabetes mellitus: Code(s): E11.9 - Type 2 diabetes mellitus without complications Status: Chronic Assessment and Plan: 12/25/22 Add glargine insulin 25 U q AM 12/25/22 Low-dose SSI while NPO (5) Dementia: Code(s): F03.90 - Unspecified dementia, unspecified severity, without behavioral disturbance, psychotic disturbance, mood disturbance, and anxiety Status: Acute Assessment and Plan: Current mental status worse than baseline (6) Acute systolic (congestive) heart failure: Code(s): I50.21 - Acute systolic (congestive) heart failure Status: Acute Assessment and Plan: Clinically resolved and now volume depleted (7) NSTEMI (non-ST elevated myocardial infarction): Code(s): I21.4 - Non-ST elevation (NSTEMI) myocardial infarction Status: Acute Assessment and Plan: Further evaluation deferred due to current acute issues as outlined above (8) Mucinous adenocarcinoma of colon: Code(s): C18.9 - Malignant neoplasm of colon, unspecified Status: Chronic Assessment and Plan: Stage 4 by hx Given current functional status and medical issues intermediate to care home prognosis is very poor (9) MARGARITA (acute kidney injury): Code(s): N17.9 - Acute kidney failure, unspecified Status: Acute Assessment and Plan: 12/25 creatinine stable at 3.3 (10) Transaminitis: Code(s): R74.01 - Elevation of levels of liver transaminase levels Status: Acute Assessment and Plan: Resolving (11) Pacemaker: Code(s): Z95.0 - Presence of cardiac pacemaker Status: Acute Assessment and Plan: Functioning by telemetry (12) Chronic kidney disease, stage 3: Code(s): N18.30 - Chronic kidney disease, stage 3 unspecified Status: Chronic Assessment and Plan: Baseline creatinine 1.4-1.6 (13) Leukocytosis: Code(s): D72.829 - Elevated white blood cell count, unspecified Status: Acute Assessment and Plan: Likely increasing due to hemoconcentration (14) SOHAN (iron deficiency anemia): Code(s): D50.9 - Iron deficiency anemia, unspecified Status: Acute Assessment and Plan: 11/4 H/H stable Subjective Date/time seen: 12/25/22 10:21 Interval history: Remains confused. Restrained. Poor po intake. Witnessed choking episode last PM. Review of Systems Review of Systems: ROS unobtainable: Yes unobtainable due to medical condition Exam Narrative: HEENT: PERRL, sclerae nonicteric, pharyngeal mucosa pink and intact NECK: No JVD, adenopathy, or thyromegaly CHEST: Clear to auscultation anteriorly. Normal effort. HEART: NL S1/S2, regular, no murmur. ABDOMEN: BS+, soft, nontender, no mass, no bruits. EXTREMITIES: No cyanosis, edema, or clubbing. NEUROLOGIC: CN intact and symmetric to inspection. Nonverbal. Moves all extremities. MUSCULOSKELETAL: Tone and strength symmetric as well as can be determined w/o his cooperation. PSYCH: Al
--- NOTE | 2022-12-25 11:35 | PCSTNOTE ---
ST in receipt of order for MBS. Attempt to schedule with radiology this morning. Radiologist not on staff at this time. MBS unable to be completed. Will attempt MBS on 12/26/22.
[2022-12-25] MEDS: INSULIN GLARGINE (*BKC) 100 UNITS/ML 15 UNITS SUB-Q (11:36)
[2022-12-25] MEDS: HEPARIN SODIUM 5,000 UNITS/ML VIAL 5000 UNITS SUB-Q ×2 (11:36→22:39)
[2022-12-25] MEDS: CEFEPIME 1 GM/NS 50 ML 1 GM/50 ML BAG IVPB ×2 (11:36→22:27)
[2022-12-25] MEDS: INSULIN ASPART (*BKC) 100 UNITS/ML SUB-Q (11:45)
[2022-12-25 12:14] LABS: Glucose Point of Care 285 mg/dl (65-105)
[2022-12-25] MEDS: SODIUM CHLORIDE 0.45% 1,000 ML 75 ML IV CONT (12:30)
--- NOTE | 2022-12-25 15:57 | P.PNNP_ITS ---
Progress Note: A&P Assessment and Plan (1) MARGARITA (acute kidney injury): Code(s): N17.9 - Acute kidney failure, unspecified Status: Acute Assessment and Plan: * acute kidney injury. * evaluation to date: * Urine electrolytes are non pre renal * CK was not elevated. * CT imaging notes bilateral hydronephrosis, right greater than left. No obstructing stone or mass identified. Bladder is distended. Prostate gland is enlarged. There is nonspecific bilateral perinephric stranding. Findings suspicious for ascending urinary tract infection/pyelonephritis * hernandez catheter placed with almost immediate return of 950cc or urine * UA also suggestive on infection * Most likely due to obstruction Plus minus infection.. * He has been making a good amount of urine since the catheter was placed. * Creatinine came down a little bit since yesterday. * Will check again tomorrow (2) Chronic kidney disease, stage 3: Code(s): N18.30 - Chronic kidney disease, stage 3 unspecified Status: Chronic Assessment and Plan: * baseline creatinine runs around 1.3 - 1.7mg/dl over the last few years * this causes him to fluctuate between CKD stage 3A and stage 3B * presumably due to hypertension, diabetes, possibly vascular disease, and age- related changed based on outpatient evaluation: * bland UA * immunofixation negative * normal ultrasound * had been following with Dr. Edward for CKD management (last seen in January 2022) (3) Altered mental status: Code(s): R41.82 - Altered mental status, unspecified Status: Acute Assessment and Plan: * dementia versus delirium or secondary to infection versus other? * evaluation ongoing * Echo shows no endocarditis. * Blood cultures negative so far. Urine culture is pending. * on cefepime * Baclofen discontinued * Evaluation per hospitalists * possible transfer to [facility] when bed available (4) CHF (congestive heart failure): Code(s): I50.9 - Heart failure, unspecified Status: Acute Assessment and Plan: * though to be due to flash pulmonary edema secondary NSTEMI * Echo (12/15/22) with EF 40-45%, globally reduced with mid to apical inferior wall severely hypokinetic, diastolic dysfunction with mild MR, mild-mod TR, RVSP 43 mmHg * hence a component of systolic and diastolic dysfunction * chest x-ray is better. * Diuretics on hold * reassess tomorrow (5) NSTEMI (non-ST elevated myocardial infarction): Code(s): I21.4 - Non-ST elevation (NSTEMI) myocardial infarction Status: Acute Assessment and Plan: * as noted by trend of troponins * cardiac catheterization deferred due to issues relating to altered mental status, hypokalemia, and MARGARITA/ARF * Echo noted (see #4) * Cardiology following (6) Hypertension: Qualifiers: Hypertension type: essential hypertension Qualified Code(s): I10 - Essential (primary) hypertension Code(s): I10 - Essential (primary) hypertension Status: Chronic Assessment and Plan: * systolic ranging from 130-183. * I would like better control but not too low. * He is on metoprolol 50 Q 12, hydralazine 25 3 times a day and prazosin 1 mg q.h.s.. Pulse is 82. Will increase metoprolol (7) Mucinous adenocarcinoma of colon: Code(s): C18.9 - Malignant neoplasm of colon, unspecified Status: Chronic Assessment and Plan: * s/p colectomy in November with pathology noted * portacath placed 12/20 * F/U with oncology as ou
--- NOTE | 2022-12-25 15:57 | PM.PNNEP ---
Progress Note: A&P Assessment and Plan (1) MARGARITA (acute kidney injury): Code(s): N17.9 - Acute kidney failure, unspecified Status: Acute Assessment and Plan: acute kidney injury. evaluation to date: Urine electrolytes are non pre renal CK was not elevated. CT imaging notes bilateral hydronephrosis, right greater than left. No obstructing stone or mass identified. Bladder is distended. Prostate gland is enlarged. There is nonspecific bilateral perinephric stranding. Findings suspicious for ascending urinary tract infection/pyelonephritis hernandez catheter placed with almost immediate return of 950cc or urine UA also suggestive on infection Most likely due to obstruction Plus minus infection.. He has been making a good amount of urine since the catheter was placed. Creatinine came down a little bit since yesterday. Will check again tomorrow (2) Chronic kidney disease, stage 3: Code(s): N18.30 - Chronic kidney disease, stage 3 unspecified Status: Chronic Assessment and Plan: baseline creatinine runs around 1.3 - 1.7mg/dl over the last few years this causes him to fluctuate between CKD stage 3A and stage 3B presumably due to hypertension, diabetes, possibly vascular disease, and age-related changed based on outpatient evaluation: bland UA immunofixation negative normal ultrasound had been following with Dr. Edward for CKD management (last seen in January 2022) (3) Altered mental status: Code(s): R41.82 - Altered mental status, unspecified Status: Acute Assessment and Plan: dementia versus delirium or secondary to infection versus other? evaluation ongoing Echo shows no endocarditis. Blood cultures negative so far. Urine culture is pending. on cefepime Baclofen discontinued Evaluation per hospitalists possible transfer to [facility] when bed available (4) CHF (congestive heart failure): Code(s): I50.9 - Heart failure, unspecified Status: Acute Assessment and Plan: though to be due to flash pulmonary edema secondary NSTEMI Echo (12/15/22) with EF 40-45%, globally reduced with mid to apical inferior wall severely hypokinetic, diastolic dysfunction with mild MR, mild-mod TR, RVSP 43 mmHg hence a component of systolic and diastolic dysfunction chest x-ray is better. Diuretics on hold reassess tomorrow (5) NSTEMI (non-ST elevated myocardial infarction): Code(s): I21.4 - Non-ST elevation (NSTEMI) myocardial infarction Status: Acute Assessment and Plan: as noted by trend of troponins cardiac catheterization deferred due to issues relating to altered mental status, hypokalemia, and MARGARITA/ARF Echo noted (see #4) Cardiology following (6) Hypertension: Qualifiers: Hypertension type: essential hypertension Qualified Code(s): I10 - Essential (primary) hypertension Code(s): I10 - Essential (primary) hypertension Status: Chronic Assessment and Plan: systolic ranging from 130-183. I would like better control but not too low. He is on metoprolol 50 Q 12, hydralazine 25 3 times a day and prazosin 1 mg q.h.s.. Pulse is 82. Will increase metoprolol (7) Mucinous adenocarcinoma of colon: Code(s): C18.9 - Malignant neoplasm of colon, unspecified Status: Chronic Assessment and Plan: s/p colectomy in November with pathology noted portacath placed 12/20 F/U with oncology as outpatient for chemotherapy (8) Type 2 diabetes mellitus: Code(s): E11.9 - Type 2 diabetes mellitus without complications Status: Chronic Assessment and Plan: follow accu-checks glycemic control per hospitalists discussed with the patient and the at bedside today. Subjective Date/time seen: 12/25/22 15:57 Interval history: is in the room. Julian is somewhat sleepy. The patient had a choking spell a
[2022-12-25 16:39] LABS: Glucose Point of Care 227 mg/dl (65-105)
[2022-12-25 16:49] LABS: Albumin Level 3.7 g/dL (3.5-5.1); Anion Gap 7 mmol/L (8-16); Blood Urea Nitrogen 41 mg/dL (9-20); Calcium 9.6 mg/dL (8.4-10.2); Carbon Dioxide 32 mmol/L (22-30); Chloride 115 mmol/L (98-107); Estimated CRCL calculation 15 ml/min; Estimated Glomerular Filt Rate 21; Glucose 237 mg/dL (65-110); Phosphorus 4.6 mg/dL (2.5-4.5); Potassium 3.3 mmol/L (3.4-5.0); Sodium 154 mmol/L (137-145)
[2022-12-25 18:24] LABS: Creatinine Urine 59.9 mg/dL; Urea Random Urine 339 MG/DL
[2022-12-25 18:25] LABS: Sodium Urine Random 80 meq/L
[2022-12-25] MEDS: KCL 20 MEQ/0.45% NS 1,000 ML 100 ML IV CONT (18:28)
[2022-12-25] MEDS: hydrALAZINE HCL 20 MG/ML VIAL 10 MG IV PUSH (18:38)
[2022-12-25 18:40] LABS: Glucose Point of Care 184 mg/dl (65-105)
[2022-12-25 18:45] LABS: Total Protein Urine Random 356 mg/dL; Ur Ttl Prot Creatinine Ratio 5.94 mg/mg (0-0.20)
[2022-12-25 20:42] LABS: Glucose Point of Care 229 mg/dl (65-105)
[2022-12-25] MEDS: METOPROLOL TARTRATE INJ 5 MG/5 ML VIAL IV PUSH (22:46)
[2022-12-26] VITALS (16 sets, daily range): BP systolic 97–172; BP diastolic 85–94; PULSE 60–91; RESP 16–24; TEMP 35.6–37.2; O2SAT 95–100
[2022-12-26 00:12] LABS: Glucose Point of Care 226 mg/dl (65-105)
[2022-12-26] MEDS: INSULIN ASPART (*BKC) 100 UNITS/ML SUB-Q ×3 (00:54→17:06)
[2022-12-26] MEDS: HALOPERIDOL LACTATE 5 MG/ML VIAL IM (00:59)
--- NOTE | 2022-12-26 01:03 | PC.NURSE ---
12/26/22 0040-Patient became restless, agitated, making multiple attempts to leave the bed with bilateral wrist restraints present. Patient continuing to pull at hernandez catheter. MD notified 0044 and updated on patient's current condition and above behaviors. Orders recieved 0050. 0140- Patient behaviors continued. MD notified again at 0144. New orders recieved.
--- NOTE | 2022-12-26 01:39 | PC.NURSE ---
Daylight Savings Time For Daylight Savings Time Ending in the Fall - Clocks are moved back. For Daylight Savings Time Beginning in the Spring - Clocks are moved ahead. For [facility], the time of change occurs at 0200 hrs. Time is taken from the ms sql server developer. This entry on the patient's chart recognizes the change in time reflected during documentation. Example: 2 entries for vital signs may be charted for 0200 hrs.
[2022-12-26] MEDS: LORazepam INJ (*CRX) 2 MG/ML VIAL 1 MG IV PUSH (02:10)
[2022-12-26] MEDS: diphenhydrAMINE HCl INJ 50 MG/ML VIAL 25 MG IV PUSH (02:10)
[2022-12-26] MEDS: KCL 20 MEQ/0.45% NS 1,000 ML 100 ML IV CONT ×2 (03:04→17:31)
[2022-12-26 04:19] LABS: Basophils Percent Auto 0.2 % (0.2-1.2); Eosinophils Percent Auto 0.1 % (0-4.4); Hematocrit 41.6 % (42.0-52.0); Hemoglobin 11.5 g/dL (14.0-18.0); Immature Granulocyte Absolute 0.09 K/mm3 (0.00-0.031); Immature Granulocyte Percent A 0.5 % (0-0.5); Lymphocytes Absolute Auto 0.59 K/mm3 (0.9-3.2); Mean Corpuscular HGB Conc 27.6 g/dl (32-36); Mean Corpuscular Hemoglobin 25.1 pg (26-34); Mean Corpuscular Volume 90.8 fl (80-100); Mean Platelet Volume 9.9 fl (7.4-10.4); Monocytes Absolute Auto 1.2 K/mm3 (0.1-0.6); Monocytes Percent Auto 6.4 % (2.6-8.5); Neutrophils Absolute Auto 17.5 K/mm3 (1.3-6.7); Neutrophils Percent Auto 89.8 % (45.5-73.1); Nucleated Red Blood Cells Perc 0.2 % (0.0-0.2); Platelet Count Result 322 k/mm3 (150-375); Red Blood Count 4.58 M/mm3 (4.6-6.20); Red Cell Distribution Width 26.4 % (11.5-14.5); White Blood Count 19.5 K/mm3 (4.5-10.0)
[2022-12-26 04:33] LABS: Alanine Aminotransferase 37 U/L (6-50); Albumin Level 3.6 g/dL (3.5-5.1); Alkaline Phosphatase 85 U/L (38-126); Anion Gap 9 mmol/L (8-16); Aspartate Amino Transferase 27 U/L (17-59); Bilirubin,Total 0.8 mg/dL (0.2-1.3); Blood Urea Nitrogen 39 mg/dL (9-20); Calcium 9.4 mg/dL (8.4-10.2); Carbon Dioxide 31 mmol/L (22-30); Chloride 115 mmol/L (98-107); Estimated CRCL calculation 18 ml/min; Estimated Glomerular Filt Rate 26; Glucose 184 mg/dL (65-110); Phosphorus 2.5 mg/dL (2.5-4.5); Potassium 3.1 mmol/L (3.4-5.0); Sodium 155 mmol/L (137-145)
[2022-12-26 04:47] LABS: Platelet Estimate Adequate (Adequate)
[2022-12-26 04:48] LABS: Anisocytosis 2+ (NORMAL)
[2022-12-26 04:49] LABS: Hypochromasia 1+ (NORMAL); Polychromasia 1+ (NORMAL)
[2022-12-26 04:50] LABS: Schistocytes Rare (NORMAL)
[2022-12-26] MEDS: SODIUM CHLOR 3% 15 ML NEB (RESPIRATORY THERAPY) 6 ML INHALATION (05:31)
--- NOTE | 2022-12-26 06:27 | PCRCNOTE ---
patient was unable to submit a sputum sample
--- NOTE | 2022-12-26 07:52 | PM.PNCARD ---
Progress Note: A&P Assessment and Plan (1) CHF (congestive heart failure): Code(s): I50.9 - Heart failure, unspecified Status: Acute Assessment and Plan: Flash pulm edema secondary to NSTEMI. Acute systolic and diastolic heart failure. NTproBNP >85709. CXR shows significant pulm edema. 12/15/22 Echo: EF 40-45%, globally reduced with mid to apical inferior wall severely hypokinetic, diastolic dysfunction with E/e' 22, severe LAE, mild FIGUEROA, mild MR, mild-mod TR, RVSP 43 mmHg, trace pericardial effusion. Hold Lasix 40 mg PO daily as he appears euvolemic today. He is hypernatremic with sodium 155. Receiving IVF NS currently. Monitor electrolytes and renal function. He has possible pneumonia also on CT chest. Manage as per hospitalist for pneumonia. (2) Elevated troponin: Code(s): R79.89 - Other specified abnormal findings of blood chemistry Status: Acute Assessment and Plan: Troponin peaked at 0.84. Probably has underlying CAD. Heparin drip discontinued as troponin peaked 2 days ago. Discuss LHC and he is agreeable to it. Suspect he has multivessel CAD, but won't know until cath is done. Consulted [facility] for possible LHC and was seen by Dr. Lawson/Dr. Tanner. LHC not performed on 12/17/22 due to hypokalemia. Surgery placed dayami-cath 12/20/22. He did not have LHC 12/21/22 due to confusion/uncooperative and ARF. HCG following when he is deemed ready for LHC. (3) MARGARITA (acute kidney injury): Code(s): N17.9 - Acute kidney failure, unspecified Status: Acute Assessment and Plan: Worsened. Monitor as patient is being diuresed. He has possible bladder outlet obstruction. Manage as per urologist. (4) Pacemaker: Code(s): Z95.0 - Presence of cardiac pacemaker Status: Acute Assessment and Plan: Interrogated [employer] pacemaker showing evidence of PMT and PAT. [employer] rep came in 12/14/22 and turned on Auto-PVARP to prevent PMT. Started Metoprolol to treat PAT. (5) Hyperlipidemia: Qualifiers: Hyperlipidemia type: mixed hyperlipidemia Qualified Code(s): E78.2 - Mixed hyperlipidemia Code(s): E78.5 - Hyperlipidemia, unspecified Status: Acute Assessment and Plan: He is back on Simvastatin as liver enzymes decreasing. (6) Hypertension: Qualifiers: Hypertension type: essential hypertension Qualified Code(s): I10 - Essential (primary) hypertension Code(s): I10 - Essential (primary) hypertension Status: Chronic Assessment and Plan: High. On Hydralazine 25 mg PO TID with parameters. Start Amlodipine 5 mg daily. On Heparin 5,000 units SQ Q12 HR for DVT prophylaxis. (7) Transaminitis: Code(s): R74.01 - Elevation of levels of liver transaminase levels Status: Acute Assessment and Plan: Shock liver probably related to CHF with passive congestion. Improving liver enzymes. Subjective Date/time seen: 12/26/22 07:52 Interval history: Denies chest pain or sob today. He has mittens on and is alert this morning but incoherent in answering questions. Exam Const: General: comfortable and confusion Orientation/consciousness: oriented to person, oriented to place and confusion Resp: Auscultation: clear to auscultation bilaterally, no crackles, no rales, no rhonchi, no wheezes (Slight scattered wheezing) and lung sounds not diminished Cardio: Rate: regular rate Rhythm: regular rhythm Heart sounds: no murmurs Peripheral pulses: dorsalis pedis present Neuro: General: oriented to person, oriented to place, oriented to time and confusion Extrem: Right lower extremity: no edema Left lower extremity: no edema Objective Data Vital Signs Vital Signs: Vital Signs - 24 hr 12/25/22 11:15 12/25/22 15:28 12/25/22 12:00 Temperature 98.7 F 98.2 F Pulse Rate 87 82 Respiratory Rate 19 18 Blood Pressure 166/103 H 181/99 H Pulse Oximetry 96 97 93 Oxygen Delivery Room Air
[2022-12-26] MEDS: POTASSIUM CHLORIDE INJ 40 MEQ in DEXTROSE 5% 1,000 ML 1,000 ML 100 MEQ IV CONT (08:37)
[2022-12-26 08:39] LABS: Glucose Point of Care 189 mg/dl (65-105)
--- NOTE | 2022-12-26 08:40 | P.PNIM_ITS ---
Progress Note: A&P Assessment and Plan (1) Delirium: Code(s): R41.0 - Disorientation, unspecified Status: Acute Assessment and Plan: * Likely due to underlying dementia, acute illness, hospitalization, MARGARITA, hype rnatremia, uncontrolled diabetes, possibly psychoactive drugs * 12/25 correct electrolytes, intensify diabetes control, stop quetiapine and baclofen, reduce paroxetine * 12/26 continue correcting electrolytes, diabetes control improved, avoid psychoactive drugs as possible, MBS today if possible (2) Pneumonia: Code(s): J18.9 - Pneumonia, unspecified organism Status: Acute Assessment and Plan: * Right basilar by CXR * Continue ceftriaxone and monitor WBC as he is hydrated * Urine C/s antonia, likely colonizer (3) Hypernatremia: Code(s): E87.0 - Hyperosmolality and hypernatremia Status: Acute Assessment and Plan: * Due to prior loop diuretic, poor po intake, hyperglycemia * Furosemide on hold * 12/25 swallowing eval due to choking episode overnight * 12/25 IV 0.45% NS, intensify diabetes control, f/u lab * 12/26 KCL 40 mEq in 1000 ml D5/W over 10 hours, f/u lab (4) Type 2 diabetes mellitus: Code(s): E11.9 - Type 2 diabetes mellitus without complications Status: Chronic Assessment and Plan: * 12/25/22 Add glargine insulin 25 U q AM * 12/25/22 Low-dose SSI while NPO * 12/26 BS 132, continue current regimen (5) Dementia: Code(s): F03.90 - Unspecified dementia, unspecified severity, without behavioral disturbance, psychotic disturbance, mood disturbance, and anxiety Status: Acute Assessment and Plan: * Current mental status worse than baseline, likely due to delirium (6) Acute systolic (congestive) heart failure: Code(s): I50.21 - Acute systolic (congestive) heart failure Status: Acute Assessment and Plan: * Clinically resolved and now volume depleted (7) NSTEMI (non-ST elevated myocardial infarction): Code(s): I21.4 - Non-ST elevation (NSTEMI) myocardial infarction Status: Acute Assessment and Plan: * Further evaluation deferred due to current acute issues as outlined above (8) Mucinous adenocarcinoma of colon: Code(s): C18.9 - Malignant neoplasm of colon, unspecified Status: Chronic Assessment and Plan: * Stage 4 by hx * Given current functional status and medical issues 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 prognosis is very poor (9) MARGARITA (acute kidney injury): Code(s): N17.9 - Acute kidney failure, unspecified Status: Acute Assessment and Plan: * 12/25 creatinine stable at 3.3 * 12/26 creatinine improved to 2.5 after hydration (10) Transaminitis: Code(s): R74.01 - Elevation of levels of liver transaminase levels Status: Acute Assessment and Plan: * Resolved (11) Pacemaker: Code(s): Z95.0 - Presence of cardiac pacemaker Status: Acute Assessment and Plan: * Functioning by telemetry (12) Chronic kidney disease, stage 3: Code(s): N18.30 - Chronic kidney disease, stage 3 unspecified Status: Chronic Assessment and Plan: * Baseline creatinine 1.4-1.6 (13) Leukocytosis: Code(s): D72.829 - Elevated white blood cell count, unspecified Status: Acute Assessment and Plan: * Likely increased due to hemoconcentration * 12/26 relatively stable at 19.5 (14) SOHAN (iron deficiency anemia): Code(s): D50.9 - Iron deficiency anemia, unspecified Status: Acute Assessment and Plan:
--- NOTE | 2022-12-26 08:40 | PM.IMPN ---
Progress Note: A&P Assessment and Plan (1) Delirium: Code(s): R41.0 - Disorientation, unspecified Status: Acute Assessment and Plan: Likely due to underlying dementia, acute illness, hospitalization, MARGARITA, hypernatremia, uncontrolled diabetes, possibly psychoactive drugs 12/25 correct electrolytes, intensify diabetes control, stop quetiapine and baclofen, reduce paroxetine 12/26 continue correcting electrolytes, diabetes control improved, avoid psychoactive drugs as possible, MBS today if possible (2) Pneumonia: Code(s): J18.9 - Pneumonia, unspecified organism Status: Acute Assessment and Plan: Right basilar by CXR Continue ceftriaxone and monitor WBC as he is hydrated Urine C/s antonia, likely colonizer (3) Hypernatremia: Code(s): E87.0 - Hyperosmolality and hypernatremia Status: Acute Assessment and Plan: Due to prior loop diuretic, poor po intake, hyperglycemia Furosemide on hold 12/25 swallowing eval due to choking episode overnight 12/25 IV 0.45% NS, intensify diabetes control, f/u lab 12/26 KCL 40 mEq in 1000 ml D5/W over 10 hours, f/u lab (4) Type 2 diabetes mellitus: Code(s): E11.9 - Type 2 diabetes mellitus without complications Status: Chronic Assessment and Plan: 12/25/22 Add glargine insulin 25 U q AM 12/25/22 Low-dose SSI while NPO 12/26 BS 132, continue current regimen (5) Dementia: Code(s): F03.90 - Unspecified dementia, unspecified severity, without behavioral disturbance, psychotic disturbance, mood disturbance, and anxiety Status: Acute Assessment and Plan: Current mental status worse than baseline, likely due to delirium (6) Acute systolic (congestive) heart failure: Code(s): I50.21 - Acute systolic (congestive) heart failure Status: Acute Assessment and Plan: Clinically resolved and now volume depleted (7) NSTEMI (non-ST elevated myocardial infarction): Code(s): I21.4 - Non-ST elevation (NSTEMI) myocardial infarction Status: Acute Assessment and Plan: Further evaluation deferred due to current acute issues as outlined above (8) Mucinous adenocarcinoma of colon: Code(s): C18.9 - Malignant neoplasm of colon, unspecified Status: Chronic Assessment and Plan: Stage 4 by hx Given current functional status and medical issues intermediate to director long term care prognosis is very poor (9) MARGARITA (acute kidney injury): Code(s): N17.9 - Acute kidney failure, unspecified Status: Acute Assessment and Plan: 12/25 creatinine stable at 3.3 12/26 creatinine improved to 2.5 after hydration (10) Transaminitis: Code(s): R74.01 - Elevation of levels of liver transaminase levels Status: Acute Assessment and Plan: Resolved (11) Pacemaker: Code(s): Z95.0 - Presence of cardiac pacemaker Status: Acute Assessment and Plan: Functioning by telemetry (12) Chronic kidney disease, stage 3: Code(s): N18.30 - Chronic kidney disease, stage 3 unspecified Status: Chronic Assessment and Plan: Baseline creatinine 1.4-1.6 (13) Leukocytosis: Code(s): D72.829 - Elevated white blood cell count, unspecified Status: Acute Assessment and Plan: Likely increased due to hemoconcentration 12/26 relatively stable at 19.5 (14) SOHAN (iron deficiency anemia): Code(s): D50.9 - Iron deficiency anemia, unspecified Status: Acute Assessment and Plan: 12/26 H/H stable Subjective Date/time seen: 12/26/22 08:40 Interval history: Rough night 12/25 through 12/26. Received Haldol overnight. Was agitated. Now more calm. Review of Systems Review of Systems: ROS unobtainable: Yes unobtainable due to medical condition Exam Narrative: HEENT: PERRL, sclerae nonicteric, pharyngeal mucosa pink and intact NECK: No JVD, adenopathy, or thyromegaly CHEST: Clear to auscultation ant
[2022-12-26] MEDS: CEFEPIME 1 GM/NS 50 ML 1 GM/50 ML BAG IVPB ×2 (08:41→21:56)
[2022-12-26] MEDS: hydrALAZINE HCL 20 MG/ML VIAL 10 MG IV PUSH (08:49)
[2022-12-26] MEDS: HEPARIN SODIUM 5,000 UNITS/ML VIAL 5000 UNITS SUB-Q ×2 (08:55→22:02)
--- NOTE | 2022-12-26 09:33 | PM.PNGS ---
Progress Note: A&P Assessment and Plan (1) Adenocarcinoma of cecum: Code(s): C18.0 - Malignant neoplasm of cecum Status: Acute Assessment and Plan: s/p R colectomy, doing well from surgical standpoint, cont routine postop care, exam benign, getting swallow study today Subjective Subjective Date/Time Seen: 12/26/22 09:33 Interval history: feels ok, somewhat more alert today Review of Systems Review of Systems: All systems reviewed & are unremarkable except as noted in HPI and below Exam Const: General: cooperative, no acute distress and ill appearing Resp: Auscultation: diminished lung sounds Cardio: Rate: regular rate Rhythm: regular rhythm GI: Inspection: normal to inspection, non-distended and incision GI Palp: No abdominal tenderness, Yes Soft to palpation, No Tenderness to palpation present (GI), No Guarding due to palpation present (GI) and No Rigid due to palpation Objective Data Vital Signs Vital Signs: Vital Signs - 24 hr 12/25/22 11:15 12/25/22 15:28 12/25/22 12:00 Temperature 37.1 C 36.8 C Pulse Rate 87 82 Respiratory Rate 19 18 Blood Pressure 166/103 H 181/99 H Pulse Oximetry 96 97 93 Oxygen Delivery Room Air 12/25/22 16:00 12/25/22 12:00 12/25/22 14:00 Temperature Pulse Rate 88 75 Respiratory Rate Blood Pressure Pulse Oximetry 92 Oxygen Delivery Room Air 12/25/22 16:00 12/25/22 17:59 12/25/22 19:54 Temperature 36.7 C Pulse Rate 87 83 91 Respiratory Rate 20 Blood Pressure 159/104 H Pulse Oximetry 97 Oxygen Delivery 12/25/22 22:46 12/25/22 23:56 12/25/22 20:00 Temperature Pulse Rate 88 84 99 Respiratory Rate 18 Blood Pressure 179/105 H Pulse Oximetry 97 Oxygen Delivery 12/25/22 22:00 12/26/22 00:00 12/25/22 20:00 Temperature Pulse Rate 92 82 Respiratory Rate Blood Pressure Pulse Oximetry 92 Oxygen Delivery Room Air 12/26/22 00:00 12/25/22 21:53 12/26/22 02:00 Temperature Pulse Rate 79 Respiratory Rate Blood Pressure Pulse Oximetry 95 97 Oxygen Delivery Room Air Room Air 12/26/22 04:00 12/26/22 06:00 12/26/22 04:00 Temperature Pulse Rate 77 91 Respiratory Rate Blood Pressure Pulse Oximetry Oxygen Delivery Room Air 12/26/22 04:00 12/26/22 08:00 Temperature 35.6 C L 37.2 C Pulse Rate 87 89 Respiratory Rate 18 16 Blood Pressure 164/94 H 172/92 H Pulse Oximetry 100 100 Oxygen Delivery Intake/Output Intake/Output: Intake & Output 12/23/22 12/24/22 12/25/22 12/26/22 23:59 23:59 23:59 22:59 Intake Total 1040 50 400 1550 Output Total 400 1950 2250 900 Balance 422 -7705 -6660 650 Meds/Results Medications: Active Medications Generic Name Dose Route Start Last Admin Trade Name Freq PRN Reason Stop Dose Admin Acetaminophen 650 mg 12/21/22 16:08 12/22/22 19:32 Acetaminophen 325 Mg Tablet PO 650 mg Q4H PRN Administration Headache Albuterol 2 puff 12/14/22 09:09 Albuterol Sulfate (*Sp) Aerosol 1 Puff INHALATION QID PRN shortness of breath or wheezing Amlodipine Besylate 5 mg 12/26/22 09:00 Amlodipine Besylate 5 Mg Tablet PO QAM SUMANTH Aspirin 81 mg 12/15/22 08:00 12/25/22 11:00 Aspirin 81 Mg Chewable Tablet PO Not Given DAILY@0800 [facility] Bupropion HCl 300 mg 12/14/22 09:00 12/25/22 11:00 Bupropion Hcl Xl (24 Hr) 150 Mg Tabcr PO Not Given QAM [facility] Dextrose 12.5 gm 12/19/22 11:40 Dextrose 50% 25 Gm/50 Ml Syringe IV PUSH PRN PRN Hypoglycemia Protocol Glucagon 1 mg 12/19/22 11:40 Glucagon For Inj 1 Mg Vial IM PRN PRN Hypoglycemia Protocol Glucose 15 gm 12/19/22 11:40 Glucose Oral Gel 15 Gm Of Glucse In 37.5 Gm Tube PO PRN PRN Hypoglycemia Protocol Heparin Sodium (Porcine) 5,000 units 12/25/22 09:10 12/26/22 08:55 Heparin Sodium 5,000 Units/Ml Vial SUB-Q 5,000 units Q12HR [facility] Administr
[2022-12-26] MEDS: METOPROLOL TARTRATE 50 MG TAB 100 MG PO ×2 (09:49→22:05)
[2022-12-26] MEDS: ASPIRIN 81 MG CHEWABLE TABLET PO (09:50)
[2022-12-26] MEDS: amLODIPine BESYLATE 5 MG TABLET PO (10:01)
[2022-12-26] MEDS: PARoxetine 20 MG TABLET PO (10:02)
[2022-12-26] MEDS: hydrALAZINE HCL 25 MG TABLET PO ×3 (10:04→17:06)
[2022-12-26] MEDS: INSULIN GLARGINE (*BKC) 100 UNITS/ML 15 UNITS SUB-Q (10:09)
--- NOTE | 2022-12-26 12:25 | PCSTNOTE ---
Please refer to the Bedside Swallow Evaluation in the EMR. Please note, silent aspiration cannot be ruled out at bedside.
[2022-12-26 13:54] LABS: Glucose Point of Care 236 mg/dl (65-105)
--- NOTE | 2022-12-26 15:20 | P.PNNP_ITS ---
Progress Note: A&P Assessment and Plan (1) MARGARITA (acute kidney injury): Code(s): N17.9 - Acute kidney failure, unspecified Status: Acute Assessment and Plan: * acute kidney injury. * evaluation to date: * Urine electrolytes are non pre renal * CK was not elevated. * CT imaging notes bilateral hydronephrosis, right greater than left. No obstructing stone or mass identified. Bladder is distended. Prostate gland is enlarged. There is nonspecific bilateral perinephric stranding. Findings suspicious for ascending urinary tract infection/pyelonephritis * hernandez catheter placed with almost immediate return of 950cc or urine * UA also suggestive on infection * Most likely due to obstruction Plus minus infection. * He is getting antibiotics and the bladder catheter remains in place. * He has been making a good amount of urine since the catheter was placed. * Creatinine has come down every day so far. * Overall he looks better as well. * Will continue with IV fluids, Hernandez catheter, and supportive care. * Check renal panel in the morning (2) Chronic kidney disease, stage 3: Code(s): N18.30 - Chronic kidney disease, stage 3 unspecified Status: Chronic Assessment and Plan: * baseline creatinine runs around 1.3 - 1.7mg/dl over the last few years * this causes him to fluctuate between CKD stage 3A and stage 3B * presumably due to hypertension, diabetes, possibly vascular disease, and age- related changed based on outpatient evaluation: * bland UA * immunofixation negative * normal ultrasound * had been following with Dr. Edward for CKD management (last seen in January 2022) (3) Altered mental status: Code(s): R41.82 - Altered mental status, unspecified Status: Acute Assessment and Plan: * dementia versus delirium or secondary to infection versus other? * evaluation ongoing * Echo shows no endocarditis. * Blood cultures negative so far. Urine culture shows Margaux. * on cefepime . Consider Diflucan? * Baclofen discontinued * Evaluation per hospitalists * possible transfer to [facility] when bed available (4) CHF (congestive heart failure): Code(s): I50.9 - Heart failure, unspecified Status: Acute Assessment and Plan: * though to be due to flash pulmonary edema secondary NSTEMI * Echo (12/15/22) with EF 40-45%, globally reduced with mid to apical inferior wall severely hypokinetic, diastolic dysfunction with mild MR, mild-mod TR, RVSP 43 mmHg * hence a component of systolic and diastolic dysfunction * chest x-ray is better. * Continue to hold diuretics. * Check labs and assess again tomorrow. (5) NSTEMI (non-ST elevated myocardial infarction): Code(s): I21.4 - Non-ST elevation (NSTEMI) myocardial infarction Status: Acute Assessment and Plan: * as noted by trend of troponins * cardiac catheterization deferred due to issues relating to altered mental status, hypokalemia, and MARGARITA/ARF * Echo noted (see #4) * Cardiology following (6) Hypertension: Qualifiers: Hypertension type: essential hypertension Qualified Code(s): I10 - Essential (primary) hypertension Code(s): I10 - Essential (primary) hypertension Status: Chronic Assessment and Plan: * systolic ranging from 150 to 179 * I would like better control but not too low. * Metoprolol just increased. (7) Mucinous adenocarcinoma of colon: Code(s): C18.9 - Malignant neoplasm of colon, unspecified Status: C
--- NOTE | 2022-12-26 15:20 | PM.PNNEP ---
Progress Note: A&P Assessment and Plan (1) MARGARITA (acute kidney injury): Code(s): N17.9 - Acute kidney failure, unspecified Status: Acute Assessment and Plan: acute kidney injury. evaluation to date: Urine electrolytes are non pre renal CK was not elevated. CT imaging notes bilateral hydronephrosis, right greater than left. No obstructing stone or mass identified. Bladder is distended. Prostate gland is enlarged. There is nonspecific bilateral perinephric stranding. Findings suspicious for ascending urinary tract infection/pyelonephritis hernandez catheter placed with almost immediate return of 950cc or urine UA also suggestive on infection Most likely due to obstruction Plus minus infection. He is getting antibiotics and the bladder catheter remains in place. He has been making a good amount of urine since the catheter was placed. Creatinine has come down every day so far. Overall he looks better as well. Will continue with IV fluids, Hernandez catheter, and supportive care. Check renal panel in the morning (2) Chronic kidney disease, stage 3: Code(s): N18.30 - Chronic kidney disease, stage 3 unspecified Status: Chronic Assessment and Plan: baseline creatinine runs around 1.3 - 1.7mg/dl over the last few years this causes him to fluctuate between CKD stage 3A and stage 3B presumably due to hypertension, diabetes, possibly vascular disease, and age-related changed based on outpatient evaluation: bland UA immunofixation negative normal ultrasound had been following with Dr. Edward for CKD management (last seen in January 2022) (3) Altered mental status: Code(s): R41.82 - Altered mental status, unspecified Status: Acute Assessment and Plan: dementia versus delirium or secondary to infection versus other? evaluation ongoing Echo shows no endocarditis. Blood cultures negative so far. Urine culture shows Margaux. on cefepime . Consider Diflucan? Baclofen discontinued Evaluation per hospitalists possible transfer to [facility] when bed available (4) CHF (congestive heart failure): Code(s): I50.9 - Heart failure, unspecified Status: Acute Assessment and Plan: though to be due to flash pulmonary edema secondary NSTEMI Echo (12/15/22) with EF 40-45%, globally reduced with mid to apical inferior wall severely hypokinetic, diastolic dysfunction with mild MR, mild-mod TR, RVSP 43 mmHg hence a component of systolic and diastolic dysfunction chest x-ray is better. Continue to hold diuretics. Check labs and assess again tomorrow. (5) NSTEMI (non-ST elevated myocardial infarction): Code(s): I21.4 - Non-ST elevation (NSTEMI) myocardial infarction Status: Acute Assessment and Plan: as noted by trend of troponins cardiac catheterization deferred due to issues relating to altered mental status, hypokalemia, and MARGARITA/ARF Echo noted (see #4) Cardiology following (6) Hypertension: Qualifiers: Hypertension type: essential hypertension Qualified Code(s): I10 - Essential (primary) hypertension Code(s): I10 - Essential (primary) hypertension Status: Chronic Assessment and Plan: systolic ranging from 150 to 179 I would like better control but not too low. Metoprolol just increased. (7) Mucinous adenocarcinoma of colon: Code(s): C18.9 - Malignant neoplasm of colon, unspecified Status: Chronic Assessment and Plan: s/p colectomy in November with pathology noted portacath placed 12/20 F/U with oncology as outpatient for chemotherapy (8) Type 2 diabetes mellitus: Code(s): E11.9 - Type 2 diabetes mellitus without complications Status: Chronic Assessment and Plan: follow accu-checks glycemic control per hospitalists discussed with the patient and the at bedside today. Subjective Date/
[2022-12-26 16:28] LABS: Glucose Point of Care 241 mg/dl (65-105)
[2022-12-26 17:50] LABS: Albumin Level 3.5 g/dL (3.5-5.1); Anion Gap 14 mmol/L (8-16); Blood Urea Nitrogen 36 mg/dL (9-20); Calcium 9.4 mg/dL (8.4-10.2); Carbon Dioxide 21 mmol/L (22-30); Chloride 115 mmol/L (98-107); Estimated CRCL calculation 22 ml/min; Estimated Glomerular Filt Rate 33; Glucose 264 mg/dL (65-110); Phosphorus 2.6 mg/dL (2.5-4.5); Sodium 150 mmol/L (137-145)
[2022-12-26 21:20] LABS: Glucose Point of Care 204 mg/dl (65-105)
[2022-12-26] MEDS: lamoTRIgine 100 MG TABLET PO (22:05)
[2022-12-26] MEDS: PRAZOSIN HCL 1 MG CAPSULE PO (22:06)
[2022-12-26] MEDS: SIMVASTATIN 20 MG TABLET 40 MG PO (22:06)
--- NOTE | 2022-12-26 22:42 | PC.NURSE ---
12/[id number]-Spoke with LUCHO Rondon at [facility] transfer center. Transfer center updated with pt's condition and last set of VS. States that no bed is available at this time.
[2022-12-27] VITALS (18 sets, daily range): BP systolic 114–163; BP diastolic 61–87; PULSE 59–68; RESP 16–24; TEMP 36–36.7; O2SAT 98–100
[2022-12-27 00:11] LABS: Glucose Point of Care 173 mg/dl (65-105)
[2022-12-27] MEDS: KCL 20 MEQ/0.45% NS 1,000 ML 100 ML IV CONT ×2 (03:06→16:04)
[2022-12-27] MEDS: diphenhydrAMINE HCl INJ 50 MG/ML VIAL 25 MG IV PUSH (04:06)
[2022-12-27] MEDS: LORazepam INJ (*CRX) 2 MG/ML VIAL 1 MG IV PUSH (04:07)
[2022-12-27] MEDS: SODIUM CHLOR 3% 15 ML NEB (RESPIRATORY THERAPY) 6 ML INHALATION (05:12)
[2022-12-27 05:26] LABS: Basophils Percent Auto 0.3 % (0.2-1.2); Eosinophils Absolute Auto 0.2 K/mm3 (0-0.3); Eosinophils Percent Auto 1.4 % (0-4.4); Hematocrit 37.3 % (42.0-52.0); Hemoglobin 10.1 g/dL (14.0-18.0); Immature Granulocyte Absolute 0.05 K/mm3 (0.00-0.031); Immature Granulocyte Percent A 0.5 % (0-0.5); Lymphocytes Absolute Auto 0.69 K/mm3 (0.9-3.2); Lymphocytes Percent Auto 6.4 % (18.3-44.2); Mean Corpuscular HGB Conc 27.1 g/dl (32-36); Mean Corpuscular Hemoglobin 25.3 pg (26-34); Mean Corpuscular Volume 93.3 fl (80-100); Mean Platelet Volume 10.5 fl (7.4-10.4); Monocytes Absolute Auto 0.6 K/mm3 (0.1-0.6); Monocytes Percent Auto 5.7 % (2.6-8.5); Neutrophils Absolute Auto 9.3 K/mm3 (1.3-6.7); Neutrophils Percent Auto 85.7 % (45.5-73.1); Platelet Count Result 260 k/mm3 (150-375); Red Cell Distribution Width 25.6 % (11.5-14.5); White Blood Count 10.9 K/mm3 (4.5-10.0)
[2022-12-27 05:46] LABS: Alanine Aminotransferase 31 U/L (6-50); Albumin Level 3.1 g/dL (3.5-5.1); Alkaline Phosphatase 68 U/L (38-126); Anion Gap 5 mmol/L (8-16); Aspartate Amino Transferase 32 U/L (17-59); Bilirubin,Total 0.5 mg/dL (0.2-1.3); Blood Urea Nitrogen 32 mg/dL (9-20); Calcium 8.7 mg/dL (8.4-10.2); Carbon Dioxide 31 mmol/L (22-30); Chloride 115 mmol/L (98-107); Estimated CRCL calculation 24 ml/min; Estimated Glomerular Filt Rate 37; Glucose 192 mg/dL (65-110); Potassium 3.3 mmol/L (3.4-5.0); Sodium 151 mmol/L (137-145)
[2022-12-27 05:48] LABS: Platelet Estimate Adequate (Adequate)
[2022-12-27 05:50] LABS: Anisocytosis 1+ (NORMAL); Hypochromasia 1+ (NORMAL); Large Platelets Present
[2022-12-27 05:51] LABS: Burr Cells 1+ (NORMAL); Schistocytes None Seen (NORMAL)
--- NOTE | 2022-12-27 08:08 | PM.PNCARD ---
Progress Note: A&P Assessment and Plan (1) CHF (congestive heart failure): Code(s): I50.9 - Heart failure, unspecified Status: Acute Assessment and Plan: Flash pulm edema secondary to NSTEMI. Acute systolic and diastolic heart failure. NTproBNP >17648. CXR shows significant pulm edema. 12/15/22 Echo: EF 40-45%, globally reduced with mid to apical inferior wall severely hypokinetic, diastolic dysfunction with E/e' 22, severe LAE, mild FIGUEROA, mild MR, mild-mod TR, RVSP 43 mmHg, trace pericardial effusion. Hold Lasix 40 mg PO daily as he appears euvolemic. He is hypernatremic with sodium 151. Receiving IVF NS currently. Monitor electrolytes and renal function. He has possible pneumonia also on CT chest. Manage as per hospitalist for pneumonia. (2) Elevated troponin: Code(s): R79.89 - Other specified abnormal findings of blood chemistry Status: Acute Assessment and Plan: Troponin peaked at 0.84. Probably has underlying CAD. Heparin drip discontinued as troponin peaked 2 days ago. Discuss LHC and he is agreeable to it. Suspect he has multivessel CAD, but won't know until cath is done. Consulted [facility] for possible LHC and was seen by Dr. Lawson/Dr. Tanner. LHC not performed on 12/17/22 due to hypokalemia. Surgery placed dayami-cath 12/20/22. He did not have LHC 12/21/22 due to confusion/uncooperative and ARF. HCG following when he is deemed ready for LHC. (3) MARGARITA (acute kidney injury): Code(s): N17.9 - Acute kidney failure, unspecified Status: Acute Assessment and Plan: Worsened. Monitor as patient is being diuresed. He has possible bladder outlet obstruction. Manage as per urologist. (4) Pacemaker: Code(s): Z95.0 - Presence of cardiac pacemaker Status: Acute Assessment and Plan: Interrogated [employer] pacemaker showing evidence of PMT and PAT. [employer] rep came in 12/14/22 and turned on Auto-PVARP to prevent PMT. Started Metoprolol to treat PAT. (5) Hyperlipidemia: Qualifiers: Hyperlipidemia type: mixed hyperlipidemia Qualified Code(s): E78.2 - Mixed hyperlipidemia Code(s): E78.5 - Hyperlipidemia, unspecified Status: Acute Assessment and Plan: He is back on Simvastatin as liver enzymes decreasing. (6) Hypertension: Qualifiers: Hypertension type: essential hypertension Qualified Code(s): I10 - Essential (primary) hypertension Code(s): I10 - Essential (primary) hypertension Status: Chronic Assessment and Plan: High. On Hydralazine 25 mg PO TID with parameters. Start Amlodipine 5 mg daily. On Heparin 5,000 units SQ Q12 HR for DVT prophylaxis. (7) Transaminitis: Code(s): R74.01 - Elevation of levels of liver transaminase levels Status: Acute Assessment and Plan: Shock liver probably related to CHF with passive congestion. Improving liver enzymes. Subjective Date/time seen: 12/27/22 08:08 Interval history: Denies chest pain or sob today. He is oriented to name only this morning and incoherent in answering questions appropriately and pulled off all his clothes. Exam Const: General: anxious and confusion Orientation/consciousness: oriented to person and confusion Resp: Auscultation: clear to auscultation bilaterally, no crackles, no rales, no rhonchi, no wheezes (Slight scattered wheezing) and lung sounds not diminished Cardio: Rate: regular rate Rhythm: regular rhythm Heart sounds: no murmurs Peripheral pulses: dorsalis pedis present Neuro: General: oriented to person, oriented to place, oriented to time and confusion Extrem: Right lower extremity: no edema Left lower extremity: no edema Objective Data Vital Signs Vital Signs: Vital Signs - 24 hr 12/26/22 09:49 12/26/22 12:00 12/26/22 10:00 Temperature 98.0 F Pulse Rate 90 61 70 Respiratory Rate 24 H Blood Pressure 159/88 H Pulse Oximetry 100 Oxygen Delivery 12/26/22 12:00
--- NOTE | 2022-12-27 08:45 | WPDNEURCNPN ---
Assessment and Plan Assessment and plan (1) Altered mental status: Code(s): R41.82 - Altered mental status, unspecified Status: Acute (2) Delirium: Code(s): R41.0 - Disorientation, unspecified Status: Acute (3) CHF (congestive heart failure): Code(s): I50.9 - Heart failure, unspecified Status: Acute (4) MARGARITA (acute kidney injury): Code(s): N17.9 - Acute kidney failure, unspecified Status: Acute (5) Adenocarcinoma of cecum: Code(s): C18.0 - Malignant neoplasm of cecum Status: Acute (6) Abnormal urinalysis: Code(s): R82.90 - Unspecified abnormal findings in urine Status: Acute (7) Leukocytosis: Code(s): D72.829 - Elevated white blood cell count, unspecified Status: Acute Plan Mr. Wilson is a 72 year old male with a history of CHF, heart bloc s/p pacemaker, DM, HTN, HLD, colon cancer, anxiety, CKD presenting due to shortness of breath and edema. Currently admitted and being treated for multiple medical problems including CHF, MARGARITA, underlying infection. Suspect altered mental status to be multifactorial in etiology. There has been concern raised for dementia by other providers. Based on my chart review, it seems that in the past two months leading up to this admission, his mental status was normal, as documented in several office visit notes. Would be worth obtaining MMSE as outpaitent if there are persistent concerns. Admission has been complicated by agitation/combative behavior requiring PRN doses of Haldol. Seems to be related to sunding. - Delirium precautions - Start Seroquel 25mg qhs, can increase step-rizvi based on response - PRN Haldol and Zyprexa is ok to use - Patient is on cefepime -- can cause neurotoxicity leading to encephalopathy; consider switching to a different antibiotic if mental status does not improve (if able) - Unfortunately MRI brain cannot be during at our facility due to patient's pacemaker. If mental status does not improve, may need to be transferred to a facility that can accommodate this Consult date: 12/27/22 Reason for consult: Altered mental status/delirium HPI: Julian Wilson is a 72 year old male with a history of CKD, hepatitis, HLD, HTN, DM, heart block s/p pacemaker, anxiety, colon cancer who presented on 12/15 due to shortness of breath and worsening peripheral edema, in the setting of recent pacemaker placement as well as bowel resection. During the admission he was found to have troponemia. Cardiac cath was initially planned, but could not be done due to concerns regarding patient's mental status. Neurology consulted on 12/21, but consult never done. From office notes in the past two months with PCP and other providers, his mental status is documented as normal. During this admission he has become quite confused. He was found to have a UTI, for which he is being treated. Blood cultures have not grown anything. He is also being treated for heart failure during this admission. He also had acute on chronic kidney injury. His BUN has been in the 30-40s, which may be a little elevated compared to his baseline. B12, ammonia, and folate levels are appropriate. Liver enzymes initially elevated to 400-600s, presumably due to shock liver, but has normalized over the past few days. CT head done during this admission was unrevealing. He is on a number of medications at home, including Baclofen 10mg daily, Wellbutrin 300mg daily, Lamictal 100mg qhs, and Paxil 50mg daily. His Baclofen is currently being held in hopes of improving his mental status. Patient seems to be most agitated in the evenings, demonstrating aggression towards nursing and staff. He has required PRN doses of Haldol. He is on cefepime currently as well. Review of Systems Review of Systems: ROS unobtainable: Yes unobtainable due to mental status PMFSH Past Medical History Medical History Anxiety Cardiomyo
--- NOTE | 2022-12-27 09:03 | PM.PNNEP ---
Progress Note: A&P Assessment and Plan (1) MARGARITA (acute kidney injury): Code(s): N17.9 - Acute kidney failure, unspecified Status: Acute Assessment and Plan: slow improvement noted evaluation to date: urine electrolytes are non pre renal CPK was not elevated. CT imaging notes bilateral hydronephrosis, right greater than left. No obstructing stone or mass identified. Bladder is distended. Prostate gland is enlarged. There is nonspecific bilateral perinephric stranding. Findings suspicious for ascending urinary tract infection/pyelonephritis s/p hernandez catheter placement (12/24/22) with almost immediate return of 950cc urine UA also suggestive on infection etiology of MARGARITA due to obstrution +/- infection continue with IV fluids, Hernandez catheter, and supportive care. follow trend of repeat labs and UOP (2) Chronic kidney disease, stage 3: Code(s): N18.30 - Chronic kidney disease, stage 3 unspecified Status: Chronic Assessment and Plan: baseline creatinine runs around 1.3 - 1.7mg/dl over the last few years this causes him to fluctuate between CKD stage 3A and stage 3B presumably due to hypertension, diabetes, possibly vascular disease, and age-related changed based on outpatient evaluation: bland UA immunofixation negative normal ultrasound had been following with Dr. Edward for CKD management (last seen in January 2022) (3) Altered mental status: Code(s): R41.82 - Altered mental status, unspecified Status: Acute Assessment and Plan: dementia versus delirium or secondary to infection versus other? evaluation ongoing Echo shows no endocarditis. blood cultures negative so far; urine culture with Margaux. on cefepime and fluconazole possible transfer to [facility] when bed available (4) Hypernatremia: Code(s): E87.0 - Hyperosmolality and hypernatremia Status: Acute Assessment and Plan: related to poor free water intake and post-obstructive diuresis on 1/2 normal saline IVFs (which is providing some volume as some free water) may need to consider changing to D5W IVFs follow trend of sodium (5) CHF (congestive heart failure): Code(s): I50.9 - Heart failure, unspecified Status: Acute Assessment and Plan: though to be due to flash pulmonary edema secondary NSTEMI Echo (12/15/22) with EF 40-45%, globally reduced with mid to apical inferior wall severely hypokinetic, diastolic dysfunction with mild MR, mild-mod TR, RVSP 43 mmHg hence a component of systolic and diastolic dysfunction chest x-ray is better with post-obstructive diuresis diuretics on hold follow clinical exam Cardiology following (6) NSTEMI (non-ST elevated myocardial infarction): Code(s): I21.4 - Non-ST elevation (NSTEMI) myocardial infarction Status: Acute Assessment and Plan: as noted by trend of troponins cardiac catheterization deferred due to issues relating to altered mental status, hypokalemia, and MARGARITA/ARF Echo noted (see #4) Cardiology following (7) Hypertension: Qualifiers: Hypertension type: essential hypertension Qualified Code(s): I10 - Essential (primary) hypertension Code(s): I10 - Essential (primary) hypertension Status: Chronic Assessment and Plan: reasonable control at this time follow trend of hemodynamics (8) Mucinous adenocarcinoma of colon: Code(s): C18.9 - Malignant neoplasm of colon, unspecified Status: Chronic Assessment and Plan: s/p colectomy in November with pathology noted portacath placed 12/20 F/U with oncology as outpatient for chemotherapy (9) Type 2 diabetes mellitus: Code(s): E11.9 - Type 2 diabetes mellitus without complications Status: Chronic Assessment and Plan: follow accu-checks glycemic control per hospitalists Will continue to follow. Subjective Date/time seen: 12/27/22 09:03
--- NOTE | 2022-12-27 09:03 | P.PNNP_ITS ---
Progress Note: A&P Assessment and Plan (1) MARGARITA (acute kidney injury): Code(s): N17.9 - Acute kidney failure, unspecified Status: Acute Assessment and Plan: * slow improvement noted * evaluation to date: * urine electrolytes are non pre renal * CPK was not elevated. * CT imaging notes bilateral hydronephrosis, right greater than left. No obstructing stone or mass identified. Bladder is distended. Prostate gland is enlarged. There is nonspecific bilateral perinephric stranding. Findings suspicious for ascending urinary tract infection/pyelonephritis * s/p hernandez catheter placement (12/24/22) with almost immediate return of 950cc urine * UA also suggestive on infection * etiology of MARGARITA due to obstrution +/- infection * continue with IV fluids, Hernandez catheter, and supportive care. * follow trend of repeat labs and UOP (2) Chronic kidney disease, stage 3: Code(s): N18.30 - Chronic kidney disease, stage 3 unspecified Status: Chronic Assessment and Plan: * baseline creatinine runs around 1.3 - 1.7mg/dl over the last few years * this causes him to fluctuate between CKD stage 3A and stage 3B * presumably due to hypertension, diabetes, possibly vascular disease, and age- related changed based on outpatient evaluation: * bland UA * immunofixation negative * normal ultrasound * had been following with Dr. Edward for CKD management (last seen in January 2022) (3) Altered mental status: Code(s): R41.82 - Altered mental status, unspecified Status: Acute Assessment and Plan: * dementia versus delirium or secondary to infection versus other? * evaluation ongoing * Echo shows no endocarditis. * blood cultures negative so far; urine culture with Margaux. * on cefepime and fluconazole * possible transfer to [facility] when bed available (4) Hypernatremia: Code(s): E87.0 - Hyperosmolality and hypernatremia Status: Acute Assessment and Plan: * related to poor free water intake and post-obstructive diuresis * on 1/2 normal saline IVFs (which is providing some volume as some free water) * may need to consider changing to D5W IVFs * follow trend of sodium (5) CHF (congestive heart failure): Code(s): I50.9 - Heart failure, unspecified Status: Acute Assessment and Plan: * though to be due to flash pulmonary edema secondary NSTEMI * Echo (12/15/22) with EF 40-45%, globally reduced with mid to apical inferior wall severely hypokinetic, diastolic dysfunction with mild MR, mild-mod TR, RVSP 43 mmHg * hence a component of systolic and diastolic dysfunction * chest x-ray is better with post-obstructive diuresis * diuretics on hold * follow clinical exam * Cardiology following (6) NSTEMI (non-ST elevated myocardial infarction): Code(s): I21.4 - Non-ST elevation (NSTEMI) myocardial infarction Status: Acute Assessment and Plan: * as noted by trend of troponins * cardiac catheterization deferred due to issues relating to altered mental status, hypokalemia, and MARGARITA/ARF * Echo noted (see #4) * Cardiology following (7) Hypertension: Qualifiers: Hypertension type: essential hypertension Qualified Code(s): I10 - Essential (primary) hypertension Code(s): I10 - Essential (primary) hypertension Status: Chronic Assessment and Plan: * reasonable control at this time * follow trend of hemodynamics (8) Mucinous adenocarcinoma of colon: Code(s): C18.9 - Malignant neoplasm of colon, un
[2022-12-27] MEDS: FLUCONAZOLE 400 MG/NACL 200 ML 400 MG/200 ML BAG 100 MG IVPB (09:12)
[2022-12-27] MEDS: HEPARIN SODIUM 5,000 UNITS/ML VIAL 5000 UNITS SUB-Q ×2 (09:21→21:12)
[2022-12-27] MEDS: CEFEPIME 1 GM/NS 50 ML 1 GM/50 ML BAG IVPB ×2 (09:21→21:11)
[2022-12-27] MEDS: INSULIN GLARGINE (*BKC) 100 UNITS/ML 15 UNITS SUB-Q (09:21)
--- NOTE | 2022-12-27 10:00 | PCOTNOTE ---
Per RN, Patient is not appropriate for therapy services at this time. Patient has restraints on at this time.
--- NOTE | 2022-12-27 11:29 | PCNFU ---
Nutrition Follow-Up Complete: Inadequate oral intake related to loss of appetite, recent surgery as evidenced by medical history, poor appetite Goal:Improve PO intake to at least 50% meals and supplements Maintain weight Pt current nutrition is NPO at this time. Nutrition recommendation: Advance diet per ROLL BUCKER recommendations following MBS Last recorded weight is 50.1 kg. Bowel Motility: +BM 12/24 Labs Reviewed: Hgb:10.1, HCT:37.3, Alb:3.1, Na:151, K:3.3, BUN:32, Cr:1.8, Glu:192 Meds Noted: lasix, novolog, KCL, Zofran Skin: no skin issues noted Additional Notes: Pt is currently NPO following bedside eval with ROLL BUCKER. Recommendations for an MBS for safe swallow. Will monitor for ROLL [facility] results and tests and make nutrition recommendations as necessary. Monitoring intakes, weights, labs, supplement tolerance, plan of care Follow up in 1 days
--- NOTE | 2022-12-27 13:00 | PCOTNOTE ---
Per RN, this A.M. attempt again at a later time. Therapist attempted this P.M. at this time, Patient out of the room at this time, having a test performed.
--- NOTE | 2022-12-27 13:20 | P.PNIM_ITS ---
Progress Note: A&P Assessment and Plan (1) Delirium: Code(s): R41.0 - Disorientation, unspecified Status: Acute Assessment and Plan: * Likely due to underlying dementia, acute illness, hospitalization, MARGARITA, hype rnatremia, uncontrolled diabetes, possibly psychoactive drugs * continue correcting electrolytes, diabetes control improved, avoid psychoactive drugs as possible, Patient is alert, follow commands, not oriented to place and time, possible baseline (2) Pneumonia: Code(s): J18.9 - Pneumonia, unspecified organism Status: Acute Assessment and Plan: * Right basilar by CXR * Continue cefepime 12/24 and fluconazole 100 mg daily * and monitor WBC as he is hydrated * leukocytosis improving (3) Hypernatremia: Code(s): E87.0 - Hyperosmolality and hypernatremia Status: Acute Assessment and Plan: * Due to prior loop diuretic, poor po intake, hyperglycemia * Furosemide on hold * 12/25 swallowing eval due to choking episode overnight * 12/25 IV 0.45% NS, intensify diabetes control, f/u lab * 12/26 KCL 40 mEq in 1000 ml D5/W over 10 hours, now BUN creatinine trending down Appreciate nephrology consultation, follow-up recommendations * (4) Type 2 diabetes mellitus: Code(s): E11.9 - Type 2 diabetes mellitus without complications Status: Chronic Assessment and Plan: * 12/25/22 Add glargine insulin 25 U q AM * 12/25/22 Low-dose SSI while NPO * 12/26 BS 132, continue current regimen (5) Dementia: Code(s): F03.90 - Unspecified dementia, unspecified severity, without behavioral disturbance, psychotic disturbance, mood disturbance, and anxiety Status: Acute Assessment and Plan: * Current mental status worse than baseline, likely due to delirium (6) Acute systolic (congestive) heart failure: Code(s): I50.21 - Acute systolic (congestive) heart failure Status: Acute Assessment and Plan: * Clinically resolved and now volume depleted * Hold Lasix 40 mg PO daily as he appears euvolemic.? (7) NSTEMI (non-ST elevated myocardial infarction): Code(s): I21.4 - Non-ST elevation (NSTEMI) myocardial infarction Status: Acute Assessment and Plan: * Consulted accessibility lift technician, cardiac received plans left heart catheterization, suspecting multiple vessel coronary artery disease * Continue current medication management per accessibility lift technician (8) Mucinous adenocarcinoma of colon: Code(s): C18.9 - Malignant neoplasm of colon, unspecified Status: Chronic Assessment and Plan: * Stage 4 by hx see * Status post right colectomy * Given current functional status and medical issues intermediate to long term care pharmacist prognosis is very poor (9) MARGARITA (acute kidney injury): Code(s): N17.9 - Acute kidney failure, unspecified Status: Acute Assessment and Plan: * / creatinine stable at 3.3 * / creatinine improved to 2.5 after hydration (10) Transaminitis: Code(s): R74.01 - Elevation of levels of liver transaminase levels Status: Acute Assessment and Plan: * Resolved (11) Pacemaker: Code(s): Z95.0 - Presence of cardiac pacemaker Status: Acute Assessment and Plan: * Functioning by telemetry (12) Chronic kidney disease, stage 3: Code(s): N18.30 - Chronic kidney disease, stage 3 unspecified Status: Chronic Assessment and Plan: * Baseline creatinine 1.4-1.6 (13) Leukocytosis: Code(s): D72.829 - Elevated white blood cell count, unspecified
--- NOTE | 2022-12-27 13:20 | PM.IMPN ---
Progress Note: A&P Assessment and Plan (1) Delirium: Code(s): R41.0 - Disorientation, unspecified Status: Acute Assessment and Plan: Likely due to underlying dementia, acute illness, hospitalization, MARGARITA, hypernatremia, uncontrolled diabetes, possibly psychoactive drugs continue correcting electrolytes, diabetes control improved, avoid psychoactive drugs as possible, Patient is alert, follow commands, not oriented to place and time, possible baseline (2) Pneumonia: Code(s): J18.9 - Pneumonia, unspecified organism Status: Acute Assessment and Plan: Right basilar by CXR Continue cefepime 12/24 and fluconazole 100 mg daily and monitor WBC as he is hydrated leukocytosis improving (3) Hypernatremia: Code(s): E87.0 - Hyperosmolality and hypernatremia Status: Acute Assessment and Plan: Due to prior loop diuretic, poor po intake, hyperglycemia Furosemide on hold 12/25 swallowing eval due to choking episode overnight 12/25 IV 0.45% NS, intensify diabetes control, f/u lab 12/26 KCL 40 mEq in 1000 ml D5/W over 10 hours, now BUN creatinine trending down Appreciate nephrology consultation, follow-up recommendations (4) Type 2 diabetes mellitus: Code(s): E11.9 - Type 2 diabetes mellitus without complications Status: Chronic Assessment and Plan: 12/25/22 Add glargine insulin 25 U q AM 12/25/22 Low-dose SSI while NPO 12/26 BS 132, continue current regimen (5) Dementia: Code(s): F03.90 - Unspecified dementia, unspecified severity, without behavioral disturbance, psychotic disturbance, mood disturbance, and anxiety Status: Acute Assessment and Plan: Current mental status worse than baseline, likely due to delirium (6) Acute systolic (congestive) heart failure: Code(s): I50.21 - Acute systolic (congestive) heart failure Status: Acute Assessment and Plan: Clinically resolved and now volume depleted Hold Lasix 40 mg PO daily as he appears euvolemic.? (7) NSTEMI (non-ST elevated myocardial infarction): Code(s): I21.4 - Non-ST elevation (NSTEMI) myocardial infarction Status: Acute Assessment and Plan: Consulted photography teacher, cardiac received plans left heart catheterization, suspecting multiple vessel coronary artery disease Continue current medication management per photography teacher (8) Mucinous adenocarcinoma of colon: Code(s): C18.9 - Malignant neoplasm of colon, unspecified Status: Chronic Assessment and Plan: Stage 4 by hx see Status post right colectomy Given current functional status and medical issues intermediate to director workers compensation prognosis is very poor (9) MARGARITA (acute kidney injury): Code(s): N17.9 - Acute kidney failure, unspecified Status: Acute Assessment and Plan: 12/25 creatinine stable at 3.3 12/26 creatinine improved to 2.5 after hydration (10) Transaminitis: Code(s): R74.01 - Elevation of levels of liver transaminase levels Status: Acute Assessment and Plan: Resolved (11) Pacemaker: Code(s): Z95.0 - Presence of cardiac pacemaker Status: Acute Assessment and Plan: Functioning by telemetry (12) Chronic kidney disease, stage 3: Code(s): N18.30 - Chronic kidney disease, stage 3 unspecified Status: Chronic Assessment and Plan: Baseline creatinine 1.4-1.6 (13) Leukocytosis: Code(s): D72.829 - Elevated white blood cell count, unspecified Status: Acute Assessment and Plan: Likely increased due to hemoconcentration 12/26 relatively stable at 19.5 (14) SOHAN (iron deficiency anemia): Code(s): D50.9 - Iron deficiency anemia, unspecified Status: Acute Assessment and Plan: 12/26 H/H stable Subjective Date/time seen: 12/27/22 13:21 Interval history: I saw exam patient today, patient is alert, not oriented, patient has no obvious distress,
--- NOTE | 2022-12-27 13:59 | PCSTNOTE ---
Please refer to the Modified Barium Swallow Evaluation in the EMR.
[2022-12-27 14:08] LABS: Glucose Point of Care 162 mg/dl (65-105)
[2022-12-27] MEDS: PARoxetine 20 MG TABLET PO (16:39)
[2022-12-27] MEDS: ASPIRIN 81 MG CHEWABLE TABLET PO (16:41)
[2022-12-27] MEDS: amLODIPine BESYLATE 5 MG TABLET PO (16:42)
[2022-12-27] MEDS: buPROPion HCL XL (24 HR) 150 MG TABCR 300 MG PO (16:44)
[2022-12-27] MEDS: hydrALAZINE HCL 25 MG TABLET PO (16:47)
--- NOTE | 2022-12-27 16:49 | PM.PNGS ---
Progress Note: A&P Assessment and Plan (1) Adenocarcinoma of cecum: Code(s): C18.0 - Malignant neoplasm of cecum Status: Acute Assessment and Plan: s/p R colectomy, doing well from surgical standpoint, cont routine postop care, passed swallow study and started on a pureed/thickened diet Plan I have discussed the patient's case and plan of care with Dr. Martin. Subjective Subjective Date/Time Seen: 12/27/22 16:50 Interval history: Patient still confused and in soft wrist restraints. No complaints at the time of my exam. Review of Systems Review of Systems: ROS unobtainable: Yes unobtainable due to mental status Exam Const: General: no acute distress and confusion Chest: Other: Right chest port incision healing well, no erythema or drainage GI: Inspection: non-distended and incision (incisions dry and healing well, no erythema) GI Palp: Yes Soft to palpation, No Tenderness to palpation present (GI) and No Guarding due to palpation present (GI) Auscultation: normal bowel sounds Objective Data Vital Signs Vital Signs: Vital Signs - 24 hr 12/26/22 18:00 12/26/22 20:00 12/26/22 22:05 Temperature 97.3 F L Pulse Rate 65 67 60 Respiratory Rate 20 Blood Pressure 149/86 H Pulse Oximetry 100 Oxygen Delivery 12/26/22 20:00 12/26/22 22:00 12/26/22 20:00 Temperature Pulse Rate 60 60 67 Respiratory Rate 20 Blood Pressure Pulse Oximetry 100 Oxygen Delivery Room Air 12/26/22 23:16 12/26/22 23:22 12/27/22 00:00 Temperature 97.2 F L Pulse Rate 60 60 63 Respiratory Rate 18 18 Blood Pressure 97/85 L Pulse Oximetry 98 98 Oxygen Delivery Room Air 12/27/22 02:00 12/27/22 04:03 12/27/22 04:00 Temperature 97.0 F L Pulse Rate 60 60 60 Respiratory Rate 16 16 Blood Pressure 123/72 Pulse Oximetry 100 100 Oxygen Delivery Room Air 12/27/22 04:00 12/27/22 05:42 12/27/22 07:49 Temperature 96.8 F L Pulse Rate 60 60 61 Respiratory Rate 21 H Blood Pressure 149/76 H Pulse Oximetry 98 Oxygen Delivery 12/27/22 08:00 12/27/22 08:00 12/27/22 10:00 Temperature Pulse Rate 60 60 Respiratory Rate Blood Pressure Pulse Oximetry Oxygen Delivery Room Air 12/27/22 12:00 12/27/22 16:39 Temperature 97 F L Pulse Rate 65 60 Respiratory Rate 22 H Blood Pressure 163/87 H Pulse Oximetry 100 Oxygen Delivery Intake/Output Intake/Output: Intake & Output 12/25/22 12/26/22 12/26/22 12/27/22 00:59 00:59 23:59 23:59 Intake Total 2050 Output Total 650 Balance 1400 Meds/Results Medications: Active Medications Generic Name Dose Route Start Last Admin Trade Name Freq PRN Reason Stop Dose Admin Acetaminophen 650 mg 12/21/22 16:08 12/22/22 19:32 Acetaminophen 325 Mg Tablet PO 650 mg Q4H PRN Administration Headache Albuterol 2 puff 12/14/22 09:09 Albuterol Sulfate (*Sp) Aerosol 1 Puff INHALATION QID PRN shortness of breath or wheezing Amlodipine Besylate 5 mg 12/26/22 09:00 12/27/22 16:42 Amlodipine Besylate 5 Mg Tablet PO 5 mg QAM SUMANTH Administration Aspirin 81 mg 12/15/22 08:00 12/27/22 16:41 Aspirin 81 Mg Chewable Tablet PO 81 mg DAILY@0800 SUMANTH Administration Bupropion HCl 300 mg 12/14/22 09:00 12/27/22 16:44 Bupropion Hcl Xl (24 Hr) 150 Mg Tabcr PO 300 mg QAM SUMANTH Administration Dextrose 12.5 gm 12/19/22 11:40 Dextrose 50% 25 Gm/50 Ml Syringe IV PUSH PRN PRN Hypoglycemia Protocol Glucagon 1 mg 12/19/22 11:40 Glucagon For Inj 1 Mg Vial IM PRN PRN Hypoglycemia Protocol Glucose 15 gm 12/19/22 11:40 Glucose Oral Gel 15 Gm Of Glucse In 37.5 Gm Tube PO PRN PRN Hypoglycemia Protocol Heparin Sodium (Porcine) 5,000 units 12/25/22 09:10 12/27/22 09:21 Heparin Sodium 5,000 Units/Ml Vial SUB-Q 5,000 units Q12HR SUMANTH Administration Hydralazine HCl 25 mg
[2022-12-27 16:53] LABS: Glucose Point of Care 162 mg/dl (65-105)
--- NOTE | 2022-12-27 20:34 | PC.NURSE ---
Patient being verbally abusive on rounds and believes me to be someone from his past he doesn't like. He will not permit a full assessment or take his medications. I did manage to do a partial assessment and charting should be considered in light of these constraints.
[2022-12-27 20:44] LABS: Glucose Point of Care 209 mg/dl (65-105)
--- NOTE | 2022-12-27 21:23 | PC.NURSE ---
The patient's cefepime and heparin were given. Another RN will attempt to give him his oral meds shortly.
--- NOTE | 2022-12-27 21:37 | PC.NURSE ---
[facility] transfer center called and was updated. No bed available currently.
[2022-12-27] MEDS: PRAZOSIN HCL 1 MG CAPSULE PO (21:42)
[2022-12-27] MEDS: lamoTRIgine 100 MG TABLET PO (21:42)
[2022-12-27] MEDS: METOPROLOL TARTRATE 50 MG TAB 100 MG PO (21:42)
[2022-12-27] MEDS: SIMVASTATIN 20 MG TABLET 40 MG PO (21:42)
[2022-12-28] VITALS (16 sets, daily range): BP systolic 137–181; BP diastolic 75–109; PULSE 59–63; RESP 16–20; TEMP 36.4–36.7; O2SAT 95–100
[2022-12-28 01:23] LABS: Glucose Point of Care 232 mg/dl (65-105)
[2022-12-28] MEDS: INSULIN ASPART (*BKC) 100 UNITS/ML SUB-Q ×3 (01:30→17:24)
[2022-12-28] MEDS: KCL 20 MEQ/0.45% NS 1,000 ML 100 ML IV CONT (01:31)
[2022-12-28 05:24] LABS: Basophils Percent Auto 0.3 % (0.2-1.2); Eosinophils Absolute Auto 0.2 K/mm3 (0-0.3); Eosinophils Percent Auto 3.2 % (0-4.4); Hematocrit 36.7 % (42.0-52.0); Hemoglobin 9.7 g/dL (14.0-18.0); Immature Granulocyte Absolute 0.04 K/mm3 (0.00-0.031); Immature Granulocyte Percent A 0.5 % (0-0.5); Lymphocytes Absolute Auto 0.68 K/mm3 (0.9-3.2); Mean Corpuscular HGB Conc 26.4 g/dl (32-36); Mean Corpuscular Hemoglobin 25.1 pg (26-34); Mean Corpuscular Volume 94.8 fl (80-100); Mean Platelet Volume 10.9 fl (7.4-10.4); Monocytes Absolute Auto 0.5 K/mm3 (0.1-0.6); Monocytes Percent Auto 6.9 % (2.6-8.5); Neutrophils Absolute Auto 6.1 K/mm3 (1.3-6.7); Neutrophils Percent Auto 80.1 % (45.5-73.1); Platelet Count Result 247 k/mm3 (150-375); Red Blood Count 3.87 M/mm3 (4.6-6.20); Red Cell Distribution Width 24.8 % (11.5-14.5); White Blood Count 7.6 K/mm3 (4.5-10.0)
[2022-12-28 05:45] LABS: Alanine Aminotransferase 38 U/L (6-50); Albumin Level 3.1 g/dL (3.5-5.1); Alkaline Phosphatase 70 U/L (38-126); Anion Gap 4 mmol/L (8-16); Aspartate Amino Transferase 39 U/L (17-59); Bilirubin,Total 0.5 mg/dL (0.2-1.3); Blood Urea Nitrogen 27 mg/dL (9-20); Calcium 8.7 mg/dL (8.4-10.2); Carbon Dioxide 30 mmol/L (22-30); Chloride 117 mmol/L (98-107); Estimated CRCL calculation 30 ml/min; Estimated Glomerular Filt Rate 46; Glucose 99 mg/dL (65-110); Potassium 3.5 mmol/L (3.4-5.0); Sodium 151 mmol/L (137-145)
[2022-12-28 06:08] LABS: Anisocytosis 3+ (NORMAL); Hypochromasia 1+ (NORMAL); Platelet Estimate Adequate (Adequate); Schistocytes None Seen (NORMAL)
[2022-12-28] MEDS: hydrALAZINE HCL 25 MG TABLET PO ×2 (06:13→14:59)
--- NOTE | 2022-12-28 07:41 | PM.PNCARD ---
Progress Note: A&P Assessment and Plan (1) CHF (congestive heart failure): Code(s): I50.9 - Heart failure, unspecified Status: Acute Assessment and Plan: Flash pulm edema secondary to NSTEMI. Acute systolic and diastolic heart failure. NTproBNP >32976. CXR shows significant pulm edema. 12/15/22 Echo: EF 40-45%, globally reduced with mid to apical inferior wall severely hypokinetic, diastolic dysfunction with E/e' 22, severe LAE, mild FIGUEROA, mild MR, mild-mod TR, RVSP 43 mmHg, trace pericardial effusion. Hold Lasix 40 mg PO daily as he appears euvolemic. He is hypernatremic with sodium 151. Receiving IVF NS currently. Monitor electrolytes and renal function. He has possible pneumonia also on CT chest. Manage as per hospitalist for pneumonia. (2) Elevated troponin: Code(s): R79.89 - Other specified abnormal findings of blood chemistry Status: Acute Assessment and Plan: Troponin peaked at 0.84. Probably has underlying CAD. Heparin drip discontinued as troponin peaked 2 days ago. Discuss LHC and he is agreeable to it. Suspect he has multivessel CAD, but won't know until cath is done. Consulted [facility] [place] for possible LHC and was seen by Dr. Lawson/Dr. Tanner. LHC not performed on 12/17/22 due to hypokalemia. Surgery placed dayami-cath 12/20/22. He did not have LHC 12/21/22 due to confusion/uncooperative and ARF. HCG following when he is deemed ready for LHC. (3) MARGARITA (acute kidney injury): Code(s): N17.9 - Acute kidney failure, unspecified Status: Acute Assessment and Plan: Worsened. Monitor as patient is being diuresed. He has possible bladder outlet obstruction. Manage as per urologist. (4) Pacemaker: Code(s): Z95.0 - Presence of cardiac pacemaker Status: Acute Assessment and Plan: Interrogated [employer] pacemaker showing evidence of PMT and PAT. [employer] rep came in 12/14/22 and turned on Auto-PVARP to prevent PMT. Started Metoprolol to treat PAT. (5) Hyperlipidemia: Qualifiers: Hyperlipidemia type: mixed hyperlipidemia Qualified Code(s): E78.2 - Mixed hyperlipidemia Code(s): E78.5 - Hyperlipidemia, unspecified Status: Acute Assessment and Plan: He is back on Simvastatin as liver enzymes decreasing. (6) Hypertension: Qualifiers: Hypertension type: essential hypertension Qualified Code(s): I10 - Essential (primary) hypertension Code(s): I10 - Essential (primary) hypertension Status: Chronic Assessment and Plan: High. On Hydralazine 25 mg PO TID with parameters. Start Amlodipine 5 mg daily. On Heparin 5,000 units SQ Q12 HR for DVT prophylaxis. (7) Transaminitis: Code(s): R74.01 - Elevation of levels of liver transaminase levels Status: Acute Assessment and Plan: Shock liver probably related to CHF with passive congestion. Improving liver enzymes. Subjective Date/time seen: 12/28/22 07:41 Interval history: Denies chest pain or sob today. He is oriented to name and place this morning but not answering questions appropriately. Exam Const: General: cooperative, healthy appearing, comfortable and confusion Orientation/consciousness: oriented to person, oriented to place and confusion Resp: Auscultation: clear to auscultation bilaterally, no crackles, no rales, no rhonchi, no wheezes (Slight scattered wheezing) and lung sounds not diminished Cardio: Rate: regular rate Rhythm: regular rhythm Heart sounds: no murmurs Peripheral pulses: dorsalis pedis present Neuro: General: oriented to person, oriented to place, oriented to time and confusion Extrem: Right lower extremity: no edema Left lower extremity: no edema Objective Data Vital Signs Vital Signs: Vital Signs - 24 hr 12/27/22 07:49 12/27/22 08:00 12/27/22 08:00 Temperature 96.8 F L Pulse Rate 61 60 Respiratory Rate 21 H Blood Pressure 149/76 H Pulse Oximetry 98 Oxygen Delivery Room A
[2022-12-28 08:25] LABS: Glucose Point of Care 136 mg/dl (65-105)
[2022-12-28] MEDS: INSULIN GLARGINE (*BKC) 100 UNITS/ML 15 UNITS SUB-Q (08:29)
[2022-12-28] MEDS: ACETAMINOPHEN 325 MG TABLET 650 MG PO (08:31)
[2022-12-28] MEDS: ASPIRIN 81 MG CHEWABLE TABLET PO (08:31)
[2022-12-28] MEDS: METOPROLOL TARTRATE 50 MG TAB 100 MG PO (08:31)
[2022-12-28] MEDS: PARoxetine 20 MG TABLET PO (08:31)
[2022-12-28] MEDS: buPROPion HCL XL (24 HR) 150 MG TABCR 300 MG PO (08:31)
[2022-12-28] MEDS: amLODIPine BESYLATE 5 MG TABLET PO (08:32)
[2022-12-28] MEDS: HEPARIN SODIUM 5,000 UNITS/ML VIAL 5000 UNITS SUB-Q (08:32)
[2022-12-28] MEDS: FLUCONAZOLE 200 MG/NACL 100 ML 200 MG/100 ML BAG 100 MG IVPB (08:34)
[2022-12-28] MEDS: CEFEPIME 1 GM/NS 50 ML 1 GM/50 ML BAG IVPB (08:35)
--- NOTE | 2022-12-28 09:40 | P.PNNP_ITS ---
Progress Note: A&P Assessment and Plan (1) MARGARITA (acute kidney injury): Code(s): N17.9 - Acute kidney failure, unspecified Status: Acute Assessment and Plan: * slow improvement noted * evaluation to date: * urine electrolytes are non pre renal * CPK was not elevated. * CT imaging notes bilateral hydronephrosis, right greater than left. No obstructing stone or mass identified. Bladder is distended. Prostate gland is enlarged. There is nonspecific bilateral perinephric stranding. Findings suspicious for ascending urinary tract infection/pyelonephritis * s/p hernandez catheter placement (12/24/22) with almost immediate return of 950cc urine * UA also suggestive on infection * etiology of MARGARITA due to obstrution +/- infection * continue with IV fluids, Hernandez catheter, and supportive care. * follow trend of repeat labs and UOP (2) Chronic kidney disease, stage 3: Code(s): N18.30 - Chronic kidney disease, stage 3 unspecified Status: Chronic Assessment and Plan: * baseline creatinine runs around 1.3 - 1.7mg/dl over the last few years * this causes him to fluctuate between CKD stage 3A and stage 3B * presumably due to hypertension, diabetes, possibly vascular disease, and age- related changed based on outpatient evaluation: * bland UA * immunofixation negative * normal ultrasound * had been following with Dr. Edward for CKD management (last seen in January 2022) (3) Altered mental status: Code(s): R41.82 - Altered mental status, unspecified Status: Acute Assessment and Plan: * slow improvement * dementia versus delirium or secondary to infection versus other? * evaluation ongoing * Echo shows no endocarditis. * blood cultures negative so far; urine culture with Margaux. * on cefepime and fluconazole * Neurology following (4) Hypernatremia: Code(s): E87.0 - Hyperosmolality and hypernatremia Status: Acute Assessment and Plan: * related to poor free water intake and post-obstructive diuresis * on 1/2 normal saline IVFs (which is providing some volume as some free water) * will switch to D5W IVFs x 24 hours * follow trend of sodium (5) CHF (congestive heart failure): Code(s): I50.9 - Heart failure, unspecified Status: Acute Assessment and Plan: * though to be due to flash pulmonary edema secondary NSTEMI * Echo (12/15/22) with EF 40-45%, globally reduced with mid to apical inferior wall severely hypokinetic, diastolic dysfunction with mild MR, mild-mod TR, RVSP 43 mmHg * hence a component of systolic and diastolic dysfunction * chest x-ray is better with post-obstructive diuresis * diuretics on hold * follow clinical exam * Cardiology following (6) NSTEMI (non-ST elevated myocardial infarction): Code(s): I21.4 - Non-ST elevation (NSTEMI) myocardial infarction Status: Acute Assessment and Plan: * as noted by trend of troponins * cardiac catheterization deferred due to issues relating to altered mental status, hypokalemia, and MARGARITA/ARF * Echo noted (see #4) * Cardiology following (7) Hypertension: Qualifiers: Hypertension type: essential hypertension Qualified Code(s): I10 - Essential (primary) hypertension Code(s): I10 - Essential (primary) hypertension Status: Chronic Assessment and Plan: * reasonable control but starting to rise at this time * resume oral BP medications as tolerated * follow trend of hemodynamics (8) Mucinous adenocarcinoma of colon:
--- NOTE | 2022-12-28 09:40 | PM.PNNEP ---
Progress Note: A&P Assessment and Plan (1) MARGARITA (acute kidney injury): Code(s): N17.9 - Acute kidney failure, unspecified Status: Acute Assessment and Plan: slow improvement noted evaluation to date: urine electrolytes are non pre renal CPK was not elevated. CT imaging notes bilateral hydronephrosis, right greater than left. No obstructing stone or mass identified. Bladder is distended. Prostate gland is enlarged. There is nonspecific bilateral perinephric stranding. Findings suspicious for ascending urinary tract infection/pyelonephritis s/p hernandez catheter placement (12/24/22) with almost immediate return of 950cc urine UA also suggestive on infection etiology of MARGARITA due to obstrution +/- infection continue with IV fluids, Hernandez catheter, and supportive care. follow trend of repeat labs and UOP (2) Chronic kidney disease, stage 3: Code(s): N18.30 - Chronic kidney disease, stage 3 unspecified Status: Chronic Assessment and Plan: baseline creatinine runs around 1.3 - 1.7mg/dl over the last few years this causes him to fluctuate between CKD stage 3A and stage 3B presumably due to hypertension, diabetes, possibly vascular disease, and age-related changed based on outpatient evaluation: bland UA immunofixation negative normal ultrasound had been following with Dr. Edward for CKD management (last seen in January 2022) (3) Altered mental status: Code(s): R41.82 - Altered mental status, unspecified Status: Acute Assessment and Plan: slow improvement dementia versus delirium or secondary to infection versus other? evaluation ongoing Echo shows no endocarditis. blood cultures negative so far; urine culture with Margaux. on cefepime and fluconazole Neurology following (4) Hypernatremia: Code(s): E87.0 - Hyperosmolality and hypernatremia Status: Acute Assessment and Plan: related to poor free water intake and post-obstructive diuresis on 1/2 normal saline IVFs (which is providing some volume as some free water) will switch to D5W IVFs x 24 hours follow trend of sodium (5) CHF (congestive heart failure): Code(s): I50.9 - Heart failure, unspecified Status: Acute Assessment and Plan: though to be due to flash pulmonary edema secondary NSTEMI Echo (12/15/22) with EF 40-45%, globally reduced with mid to apical inferior wall severely hypokinetic, diastolic dysfunction with mild MR, mild-mod TR, RVSP 43 mmHg hence a component of systolic and diastolic dysfunction chest x-ray is better with post-obstructive diuresis diuretics on hold follow clinical exam Cardiology following (6) NSTEMI (non-ST elevated myocardial infarction): Code(s): I21.4 - Non-ST elevation (NSTEMI) myocardial infarction Status: Acute Assessment and Plan: as noted by trend of troponins cardiac catheterization deferred due to issues relating to altered mental status, hypokalemia, and MARGARITA/ARF Echo noted (see #4) Cardiology following (7) Hypertension: Qualifiers: Hypertension type: essential hypertension Qualified Code(s): I10 - Essential (primary) hypertension Code(s): I10 - Essential (primary) hypertension Status: Chronic Assessment and Plan: reasonable control but starting to rise at this time resume oral BP medications as tolerated follow trend of hemodynamics (8) Mucinous adenocarcinoma of colon: Code(s): C18.9 - Malignant neoplasm of colon, unspecified Status: Chronic Assessment and Plan: s/p colectomy in November with pathology noted portacath placed 12/20 F/U with oncology as outpatient for chemotherapy (9) Type 2 diabetes mellitus: Code(s): E11.9 - Type 2 diabetes mellitus without complications Status: Chronic Assessment and Plan: follow accu-checks glycemic control per hospitalists Will continue to follow
--- NOTE | 2022-12-28 09:46 | WPDNEUROPN ---
Progress Note: A&P Assessment and Plan (1) Altered mental status: Code(s): R41.82 - Altered mental status, unspecified Status: Acute Plan ongoing dementia though previous documentation, CT scan of the brain is normal without any hydrocephalus or chronic subdural will continue the medication as such and will discuss with him further. Subjective Date/time seen: 12/28/22 09:46 Interval history: 72 years old has been seen by Dr. Perez for the complaints of the change in the mental status and in addition to the multiple medical problems including congestive heart failure, acute renal injury, history of adenocarcinoma of the cecum, mental changes were attributed to multifactorial etiology during the hospitalization course has been complicated by agitative behavior requiring the Haldol on p.r.n. basis he has also been started on Seroquel 25 mg at night and p.r.n. Haldol and Zyprexa MRI could not be done because of his pacemaker his other medications include baclofen 10 mg at night, Wellbutrin 300 mg every morning, lamotrigine 100 mg at night, oxycodone 5 mg q.6 hours p.r.n., paroxetine 10 mg daily along with 40 mg tablets that is total of 50 mg daily Exam Narrative: on exam today he is awake alert cooperative in no obvious acute distress able to follow the verbal commands appropriately though he has gaps in the echo on many gives the previous information his speech is not dysphasic not dysarthric the cranial examination is normal motor examination revealed him to have normal strength and tone and reflexes are symmetrical he is disoriented in time but he is able to move all extremities fairly well Objective Data Vital Signs Vital Signs: Vital Signs - 24 hr 12/27/22 10:00 12/27/22 12:00 12/27/22 16:39 Temperature 36.1 C L Pulse Rate 60 65 60 Respiratory Rate 22 H Blood Pressure 163/87 H Pulse Oximetry 100 Oxygen Delivery 12/27/22 16:00 12/27/22 19:37 12/27/22 12:00 Temperature 36.1 C L 36.7 C Pulse Rate 68 59 L 62 Respiratory Rate 24 H 16 Blood Pressure 147/86 H 119/77 Pulse Oximetry 100 98 Oxygen Delivery 12/27/22 12:00 12/27/22 14:00 12/27/22 16:00 Temperature Pulse Rate 63 60 Respiratory Rate Blood Pressure Pulse Oximetry Oxygen Delivery Room Air 12/27/22 16:00 12/27/22 18:00 12/27/22 20:00 Temperature Pulse Rate 60 Respiratory Rate Blood Pressure Pulse Oximetry Oxygen Delivery Room Air Room Air 12/27/22 21:42 12/27/22 23:22 12/27/22 20:00 Temperature 36.3 C L Pulse Rate 62 60 60 Respiratory Rate 16 Blood Pressure 114/61 Pulse Oximetry 100 Oxygen Delivery 12/27/22 22:00 12/28/22 04:00 12/28/22 04:00 Temperature 36.7 C Pulse Rate 67 60 60 Respiratory Rate 18 Blood Pressure 181/109 H Pulse Oximetry 100 Oxygen Delivery 12/28/22 02:00 12/28/22 00:00 12/28/22 04:00 Temperature Pulse Rate 60 60 Respiratory Rate Blood Pressure Pulse Oximetry 100 Oxygen Delivery Room Air 12/28/22 06:00 12/28/22 08:22 12/28/22 08:31 Temperature Pulse Rate 60 60 Respiratory Rate Blood Pressure Pulse Oximetry 96 Oxygen Delivery Room Air 12/28/22 08:00 Temperature 36.6 C Pulse Rate 60 Respiratory Rate 18 Blood Pressure 160/102 H Pulse Oximetry 100 Oxygen Delivery Intake/Output Intake/Output: Intake & Output 12/26/22 12/26/22 12/27/22 12/28/22 00:59 23:59 23:59 23:59 Intake Total 2540 1000 Output Total 1000 600 Balance 1540 400 Meds/Results Medications: Active Medications Generic Name Dose Route Start Last Admin Trade Name Freq PRN Reason Stop Dose Admin Acetaminophen 650 mg 12/21/22 16:08 12/28/22 08:31 Acetaminophen 325 Mg Tablet PO 650 mg Q4H PRN Administration Headache Albuterol 2 puff 12/14/22 09:09 Albuterol Sulfate (*Sp) Aerosol 1 Puff INHALATION QID PRN shortness of breath or wheezing Amlodipine [place]
--- NOTE | 2022-12-28 10:10 | P.PNIM_ITS ---
Progress Note: A&P Assessment and Plan (1) Delirium: Code(s): R41.0 - Disorientation, unspecified Status: Acute Assessment and Plan: Acute metabolic encephalopathy superimposed with dementia, Worsening mental status is likely secondary to acute illness, hospitalization, MARGARITA, hypernatremia, uncontrolled diabetes, possibly psychoactive drugs continue correcting electrolytes, diabetes control improved, avoid psychoactive drugs as possible, Patient is alert, follow commands, not oriented to place and time, possible baseline (2) Pneumonia: Code(s): J18.9 - Pneumonia, unspecified organism Status: Acute Assessment and Plan: * Right basilar by CXR * Continue cefepime 12/24 and fluconazole 100 mg daily * and monitor WBC as he is hydrated * leukocytosis resolves (3) Hypernatremia: Code(s): E87.0 - Hyperosmolality and hypernatremia Status: Acute Assessment and Plan: * Due to prior loop diuretic, poor po intake, hyperglycemia * Furosemide on hold * 12/25 swallowing eval due to choking episode overnight * 12/25 IV 0.45% NS, intensify diabetes control, f/u lab * 12/26 KCL 40 mEq in 1000 ml D5/W over 10 hours, now BUN creatinine trending down Appreciate nephrology consultation, follow-up recommendations * (4) Type 2 diabetes mellitus: Code(s): E11.9 - Type 2 diabetes mellitus without complications Status: Chronic Assessment and Plan: * 12/25/22 Add glargine insulin 25 U q AM * 12/25/22 Low-dose SSI while NPO * 12/26 BS 132, continue current regimen (5) Dementia: Code(s): F03.90 - Unspecified dementia, unspecified severity, without behavioral disturbance, psychotic disturbance, mood disturbance, and anxiety Status: Acute Assessment and Plan: * Current mental status worse than baseline, likely due to delirium (6) Acute systolic (congestive) heart failure: Code(s): I50.21 - Acute systolic (congestive) heart failure Status: Acute Assessment and Plan: * Clinically resolved and now volume depleted * Hold Lasix 40 mg PO daily as he appears euvolemic.? 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 - Malignant neoplasm of colon, unspecified Status: Chronic Assessment and Plan: * Stage 4 by hx see * Status post right colectomy * Given current functional status and medical issues intermediate to fpc prognosis is very poor (9) MARGARITA (acute kidney injury): Code(s): N17.9 - Acute kidney failure, unspecified Status: Acute Assessment and Plan: * 12/25 creatinine stable at 3.3 * 12/26 creatinine improved to 2.5 after hydration (10) Transaminitis: Code(s): R74.01 - Elevation of levels of liver transaminase levels Status: Acute Assessment and Plan: * Resolved (11) Pacemaker: Code(s): Z95.0 - Presence of cardiac pacemaker Status: Acute Assessment and Plan: * Functioning by telemetry (12) Chronic kidney disease, stage 3: Code(s): N18.30 - Chronic kidney disease, stage 3 unspecified Status: Chronic Assessment and Plan: * Baseline creatinine 1.4-1.6 (13
--- NOTE | 2022-12-28 10:10 | PM.IMPN ---
Progress Note: A&P Assessment and Plan (1) Delirium: Code(s): R41.0 - Disorientation, unspecified Status: Acute Assessment and Plan: Acute metabolic encephalopathy superimposed with dementia, Worsening mental status is likely secondary to acute illness, hospitalization, MARGARITA, hypernatremia, uncontrolled diabetes, possibly psychoactive drugs continue correcting electrolytes, diabetes control improved, avoid psychoactive drugs as possible, Patient is alert, follow commands, not oriented to place and time, possible baseline (2) Pneumonia: Code(s): J18.9 - Pneumonia, unspecified organism Status: Acute Assessment and Plan: Right basilar by CXR Continue cefepime 12/24 and fluconazole 100 mg daily and monitor WBC as he is hydrated leukocytosis resolves (3) Hypernatremia: Code(s): E87.0 - Hyperosmolality and hypernatremia Status: Acute Assessment and Plan: Due to prior loop diuretic, poor po intake, hyperglycemia Furosemide on hold 12/25 swallowing eval due to choking episode overnight 12/25 IV 0.45% NS, intensify diabetes control, f/u lab 12/26 KCL 40 mEq in 1000 ml D5/W over 10 hours, now BUN creatinine trending down Appreciate nephrology consultation, follow-up recommendations (4) Type 2 diabetes mellitus: Code(s): E11.9 - Type 2 diabetes mellitus without complications Status: Chronic Assessment and Plan: 12/25/22 Add glargine insulin 25 U q AM 12/25/22 Low-dose SSI while NPO 12/26 BS 132, continue current regimen (5) Dementia: Code(s): F03.90 - Unspecified dementia, unspecified severity, without behavioral disturbance, psychotic disturbance, mood disturbance, and anxiety Status: Acute Assessment and Plan: Current mental status worse than baseline, likely due to delirium (6) Acute systolic (congestive) heart failure: Code(s): I50.21 - Acute systolic (congestive) heart failure Status: Acute Assessment and Plan: Clinically resolved and now volume depleted Hold Lasix 40 mg PO daily as he appears euvolemic.? 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.9 - Malignant neoplasm of colon, unspecified Status: Chronic Assessment and Plan: Stage 4 by hx see Status post right colectomy Given current functional status and medical issues intermediate to fpc prognosis is very poor (9) MARGARITA (acute kidney injury): Code(s): N17.9 - Acute kidney failure, unspecified Status: Acute Assessment and Plan: 12/25 creatinine stable at 3.3 12/26 creatinine improved to 2.5 after hydration (10) Transaminitis: Code(s): R74.01 - Elevation of levels of liver transaminase levels Status: Acute Assessment and Plan: Resolved (11) Pacemaker: Code(s): Z95.0 - Presence of cardiac pacemaker Status: Acute Assessment and Plan: Functioning by telemetry (12) Chronic kidney disease, stage 3: Code(s): N18.30 - Chronic kidney disease, stage 3 unspecified Status: Chronic Assessment and Plan: Baseline creatinine 1.4-1.6 (13) Leukocytosis: Code(s): D72.829 - Elevated white blood cell count, unspecified Status: Acute Assessment and Plan: Likely increased due to hemoconcentration 12/26 relatively stable at 19.5 (14) SOHAN (iron deficiency anemia): Code(s): D50.9 - Iron deficiency anemia, unspecified Status: Acute Assessment and Plan: 12/26 H/H stable Subjective Date/time seen: 12/28/22 10:10 Inte
[2022-12-28] MEDS: KCL 20 MEQ/D5W 1,000 ML 1,000 ML 100 ML IV CONT ×2 (11:25→22:32)
[2022-12-28 11:34] LABS: Glucose Point of Care 295 mg/dl (65-105)
[2022-12-28] MEDS: OLANZapine 5 MG, WATER, STERILE FOR INJECTION 2.1 ML IM (11:54)
--- NOTE | 2022-12-28 13:29 | PCNFU ---
Nutrition Follow-Up Complete: Inadequate oral intake related to loss of appetite, recent surgery as evidenced by medical history, poor appetite Goal:Improve PO intake to at least 50% meals and supplements Pt is meeting goal currently. continue with same goal. Pt current nutrition is Diabetic Pureed level 4, level 2 liquids, Glucerna shakes BID. Nutrition recommendation: continue with current plan of care. Last recorded weight is 53.6 kg. Bowel Motility: last recorded BM 12/24 Labs Reviewed: Hgb:9.7, HCT:36.7, NA:151, GFR:46, BUN:27, Cr:1.5, Glu:136 Meds Noted: lasix, novolog/lantus, KCL, zofran Skin: no skin issues noted Additional Notes: MBS results recommended a pureed consistency with mildly thick liquids. Pt is tolerating well, intake 75-100% of meals at this time. Continue to encourage po intake of meals and supplements. Monitoring intakes, weights, labs, supplement tolerance, plan of care Follow up in 5 days
--- NOTE | 2022-12-28 13:36 | PM.PNGS ---
Progress Note: A&P Assessment and Plan (1) Adenocarcinoma of cecum: Code(s): C18.0 - Malignant neoplasm of cecum Status: Acute Assessment and Plan: S/p robotic assisted laparoscopic R hemicolectomy on 12/10/22. Passed his swallow study yesterday and tolerating a pureed diet. Bowels are moving. Incisions healing well. Stable from a surgical standpoint. Still dealing with confusion and requiring restraints. Plan I have discussed the patient's case and plan of care with Dr. Martin. Subjective Subjective Date/Time Seen: 12/28/22 13:36 Patient reports: tolerating a regular diet, bowel movement (large BM today) and afebrile Interval history: Patient seen in IMU. No family at the bedside. Reports some mild pain near his suprapubic abdominal incision. No nausea. Tolerating breakfast well. Large BM today per nursing. Patient did have some confusion and agitation earlier today and is still requiring soft wrist restraints. Exam Const: General: comfortable and no acute distress Orientation/consciousness: confusion Chest: Other: Right chest port incision healing well, no erythema or drainage GI: Inspection: non-distended GI Palp: Yes Soft to palpation, Yes Tenderness to palpation present (GI) (near suprapubic incision) and No Guarding due to palpation present (GI) Auscultation: normal bowel sounds Other: Incisions healing well, no erythema, scant dry bloody drainage at the left lateral incision. Urinary Catheter: Urinary Catheter: patent and draining Extrem: General: no calf tenderness and no edema Objective Data Vital Signs Vital Signs: Vital Signs - 24 hr 12/27/22 16:39 12/27/22 16:00 12/27/22 19:37 Temperature 96.9 F L 98.1 F Pulse Rate 60 68 59 L Respiratory Rate 24 H 16 Blood Pressure 147/86 H 119/77 Pulse Oximetry 100 98 Oxygen Delivery 12/27/22 14:00 12/27/22 16:00 12/27/22 16:00 Temperature Pulse Rate 63 60 Respiratory Rate Blood Pressure Pulse Oximetry Oxygen Delivery Room Air 12/27/22 18:00 12/27/22 20:00 12/27/22 21:42 Temperature Pulse Rate 60 62 Respiratory Rate Blood Pressure Pulse Oximetry Oxygen Delivery Room Air 12/27/22 23:22 12/27/22 20:00 12/27/22 22:00 Temperature 97.4 F L Pulse Rate 60 60 67 Respiratory Rate 16 Blood Pressure 114/61 Pulse Oximetry 100 Oxygen Delivery 12/28/22 04:00 12/28/22 04:00 12/28/22 02:00 Temperature 98.1 F Pulse Rate 60 60 60 Respiratory Rate 18 Blood Pressure 181/109 H Pulse Oximetry 100 Oxygen Delivery 12/28/22 00:00 12/28/22 04:00 12/28/22 06:00 Temperature Pulse Rate 60 60 Respiratory Rate Blood Pressure Pulse Oximetry 100 Oxygen Delivery Room Air 12/28/22 08:22 12/28/22 08:31 12/28/22 08:00 Temperature 97.9 F Pulse Rate 60 60 Respiratory Rate 18 Blood Pressure 160/102 H Pulse Oximetry 96 100 Oxygen Delivery Room Air 12/28/22 08:00 12/28/22 12:00 Temperature 97.8 F Pulse Rate 63 Respiratory Rate 16 Blood Pressure 148/77 H Pulse Oximetry 100 Oxygen Delivery Room Air Intake/Output Intake/Output: Intake & Output 12/26/22 12/26/22 12/27/22 12/28/22 00:59 23:59 23:59 23:59 Intake Total 2540 1630 Output Total 1000 600 Balance 1540 1030 Meds/Results Medications: Active Medications Generic Name Dose Route Start Last Admin Trade Name Freq PRN Reason Stop Dose Admin Acetaminophen 650 mg 12/21/22 16:08 12/28/22 08:31 Acetaminophen 325 Mg Tablet PO 650 mg Q4H PRN Administration Headache Albuterol 2 puff 12/14/22 09:09 Albuterol Sulfate (*Sp) Aerosol 1 Puff INHALATION QID PRN shortness of breath or wheezing Amlodipine Besylate 5 mg 12/26/22 09:00 12/28/22 08:32 Amlodipine Besylate 5 Mg Tablet PO 5 mg QAM [facility] Administration Aspirin 81 mg 12/15/22 08:00 12/28/22 08:31 Aspirin 81 Mg Chewable Tablet PO 81 mg DAILY@0800 [facility]
[2022-12-28] MEDS: TAMSULOSIN HCL 0.4 MG CAPSULE PO (14:59)
[2022-12-28 15:47] LABS: Glucose Point of Care 293 mg/dl (65-105)
--- NOTE | 2022-12-28 16:42 | PCPTNOTE ---
Attempted PT re-evaluation, pt refused. RN present for pt refusal. Will follow.
[2022-12-28 18:11] LABS: Anion Gap 7 mmol/L (8-16); Blood Urea Nitrogen 25 mg/dL (9-20); Calcium 8.4 mg/dL (8.4-10.2); Carbon Dioxide 25 mmol/L (22-30); Chloride 114 mmol/L (98-107); Estimated CRCL calculation 32 ml/min; Estimated Glomerular Filt Rate 50; Glucose 262 mg/dL (65-110); Potassium 3.7 mmol/L (3.4-5.0); Sodium 146 mmol/L (137-145)
[2022-12-28 20:04] LABS: Glucose Point of Care 199 mg/dl (65-105)
[2022-12-28] MEDS: cefTRIAXone 2 GM/NS 100 ML 2 GM/100 ML BAG IVPB (20:31)
[2022-12-29] VITALS (16 sets, daily range): BP systolic 125–149; BP diastolic 59–95; PULSE 60–65; RESP 16–20; TEMP 35.7–36.5; O2SAT 98–100
[2022-12-29 00:43] LABS: Lambda Light Chain 58.5 mg/L (5.7-26.3)
[2022-12-29 04:50] LABS: Basophils Percent Auto 0.4 % (0.2-1.2); Eosinophils Absolute Auto 0.3 K/mm3 (0-0.3); Eosinophils Percent Auto 4.5 % (0-4.4); Hematocrit 36.2 % (42.0-52.0); Hemoglobin 9.7 g/dL (14.0-18.0); Immature Granulocyte Absolute 0.05 K/mm3 (0.00-0.031); Immature Granulocyte Percent A 0.7 % (0-0.5); Lymphocytes Absolute Auto 0.77 K/mm3 (0.9-3.2); Lymphocytes Percent Auto 10.8 % (18.3-44.2); Mean Corpuscular HGB Conc 26.8 g/dl (32-36); Mean Corpuscular Hemoglobin 24.9 pg (26-34); Mean Corpuscular Volume 93.1 fl (80-100); Mean Platelet Volume 10.2 fl (7.4-10.4); Monocytes Absolute Auto 0.5 K/mm3 (0.1-0.6); Monocytes Percent Auto 6.3 % (2.6-8.5); Neutrophils Absolute Auto 5.5 K/mm3 (1.3-6.7); Neutrophils Percent Auto 77.3 % (45.5-73.1); Platelet Count Result 215 k/mm3 (150-375); Red Blood Count 3.89 M/mm3 (4.6-6.20); Red Cell Distribution Width 23.5 % (11.5-14.5); White Blood Count 7.1 K/mm3 (4.5-10.0)
[2022-12-29 05:05] LABS: Alanine Aminotransferase 33 U/L (6-50); Alkaline Phosphatase 68 U/L (38-126); Anion Gap 5 mmol/L (8-16); Aspartate Amino Transferase 34 U/L (17-59); Bilirubin,Total 0.4 mg/dL (0.2-1.3); Blood Urea Nitrogen 20 mg/dL (9-20); Calcium 8.3 mg/dL (8.4-10.2); Carbon Dioxide 27 mmol/L (22-30); Chloride 112 mmol/L (98-107); Estimated CRCL calculation 34 ml/min; Estimated Glomerular Filt Rate 54; Glucose 87 mg/dL (65-110); Potassium 3.2 mmol/L (3.4-5.0); Sodium 144 mmol/L (137-145)
[2022-12-29 05:37] LABS: Platelet Estimate Adequate (Adequate)
[2022-12-29 05:38] LABS: Anisocytosis 1+ (NORMAL); Hypochromasia 1+ (NORMAL); Large Platelets Present; Poikilocytosis 1+ (NORMAL)
[2022-12-29 05:39] LABS: Acanthocytes 1+ (NORMAL); Burr Cells 1+ (NORMAL); Schistocytes Rare (NORMAL)
[2022-12-29] MEDS: POTASSIUM CHLORIDE 20 MEQ PACKET (FOR LIQUID) 40 MEQ PO (06:19)
[2022-12-29] MEDS: hydrALAZINE HCL 25 MG TABLET PO ×3 (06:19→20:43)
--- NOTE | 2022-12-29 08:04 | PM.PNCARD ---
Progress Note: A&P Assessment and Plan (1) CHF (congestive heart failure): Code(s): I50.9 - Heart failure, unspecified Status: Acute Assessment and Plan: Flash pulm edema secondary to NSTEMI. Acute systolic and diastolic heart failure. NTproBNP >55027. CXR shows significant pulm edema. 12/15/22 Echo: EF 40-45%, globally reduced with mid to apical inferior wall severely hypokinetic, diastolic dysfunction with E/e' 22, severe LAE, mild FIGUEROA, mild MR, mild-mod TR, RVSP 43 mmHg, trace pericardial effusion. Hold Lasix 40 mg PO daily as he appears euvolemic. He is hypernatremic with sodium 151. Receiving IVF NS currently. Monitor electrolytes and renal function. He has possible pneumonia also on CT chest. Manage as per hospitalist for pneumonia. (2) Elevated troponin: Code(s): R79.89 - Other specified abnormal findings of blood chemistry Status: Acute Assessment and Plan: Troponin peaked at 0.84. Probably has underlying CAD. Heparin drip discontinued as troponin peaked 2 days ago. Discuss LHC and he is agreeable to it. Suspect he has multivessel CAD, but won't know until cath is done. [place] [facility] and was seen by Dr. Lawson/Dr. Tanner. LHC not performed on 12/17/22 due to hypokalemia. Surgery placed dayami-cath 12/20/22. He did not have LHC 12/21/22 due to confusion/uncooperative and ARF. HCG following when he is deemed ready for LHC. Spoke with patient's this morning about LHC as patient requested, and she wants to talk it over with her son if he should have one. (3) MARGARITA (acute kidney injury): Code(s): N17.9 - Acute kidney failure, unspecified Status: Acute Assessment and Plan: Worsened. Monitor as patient is being diuresed. He has possible bladder outlet obstruction. Manage as per urologist. (4) Pacemaker: Code(s): Z95.0 - Presence of cardiac pacemaker Status: Acute Assessment and Plan: Interrogated [employer] pacemaker showing evidence of PMT and PAT. [employer] rep came in 12/14/22 and turned on Auto-PVARP to prevent PMT. Started Metoprolol to treat PAT. (5) Hyperlipidemia: Qualifiers: Hyperlipidemia type: mixed hyperlipidemia Qualified Code(s): E78.2 - Mixed hyperlipidemia Code(s): E78.5 - Hyperlipidemia, unspecified Status: Acute Assessment and Plan: He is back on Simvastatin as liver enzymes decreasing. (6) Hypertension: Qualifiers: Hypertension type: essential hypertension Qualified Code(s): I10 - Essential (primary) hypertension Code(s): I10 - Essential (primary) hypertension Status: Chronic Assessment and Plan: High. On Hydralazine 25 mg PO TID with parameters. Start Amlodipine 5 mg daily. On Heparin 5,000 units SQ Q12 HR for DVT prophylaxis. (7) Transaminitis: Code(s): R74.01 - Elevation of levels of liver transaminase levels Status: Acute Assessment and Plan: Shock liver probably related to CHF with passive congestion. Improving liver enzymes. Subjective Date/time seen: 12/29/22 08:04 Interval history: Denies chest pain or sob today. He is oriented to name this morning thinks he is Oz Theodore and it is 9 and not answering questions appropriately. Exam Const: General: cooperative, healthy appearing, comfortable and confusion Orientation/consciousness: oriented to person and confusion Resp: Auscultation: clear to auscultation bilaterally, no crackles, no rales, no rhonchi, no wheezes (Slight scattered wheezing) and lung sounds not diminished Cardio: Rate: regular rate Rhythm: regular rhythm Heart sounds: no murmurs Peripheral pulses: dorsalis pedis present Neuro: General: oriented to person, oriented to place, oriented to time and confusion Extrem: Right lower extremity: no edema Left lower extremity: no edema Objective Data Vital Signs Vital Signs: Vital Signs - 24 hr 12/28/22 08:22 12/28/22 08:31 12/28
[2022-12-29] MEDS: buPROPion HCL XL (24 HR) 150 MG TABCR 300 MG PO (08:51)
[2022-12-29] MEDS: ACETAMINOPHEN 325 MG TABLET 650 MG PO ×2 (08:51→13:20)
[2022-12-29] MEDS: ASPIRIN 81 MG CHEWABLE TABLET PO (08:51)
[2022-12-29] MEDS: TAMSULOSIN HCL 0.4 MG CAPSULE PO (08:52)
[2022-12-29] MEDS: METOPROLOL TARTRATE 50 MG TAB 100 MG PO ×2 (08:52→20:42)
[2022-12-29] MEDS: PARoxetine 20 MG TABLET PO (08:52)
[2022-12-29] MEDS: amLODIPine BESYLATE 5 MG TABLET PO (08:53)
[2022-12-29] MEDS: HEPARIN SODIUM 5,000 UNITS/ML VIAL 5000 UNITS SUB-Q ×2 (08:53→20:42)
[2022-12-29] MEDS: FLUCONAZOLE 200 MG/NACL 100 ML 200 MG/100 ML BAG 100 MG IVPB (09:03)
[2022-12-29 09:11] LABS: Glucose Point of Care 73 mg/dl (65-105)
--- NOTE | 2022-12-29 09:52 | P.PNIM_ITS ---
Progress Note: A&P Assessment and Plan (1) Delirium: Code(s): R41.0 - Disorientation, unspecified Status: Acute Assessment and Plan: Acute metabolic encephalopathy superimposed with dementia, Worsening mental status is likely secondary to acute illness, hospitalization, MARGARITA, hypernatremia, uncontrolled diabetes, possibly psychoactive drugs continue correcting electrolytes, diabetes control improved, avoid psychoactive drugs as possible, Patient is alert, follow commands, not oriented to place and time, possible baseline (2) Pneumonia: Code(s): J18.9 - Pneumonia, unspecified organism Status: Acute Assessment and Plan: * Right basilar by CXR * Continue cefepime 12/24 and fluconazole 100 mg daily * and monitor WBC as he is hydrated * leukocytosis resolves (3) Hypernatremia: Code(s): E87.0 - Hyperosmolality and hypernatremia Status: Acute Assessment and Plan: * Due to prior loop diuretic, poor po intake, hyperglycemia * Furosemide on hold * 12/25 swallowing eval due to choking episode overnight * 12/25 IV 0.45% NS, intensify diabetes control, f/u lab * 12/26 KCL 40 mEq in 1000 ml D5/W over 10 hours, now BUN creatinine trending down Appreciate nephrology consultation, follow-up recommendations now Na 144 on 12/29 * (4) Type 2 diabetes mellitus: Code(s): E11.9 - Type 2 diabetes mellitus without complications Status: Chronic Assessment and Plan: * 12/25/22 Add glargine insulin 25 U q AM * 12/25/22 Low-dose SSI while NPO * 12/26 BS 132, continue current regimen (5) Dementia: Code(s): F03.90 - Unspecified dementia, unspecified severity, without behavioral disturbance, psychotic disturbance, mood disturbance, and anxiety Status: Acute Assessment and Plan: * Current mental status worse than baseline, likely due to delirium (6) Acute systolic (congestive) heart failure: Code(s): I50.21 - Acute systolic (congestive) heart failure Status: Acute Assessment and Plan: * Clinically resolved and now volume depleted * Hold Lasix 40 mg PO daily as he appears euvolemic.? 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.9 - Malignant neoplasm of colon, unspecified Status: Chronic Assessment and Plan: * Stage 4 by hx see * Status post right colectomy * Given current functional status and medical issues intermediate to senior care prognosis is very poor (9) MARGARITA (acute kidney injury): Code(s): N17.9 - Acute kidney failure, unspecified Status: Acute Assessment and Plan: * 11/4 creatinine stable at 3.3 * 1.3 now after hydration (10) Transaminitis: Code(s): R74.01 - Elevation of levels of liver transaminase levels Status: Acute Assessment and Plan: * Resolved (11) Pacemaker: Code(s): Z95.0 - Presence of cardiac pacemaker Status: Acute Assessment and Plan: * Functioning by telemetry (12) Chronic kidney disease, stage 3: Code(s): N18.30 - Chronic kidney disease, stage 3 unspecified Status: Chronic Assessment and Radha
--- NOTE | 2022-12-29 09:52 | PM.IMPN ---
Progress Note: A&P Assessment and Plan (1) Delirium: Code(s): R41.0 - Disorientation, unspecified Status: Acute Assessment and Plan: Acute metabolic encephalopathy superimposed with dementia, Worsening mental status is likely secondary to acute illness, hospitalization, MARGARITA, hypernatremia, uncontrolled diabetes, possibly psychoactive drugs continue correcting electrolytes, diabetes control improved, avoid psychoactive drugs as possible, Patient is alert, follow commands, not oriented to place and time, possible baseline (2) Pneumonia: Code(s): J18.9 - Pneumonia, unspecified organism Status: Acute Assessment and Plan: Right basilar by CXR Continue cefepime 12/24 and fluconazole 100 mg daily and monitor WBC as he is hydrated leukocytosis resolves (3) Hypernatremia: Code(s): E87.0 - Hyperosmolality and hypernatremia Status: Acute Assessment and Plan: Due to prior loop diuretic, poor po intake, hyperglycemia Furosemide on hold 12/25 swallowing eval due to choking episode overnight 12/25 IV 0.45% NS, intensify diabetes control, f/u lab 12/26 KCL 40 mEq in 1000 ml D5/W over 10 hours, now BUN creatinine trending down Appreciate nephrology consultation, follow-up recommendations now Na 144 on 12/29 (4) Type 2 diabetes mellitus: Code(s): E11.9 - Type 2 diabetes mellitus without complications Status: Chronic Assessment and Plan: 12/25/22 Add glargine insulin 25 U q AM 12/25/22 Low-dose SSI while NPO 12/26 BS 132, continue current regimen (5) Dementia: Code(s): F03.90 - Unspecified dementia, unspecified severity, without behavioral disturbance, psychotic disturbance, mood disturbance, and anxiety Status: Acute Assessment and Plan: Current mental status worse than baseline, likely due to delirium (6) Acute systolic (congestive) heart failure: Code(s): I50.21 - Acute systolic (congestive) heart failure Status: Acute Assessment and Plan: Clinically resolved and now volume depleted Hold Lasix 40 mg PO daily as he appears euvolemic.? (7) NSTEMI (non-ST elevated myocardial infarction): Code(s): I21.4 - Non-ST elevation (NSTEMI) myocardial infarction Status: Acute Assessment and Plan: Consulted poultry cleaner, cardiac received plans left heart catheterization, suspecting multiple vessel coronary artery disease Continue current medication management per poultry cleaner dc heparin drip per poultry cleaner Plans cardiac catheterization tomorrow (8) Mucinous adenocarcinoma of colon: Code(s): C18.9 - Malignant neoplasm of colon, unspecified Status: Chronic Assessment and Plan: Stage 4 by hx see Status post right colectomy Given current functional status and medical issues intermediate to fpc prognosis is very poor (9) MARGARITA (acute kidney injury): Code(s): N17.9 - Acute kidney failure, unspecified Status: Acute Assessment and Plan: 12/25 creatinine stable at 3.3 1.3 now after hydration (10) Transaminitis: Code(s): R74.01 - Elevation of levels of liver transaminase levels Status: Acute Assessment and Plan: Resolved (11) Pacemaker: Code(s): Z95.0 - Presence of cardiac pacemaker Status: Acute Assessment and Plan: Functioning by telemetry (12) Chronic kidney disease, stage 3: Code(s): N18.30 - Chronic kidney disease, stage 3 unspecified Status: Chronic Assessment and Plan: Baseline creatinine 1.4-1.6 (13) Leukocytosis: Code(s): D72.829 - Elevated white blood cell count, unspecified Status: Acute Assessment and Plan: Likely increased due to hemoconcentration 12/26 relatively stable at 19.5 (14) SOHAN (iron deficiency anemia): Code(s): D50.9 - Iron deficiency anemia, unspecified Status: Acute Assessment and Plan: 12/26 H/H stable Subjective Julian
--- NOTE | 2022-12-29 11:40 | PM.PNGS ---
Progress Note: A&P Assessment and Plan (1) Altered mental status: Code(s): R41.82 - Altered mental status, unspecified Status: Acute Assessment and Plan: Markedly improved. Continue management as per hospitalist service. 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 As long as he continues to improve would expect medical oncology to be will start chemotherapy treatments within the next couple of weeks. Subjective Subjective Date/Time Seen: 12/29/22 11:40 Interval history: Patient looks much better today. Mentation has vastly improved. He is sitting up in a chair today and no longer in restraints. He responds to questions appropriately and recognizes me he has easily. Did tolerate pureed and thickened liquid diet today. No other complaints. Exam GI: Other: Abdomen is soft and nondistended. Incisions are healing well may redness or drainage. Right upper anterior chest port site is healed as well without any redness or drainage. Objective Data Vital Signs Vital Signs: Vital Signs - 24 hr 12/28/22 12:00 12/28/22 12:00 12/28/22 12:00 Temperature 36.6 C Pulse Rate 63 60 Respiratory Rate 16 Blood Pressure 148/77 H Pulse Oximetry 100 Oxygen Delivery Room Air 12/28/22 14:00 12/28/22 16:00 12/28/22 16:00 Temperature 36.4 C Pulse Rate 60 61 Respiratory Rate 20 Blood Pressure 137/75 Pulse Oximetry 100 Oxygen Delivery Room Air 12/28/22 16:00 12/28/22 18:00 12/28/22 19:29 Temperature 36.6 C Pulse Rate 60 60 59 L Respiratory Rate 18 Blood Pressure 139/75 Pulse Oximetry 100 Oxygen Delivery 12/28/22 20:15 12/28/22 20:00 12/28/22 20:00 Temperature Pulse Rate 60 Respiratory Rate Blood Pressure Pulse Oximetry 95 Oxygen Delivery Room Air Room Air 12/28/22 22:00 12/29/22 00:00 12/29/22 00:00 Temperature 36.5 C Pulse Rate 60 60 Respiratory Rate 18 Blood Pressure 145/81 H Pulse Oximetry 100 Oxygen Delivery Room Air 12/29/22 00:00 12/29/22 01:41 12/29/22 04:31 Temperature 36.4 C Pulse Rate 60 60 60 Respiratory Rate 18 Blood Pressure 125/79 Pulse Oximetry 100 Oxygen Delivery 12/29/22 04:00 12/29/22 07:44 12/29/22 08:52 Temperature 36.4 C L Pulse Rate 60 65 Respiratory Rate 22 H Blood Pressure 149/78 H Pulse Oximetry 100 Oxygen Delivery Room Air 12/29/22 10:39 Temperature Pulse Rate Respiratory Rate Blood Pressure Pulse Oximetry Oxygen Delivery Room Air Intake/Output Intake/Output: Intake & Output 12/26/22 12/27/22 12/28/22 12/29/22 23:59 23:59 23:59 23:59 Intake Total 2540 3405 Output Total 1000 1375 1000 Balance 1540 2030 -1000 Meds/Results Medications: Active Medications Generic Name Dose Route Start Last Admin Trade Name Freq PRN Reason Stop Dose Admin Acetaminophen 650 mg 12/21/22 16:08 12/29/22 08:51 Acetaminophen 325 Mg Tablet PO 650 mg Q4H PRN Administration Headache Albuterol 2 puff 12/14/22 09:09 Albuterol Sulfate (*Sp) Aerosol 1 Puff INHALATION QID PRN shortness of breath or wheezing Amlodipine Besylate 5 mg 12/26/22 09:00 12/29/22 08:53 Amlodipine Besylate 5 Mg Tablet PO 5 mg QAM SUMANTH Administration Aspirin 81 mg 12/15/22 08:00 12/29/22 08:51 Aspirin 81 Mg Chewable Tablet PO 81 mg DAILY@0800 SUMANTH Administration Bupropion HCl 300 mg 12/14/22 09:00 12/29/22 08:51 Bupropion Hcl Xl (24 Hr) 150 Mg Tabcr PO 300 mg QAM SUMANTH Administration Dextrose 12.5 gm 12/19/22 11:40 Dextrose 50% 25 Gm/50 Ml Syringe IV PUSH PRN PRN Hypoglycemia Protocol Glucagon 1 mg 12/19/22 11:40 Glucagon For Inj 1 Mg Vial IM PRN PRN Hypoglycemia Protocol Glucose
[2022-12-29] MEDS: INSULIN GLARGINE (*BKC) 100 UNITS/ML 15 UNITS SUB-Q (11:49)
[2022-12-29] MEDS: INSULIN ASPART (*BKC) 100 UNITS/ML SUB-Q (11:51)
--- NOTE | 2022-12-29 12:19 | PM.PNCARD ---
Progress Note: A&P Assessment and Plan (1) Elevated troponin: Code(s): R79.89 - Other specified abnormal findings of blood chemistry Status: Acute Assessment and Plan: Interventional Cardiology has been consulted for [facility] by Dr. Petersen. Patient is doing better now, and MARGARITA has resolved I had a discussion today with the patient regarding cardiac catheterization, including indication for procedure, procedure details, risks vs benefits, alternative management options. Patient is agreeable to cath. Will plan for cath on 12/30. Patient to be NPO at midnight. Recommendations/plan discussed with referring Furniture [employer]ainer, Dr. Petersen. Subjective Date/time seen: 12/29/22 12:19 Interval history: Reason for visit: Cardiac Catheterization HPI: Julian Wilson is a 72 y.o. male whom we were asked to see at the request of Dr. Petersen for our advise and opinion re: his NSTEMI evaluation and possible cardiac cath, in consultation. Mr. Wilson had a Biotronik pacemaker for complete heart block on 12/03/[address] Arias.? He also has hypertension, diabetes and dyslipidemia.? He had a robotic hemicolectomy 12/10/2022 for colon cancer by Dr. Martin. The patient was readmitted on 12/14/2022 with progressive BUSH and orthopnea secondary to new onset of CHF.? He has been getting furosemide 40 mg IV push b.i.d. and diuresing well.? He has no BUSH w/ minor activity and no PND/orthopnea or edema.?Troponins are elevated, to 0.8.? Denies typical anginal sx. 12/15/22 Echo: EF 40-45%, globally reduced with mid to apical inferior wall severely hypokinetic, diastolic dysfunction with E/e' 22, severe LAE, mild FIGUEROA, mild MR, mild-mod TR, RVSP 43 mmHg, trace pericardial effusion. Troponins:? 0.62, 0.63, 0.68, 0.77, 0.84, 0.62. 12/14/2022 prolonged BMP greater than 30,000. BUN 48, creatinine 1.9, GFR 35, improving? (GFR was running 40-50 slowly in October and November). Hematocrit ranging from 25-33, was 26 12/16/2022. 12/14/2022 chest x-ray:? Moderate to advanced pulmonary edema.? Personally reviewed, agree, pacemaker leads in appropriate position. 12/14/2022 EKG at 1:43 a.m.:? Atrially sensing, ventricular pacing, and normal sinus rhythm.??T-wave inversion noted in V2 and V3. 12/14/2022 EKG at 3:41 p.m.:? Sinus tachycardia rate 112 with ventricular pacing. Both EKGs reviewed personally. Date of service 12/21/2022: Interventional Cardiology asked about possible LHC today. Upon my evaluation, patient is not oriented, is confused, in mittens due to pulling at things, has been aggressive with nursing staff, difficulty laying still. Son at bedside. Discussed with patient's RN regarding his clinical status as well. Date of service 12/29/2022: Interventional Cardiology asked about possible cardiac cath on 12/30. Patient is doing much better now, mental status and delirium is better. Does not require wrist restraints. Patient sitting up in chair at bedside. Feels okay otherwise. No chest pain. Review of Systems Review of Systems: All systems reviewed & are unremarkable except as noted in HPI and below (HPI) Exam Const: General: no acute distress Other: Chronically ill appearing man HENMT: Mouth: Yes moist mucous membranes Eyes: General: appearance normal, both eyes and all related structures Sclera: sclerae normal Neck: Neck: supple Resp: Effort & Inspection: normal respiratory effort Cardio: Rate: regular rate Rhythm: regular rhythm Neuro: Speech: normal speech Psych: Mental Status: mental status grossly normal Affect: normal affect Objective Data Vital Signs Vital Signs: Vital Signs - 24 hr 12/28/22 14:00 12/28/22 16:00 12/28/22 16:00 Temperature 36.4 C Pulse Rate 60 61 Respiratory Rate 20 Blood Pressure 137/75 Pulse Oximetry 100 Oxygen Delivery Room Air 12/28/22 16:00 12/28/22 18:00 12/28/22 19:29 Temperature 36.6 C Pulse Rate 60 60 59 L Respiratory Rate 18 Blood Pressure 139/75 Pulse Oximetry 100 Oxygen
[2022-12-29] MEDS: OLANZapine 5 MG, WATER, STERILE FOR INJECTION 2.1 ML IM (12:38)
--- NOTE | 2022-12-29 12:45 | P.PNNP_ITS ---
Progress Note: A&P Assessment and Plan (1) MARGARITA (acute kidney injury): Code(s): N17.9 - Acute kidney failure, unspecified Status: Acute Assessment and Plan: * resolved * evaluation to date: * urine electrolytes are non pre renal * CPK was not elevated. * CT imaging notes bilateral hydronephrosis, right greater than left. No obstructing stone or mass identified. Bladder is distended. Prostate gland is enlarged. There is nonspecific bilateral perinephric stranding. Findings suspicious for ascending urinary tract infection/pyelonephritis * s/p hernandez catheter placement (12/24/22) with almost immediate return of 950cc urine * UA also suggestive on infection * etiology of MARGARITA due to obstrution +/- infection * continue with IV fluids PRN, Hernandez catheter, and supportive care. * follow trend of repeat labs and UOP (2) Chronic kidney disease, stage 3: Code(s): N18.30 - Chronic kidney disease, stage 3 unspecified Status: Chronic Assessment and Plan: * baseline creatinine runs around 1.3 - 1.7mg/dl over the last few years * this causes him to fluctuate between CKD stage 3A and stage 3B * presumably due to hypertension, diabetes, possibly vascular disease, and age- related changed based on outpatient evaluation: * bland UA * immunofixation negative * normal ultrasound * had been following with Dr. Edward for CKD management (last seen in January 2022) (3) Altered mental status: Code(s): R41.82 - Altered mental status, unspecified Status: Acute Assessment and Plan: * slow improvement/resolving * dementia versus delirium or secondary to infection versus other? * evaluation ongoing * Echo shows no endocarditis. * blood cultures negative so far; urine culture with Margaux. * on cefepime and fluconazole * Neurology following (4) Hypernatremia: Code(s): E87.0 - Hyperosmolality and hypernatremia Status: Acute Assessment and Plan: * related to poor free water intake and post-obstructive diuresis * on 1/2 normal saline IVFs (which is providing some volume as some free water) * will switch to D5W IVFs x 24 hours * follow trend of sodium (5) CHF (congestive heart failure): Code(s): I50.9 - Heart failure, unspecified Status: Acute Assessment and Plan: * though to be due to flash pulmonary edema secondary NSTEMI * Echo (12/15/22) with EF 40-45%, globally reduced with mid to apical inferior wall severely hypokinetic, diastolic dysfunction with mild MR, mild-mod TR, RVSP 43 mmHg * hence a component of systolic and diastolic dysfunction * chest x-ray is better with post-obstructive diuresis * diuretics on hold * follow clinical exam * Cardiology following (6) NSTEMI (non-ST elevated myocardial infarction): Code(s): I21.4 - Non-ST elevation (NSTEMI) myocardial infarction Status: Acute Assessment and Plan: * as noted by trend of troponins * cardiac catheterization deferred due to issues relating to altered mental status, hypokalemia, and MARGARITA/ARF * Echo noted (see #4) * Cardiology following (7) Hypertension: Qualifiers: Hypertension type: essential hypertension Qualified Code(s): I10 - Essential (primary) hypertension Code(s): I10 - Essential (primary) hypertension Status: Chronic Assessment and Plan: * reasonable control * resume oral BP medications as tolerated * follow trend of hemodynamics (8) Mucinous adenocarcinoma of colon: Code(s): C18.9
--- NOTE | 2022-12-29 12:45 | PM.PNNEP ---
Progress Note: A&P Assessment and Plan (1) MARGARITA (acute kidney injury): Code(s): N17.9 - Acute kidney failure, unspecified Status: Acute Assessment and Plan: resolved evaluation to date: urine electrolytes are non pre renal CPK was not elevated. CT imaging notes bilateral hydronephrosis, right greater than left. No obstructing stone or mass identified. Bladder is distended. Prostate gland is enlarged. There is nonspecific bilateral perinephric stranding. Findings suspicious for ascending urinary tract infection/pyelonephritis s/p hernandez catheter placement (12/24/22) with almost immediate return of 950cc urine UA also suggestive on infection etiology of MARGARITA due to obstrution +/- infection continue with IV fluids PRN, Hernandez catheter, and supportive care. follow trend of repeat labs and UOP (2) Chronic kidney disease, stage 3: Code(s): N18.30 - Chronic kidney disease, stage 3 unspecified Status: Chronic Assessment and Plan: baseline creatinine runs around 1.3 - 1.7mg/dl over the last few years this causes him to fluctuate between CKD stage 3A and stage 3B presumably due to hypertension, diabetes, possibly vascular disease, and age-related changed based on outpatient evaluation: bland UA immunofixation negative normal ultrasound had been following with Dr. Edward for CKD management (last seen in January 2022) (3) Altered mental status: Code(s): R41.82 - Altered mental status, unspecified Status: Acute Assessment and Plan: slow improvement/resolving dementia versus delirium or secondary to infection versus other? evaluation ongoing Echo shows no endocarditis. blood cultures negative so far; urine culture with Margaux. on cefepime and fluconazole Neurology following (4) Hypernatremia: Code(s): E87.0 - Hyperosmolality and hypernatremia Status: Acute Assessment and Plan: related to poor free water intake and post-obstructive diuresis on 1/2 normal saline IVFs (which is providing some volume as some free water) will switch to D5W IVFs x 24 hours follow trend of sodium (5) CHF (congestive heart failure): Code(s): I50.9 - Heart failure, unspecified Status: Acute Assessment and Plan: though to be due to flash pulmonary edema secondary NSTEMI Echo (12/15/22) with EF 40-45%, globally reduced with mid to apical inferior wall severely hypokinetic, diastolic dysfunction with mild MR, mild-mod TR, RVSP 43 mmHg hence a component of systolic and diastolic dysfunction chest x-ray is better with post-obstructive diuresis diuretics on hold follow clinical exam Cardiology following (6) NSTEMI (non-ST elevated myocardial infarction): Code(s): I21.4 - Non-ST elevation (NSTEMI) myocardial infarction Status: Acute Assessment and Plan: as noted by trend of troponins cardiac catheterization deferred due to issues relating to altered mental status, hypokalemia, and MARGARITA/ARF Echo noted (see #4) Cardiology following (7) Hypertension: Qualifiers: Hypertension type: essential hypertension Qualified Code(s): I10 - Essential (primary) hypertension Code(s): I10 - Essential (primary) hypertension Status: Chronic Assessment and Plan: reasonable control resume oral BP medications as tolerated follow trend of hemodynamics (8) Mucinous adenocarcinoma of colon: Code(s): C18.9 - Malignant neoplasm of colon, unspecified Status: Chronic Assessment and Plan: s/p colectomy in November with pathology noted portacath placed 12/20 F/U with oncology as outpatient for chemotherapy (9) Type 2 diabetes mellitus: Code(s): E11.9 - Type 2 diabetes mellitus without complications Status: Chronic Assessment and Plan: follow accu-checks glycemic control per hospitalists Not much else to add -- will continue to follow intermit
[2022-12-29 13:46] LABS: Glucose Point of Care 222 mg/dl (65-105)
--- NOTE | 2022-12-29 13:49 | PCOTNOTE ---
Attempted to see pt. for occupational therapy re-evaluation. Per nursing, pt. is currently in restraints, is not appropriate for therapy services at this time and requested pt. not be seen. Following.
[2022-12-29] MEDS: lamoTRIgine 100 MG TABLET PO (16:15)
--- NOTE | 2022-12-29 16:15 | PC.NURSE ---
On 12/29/22, the student, Zohra KING [facility], provided care and completed [facility] documentation on this patient. I have reviewed the student's documentation and agree with the findings.
[2022-12-29 16:46] LABS: Glucose Point of Care 55 mg/dl (65-105)
[2022-12-29 17:40] LABS: Glucose Point of Care 116 mg/dl (65-105)
[2022-12-29] MEDS: QUEtiapine FUMARATE 25 MG TABLET PO (20:42)
[2022-12-29] MEDS: PRAZOSIN HCL 1 MG CAPSULE PO (20:42)
[2022-12-29] MEDS: SIMVASTATIN 20 MG TABLET 40 MG PO (20:42)
[2022-12-29 21:12] LABS: Glucose Point of Care 160 mg/dl (65-105)
[2022-12-30] VITALS (15 sets, daily range): BP systolic 135–161; BP diastolic 58–101; PULSE 60–120; RESP 12–20; TEMP 36–36.6; O2SAT 100
[2022-12-30 04:45] LABS: Basophils Percent Auto 0.4 % (0.2-1.2); Eosinophils Absolute Auto 0.2 K/mm3 (0-0.3); Eosinophils Percent Auto 2.7 % (0-4.4); Hematocrit 34.6 % (42.0-52.0); Hemoglobin 9.6 g/dL (14.0-18.0); Immature Granulocyte Absolute 0.03 K/mm3 (0.00-0.031); Immature Granulocyte Percent A 0.4 % (0-0.5); Lymphocytes Absolute Auto 0.69 K/mm3 (0.9-3.2); Lymphocytes Percent Auto 10.3 % (18.3-44.2); Mean Corpuscular HGB Conc 27.7 g/dl (32-36); Mean Corpuscular Hemoglobin 25.1 pg (26-34); Mean Corpuscular Volume 90.6 fl (80-100); Mean Platelet Volume 10.4 fl (7.4-10.4); Monocytes Absolute Auto 0.4 K/mm3 (0.1-0.6); Monocytes Percent Auto 6.1 % (2.6-8.5); Neutrophils Absolute Auto 5.4 K/mm3 (1.3-6.7); Neutrophils Percent Auto 80.1 % (45.5-73.1); Platelet Count Result 200 k/mm3 (150-375); Red Blood Count 3.82 M/mm3 (4.6-6.20); Red Cell Distribution Width 23.4 % (11.5-14.5); White Blood Count 6.7 K/mm3 (4.5-10.0)
[2022-12-30 04:54] LABS: Alanine Aminotransferase 51 U/L (6-50); Alkaline Phosphatase 72 U/L (38-126); Anion Gap 3 mmol/L (8-16); Aspartate Amino Transferase 78 U/L (17-59); Bilirubin,Total 0.4 mg/dL (0.2-1.3); Blood Urea Nitrogen 19 mg/dL (9-20); Calcium 8.5 mg/dL (8.4-10.2); Carbon Dioxide 29 mmol/L (22-30); Chloride 112 mmol/L (98-107); Estimated CRCL calculation 35 ml/min; Estimated Glomerular Filt Rate 54; Glucose 67 mg/dL (65-110); Potassium 3.3 mmol/L (3.4-5.0); Sodium 144 mmol/L (137-145)
[2022-12-30 05:33] LABS: Anisocytosis 1+ (NORMAL); Hypochromasia 2+ (NORMAL); Platelet Estimate Adequate (Adequate); Poikilocytosis 2+ (NORMAL)
[2022-12-30 05:34] LABS: Schistocytes Rare (NORMAL)
[2022-12-30] MEDS: hydrALAZINE HCL 25 MG TABLET PO (06:03)
[2022-12-30 06:08] LABS: Glucose Point of Care 105 mg/dl (65-105)
[2022-12-30 07:51] LABS: Glucose Point of Care 95 mg/dl (65-105)
--- NOTE | 2022-12-30 08:10 | PM.PNCARD ---
Progress Note: A&P Assessment and Plan (1) CHF (congestive heart failure): Code(s): I50.9 - Heart failure, unspecified Status: Acute Assessment and Plan: Flash pulm edema secondary to NSTEMI. Acute systolic and diastolic heart failure. NTproBNP >41221. CXR shows significant pulm edema. 12/15/22 Echo: EF 40-45%, globally reduced with mid to apical inferior wall severely hypokinetic, diastolic dysfunction with E/e' 22, severe LAE, mild FIGUEROA, mild MR, mild-mod TR, RVSP 43 mmHg, trace pericardial effusion. Hold Lasix 40 mg PO daily as he appears euvolemic. Monitor electrolytes and renal function. He has possible pneumonia also on CT chest. Manage as per hospitalist for pneumonia. (2) Elevated troponin: Code(s): R79.89 - Other specified abnormal findings of blood chemistry Status: Acute Assessment and Plan: Troponin peaked at 0.84. Probably has underlying CAD. Heparin drip discontinued as troponin peaked 2 days ago. Discuss LHC and he is agreeable to it. Suspect he has multivessel CAD, but won't know until cath is done. Consulted [facility] for possible LHC and was seen by Dr. Lawson/Dr. Tanner. LHC not performed on 12/17/22 due to hypokalemia. Surgery placed dayami-cath 12/20/22. He did not have LHC 12/21/22 due to confusion/uncooperative and ARF. HCG following when he is deemed ready for LHC. Spoke with patient's yesterday about LHC as patient requested, and she and her son request that patient have LHC. Spoke with Dr. Tanner, keep NPO for LHC later today. (3) MARGARITA (acute kidney injury): Code(s): N17.9 - Acute kidney failure, unspecified Status: Acute Assessment and Plan: Worsened. Monitor as patient is being diuresed. He has possible bladder outlet obstruction. Manage as per urologist. (4) Pacemaker: Code(s): Z95.0 - Presence of cardiac pacemaker Status: Acute Assessment and Plan: Interrogated Biotronik pacemaker showing evidence of PMT and PAT. Bi[employer]ron[employer] rep came in 12/14/22 and turned on Auto-PVARP to prevent PMT. Started Metoprolol to treat PAT. (5) Hyperlipidemia: Qualifiers: Hyperlipidemia type: mixed hyperlipidemia Qualified Code(s): E78.2 - Mixed hyperlipidemia Code(s): E78.5 - Hyperlipidemia, unspecified Status: Acute Assessment and Plan: He is back on Simvastatin as liver enzymes decreasing. (6) Hypertension: Qualifiers: Hypertension type: essential hypertension Qualified Code(s): I10 - Essential (primary) hypertension Code(s): I10 - Essential (primary) hypertension Status: Chronic Assessment and Plan: High. On Hydralazine 25 mg PO TID with parameters. Start Amlodipine 5 mg daily. On Heparin 5,000 units SQ Q12 HR for DVT prophylaxis. (7) Transaminitis: Code(s): R74.01 - Elevation of levels of liver transaminase levels Status: Acute Assessment and Plan: Shock liver probably related to CHF with passive congestion. Improving liver enzymes. Subjective Date/time seen: 12/30/22 08:10 Interval history: Denies chest pain or sob today. He is oriented to name this morning thinks he is Karlo and it is 2013 and not answering questions appropriately. He does follow commands and is glad to be having cardiac cath today. Exam Const: General: cooperative, healthy appearing, comfortable and confusion Orientation/consciousness: oriented to person and confusion Resp: Auscultation: clear to auscultation bilaterally, no crackles, no rales, no rhonchi, no wheezes (Slight scattered wheezing) and lung sounds not diminished Cardio: Rate: regular rate Rhythm: regular rhythm Heart sounds: no murmurs Peripheral pulses: dorsalis pedis present Neuro: General: oriented to person, oriented to place, oriented to time and confusion Extrem: Right lower extremity: no edema Left lower extremity: no edema Objective Data Vital Signs Vital Signs: Vital Signs - 24 hr
--- NOTE | 2022-12-30 09:10 | P.PNIM_ITS ---
Progress Note: A&P Assessment and Plan (1) Delirium: Code(s): R41.0 - Disorientation, unspecified Status: Acute Assessment and Plan: Acute metabolic encephalopathy superimposed with dementia, Worsening mental status is likely secondary to acute illness, hospitalization, MARGARITA, hypernatremia, uncontrolled diabetes, possibly psychoactive drugs continue correcting electrolytes, diabetes control improved, avoid psychoactive drugs as possible, Patient is alert, follow commands, not oriented to place and time, possible baseline Patient has agitation due to acute delirium intermittently. Possible due to comorbidities and dementia. neurologist is consulted, follow-up recommendations (2) Pneumonia: Code(s): J18.9 - Pneumonia, unspecified organism Status: Acute Assessment and Plan: * Right basilar by CXR * Completed cefepime * c/w fluconazole 100 mg daily per general surgeon * and monitor WBC as he is hydrated * leukocytosis resolves (3) Hypernatremia: Code(s): E87.0 - Hyperosmolality and hypernatremia Status: Acute Assessment and Plan: * Due to prior loop diuretic, poor po intake, hyperglycemia * Furosemide on hold * 12/25 swallowing eval due to choking episode overnight * 12/25 IV 0.45% NS, intensify diabetes control, f/u lab * 12/26 KCL 40 mEq in 1000 ml D5/W over 10 hours, now BUN creatinine trending down Appreciate nephrology consultation, follow-up recommendations now Na 144 on 12/29 * (4) Type 2 diabetes mellitus: Code(s): E11.9 - Type 2 diabetes mellitus without complications Status: Chronic Assessment and Plan: * 12/25/22 Add glargine insulin 25 U q AM * 12/25/22 Low-dose SSI while NPO * 12/26 BS 132, continue current regimen (5) Dementia: Code(s): F03.90 - Unspecified dementia, unspecified severity, without behavioral disturbance, psychotic disturbance, mood disturbance, and anxiety Status: Acute Assessment and Plan: * Current mental status worse than baseline, likely due to delirium (6) Acute systolic (congestive) heart failure: Code(s): I50.21 - Acute systolic (congestive) heart failure Status: Acute Assessment and Plan: * Clinically resolved and now volume depleted * Hold Lasix 40 mg PO daily as he appears euvolemic.? (7) NSTEMI (non-ST elevated myocardial infarction): Code(s): I21.4 - Non-ST elevation (NSTEMI) myocardial infarction Status: Acute Assessment and Plan: * Consulted public works director, cardiac received plans left heart catheterization, suspecting multiple vessel coronary artery disease * Continue current medication management per public works director * dc heparin drip per public works director * Plans cardiac catheterization 12/30 (8) Mucinous adenocarcinoma of colon: Code(s): C18.9 - Malignant neoplasm of colon, unspecified Status: Chronic Assessment and Plan: * Stage 4 by hx see * Status post right colectomy * Given current functional status and medical issues intermediate to [employer] prognosis is very poor (9) MARGARITA (acute kidney injury): Code(s): N17.9 - Acute kidney failure, unspecified Status: Acute Assessment and Plan: * 12/25 creatinine stable at 3.3 * 1.3 now after hydration (10) Transaminitis: Code(s): R74.01 - Elevation of levels of liver transaminase levels Status: Acute Assessment and Plan: * Resolved (11) Pacemaker: Code(s): Z95.0 - Presence of cardiac pacemaker Status: Acute Assessment and Plan: * Functioning by t
--- NOTE | 2022-12-30 09:10 | PM.IMPN ---
Progress Note: A&P Assessment and Plan (1) Delirium: Code(s): R41.0 - Disorientation, unspecified Status: Acute Assessment and Plan: Acute metabolic encephalopathy superimposed with dementia, Worsening mental status is likely secondary to acute illness, hospitalization, MARGARITA, hypernatremia, uncontrolled diabetes, possibly psychoactive drugs continue correcting electrolytes, diabetes control improved, avoid psychoactive drugs as possible, Patient is alert, follow commands, not oriented to place and time, possible baseline Patient has agitation due to acute delirium intermittently. Possible due to comorbidities and dementia. neurologist is consulted, follow-up recommendations (2) Pneumonia: Code(s): J18.9 - Pneumonia, unspecified organism Status: Acute Assessment and Plan: Right basilar by CXR Completed cefepime c/w fluconazole 100 mg daily per general surgeon and monitor WBC as he is hydrated leukocytosis resolves (3) Hypernatremia: Code(s): E87.0 - Hyperosmolality and hypernatremia Status: Acute Assessment and Plan: Due to prior loop diuretic, poor po intake, hyperglycemia Furosemide on hold 12/25 swallowing eval due to choking episode overnight 12/25 IV 0.45% NS, intensify diabetes control, f/u lab 12/26 KCL 40 mEq in 1000 ml D5/W over 10 hours, now BUN creatinine trending down Appreciate nephrology consultation, follow-up recommendations now Na 144 on 12/29 (4) Type 2 diabetes mellitus: Code(s): E11.9 - Type 2 diabetes mellitus without complications Status: Chronic Assessment and Plan: 12/25/22 Add glargine insulin 25 U q AM 12/25/22 Low-dose SSI while NPO 12/26 BS 132, continue current regimen (5) Dementia: Code(s): F03.90 - Unspecified dementia, unspecified severity, without behavioral disturbance, psychotic disturbance, mood disturbance, and anxiety Status: Acute Assessment and Plan: Current mental status worse than baseline, likely due to delirium (6) Acute systolic (congestive) heart failure: Code(s): I50.21 - Acute systolic (congestive) heart failure Status: Acute Assessment and Plan: Clinically resolved and now volume depleted Hold Lasix 40 mg PO daily as he appears euvolemic.? (7) NSTEMI (non-ST elevated myocardial infarction): Code(s): I21.4 - Non-ST elevation (NSTEMI) myocardial infarction Status: Acute Assessment and Plan: Consulted recovery engineer, cardiac received plans left heart catheterization, suspecting multiple vessel coronary artery disease Continue current medication management per recovery engineer dc heparin drip per recovery engineer Plans cardiac catheterization 12/30 (8) Mucinous adenocarcinoma of colon: Code(s): C18.9 - Malignant neoplasm of colon, unspecified Status: Chronic Assessment and Plan: Stage 4 by hx see Status post right colectomy Given current functional status and medical issues intermediate to intermediate card tender prognosis is very poor (9) MARGARITA (acute kidney injury): Code(s): N17.9 - Acute kidney failure, unspecified Status: Acute Assessment and Plan: 12/25 creatinine stable at 3.3 1.3 now after hydration (10) Transaminitis: Code(s): R74.01 - Elevation of levels of liver transaminase levels Status: Acute Assessment and Plan: Resolved (11) Pacemaker: Code(s): Z95.0 - Presence of cardiac pacemaker Status: Acute Assessment and Plan: Functioning by telemetry (12) Chronic kidney disease, stage 3: Code(s): N18.30 - Chronic kidney disease, stage 3 unspecified Status: Chronic Assessment and Plan: Baseline creatinine 1.4-1.6 (13) Leukocytosis: Code(s): D72.829 - Elevated white blood cell count, unspecified Status: Acute Assessment and Plan: Likely increased due to hemoconcentration 12/26 relatively stable at 19.5 (14) SOHAN
--- NOTE | 2022-12-30 10:19 | PM.PNCARD ---
Progress Note: A&P Assessment and Plan (1) Elevated troponin: Code(s): R79.89 - Other specified abnormal findings of blood chemistry Status: Acute Assessment and Plan: Interventional Cardiology has been consulted for [facility] by Dr. Petersen. Yesterday, I had a discussion with the patient regarding cardiac catheterization, including indication for procedure, procedure details, risks vs benefits, alternative management options. Patient understood and was agreeable to cath. Planned for cath on 12/30. However, this morning, patient is delirious again. He was put back in restraints this morning, however, he got himself out of the restraints and then fell out of bed, has an abrasion on his right knee. Patient keeps pulling at his hernandez catheter this morning. RN reports that patient will not let them touch him or help him. He states that he does not want to accept my help either at this time. Given all this, will not proceed with cardiac catheterization. Cardiac cath canceled. Recommendations/plan discussed with referring Inspector, Dr. Petersen. Subjective Date/time seen: 12/30/22 10:19 Interval history: Reason for visit: Cardiac Catheterization HPI: Julian Wilson is a 72 y.o. male whom we were asked to see at the request of Dr. Petersen for our advise and opinion re: his NSTEMI evaluation and possible cardiac cath, in consultation. Mr. Wilson had a Biotronik pacemaker for complete heart block on 12/03/[address] Arias.? He also has hypertension, diabetes and dyslipidemia.? He had a robotic hemicolectomy 12/10/[address] for [address] cancer [address] Dr. Martin. The patient was readmitted on 12/14/2022 with progressive BUSH and orthopnea secondary to new onset of CHF.? He has been getting furosemide 40 mg IV push b.i.d. and diuresing well.? He has no BUSH w/ minor activity and no PND/orthopnea or edema.?Troponins are elevated, to 0.8.? Denies typical anginal sx. 12/15/22 Echo: EF 40-45%, globally reduced with mid to apical inferior wall severely hypokinetic, diastolic dysfunction with E/e' 22, severe LAE, mild FIGUEROA, mild MR, mild-mod TR, RVSP 43 mmHg, trace pericardial effusion. Troponins:? 0.62, 0.63, 0.68, 0.77, 0.84, 0.62. 12/14/2022 prolonged BMP greater than 30,000. BUN 48, creatinine 1.9, GFR 35, improving? (GFR was running 40-50 slowly in October and November). Hematocrit ranging from 25-33, was 26 12/16/2022. 12/14/2022 chest x-ray:? Moderate to advanced pulmonary edema.? Personally reviewed, agree, pacemaker leads in appropriate position. 12/14/2022 EKG at 1:43 a.m.:? Atrially sensing, ventricular pacing, and normal sinus rhythm.??T-wave inversion noted in V2 and V3. 12/14/2022 EKG at 3:41 p.m.:? Sinus tachycardia rate 112 with ventricular pacing. Both EKGs reviewed personally. Date of service 12/21/2022: Interventional Cardiology asked about possible LHC today. Upon my evaluation, patient is not oriented, is confused, in mittens due to pulling at things, has been aggressive with nursing staff, difficulty laying still. Son at bedside. Discussed with patient's RN regarding his clinical status as well. Date of service 12/29/2022: Interventional Cardiology asked about possible cardiac cath on 12/30. Patient is doing much better now, mental status and delirium is better. Does not require wrist restraints. Patient sitting up in chair at bedside. Feels okay otherwise. No chest pain. Date of service 12/30: More delirious today. He was put back in restraints, however, he got himself out of the restraints and then fell out of bed, has an abrasion on his right knee. Patient keeps pulling at his hernandez catheter this morning. He states that he does not want to accept my help at this time. Exam Const: General: no acute distress Other: Chronically ill appearing man HENMT: Mouth: Yes moist mucous membranes Eyes: General: appearance normal, both eyes and all related structures Sclera: sclerae normal Neck: Neck: supple Resp: Effort & Inspection: normal respi
[2022-12-30] MEDS: OLANZapine 5 MG, WATER, STERILE FOR INJECTION 2.1 ML IM ×2 (11:41→17:46)
[2022-12-30 12:16] LABS: Glucose Point of Care 91 mg/dl (65-105)
--- NOTE | 2022-12-30 13:32 | PCPTNOTE ---
RN advised PT to hold therapy at this time due to patient's continued confusion requiring restraints.
--- NOTE | 2022-12-30 13:38 | PCOTNOTE ---
Pt. unable to be seen for therapy re-evaluation on this date due to continued confusion and requirement for restraints . Following, with plans to follow up with hospitalist if pt. continues to be unable to participate.
--- NOTE | 2022-12-30 15:46 | PM.PNGS ---
Progress Note: A&P Assessment and Plan (1) Altered mental status: Code(s): R41.82 - Altered mental status, unspecified Status: Acute Assessment and Plan: Still dealing with confusion and was more agitated today. Unable to do his cardiac cath still today. Continue management as per hospitalist service. (2) Mucinous adenocarcinoma of colon: Code(s): C18.9 - Malignant neoplasm of colon, unspecified Status: Chronic Assessment and Plan: Incisions healing well. Doing well from a surgical standpoint and his acute problems are medical issues. Once he is more compliant and his mentation improves, we could consider reassessing his swallow to see if he could have a regular diet rather than pureed and thickened liquids. Plan I have discussed the patient's case and plan of care with Dr. Martin. Subjective Subjective Date/Time Seen: 12/30/22 15:46 Interval history: Patient seen today and again is confused. He is having bouts of confusion and today even agitation almost daily. His cardiac cath was again cancelled. He is alert and cooperative with me, but is very confused and only oriented x 1. He is tolerating a pureed diet. No other complaints at this time. Review of Systems Review of Systems: ROS unobtainable: Yes unobtainable due to mental status Exam Const: General: comfortable and confusion Chest: Other: Right chest port incision healing well, no erythema or drainage GI: Inspection: non-distended and incision (incisions dry and healing well, no erythema) GI Palp: Yes Soft to palpation and No Tenderness to palpation present (GI) Auscultation: normal bowel sounds Objective Data Vital Signs Vital Signs: Vital Signs - 24 hr 12/29/22 16:09 12/29/22 16:00 12/29/22 16:00 Temperature 96.2 F L Pulse Rate 60 60 Respiratory Rate 18 Blood Pressure 136/77 Pulse Oximetry 100 Oxygen Delivery Room Air 12/29/22 19:39 12/29/22 18:00 12/29/22 20:42 Temperature 97.3 F L Pulse Rate 64 60 60 Respiratory Rate 16 Blood Pressure 139/95 H Pulse Oximetry 99 Oxygen Delivery 12/29/22 20:00 12/29/22 23:12 12/29/22 20:00 Temperature 97 F L Pulse Rate 60 60 Respiratory Rate 20 Blood Pressure 128/59 L Pulse Oximetry 98 Oxygen Delivery Room Air 12/29/22 22:00 12/30/22 00:00 12/30/22 00:00 Temperature Pulse Rate 60 60 Respiratory Rate Blood Pressure Pulse Oximetry Oxygen Delivery Room Air 12/30/22 04:21 12/30/22 04:00 12/30/22 04:00 Temperature 97.6 F Pulse Rate 60 62 Respiratory Rate 16 Blood Pressure 157/78 H Pulse Oximetry 100 Oxygen Delivery Room Air 12/30/22 05:30 12/30/22 08:00 12/30/22 09:58 Temperature 97.8 F Pulse Rate 60 120 H 70 Respiratory Rate 12 14 Blood Pressure 135/58 L 148/88 H Pulse Oximetry 100 Oxygen Delivery 12/30/22 12:00 Temperature 96.8 F L Pulse Rate 65 Respiratory Rate 20 Blood Pressure 156/86 H Pulse Oximetry 100 Oxygen Delivery Intake/Output Intake/Output: Intake & Output 12/27/22 12/28/22 12/29/22 12/30/22 23:59 23:59 23:59 23:59 Intake Total 2540 3405 660 100 Output Total 1000 1375 1900 600 Balance 1540 2030 -1240 -500 Meds/Results Medications: Active Medications Generic Name Dose Route Start Last Admin Trade Name Freq PRN Reason Stop Dose Admin Acetaminophen 650 mg 12/21/22 16:08 12/29/22 13:20 Acetaminophen 325 Mg Tablet PO 650 mg Q4H PRN Administration Headache Albuterol 2 puff 12/14/22 09:09 Albuterol Sulfate (*Sp) Aerosol 1 Puff INHALATION QID PRN shortness of breath or wheezing Amlodipine Besylate 5 mg 12/26/22 09:00 12/30/22 11:10 Amlodipine Besylate 5 Mg Tablet PO Not Given Q[facility] Aspirin 81 mg 12/15/22 08:00 12/30/22 11:10 Aspirin 81 Mg Chewable Tablet PO Not Given DAILY@0800 SUMANTH Bupropion HCl 300 mg 12/14/22 09:00 12/30/22 11:10 Bupropion Hcl Xl (24 Hr) 150 Mg T
[2022-12-30 20:47] LABS: Glucose Point of Care 81 mg/dl (65-105)
[2022-12-31] VITALS (8 sets, daily range): BP systolic 123–151; BP diastolic 78–99; PULSE 64–119; RESP 16–24; TEMP 36.6–36.8; O2SAT 100
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
[2022-12-31] MEDS: OLANZapine 5 MG, WATER, STERILE FOR INJECTION 2.1 ML IM (03:53)
--- NOTE | 2022-12-31 07:36 | PM.PNCARD ---
Progress Note: A&P Assessment and Plan (1) CHF (congestive heart failure): Code(s): I50.9 - Heart failure, unspecified Status: Acute Assessment and Plan: Flash pulm edema secondary to NSTEMI. Acute systolic and diastolic heart failure. NTproBNP >21393. CXR shows significant pulm edema. 12/15/22 Echo: EF 40-45%, globally reduced with mid to apical inferior wall severely hypokinetic, diastolic dysfunction with E/e' 22, severe LAE, mild FIGUEROA, mild MR, mild-mod TR, RVSP 43 mmHg, trace pericardial effusion. Hold Lasix 40 mg PO daily as he appears euvolemic. Monitor electrolytes and renal function. He has possible pneumonia also on CT chest. Manage as per hospitalist for pneumonia. (2) Elevated troponin: Code(s): R79.89 - Other specified abnormal findings of blood chemistry Status: Acute Assessment and Plan: Troponin peaked at 0.84. Probably has underlying CAD. Heparin drip discontinued as troponin peaked 2 days ago. Discuss LHC and he is agreeable to it. Suspect he has multivessel CAD, but won't know until cath is done. Consulted [facility] [place] for possible LHC and was seen by Dr. Lawson/Dr. Tanner. LHC not performed on 12/17/22 due to hypokalemia. Surgery placed dayami-cath 12/20/22. He did not have LHC 12/21/22 due to confusion/uncooperative and ARF. HCG following when he is deemed ready for LHC. Spoke with patient's about LHC as patient requested, and she and her son request that patient have LHC. Unfortunately due to patient's mental status he is unable to have LHC. Spoke with patient's about this and she is in agreement. Will treat medically as he is stable from cardiovascular standpoint. Start Clopidogrel 75 mg daily. (3) MARGARITA (acute kidney injury): Code(s): N17.9 - Acute kidney failure, unspecified Status: Acute Assessment and Plan: Worsened. Monitor as patient is being diuresed. He has possible bladder outlet obstruction. Manage as per urologist. (4) Pacemaker: Code(s): Z95.0 - Presence of cardiac pacemaker Status: Acute Assessment and Plan: Interrogated Biotronik pacemaker showing evidence of PMT and PAT. Biotronik rep came in 12/14/22 and turned on Auto-PVARP to prevent PMT. Started Metoprolol to treat PAT. (5) Hyperlipidemia: Qualifiers: Hyperlipidemia type: mixed hyperlipidemia Qualified Code(s): E78.2 - Mixed hyperlipidemia Code(s): E78.5 - Hyperlipidemia, unspecified Status: Acute Assessment and Plan: He is back on Simvastatin as liver enzymes decreasing. (6) Hypertension: Qualifiers: Hypertension type: essential hypertension Qualified Code(s): I10 - Essential (primary) hypertension Code(s): I10 - Essential (primary) hypertension Status: Chronic Assessment and Plan: High. On Hydralazine 25 mg PO TID with parameters. Start Amlodipine 5 mg daily. On Heparin 5,000 units SQ Q12 HR for DVT prophylaxis. (7) Transaminitis: Code(s): R74.01 - Elevation of levels of liver transaminase levels Status: Acute Assessment and Plan: Shock liver probably related to CHF with passive congestion. Improving liver enzymes. Subjective Date/time seen: 12/31/22 07:36 Interval history: Denies chest pain or sob today. He is oriented to name this morning thinks he is Karlo and it is 1913 and not answering questions appropriately. Exam Const: General: confusion Orientation/consciousness: oriented to person and confusion Resp: Auscultation: clear to auscultation bilaterally, no crackles, no rales, no rhonchi, no wheezes (Slight scattered wheezing) and lung sounds not diminished Cardio: Rate: regular rate Rhythm: regular rhythm Heart sounds: no murmurs Peripheral pulses: dorsalis pedis present Neuro: General: oriented to person, oriented to place, oriented to time and confusion Extrem: Right lower extremity: no edema Left lower extremity: no edema Objective Data
[2022-12-31 08:14] LABS: Glucose Point of Care 163 mg/dl (65-105)
[2022-12-31 08:44] LABS: Basophils Percent Auto 0.5 % (0.2-1.2); Eosinophils Absolute Auto 0.1 K/mm3 (0-0.3); Eosinophils Percent Auto 1.7 % (0-4.4); Hematocrit 40.1 % (42.0-52.0); Hemoglobin 11.1 g/dL (14.0-18.0); Immature Granulocyte Absolute 0.03 K/mm3 (0.00-0.031); Immature Granulocyte Percent A 0.4 % (0-0.5); Lymphocytes Percent Auto 9.2 % (18.3-44.2); Mean Corpuscular HGB Conc 27.7 g/dl (32-36); Mean Corpuscular Hemoglobin 25.3 pg (26-34); Mean Corpuscular Volume 91.3 fl (80-100); Mean Platelet Volume 10.4 fl (7.4-10.4); Monocytes Absolute Auto 0.5 K/mm3 (0.1-0.6); Monocytes Percent Auto 6.2 % (2.6-8.5); Neutrophils Absolute Auto 6.3 K/mm3 (1.3-6.7); Platelet Count Result 220 k/mm3 (150-375); Red Blood Count 4.39 M/mm3 (4.6-6.20); Red Cell Distribution Width 22.5 % (11.5-14.5); White Blood Count 7.6 K/mm3 (4.5-10.0)
[2022-12-31 08:53] LABS: Alanine Aminotransferase 42 U/L (6-50); Albumin Level 3.4 g/dL (3.5-5.1); Alkaline Phosphatase 89 U/L (38-126); Anion Gap 10 mmol/L (8-16); Aspartate Amino Transferase 45 U/L (17-59); Bilirubin,Total 0.5 mg/dL (0.2-1.3); Blood Urea Nitrogen 15 mg/dL (9-20); Calcium 8.9 mg/dL (8.4-10.2); Carbon Dioxide 28 mmol/L (22-30); Chloride 109 mmol/L (98-107); Estimated CRCL calculation 33 ml/min; Estimated Glomerular Filt Rate 50; Glucose 157 mg/dL (65-110); Potassium 3.7 mmol/L (3.4-5.0); Sodium 147 mmol/L (137-145)
--- NOTE | 2022-12-31 10:13 | P.PNIM_ITS ---
Progress Note: A&P Assessment and Plan (1) Delirium: Code(s): R41.0 - Disorientation, unspecified Status: Acute Assessment and Plan: Acute metabolic encephalopathy superimposed with dementia, Worsening mental status is likely secondary to acute illness, hospitalization, MARGARITA, hypernatremia, uncontrolled diabetes, possibly psychoactive drugs continue correcting electrolytes, diabetes control improved, avoid psychoactive drugs as possible, Patient is alert, follow commands, not oriented to place and time, possible baseline Patient has agitation due to acute delirium intermittently. Possible due to comorbidities and dementia. neurologist is consulted, follow-up recommendations (2) Pneumonia: Code(s): J18.9 - Pneumonia, unspecified organism Status: Acute Assessment and Plan: * Right basilar by CXR * Completed cefepime * c/w fluconazole 100 mg daily per general surgeon * and monitor WBC as he is hydrated * leukocytosis resolves (3) Hypernatremia: Code(s): E87.0 - Hyperosmolality and hypernatremia Status: Acute Assessment and Plan: * Due to prior loop diuretic, poor po intake, hyperglycemia * Furosemide on hold * 12/25 swallowing eval due to choking episode overnight * 12/25 IV 0.45% NS, intensify diabetes control, f/u lab * 12/26 KCL 40 mEq in 1000 ml D5/W over 10 hours, now BUN creatinine trending down Appreciate nephrology consultation, follow-up recommendations now Na 147 on 12/31 * (4) Type 2 diabetes mellitus: Code(s): E11.9 - Type 2 diabetes mellitus without complications Status: Chronic Assessment and Plan: * 12/25/22 Add glargine insulin 25 U q AM * 12/25/22 Low-dose SSI while NPO * 12/26 BS 132, continue current regimen (5) Dementia: Code(s): F03.90 - Unspecified dementia, unspecified severity, without behavioral disturbance, psychotic disturbance, mood disturbance, and anxiety Status: Acute Assessment and Plan: * Current mental status worse than baseline, likely due to delirium (6) Acute systolic (congestive) heart failure: Code(s): I50.21 - Acute systolic (congestive) heart failure Status: Acute Assessment and Plan: * Clinically resolved and now volume depleted * Hold Lasix 40 mg PO daily as he appears euvolemic.? (7) NSTEMI (non-ST elevated myocardial infarction): Code(s): I21.4 - Non-ST elevation (NSTEMI) myocardial infarction Status: Acute Assessment and Plan: * Consulted nanoelectronics engineer, cardiac received plans left heart catheterization, suspecting multiple vessel coronary artery disease * Continue current medication management per nanoelectronics engineer * dc heparin drip per nanoelectronics engineer * Planed cardiac catheterization 12/30, but canceled due to agitation (8) Mucinous adenocarcinoma of colon: Code(s): C18.9 - Malignant neoplasm of colon, unspecified Status: Chronic Assessment and Plan: * Stage 4 by hx see * Status post right colectomy * Given current functional status and medical issues intermediate to [facility] prognosis is very poor (9) MARGARITA (acute kidney injury): Code(s): N17.9 - Acute kidney failure, unspecified Status: Acute Assessment and Plan: * 12/25 creatinine stable at 3.3 * 1.3 now after hydration (10) Transaminitis: Code(s): R74.01 - Elevation of levels of liver transaminase levels Status: Acute Assessment and Plan: * Resolved (11) Pacemaker: Code(s): Z95.0 - Presence of cardiac pacemaker Status: Acute Asse
--- NOTE | 2022-12-31 10:13 | PM.IMPN ---
Progress Note: A&P Assessment and Plan (1) Delirium: Code(s): R41.0 - Disorientation, unspecified Status: Acute Assessment and Plan: Acute metabolic encephalopathy superimposed with dementia, Worsening mental status is likely secondary to acute illness, hospitalization, MARGARITA, hypernatremia, uncontrolled diabetes, possibly psychoactive drugs continue correcting electrolytes, diabetes control improved, avoid psychoactive drugs as possible, Patient is alert, follow commands, not oriented to place and time, possible baseline Patient has agitation due to acute delirium intermittently. Possible due to comorbidities and dementia. neurologist is consulted, follow-up recommendations (2) Pneumonia: Code(s): J18.9 - Pneumonia, unspecified organism Status: Acute Assessment and Plan: Right basilar by CXR Completed cefepime c/w fluconazole 100 mg daily per general surgeon and monitor WBC as he is hydrated leukocytosis resolves (3) Hypernatremia: Code(s): E87.0 - Hyperosmolality and hypernatremia Status: Acute Assessment and Plan: Due to prior loop diuretic, poor po intake, hyperglycemia Furosemide on hold 12/25 swallowing eval due to choking episode overnight 12/25 IV 0.45% NS, intensify diabetes control, f/u lab 12/26 KCL 40 mEq in 1000 ml D5/W over 10 hours, now BUN creatinine trending down Appreciate nephrology consultation, follow-up recommendations now Na 147 on 12/31 (4) Type 2 diabetes mellitus: Code(s): E11.9 - Type 2 diabetes mellitus without complications Status: Chronic Assessment and Plan: 12/25/22 Add glargine insulin 25 U q AM 12/25/22 Low-dose SSI while NPO 12/26 BS 132, continue current regimen (5) Dementia: Code(s): F03.90 - Unspecified dementia, unspecified severity, without behavioral disturbance, psychotic disturbance, mood disturbance, and anxiety Status: Acute Assessment and Plan: Current mental status worse than baseline, likely due to delirium (6) Acute systolic (congestive) heart failure: Code(s): I50.21 - Acute systolic (congestive) heart failure Status: Acute Assessment and Plan: Clinically resolved and now volume depleted Hold Lasix 40 mg PO daily as he appears euvolemic.? (7) NSTEMI (non-ST elevated myocardial infarction): Code(s): I21.4 - Non-ST elevation (NSTEMI) myocardial infarction Status: Acute Assessment and Plan: Consulted cuff slitter, cardiac received plans left heart catheterization, suspecting multiple vessel coronary artery disease Continue current medication management per cuff slitter dc heparin drip per cuff slitter Planed cardiac catheterization 12/30, but canceled due to agitation (8) Mucinous adenocarcinoma of colon: Code(s): C18.9 - Malignant neoplasm of colon, unspecified Status: Chronic Assessment and Plan: Stage 4 by hx see Status post right colectomy Given current functional status and medical issues intermediate to [facility] prognosis is very poor (9) MARGARITA (acute kidney injury): Code(s): N17.9 - Acute kidney failure, unspecified Status: Acute Assessment and Plan: 12/25 creatinine stable at 3.3 1.3 now after hydration (10) Transaminitis: Code(s): R74.01 - Elevation of levels of liver transaminase levels Status: Acute Assessment and Plan: Resolved (11) Pacemaker: Code(s): Z95.0 - Presence of cardiac pacemaker Status: Acute Assessment and Plan: Functioning by telemetry (12) Chronic kidney disease, stage 3: Code(s): N18.30 - Chronic kidney disease, stage 3 unspecified Status: Chronic Assessment and Plan: Baseline creatinine 1.4-1.6 (13) Leukocytosis: Code(s): D72.829 - Elevated white blood cell count, unspecified Status: Acute Assessment and Plan: Likely increased due to hemoconcentration 12/26
[2022-12-31 10:46] LABS: Anisocytosis 1+ (NORMAL); Hypochromasia 1+ (NORMAL); Platelet Estimate Adequate (Adequate); Poikilocytosis 1+ (NORMAL); Schistocytes None Seen (NORMAL)
--- NOTE | 2022-12-31 14:30 | PM.TDS ---
Transfer Discharge Sum: Prov Provider Date of admission: 12/15/22 12:10 Primary care physician: Idalmis Veronica MD Admitting clinician: Ricardo Yun MD Consults: 12/14/22 03:01 Consult to Physician Routine Comment: called office and notified them of consult Consulting Provider: Lenin Petersen Reason for consultation: Recent pacemaker placement now with CHF and elevated troponin Has provider been notified: Yes 12/15/22 Consult to Physician Routine Comment: spoke with and notified him of consult Consulting Provider: Holger Kolb glaciologist/MD group to consult: Medical oncology Reason for consultation: Invasive cecal adenocarcinoma Has provider been notified: Yes 12/16/22 Consult to Physician Routine Comment: Spoke with Jennifer Tai @ [phone] (,) Consulting Provider: Jennifer Tai glaciologist/MD group to consult: HCG Reason for consultation: LHC Has provider been notified: Yes 12/21/22 Consult to Physician Routine Comment: Spoke with and notified him of consult Consulting Provider: Chi Simms glaciologist/MD group to consult: NEUROLOGY Reason for consultation: AMS HISTORY OF DEMENTIA ALSO CONSIDERING INFECTION WCC IS HIGH Has provider been notified: Yes 12/24/22 Consult to Physician Routine Comment: Called office and notified them of consult Consulting Provider: Tariq Hinkle glaciologist/MD group to consult: UROLOGY Reason for consultation: BL hydronephrosis and pylenophritis Has provider been notified: Yes Consult to Physician Routine Comment: Spoke with and notified him of consult Consulting Provider: Chelsea Owens glaciologist/MD group to consult: nephrology Reason for consultation: margarita and pylenophritis Has provider been notified: Yes DS: Admitting Diagnosis Discharge Date 12/31/22 Admitting Diagnosis NSTEMI Pneumonia Acute renal failure Acute heart failure DS: Discharge Diagnosis Discharge Diagnosis (1) Pneumonia: Code(s): J18.9 - Pneumonia, unspecified organism Status: Acute (2) NSTEMI (non-ST elevated myocardial infarction): Code(s): I21.4 - Non-ST elevation (NSTEMI) myocardial infarction Status: Acute (3) Altered mental status: Code(s): R41.82 - Altered mental status, unspecified Status: Acute (4) Dementia: Code(s): F03.90 - Unspecified dementia, unspecified severity, without behavioral disturbance, psychotic disturbance, mood disturbance, and anxiety Status: Acute (5) Delirium: Code(s): R41.0 - Disorientation, unspecified Status: Acute (6) Cardiomyopathy: Code(s): I42.9 - Cardiomyopathy, unspecified Status: Acute (7) Acute systolic (congestive) heart failure: Code(s): I50.21 - Acute systolic (congestive) heart failure Status: Acute (8) MARGARITA (acute kidney injury): Code(s): N17.9 - Acute kidney failure, unspecified Status: Acute (9) Type 2 diabetes mellitus: Code(s): E11.9 - Type 2 diabetes mellitus without complications Status: Chronic (10) 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: Code(s): E11.22 - Type 2 diabetes mellitus with diabetic chronic kidney disease; I12.9 - Hypertensive chronic kidney disease with stage 1 through stage 4 chronic kidney disease, or unspecified chronic kidney disease Status: Acute Transfer Discharge Sum: Med Medications Active and Home Medications: Home Medications bupropion HCl 300 mg 24 hr tablet, extended release 300 mg PO QAM 04/16/19 [History Confirmed 12/14/22] lamotrigine 100 mg tablet 100 mg PO HS 04/16/19 [History Confirmed 12/14/22] paroxetine HCl 10 mg tablet 10 mg PO DAILY 04/16/19 [History Confirmed 12/14/22] paroxetine HCl 40 mg tablet 40 mg PO DAILY 04/16/19 [History Confirmed 12/14/22] prazosin 1 mg capsule 1 mg PO QHS PTSD 04/16/19 [History Confirmed 12/14/22] sitagliptin phosphate 100 mg tablet (Januvia) 100 mg PO DAILY 10/07/22 [Histor
--- NOTE | 2022-12-31 14:55 | PCPTNOTE ---
Attempted to see patient 2x today. Patient unable to follow instruction and participate in A.M.. Patient agitated and combative this afternoon, unable to participate in therapy.
== END 2022-12-31 15:08 | disposition short-term general hospital (02) | DRG 981 ==
LOC: ANHED 03:07 → ANHIMU 03:54
PROVIDERS: Family Medicine; General Practice; Internal Medicine; Internal Medicine Cardiovascular Disease; Internal Medicine Hematology & Oncology; Internal Medicine Nephrology; Surgery; Admitting Provider Internal Medicine; Emergency Provider Emergency Medicine; PCP Family Medicine; Visit Provider Hospitalist
PROC: 0JH60WZ Insertion of Totally Implantable Vascular Access Device into Chest Subcutaneous Tissue and Fascia, Open Approach (ICD-10-PCS; principal; 2022-12-20 12:30)
DX: I13.0 Hypertensive heart and chronic kidney disease with heart failure and stage 1 through stage 4 chronic kidney disease, or unspecified chronic kidney disease (principal); G93.41 Metabolic encephalopathy; I21.4 Non-ST elevation (NSTEMI) myocardial infarction; I50.41 Acute combined systolic (congestive) and diastolic (congestive) heart failure; K72.00 Acute and subacute hepatic failure without coma; J18.9 Pneumonia, unspecified organism; C18.0 Malignant neoplasm of cecum; N17.9 Acute kidney failure, unspecified; E87.0 Hyperosmolality and hypernatremia; Z68.1 Body mass index [BMI] 19.9 or less, adult; F05 Delirium due to known physiological condition; E46 Unspecified protein-calorie malnutrition; N10 Acute pyelonephritis; N13.6 Pyonephrosis; B37.49 Other urogenital candidiasis; E11.22 Type 2 diabetes mellitus with diabetic chronic kidney disease; N18.31 Chronic kidney disease, stage 3a; E83.42 Hypomagnesemia; E87.6 Hypokalemia; E78.2 Mixed hyperlipidemia; I42.9 Cardiomyopathy, unspecified; E87.5 Hyperkalemia; F03.90 Unspecified dementia, unspecified severity, without behavioral disturbance, psychotic disturbance, mood disturbance, and anxiety; D72.829 Elevated white blood cell count, unspecified; F41.9 Anxiety disorder, unspecified; Z20.822 Contact with and (suspected) exposure to COVID-19; R33.8 Other retention of urine; I25.10 Atherosclerotic heart disease of native coronary artery without angina pectoris; D50.9 Iron deficiency anemia, unspecified; D64.89 Other specified anemias; Z53.09 Procedure and treatment not carried out because of other contraindication; Z95.0 Presence of cardiac pacemaker; Z90.49 Acquired absence of other specified parts of digestive tract; Z87.891 Personal history of nicotine dependence
CPT/HCPCS: 36415; 70450; 71045; 71250; 74176; 76775; 77001; 80048; 80053; 80069; 80076; 81001; 81050; 82140; 82550; 82565; 82570; 82607; 82728; 82746; 82948; 83540; 83550; 83615; 83690; 83735; 83880; 83883; 84100; 84145; 84156; 84300; 84484; 84540; 85025; 85027; 85610; 85730; 85999; 87040; 87086; 87088; 87106; 87493; 87636; 87641; 92610; 92611; 93005; 93306; 93308; 94002; 94640; 96365; 96366; 96374; 96375; 96376; 97161; 97162; 97164; 97165; 97530; 97535; 99285; A9270; C1788; G0378; J0360; J0690; J0692; J0696; J1200; J1450; J1630; J1644; J1756; J1815; J1940; J2060; J2359; J2543; J2704; J3010; J3370; J3475; J3480; J7030; J7040; J7050; J7070; J7120; Q4081

== ENCOUNTER 2023-03-28 08:21 | Outpatient (CLI) | payer MEDICARE, SELFPAY ==
--- NOTE | 2023-03-28 08:25 | EST_ITS ---
Patient Info Name: Julian Wilson Age: 72 years : 1950 Gender: Male Ht: 68 in Wt: 124 lbs BSA: 1.63 m2 HR: 60 bpm BP: 155 / 78 mmHg Heart Rhythm: Paced Technical Quality: Good Exam Date: 03/28/2023 10:09 AM Exam Location: [facility] Patient Status: Outpatient Admit Date: 03/28/2023 Staff Ordering Physician: Lenin Petersen DO Attending Provider: Anibal Lam NMAA Exam Type: CA stress lashell w NM Study Info A regadenoson stress test was performed. History/Risk Factors Hypertension: Yes Dyslipidemia: Yes Diabetes Mellitus: Type II Summary 1. 1. Inconclusive lexiscan stress test for ischemic ST changes by ECG criteria due to baseline ventricular pacing. 2. 2. Baseline hypertension. 3. 3. Nuclear scan to follow and will be reported separately. Please correlate with it. Protocol: LEXISCAN Stress ECG Details Stage: REST Duration (min): 3 min : 42 sec HR (bpm): 60 SBP (mmHg): 155 DBP (mmHg): 78 Stage: REST Duration (min): 7 min : 34 sec HR (bpm): 60 SBP (mmHg): 155 DBP (mmHg): 78 Stage: STAGE 1 Duration (min): 0 min : 11 sec HR (bpm): 60 SBP (mmHg): 155 DBP (mmHg): 78 Stage: RECOVERY Duration (min): 0 min : 48 sec HR (bpm): 63 SBP (mmHg): 155 DBP (mmHg): 78 Stage: RECOVERY Duration (min): 1 min : 48 sec HR (bpm): 70 SBP (mmHg): 155 DBP (mmHg): 78 Stage: RECOVERY Duration (min): 2 min : 48 sec HR (bpm): 72 SBP (mmHg): 147 DBP (mmHg): 72 Stage: RECOVERY Duration (min): 3 min : 48 sec HR (bpm): 80 SBP (mmHg): 147 DBP (mmHg): 72 Stage: RECOVERY Duration (min): 4 min : 48 sec HR (bpm): 85 SBP (mmHg): 171 DBP (mmHg): 113 Stage: RECOVERY Duration (min): 5 min : 48 sec HR (bpm): 77 SBP (mmHg): 171 DBP (mmHg): 113 Stage: RECOVERY Duration (min): 6 min : 48 sec HR (bpm): 70 SBP (mmHg): 164 DBP (mmHg): 79 Stage: RECOVERY Duration (min): 7 min : 48 sec HR (bpm): 67 SBP (mmHg): 149 DBP (mmHg): 78 Stage: RECOVERY Duration (min): 8 min : 18 sec HR (bpm): 70 SBP (mmHg): 149 DBP (mmHg): 78 Rest HR: 60 bpm Peak HR: 85 bpm Rest Sys BP: 155 mmHg Peak Sys BP: 171 mmHg Max Pred HR: 148 bpm % Max Pred HR: 57 % Target HR: 126 bpm Max RPP: 14,535 bpm*mmHg BP Response: Normal blood pressure response Termination Reason: Completed Protocol Cardiac Symptoms: Shortness of breath Total Time: 0 min : 11 sec Rest Waller BP: 78 mmHg Peak Waller BP: 113 mmHg Total Dose: 0.4 mg Resting ECG Atrial pacing. Ventricular pacing. Stress ECG No abnormal ST/T wave changes. Arrhythmias None. Report Signatures
--- NOTE | 2023-03-29 16:05 | WPDCARIOSTRE ---
Nuclear Stress Test INDICATIONS Indications: Cardiomyopathy PROCEDURE Procedure Performed: Myocardial Perf Spect-Multi Procedure: Patient underwent a lexiscan stress test and immediately was injected with 31.1 mCi of cardiolyte. Multiple tomographic images were obtained. These are of good quality. There is evidence of small size, mild anterior perfusion defect and a moderate size, moderate inferior defect, and a large size, severe septal and apical perfusion defects with stress imaging. A separate resting images were obtained after patient was injected with 10.6 mCi of cardiolyte. Multiple tomographic images were obtained. These are of good quality. There is evidence of a large size, severe septal and apical perfusion defects with stress imaging. CONCLUSION Conclusion: 1. Abnormal myocardial perfusion imaging demonstrating small size anterior perfusion defect and moderate size inferior perfusion defect suggestive of reversible ischemia. There is a fixed large defect of septal and apex suggestive of prior myocardial infarction. 2. Left ventriculogram demonstrates mild global systolic dysfunction with measured EF 47%. There is apical akinesis. 3. The left ventricle is mildly dilated with EDV 122 ml. 4. TID score 1.03 is not elevated.
== END 2023-03-28 08:22 | disposition home or self-care (01) ==
LOC: CHSIMG 08:22
PROVIDERS: PCP Family Medicine; Visit Provider Internal Medicine Cardiovascular Disease
DX: I42.9 Cardiomyopathy, unspecified (principal)
CPT/HCPCS: 78452; 93017; A9502; J2785

== ENCOUNTER 2024-03-30 08:00 | Outpatient (RCR) | payer MEDICARE, SELFPAY | END 2024-03-30 13:56 | disposition home or self-care (01) | PROVIDERS: PCP Nurse Practitioner Family; Visit Provider Internal Medicine Cardiovascular Disease | DX: Z95.5 Presence of coronary angioplasty implant and graft (principal) | CPT/HCPCS: 93798 ==

== ENCOUNTER 2024-04-02 00:17 | Day surgery (SDC) | payer MEDICARE, SELFPAY ==
--- NOTE | 2023-12-07 16:07 | PC.NURSE ---
pt scheduled for colonoscopy on 12/21/23. pt currently sees dr kwon, noted in chart that pt had recent pci per dr atkinson at [facility] in september 2023. note also stated pt was put on plavix and was going to be seen again by dr guthrie for further intervention. called and spoke with pts , she states pt had pci done on nov 06. cardiac clearance sent to dr atkinson regarding the need to hold plavix for colonoscopy. pt has had 2 pcis in less than 2 months. states pt is feeling better, no cp and no more. told her we would let her know what cardiology recommends.
[2024-03-26 14:57] VITALS: BMI 23.0
--- NOTE | 2024-03-28 13:38 | PC.NURSE ---
Spoke with . Stated understanding that last dose of Plavix for will be today.
--- OUTSIDE RECORDS SUMMARY | 2024-04-02 00:23 | XMS_ITS | Clinical Summary ---
Author Organization [facility] [address] Address [address] [place] [address] Care Team Providers Care Ironer Or Presser Name Role Phone Francis Otoole NP Primary Care Provider [phone] Allergies No known active allergies Medications metFORMIN XR (GLUCOPHAGE XR) 500 mg 24 hr tablet Take 1 tablet (500 mg total) by mouth 2 (two) times a day Active prazosin (MINIPRESS) 1 mg capsule Take 2 capsules (2 mg total) by mouth nightly Active empagliflozin (JARDIANCE) 10 mg tablet Take 1 tablet (10 mg total) by mouth daily 30 tablet 3 Active PARoxetine (PAXIL) 20 mg tablet Take 1 tablet (20 mg total) by mouth every morning Active tamsulosin (FLOMAX) 0.4 mg extended release capsule Take 1 capsule (0.4 mg total) by mouth nightly Active atorvastatin (LIPITOR) 40 mg tablet Take 1 tablet (40 mg total) by mouth daily 30 tablet 11 4 025 Active OneTouch Ultra Test strip TEST BLOOD SUGAR 2 TIMES A DAY DIRECTED 4 Active OneTouch Ultra2 Meter misc USE DIRECTED TWICE DAILY 4 Active finasteride (PROSCAR) 5 mg tablet Take 1 tablet (5 mg total) by mouth daily Active OneTouch Delica Plus Lancet 33 gauge misc TEST BLOOD SUGAR 2 TIMES A DAY DIRECTED 4 Active insulin glargine 100 unit/mL (3 mL) pen for injection Inject 22 Units under the skin daily Active TRUEplus Pen Needle 31 gauge x 16 needle USE ONCE DAILY WITH INSULIN GLARGINE 4 Active aspirin 81 mg chewable tabletIndications: prevention of thrombosis Take 1 tablet (81 mg total) by mouth daily 90 tablet 3 4 Active amLODIPine (NORVASC) 10 mg tablet Take 1 tablet (10 mg total) by mouth daily Active clopidogreL (PLAVIX) 75 mg tablet Take 1 tablet (75 mg total) by mouth daily 30 tablet 11 4 025 Active cholecalciferol (VITAMIN D-3) 5,000 unit tablet Take 1 tablet (5,000 Units total) by mouth daily Active lisinopriL (PRINIVIL,ZESTRIL) 40 mg tablet Take 1 tablet (40 mg total) by mouth daily Active carvediloL (COREG) 12.5 mg tablet Take 1 tablet (12.5 mg total) by mouth every 12 (twelve) hours 4 Active lamoTRIgine (LaMICtal) 25 mg tablet Take 2 tablets (50 mg total) by mouth daily 5 Active lamoTRIgine (LaMICtal) 50 mg tablet,disintegrat ing disintegrating tabletIndications: taken at hs Take 1 tablet (50 mg total) by mouth daily 025 Discontin ued(Alter angie therapy) metoprolol tartrate (LOPRESSOR) 50 mg immediate release tablet Take 1 tablet (50 mg total) by mouth 2 (two) times a day 025 Discontin ued(Alter angie therapy) Active Problems Problem Noted Date Diagnosed Date Atherosclerosis of [place] co ronary artery of [place] heart without angina pectoris 08/19/2023 Diabetic ketoacidosis withou t coma associated with type 2 diabetes mellitus (CMS/HCC) 04/26/2023 Encounter for fitting and adjustment of vascular catheter 02/28/2023 Malignant neoplasm of colon 02/10/2023 Cancer Staging:Pathologic stage from 02/10/2023: pT4, pN0, cM0 - Unsigned Pathologic stage from 03/21/2023:Stage IIC(pT4b, pN0, cM0) - Unsigned Benign prostatic hyperplasia with urinary freque ncy 01/05/2023 Encephalopathy 12/31/2022 Benign prostatic hyperplasia with urinary retent ion 12/24/2022 Cardiac pacemaker in situ 12/06/2022 Overview (12/06/2022): Biotronik Edora Dual Pacemaker. Dx; Second/Third Degree AVB. DOI 12/03/2022-Fleissner. [facility] Remote. Patient to follow with Dr Petersen. CHB (complete heart block) (CMS/HCC) 11/30/2022 Stage 3a chronic kidney disease 10/15/2020 Resolved Problems Problem Noted Date Diagnosed Date Resolved Date Severe protein-calorie malnutrition (CMS/HCC) 01/07/2004/27/2023 Essential hypertension 10/15/202003/15 Encounters Date Type Department Care Team Description 03/15/2024 11:30 AM LOG RAFTER Clinical Support [address] [place] [phone] Encounter for fitting and adjustment of vascular catheter (Primary Dx) 03/15/2024 11:15 AM LOG RAFTER Office Visit [facility] On[facility] [address] [place] [address] Medical Office [address] [place] [address] Rodo Stark MD Other fatigue (Primary Dx); Malignant neoplasm of ascending colon (CMS/HCC) (HCC); Iron deficiency anemia, unspecified iron deficiency anemia type; Stage 3a chronic kidney disease (HCC) 03/15/2024 10:45 AM LOG RAFTER Lab [address] [place] [phone] Malignant neoplasm of ascending colon (CMS/HCC) (HCC); Iron deficiency anemia, unspecified iron deficiency anemia type 03/15/[address] [place] [phone] Rodo Stark MD 03/09/2024 10:07 AM LOG RAFTER - 03/09/2024 11:59 PM LOG RAFTER Hospital Encounter [facility] [address] [place] [address] Malignant neoplasm of ascending colon (CMS/HCC) (HCC); Encounter for fitting and adjustment of vascular catheter Discharge Disposition: Discharge to home or self care 03/09/2024 10:05 AM LOG RAFTER Lab [address] [phone] 03/08/2024 Telephone [facility] [address] [place] [address] May. 01/30/2024 Telephone [facility] Care Organization [address] [place] [phone] Carmel Nicholas CMA Successful Phone Call ([facility] BP QC) from Last 3 Months Immunizations Name Administration Dates Next Due Influenza, Quad, Adjuvantated, Intramuscular Influenza, Unspecified 02/08/2023 Pneumococcal Polysaccharide PPV23 03/29/2016 TD Preservative Free 05/25/2005 Tdap 03/29/2016 Surgical History Surgery Date Site/Laterality Comments COLONOSCOPY Medical History Medical History Date Comments Hypertension Diabetes mellitus (HCC) Heart murmur Hyperlipidemia Colon cancer (CMS/HCC) (HCC) Family History Medical History Relation Name Comments Cancer Father Lymphoma Mother Relation Name Status Comments Father Mother Social History Tobacco Use Types Packs/Day Years Used Date Smoking Tobacco: Former Cigarettes 1 12.7 1 10/1971 Smokeless Tobacco: Former Quit: 01/10/1974 Tobacco Cessation:Counseling Given: Not Answered [facility] Utilities Answer Date Recorded In the past 12 months has [employer], gas, oil, or water [employer] [place] threatened to shut off services in your home? No 04/27/2023 Social Connection and Isolation Panel [NHANES] A nswer Date Recorded In a typical week, how many times do you talk on the phone with family, friends, or neighbors? Three times a week 04/27/2023 How often do you get togethe r with friends or relatives? Once a week 04/27/2023 How often do you attend chur ch or tenriism services? Never 04/27/2023 Do you belong to any clubs o r organizations such as quaker groups, unions, fraternal or athletic groups, or school groups? No 04/27/2023 How often do you attend meet ings of the clubs or organizations you belong to? Never 04/27/2023 Are you , , di vorced, , never , or living with a partner? 04/27/2023 AUDIT-C Answer Date Recorded Q1: How often do you have a drink containing alcohol? Never 03/15/2024 Q2: How many drinks containi ng alcohol do you have on a typical day when you are drinking? Patient does not drink Q3: How often do you have si x or more drinks on one occasion? Never 03/15/2024 Overall Financial Resource Strain (CARDIA) Answe r Date Recorded How hard is it for you to pa y for the very basics like food, housing, medical care, and heating? Somewhat hard 04/27/2023 Hunger Vital Sign Answer Date Recorded Within the past 12 months, y ou worried that your food would run out before you got the money to buy more. Never true 04/27/19 24 Within the past 12 months, t he food you bought just didn't last and you didn't have money to get more. Never true 04/27/2023 PRAPARE - Transportation Answer Date Re corded In the past 12 months, has l ack of transportation kept you from medical appointments or from getting medications? No 07/2023 In the past 12 months, has l ack of transportation kept you from meetings, work, or from getting things needed for daily living? No 04/27/2023 Housing Stability Vital Sign Answer Julian e Recorded In the last 12 months, was t here a time when you were not able to pay the mortgage or rent on time? No 04/27/2023 In the last 12 months, how many places have you lived? 1 04/27/2023 In the last 12 months, was t here a time when you did not have a steady place to sleep or slept in a senior living (including now)? No 04/27/2023 Personal Safety Answer Date Recorded Have you ever been in or are you currently in a harmful physical or emotional relationship or is someone making you feel afraid or unsafe? Denies 11/07/2023 Education Answer Date Recorded What is the highest level of school you have completed or the highest degree you have received? High school graduate 04/27/2023 Sex and Gender Information Value Date Recorded Sex Assigned at Not on file Legal Sex Male 12:59 PM CDT Gender Identity Not on file Sexual Orientation Not on file Obstetrics History Last Filed Vital Signs Vital Sign Reading Time Taken Comments Blood Pressure 161/87 03/15/2024 11:19 AM LOG RAFTER Pulse 59 03/15/2024 11:19 AM LOG RAFTER Temperature 36.3 C (97.3 F) 03/15/2024 11:19 AM LOG RAFTER Respiratory Rate 20 03/15/2024 11:19 AM LOG RAFTER Oxygen Saturation 100% 03/15/2024 11:19 AM LOG RAFTER Inhaled Oxygen Concentration - - Weight 65.9 kg (145 lb 4.8 oz) 03/15/2024 11:19 AM LOG RAFTER Height 167.6 cm (5' 5.98 ) 03/15/2024 11:19 AM C Body Mass Index 23.46 03/15/2024 11:19 AM LOG RAFTER Plan of Treatment Health Maintenance Due Date Last Done Comments Albumin Creatinine Ratio, Urine 1950 Colon Cancer Screening-Colonoscopy 1950 Depression Screening 1950 Dilated Eye Exam 1950 Foot Exam 1950 Hepatitis B Screening 1968 Zoster Vaccine (1 of 2) 2000 Well Visit 65+ 05/07/2015 Pneumococcal vaccine 65+ (2 of 2 - PCV) 03/29/2017 03/29/2016 Hemoglobin A1C 07/01/2023 12/31/2022, 12/31/2022 Covid-19 Vaccine (6 - 2023-2 5 season) 2023 02/08/2023, 12/17/2021, 12/24/2020, Additional history exists Influenza Vaccine (#1) 2023 02/08/2023, 2022 Fall Risk Assessment 07/25/2024 07/26/2023, 07/04/2023, 06/13/2023, Additional history exists Lipid Panel 09/04/2024 09/05/2023, 12/22, 11/30/2022 eGFR 03/15/2025 03/15/2024, 11/22, 09/22/2023, Additional history exists DTaP/Tdap/Td Vaccine (2 - Td or Tdap) 03/29/2026 03/29/2016, 05/25/2005 Hepatitis C Screening Completed 12/31/2022, 023 Abdominal Aortic Aneurysm (A AA) Screen Completed 03/09/2024, 08/23/2023, 07/25/2023, Additional history exists Medical Devices Implanted Type Area Regional Production Manager Device Identifier Shelf Expiration Date Model / Serial / Lot Medtronic Card Vasc Surgery 3.5 X 22mm [place] Rx Coronary Stent [id number] - [id number] - [id number] Implanted:Qty : 1 on 10/17/2023 by Eddie Muniz MD at [facility] Stent Medtronic Card Vasc Surgery 04/13/2026 [id number] / 0 / [id number] [employer] Stent Coronary De Rx Cocr Ors Msn 3.0x40mm [id number] - [id number] - [id number] Implanted:Qty : 1 on 11/07/2023 by Eddie Muniz MD at [facility] Stent N/A: Coronary Artery [employer] Inc 06/01/2025 [id number] / [id number] / [id number] [employer] Stent Coronary De Rx Cocr Ors Msn 3.5x35mm [id number] - [id number] - [id number] Implanted:Qty : 1 on 11/07/2023 by Eddie Muniz MD at [facility] Stent N/A: Coronary Artery [employer] 07/26/2025 [id number] / [id number] / [id number] Procedures Procedure Name Priority Date/Time Associated Diagnosis Comments IRON PROFILE W/ IBC Routine 03/15/2024 1 2:35 PM LOG RAFTER Iron deficiency anemia, unspecified iron deficiency anemia type FERRITIN Routine 03/15/2024 12:35 PM LOG RAFTER Iron deficiency anemia, unspecified iron deficiency anemia type EGFR Routine 03/15/2024 10:55 AM LOG RAFTER Malignant neoplasm of ascending colon (CMS/HCC) (HCC) DIFFERENTIAL AUTO Routine 03/15/2024 10: 55 AM LOG RAFTER Malignant neoplasm of ascending colon (CMS/HCC) (HCC) CEA Routine 03/15/2024 10:55 AM LOG RAFTER Malignant neoplasm of ascending colon (CMS/HCC) (HCC) COMPREHENSIVE METABOLIC PANEL Routine 03/15/2024 10:55 AM LOG RAFTER Malignant neoplasm of ascending colon (CMS/HCC) (HCC) CBC WITH AUTO DIFFERENTIAL Routine 03/15/2024 10:55 AM LOG RAFTER Malignant neoplasm of ascending colon (CMS/HCC) (HCC) CT CHEST ABDOMEN PELVIS W CONTRAST Schedule Routine, Read Routine (OP Routine) 03/09/2024 11:31 AM LOG RAFTER Malignant neoplasm of ascending colon (CMS/HCC) (HCC) Encounter for fitting and adjustment of vascular catheter CREATININE, WHOLE BLOOD STAT 03/09/2024 10:22 AM LOG RAFTER LIPID PANEL Routine 09/05/2023 10:04 AM CDT Atherosclerosis of [place] coronary artery of [place] heart without angina pectoris HEPATITIS PANEL, ACUTE Timed 12/31/2022 8:43 PM LOG RAFTER HEMOGLOBIN A1C STAT 12/31/2022 6:19 PM LOG RAFTER from Last 3 Months or Most Recently Relevant to Health Maintenance Results * (ABNORMAL) Iron profile w/ IBC (03/15/2024 12:35 PM LOG RAFTER) Iron 62 50 - 150 mcg/dL Comment:Testing performed by : [place], [address] TIBC 348 250 - 400 mcg/dL [facility] ([place]) Comment:Testing performed by : [place], [address] Transferrin saturation 18(L) 20 - 50 % [facility] ([place]) Comment:Testing performed by : [place], [address] Blood 03/15/2024 12:3 5 PM LOG RAFTER 03/15/2024 12:46 PM LOG RAFTER us Rodo Stark MD LAB BLOOD ORDERABLES Whit l Result [facility] ([place]) 1 [facility] Department [place] [address] * Ferritin (03/15/2024 12:35 PM LOG RAFTER) Pathologist [facility] Ferritin 207 30 - 400 ng/mL Comment:Testing performed by : [place], [address] Blood 03/15/2024 12:3 5 PM LOG RAFTER 03/15/2024 12:46 PM LOG RAFTER us Rodo Stark MD LAB BLOOD ORDERABLES Whit l Result Performing Organization Address City/[facility]/ZIP Co de Phone Number BYRON LAYTON ([address] Department [place] [address] * (ABNORMAL) eGFR (03/15/2024 10:55 AM LOG RAFTER) Pathologist [facility] eGFR 50(L) >=60 mL/min/1. 73 m2 Comment: Interpretive Data Reference Interval Normal >/= 90 mL/min/1.73m2 Mildly decreased* 60 - 89 mL/min/1.73m2 Mildly to moderately decreased 45 - 59 mL/min/1.73m2 Moderately to severely decreased 30 - 44 mL/min/1.73m2 Severely decreased 15 - 29 mL/min/1.73m2 Kidney Failure < 15 mL/min/1.73m2 *Relative to young adult level Estimated glomerular filtration rate is determined by the 2020 CKD-EPI equation recommended by the National Kidney Foundation (A Unifying Approach to GFR Estimation: Recommendations of the NKF-ASK Task Force on Reassessing the Inclusion of Race in Diagnosing Kidney Disease, JASN 2020). The CKD-EPI equation should not be used for patients with unstable renal function and has not been validated in children and those over 70. Current interpretive data was last reviewed 2020. Testing performed by: [facility], [place], [address] Blood 03/15/2024 10:5 5 AM LOG RAFTER 03/15/2024 11:19 AM LOG RAFTER us Kailey Harrison NP LAB BLOOD ORDERABLES Final Result [facility] ([place]) 1 [facility] Department [place] [address] * Differential, auto (03/15/2024 10:55 AM LOG RAFTER) Neutrophil abs 5.0 1.5 - 6.5 K/cumm Comment:Testing performed by : [facility] [address], Medical Office [facility] [address], [place] [address] Imm gran abs 0.0 0.0 - 0.1 K/cumm [facility] ([place]) Comment:Testing performed by : [facility] [address], Medical Office [facility] [address], [place] [address] Lymphocyte abs 1.2 0.8 - 3.3 K/cumm [facility] ([place]) Comment:Testing performed by : [facility] [address], Medical Office [facility] [address], [place] [address] Monocyte abs 0.6 0.2 - 0.8 K/cumm [facility] ([place]) Comment:Testing performed by : [facility] [address], Medical Office [facility] [address], [place] [address] Eosinophil abs 0.5 0.0 - 0.5 K/cumm [facility] ([place]) Comment:Testing performed by : [facility] [address], Medical Office [facility] [address], [place] [address] Basophil abs 0.1 0.0 - 0.1 K/cumm [facility] ([place]) Comment:Testing performed by : [facility] [address], Medical Office [facility] [address] [facility] [address], [place] [address] Neutrophil pct 68.0 % [facility] ([place]) Comment: Interpretive Data Percent cell count reference ranges are not reported, since discordance with absolute values may lead to misinterpretation of CBC data. Current Interpretive Data was last revised on 2022. Testing performed by: [facility] [address], Medical Office [facility] [address], [place] [address] Imm gran pct 0.3 % [facility] ([place]) Comment: Interpretive Data Percent cell count reference ranges are not reported, since discordance with absolute values may lead to misinterpretation of CBC data. Current Interpretive Data was last revised on 2022. Testing performed by: [facility] [address], Medical Office [facility] [address], [place] [address] Lymphocyte pct 16.8 % [facility] ([place]) Comment: Interpretive Data Percent cell count reference ranges are not reported, since discordance with absolute values may lead to misinterpretation of CBC data. Current Interpretive Data was last revised on 2022. Testing performed by: [facility] [address], Medical Office [facility] [address], [place] [address] Monocyte pct 7.5 % [facility] ([place]) Comment: Interpretive Data Percent cell count reference ranges are not reported, since discordance with absolute values may lead to misinterpretation of CBC data. Current Interpretive Data was last revised on 2022. Testing performed by: [facility] [address], Medical Office [facility] [address] [facility] [address], [place] [address] Eosinophil pct 6.7 % [facility] ([place]) Comment: Interpretive Data Percent cell count reference ranges are not reported, since discordance with absolute values may lead to misinterpretation of CBC data. Current Interpretive Data was last revised on 2022. Testing performed by: [facility] [address], Medical Office [facility] [address], [place] [address] Basophil pct 0.7 % [facility] ([place]) Comment: Interpretive Data Percent cell count reference ranges are not reported, since discordance with absolute values may lead to misinterpretation of CBC data. Current Interpretive Data was last revised on 2022. Testing performed by: [facility] [address], Medical Office [facility] [address] [facility] [address], [place] [address] Blood 03/15/2024 10:5 5 AM LOG RAFTER 03/15/2024 11:02 AM LOG RAFTER us Kailey Harrison NP LAB BLOOD ORDERABLES Final Result [facility] ([place]) 1 [facility] Department [place] [address] * (ABNORMAL) CBC with auto differential (03/15/2024 10:55 AM LOG RAFTER) WBC 7.3 3.8 - 9.9 K/cumm Comment:Testing performed by : [facility] [address], Medical Office [address], [place] [address] Hgb 11.8(L) 13.0 - 17.5 g/dL [facility] ([place]) Comment:Testing performed by : [facility] [address], Medical Office [facility] [address], [place] [address] Hct 36.6(L) 38.9 - 50.3 % [facility] ([place]) Comment:Testing performed by : [facility] [address], Medical Office [facility] [address], [place] [address] Plt 272 150 - 400 K/cumm [facility] ([place]) Comment:Testing performed by : [facility] [address], Medical Office [facility] [address], [place] [address] MPV 9.5 9.1 - 12.3 fL [facility] ([place]) Comment:Testing performed by : [facility] [address], Medical Office [facility] [address], [place] [address] RBC 4.16(L) 4.30 - 5.80 M/cumm [facility] ([place]) Comment:Testing performed by : [facility] [address], Medical Office [facility] [address], [place] [address] MCV 88.0 81.3 - 96.4 fL [facility] ([place]) Comment:Testing performed by : [facility] [address], Medical Office [facility] [address], [place] [address] MCH 28.4 27.1 - 33.3 pg [facility] ([place]) Comment:Testing performed by : [facility] [address], Medical Office [address], [place] [address] MCHC 32.2(L) 32.3 - 35.7 g/dL [facility] ([place]) Comment:Testing performed by : [facility] [address], Medical Office [address], [place] [address] RDW CV 15.0(H) 11.1 - 14.9 % BYRON LAYTON ([place]) Comment:Testing performed by : [facility] [address], Medical Office [address], [place] [address] RDW SD 49.1(H) 35.7 - 48.1 fL BYRON LAYTON ([place]) Comment:Testing performed by : [facility] [address], Medical Office [facility] [address], [place] [address] NRBC abs Not Measured 0.00 - 0.01 K/cumm BYRON LAYTON ([place]) Comment:Testing performed by : [facility] [address], Medical Office [facility] [address], [place] [address] Blood 03/15/2024 10:5 5 AM LOG RAFTER 03/15/2024 11:02 AM LOG RAFTER us Kailey Harrison NEUROLOGIST LAB BLOOD ORDERABLES Final Result Performing Organization Address [facility]/ZIP Co de Phone Number BYRON LAYTON ([place]) 1 [facility] Department [place] [address] * (ABNORMAL) CEA (03/15/2024 10:55 AM LOG RAFTER) Pathologist [facility] CEA 7.7(H) 0.1 - 5.0 ng/mL Comment: Interpretive Data The Mignon CEA assay procedure was used. Results from different manufacturers or methods may not be comparable. Serial testing should be performed using the same method. Testing performed by: [facility], [address] [place] [address], [place]., [address] Blood 03/15/2024 10:5 5 AM LOG RAFTER 03/15/2024 4:30 PM LOG RAFTER us Kailey Harrison NEUROLOGIST LAB BLOOD ORDERABLES Final Result BYRON LAYTON ([place]) 1 [facility] [place] [address] * (ABNORMAL) Comprehensive metabolic panel (03/15/2024 10:55 AM LOG RAFTER) Sodium 141 135 - 145 mmol/L Comment:Testing performed by : [facility], [facility], [place], [address] Potassium, pl 4.7 3.3 - 4.9 mmol/L [facility] ([place]) Comment:Testing performed by : [facility], [facility], [place], [address] Chloride 103 97 - 110 mmol/L [facility] ([place]) Comment:Testing performed by : [facility], [facility], [place], [address] CO2 28 22 - 32 mmol/L [facility] ([place]) Comment:Testing performed by : [facility], [facility], [place], [address] Anion gap 10 2 - 15 mmol/L [facility] ([place]) Comment:Testing performed by : [facility], [facility], [place], [address] BUN 18 6 - 25 mg/dL [facility] ([place]) Comment:Testing performed by : [facility], [place], [address] Creatinine 1.47(H) 0.80 - 1.30 mg/dL [facility] ([place]) Comment:Testing performed by : [facility], [facility], [place], [address] Glucose 129 70 - 199 mg/dL [facility] ([place]) Comment: Interpretive Data Fasting glucose >/= 126 mg/dl is diagnostic for diabetes. Fasting is defined as no caloric intake for at least 8 hours. Fasting glucose between 100 mg/dl to 125 mg/dl is diagnostic of prediabetes. In a patient with classic symptoms of hyperglycemia or hyperglycemic crisis, a random glucose >/= 200 mg/dl is diagnostic for diabetes. In the absence of unequivocal hyperglycemia, results should be confirmed by repeat testing. The classification and Diagnosis of Diabetes Diabetes Care 2021; 46: S19-S40. Current interpretive data was last revised 2022. Testing performed by: [facility], [place], [address] Calcium 9.8 8.5 - 10.3 mg/dL [facility] ([place]) Comment:Testing performed by : [facility], [place], [address] Bilirubin, total 0.3 0.1 - 1.2 mg/dL [facility] ([place]) Comment:Testing performed by : [facility], [place], [address] Protein, pl 7.5 6.5 - 8.5 g/dL [facility] ([place]) Comment:Testing performed by : [facility], [facility], [place], [address] Albumin 4.3 3.5 - 5.0 g/dL [facility] ([place]) Comment:Testing performed by : [facility], [place], [address] Alk phos 107 40 - 130 Units/L [facility] ([place]) Comment:Testing performed by : [facility], [place], [address] ALT 21 7 - 55 Units/L [facility] ([place]) Comment:Testing performed by : [facility], [facility], [place], [address] AST 24 10 - 50 Units/L [facility] ([place]) Comment:Testing performed by : [facility], [place], [address] Blood 03/15/2024 10:5 5 AM LOG RAFTER 03/15/2024 11:19 AM LOG RAFTER us Kailey Harrison NEUROLOGIST LAB BLOOD ORDERABLES Final Result [facility] ([place]) 1 [facility] [place] [address] * CT chest abdomen pelvis with contrast (03/09/2024 11:31 AM LOG RAFTER) Anatomical Region Laterality Modality Body N/A Computed Tomogra phy 03/12/2024 9:49 AM LOG RAFTER Narrative 03/12/2024 10:08 AM LOG RAFTER EXAM DESCRIPTION: CT CHEST ABDOMEN PELVIS W CONTRAST REASON FOR STUDY: Assess for recurrence or metastatic disease. Follow up colon cancer / resection / chemo Hx of pacemaker, port and 3 stents in heart Prev scan 08/23/2023 TECHNIQUE: CT scan of the chest, abdomen, and pelvis performed with intravenous and without oral contrast using helical scanning technique with dynamic intravenous contrast injection. Reconstructed coronal and sagittal MPR images reviewed. All images stored on PACS. Automated exposure control was used as a dose optimization technique for this examination. CONTRAST TYPE/DOSE: 75mL of IOVERSOL 350 MG IODINE/ML INTRAVENOUS SYRINGE injected via intravenous COMPARISON: 08/23/2023, 04/26/2023, 12/23/2022 and 11/04/2022 FINDINGS: CHEST LUNGS: There is a background of mild centrilobular and paraseptal emphysema. There is scattered subsegmental scarring and atelectasis. There is a somewhat nodular area of opacity in the periphery of the right lower lobe, favored to represent nodular scarring or atelectasis, though technically indeterminate. Follow-up on a short interval is recommended. This measures 9 mm on axial image 71. There are a few calcified granulomas. In addition there are a few scattered 1-2 mm noncalcified pulmonary nodules. For instance in the inferior juxta fissural right upper lobe on image 56 measuring 2 mm. 3 mm subpleural nodular opacity lateral left upper lobe image 37 is stable. The central airways are widely patent. PLEURA: Interval resolution of right pleural effusion. There is no pneumothorax. MEDIASTINUM/NANCY: There is no supraclavicular lymphadenopathy. There is no mediastinal adenopathy. Node at the right hilum on image 45 measures 1 cm short axis, borderline enlarged. There is diffuse thickening of the esophagus. Consider esophagitis. This can be further evaluated with endoscopy. HEART: The heart is mildly enlarged but stable. No significant pericardial effusion. There are coronary artery calcifications. VASCULATURE CHEST: Atherosclerotic calcification of the thoracic aorta, without aneurysm. AXILLA: No axillary lymphadenopathy. CHEST WALL: Unremarkable. HARDWARE/LINES/TUBES: Left-sided pacemaker. Right Gwlwfl-P-Qonz catheter, distal tip at the cavoatrial junction. MUSCULOSKELETAL CHEST: There is osteoarthritis of both shoulders. There is old posttraumatic change involving the right scapula, stable. Old bilateral fracture deformities are noted. Thoracic spondylosis and degenerative disc disease. Schmorl's nodes are present, most evident at the superior endplate of T9. There is a subtle concavity at the superior endplate of T5, new compared to December 2022, which may be subacute. Correlate with physical exam findings and point tenderness. ABDOMEN/PELVIS LIVER: The liver is stable in configuration. No suspicious hepatic lesion. GALLBLADDER: Grossly unremarkable. BILE DUCTS: No intrahepatic or extrahepatic ductal dilatation. SPLEEN: Normal size. No focal lesions. PANCREAS: No identified cystic or solid masses. No significant calcifications. No adjacent inflammation or peripancreatic fluid collections. Pancreatic duct not dilated. ADRENALS: There is some nodular thickening of the adrenal glands, stable. KIDNEYS/URINARY TRACT: The kidneys are symmetric in size and enhance symmetrically. There is some distention of the extrarenal pelves on today's study compared to the prior examination with interval development of mild bilateral hydronephrosis. There is no appreciable obstructing urolithiasis. The urinary bladder is mildly thick walled for the degree of distension. This could reflect hypertrophy given the underlying prostatomegaly. Correlate clinically with regards to cystitis. GI: The stomach is unremarkable. Small bowel loops are within normal limits in caliber. There is no obstruction. Postsurgical changes of right hemicolectomy and ileocolonic anastomosis noted. Mild increased stool burden within the colon. There is diverticulosis, without diverticulitis. PERITONEUM: There is no free intraperitoneal air. There is no free fluid. No mesenteric lymphadenopathy. Scattered mildly prominent nodes in the portacaval space and at the dayami hepatis. Portacaval node on image 94 measures 9 mm short axis, stable from prior examination. RETROPERITONEUM: There is no retroperitoneal mass or adenopathy. REPRODUCTIVE: There is prostatomegaly, with heterogeneity of the parenchyma the prostate and mass effect upon the base of the urinary bladder. VASCULATURE ABDOMEN: The abdominal aorta is atherosclerotic, without aneurysm. MUSCULOSKELETAL ABDOMEN PELVIS: Lumbar spondylosis. There is a mild compression deformity at the superior endplate of L3, stable compared to the most recent prior examination. There is osteoarthritis of the hips and SI joints. Levoconvex curvature centered in the mid lumbar spine. OTHER: No significant abnormality. IMPRESSION: Postsurgical changes of right hemicolectomy and ileocolonic anastomosis. No evidence of local recurrence. No definitive evidence of metastatic disease within the chest, abdomen or pelvis. Interval resolution of right pleural effusion. Subtle nodular opacity in the periphery of the right lower lobe, favored to represent nodular scarring or atelectasis, though technically indeterminate. Short interval follow-up CT chest in 3 months recommended. Borderline enlarged right hilar node, nonspecific. Attention at follow-up recommended. Diffuse thickening of the esophagus. Consider esophagitis. This can be further evaluated with endoscopy. Interval development of mild bilateral hydronephrosis and distention of the extrarenal pelves. No obstructing urolithiasis. Correlate with laboratory values and urinalysis. CT IVP can be utilized for further evaluation. Prostatomegaly with mass effect upon the base of the urinary bladder. Correlate with PSA. Subtle concavity at the superior endplate of T5, new compared to December 2022, which may be subacute. Correlate with physical exam findings and point tenderness. Further imaging can be obtained as warranted on a clinical basis. Additional findings as above. THIS IS AN ELECTRONICALLY VERIFIED FINAL REPORT 03/12/2024 10:08 AM - Electronically signed by Charlee Watson M.D. TW: TW Report ID: [id number] Reading Location: [id number] Procedure Note Charlee Watson MD - 03/12/2024 EXAM DESCRIPTION: CT CHEST ABDOMEN PELVIS W CONTRAST REASON FOR STUDY: Assess for recurrence or metastatic disease. Follow up colon cancer / resection / chemo Hx of pacemaker, port and 3stents in heart Prev scan 08/23/2023 TECHNIQUE: CT scan of the chest, abdomen, and pelvis performed with intravenous and without oral contrast using helical scanning techniquewith dynamic intravenous contrast injection. Reconstructed coronal and sagittalMPR images reviewed. All images stored on PACS. Automated exposure control was used as a dose optimization technique for this examination. CONTRAST TYPE/DOSE: 75mL of IOVERSOL 350 MG IODINE/ML INTRAVENOUS SYRINGE injected via intravenous COMPARISON: 08/23/2023, 04/26/2023, 12/23/2022 and 11/04/2022 FINDINGS: CHEST LUNGS: There is a background of mild centrilobular and paraseptalemphysema. There is scattered subsegmental scarring and atelectasis. There is a somewhat nodular area of opacity in the periphery of the right lower lobe, favored to represent nodular scarring or atelectasis, though technically indeterminate. Follow-up on a short interval is recommended. Thismeasures 9 mm on axial image 71. There are a few calcified granulomas. In addition there are a fewscattered 1-2 mm noncalcified pulmonary nodules. For instance in the inferior juxta fissural right upper lobe on image 56 measuring 2 mm. 3 mm subpleural nodular opacity lateral left upper lobe image 37 isstable. The central airways are widely patent. PLEURA: Interval resolution of right pleural effusion. There is no pneumothorax. MEDIASTINUM/NANCY: There is no supraclavicular lymphadenopathy. There isno mediastinal adenopathy. Node at the right hilum on image 45 measures 1 cm short axis, borderline enlarged. There is diffuse thickening of the esophagus. Consider esophagitis. This can be further evaluated with endoscopy. HEART: The heart is mildly enlarged but stable. No significantpericardial effusion. There are coronary artery calcifications. VASCULATURE CHEST: Atherosclerotic calcification of the thoracic aorta, without aneurysm. AXILLA: No axillary lymphadenopathy. CHEST WALL: Unremarkable. HARDWARE/LINES/TUBES: Left-sided pacemaker. Right Ezpiiq-J-Kliyrzcyivos, distal tip at the cavoatrial junction. MUSCULOSKELETAL CHEST: There is osteoarthritis of both shoulders. Thereis old posttraumatic change involving the right scapula, stable. Oldbilateral fracture deformities are noted. Thoracic spondylosis and degenerativedisc disease. Schmorl's nodes are present, most evident at the superiorendplate of T9. There is a subtle concavity at the superior endplate of T5, new compared to December 2022, which may be subacute. Correlate with physical exam findings and point tenderness. ABDOMEN/PELVIS LIVER: The liver is stable in configuration. No suspicious hepaticlesion. GALLBLADDER: Grossly unremarkable. BILE DUCTS: No intrahepatic or extrahepatic ductal dilatation. SPLEEN: Normal size. No focal lesions. PANCREAS: No identified cystic or solid masses. No significant calcifications. No adjacent inflammation or peripancreatic fluidcollections. Pancreatic duct not dilated. ADRENALS: There is some nodular thickening of the adrenal glands,stable. KIDNEYS/URINARY TRACT: The kidneys are symmetric in size and enhance symmetrically. There is some distention of the extrarenal pelves ontoday's study compared to the prior examination with interval development of mild bilateral hydronephrosis. There is no appreciable obstructingurolithiasis. The urinary bladder is mildly thick walled for the degree of distension.This could reflect hypertrophy given the underlying prostatomegaly. Correlate clinically with regards to cystitis. GI: The stomach is unremarkable. Small bowel loops are within normallimits in caliber. There is no obstruction. Postsurgical changes of right hemicolectomy and ileocolonic anastomosis noted. Mild increased stoolburden within the colon. There is diverticulosis, without diverticulitis. PERITONEUM: There is no free intraperitoneal air. There is no freefluid. No mesenteric lymphadenopathy. Scattered mildly prominent nodes in the portacaval space and at the dayami hepatis. Portacaval node on image 94 measures 9 mm short axis, stable from prior examination. RETROPERITONEUM: There is no retroperitoneal mass or adenopathy. REPRODUCTIVE: There is prostatomegaly, with heterogeneity of theparenchyma the prostate and mass effect upon the base of the urinary bladder. VASCULATURE ABDOMEN: The abdominal aorta is atherosclerotic, without aneurysm. MUSCULOSKELETAL ABDOMEN PELVIS: Lumbar spondylosis. There is a mild compression deformity at the superior endplate of L3, stable compared tothe most recent prior examination. There is osteoarthritis of the hips and SI joints. Levoconvex curvature centered in the mid lumbar spine. OTHER: No significant abnormality. IMPRESSION: Postsurgical changes of right hemicolectomy and ileocolonic anastomosis.No evidence of local recurrence. No definitive evidence of metastatic disease within the chest, abdomen or pelvis. Interval resolution of right pleural effusion. Subtle nodular opacity in the periphery of the right lower lobe, favoredto represent nodular scarring or atelectasis, though technicallyindeterminate. Short interval follow-up CT chest in 3 months recommended. Borderline enlarged right hilar node, nonspecific. Attention at follow-up recommended. Diffuse thickening of the esophagus. Consider esophagitis. This can be further evaluated with endoscopy. Interval development of mild bilateral hydronephrosis and distention ofthe extrarenal pelves. No obstructing urolithiasis. Correlate with laboratory values and urinalysis. CT IVP can be utilized for further evaluation. Prostatomegaly with mass effect upon the base of the urinary bladder. Correlate with PSA. Subtle concavity at the superior endplate of T5, new compared to December 2022, which may be subacute. Correlate with physical exam findings andpoint tenderness. Further imaging can be obtained as warranted on a clinicalbasis. Additional findings as above. THIS IS AN ELECTRONICALLY VERIFIED FINAL REPORT 03/12/2024 10:08 AM - Electronically signed by Charlee Watson M.D. TW: TW Report ID: [id number] Reading Location: [id number] Kailey Harrison NEUROLOGIST IMG CT PROCEDURES Final Re sult * (ABNORMAL) Creatinine, whole blood (03/09/2024 10:22 AM LOG RAFTER) Creatinine, bld 1.85(H) 0.60 - 1.30 mg/dL Blood 03/09/2024 10:2 2 AM LOG RAFTER 03/09/2024 10:26 AM LOG RAFTER Kailey Harrison NEUROLOGIST LAB BLOOD ORDERABLES Final Result [facility] ([place]) 1 [facility] Department of Laboratories [place], [place] [id number] * Lipid panel (09/05/2023 10:04 AM CDT) Cholesterol 132 <200 mg/dL for; to (do) [facility] HDL 44 > OR = 40 mg/dL for; to (do) [facility] Triglycerides 107 <150 mg/dL [facility] LDL 69 mg/dL (calc) for; to (do) [facility] Comment: Reference range: <100 Desirable range <100 mg/dL for primary prevention; <70 mg/dL for patients with CHD or diabetic patients with > or = 2 CHD risk factors. LDL-C is now calculated using the Edgardo-Jo Ann calculation, which is a validated novel method providing better accuracy than the Friedewald equation in the estimation of LDL-C. Edgardo RUIZ et al. DAVID. 2013;310(19): 5083-9772 (http://education.Aeromot/faq/FJG929) Chol/HDL ratio 3.0 <5.0 (calc) [facility] Non-HDL, (LDL+VLDL) 88 <130 mg/dL (calc) [facility] Comment: For patients with diabetes plus 1 major ASCVD risk factor, treating to a non-HDL-C goal of <100 mg/dL (LDL-C of <70 mg/dL) is considered a therapeutic option. Blood 09/05/2023 10:0 4 AM CDT 09/05/2023 10:05 AM CDT Narrative [facility] - 09/05/2023 8:46 PM CDT FASTING:YES FASTING: YES us Eddie Muniz MD LAB BLOOD ORDERABLES Whit l Result [facility] [address] [place] [address] * (ABNORMAL) Hepatitis panel, acute Blood (12/31/2022 8:43 PM LOG RAFTER) Pathologist [facility] Hep A IgM Nonreactive Nonreactive [facility] Hep B core IgM Nonreactive Nonreactive [facility] Hep C Ab Reactive(A) Nonreactive [facility] Comment: Reactive for HCV antibodies. This may represent current or past HCV infection. Supplemental molecular testing will be automatically performed to determine current infection status in accordance with current CDC screening recommendations. Current interpretive data was last revised on 21 HepBsAg Nonreactive Nonreactive [facility] Blood 12/31/2022 8:43 PM LOG RAFTER 12/31/2022 9:46 PM LOG RAFTER us Maurilio Gonzalez MD LAB MICROBIOLOGY - GENERA L ORDERABLES Final Result Performing Organization Address City/[facility]/ZIP Co de Phone Number [facility] [place] [address] * (ABNORMAL) Hemoglobin A1c (12/31/2022 6:19 PM LOG RAFTER) Pathologist [facility] Hgb A1C 7.2(H) 4.0 - 5.6 % [facility] Estimated Average Glucose 160 mg/dL [facility] Comment: The ADA recommends reporting an estimated Average Glucose (eAG) with all Hemoglobin A1c results using the equation derived from a study of 507 normal and diabetic adults. Minority populations were underrepresented and children were not included. (Diabetes Care 2020; 43(S1): S66-S76). The eAG is not equivalent to a fasting glucose. Blood 12/31/2022 6:19 PM LOG RAFTER 12/31/2022 8:25 PM LOG RAFTER us Tiff Dean MD LAB BLOOD ORDERABLES Final Result [facility] [place] [address] from Last 3 Months or Most Recently Relevant to Health Maintenance Insurance MEDICARE SOLUTIONS [facility] MEDICARE [id number] MEDICARE SOLUTIONS Advance Directives For more information, please contact: [phone] * Full Code (Latest Code Status on File) Date Activated Date Inactivated Comments 04/27/2023 12:52 AM 04/28/2023 7:25 PM * Full Code Date Activated Date Inactivated Comments 12/31/2022 4:37 PM 01/19/2023 7:47 PM Care Teams Ironer Or Presser Relationship Specialty Start Date End Date Francis Otoole NP [address] [address] [place] [id number] PCP - General Family Medicine 08/19/23
--- OUTSIDE RECORDS SUMMARY | 2024-04-02 00:23 | XMS_ITS ---
Author Organization [facility] [address] [place] [address] Care Team Providers Care Food Science Technician Name Role Phone Francis Otoole NP Primary Care Provider [phone] Active Problems Problem Noted Date Diagnosed Date Atherosclerosis of [place] co ronary artery of [place] heart without angina pectoris 08/19/2023 Diabetic ketoacidosis withou t coma associated with type 2 diabetes mellitus ([facility]) 04/26/2023 Encounter for fitting and adjustment of [...] Dual Pacemaker. Dx; Second/Third Degree AVB. DOI 12/03/2022-Juana. Biotronik Remote. Patient to follow with Dr Petersen. CHB (complete heart block) ([facility]) 11/30/2022 Stage 3a chronic kidney disease 10/15/2020 Current Oncology Plans No current plan information found. Other Current Plans IV Maintenance Therapy Plan* Plan Start Date:02/28/2023 Plan Provider:Jameson Ricks MD Linked Problems Encounter for fitting and ad justment of vascular catheter Treatment Medications No medications scheduled. Past Plans Oncology Chemotherapy Treatment Plan Name Start Date Discontinue Date Treatment Medications Discontinue Reason Plan Provider Cycles XELOX: (Capecitab ine / OXALIplati n) 21 Day Cycles - Colon/Rect al 02/28/2023 08/17/2023 capecitabine (XELODA)oxalipla tin (ELOXATIN) IVPB Therapy Complete Jameson Ricks MD 8 of 8 cycles started Radiation Treatments * No radiation treatments are documented for this patient in [facility]. Treatments may have been administered in another system. Lifetime Dose Tracking * Chemical Lifetime Dose Automatic Entry Manual Entr y Fluoro Time 2 minutes 2 minutes 0 minutes Air kerma at the reference point (Ka,r) 2,603.16 mGy 7 .4 mGy 2,595.76 mGy DLP 1,401 mGycm 1,401 mGycm 0 mGycm Resolved Problems Problem Noted Date Diagnosed Date Resolved Date Severe protein-calorie malnutrition (CMS/HCC) 01/07/2004/27/2023 Essential hypertension 10/15/202003/15
--- OUTSIDE RECORDS SUMMARY | 2024-04-02 00:23 | XMS_ITS | Referral Summary ---
Author Organization [facility] [place] [address] Address [address] [place] [address] Care Team Providers Care Sulphate Tester Name Role Phone Francis Otoole NP Primary Care Provider [phone] Encounters Date Type Department Care Team Description 03/15/[address] [place] [address] Rodo Stark MD 03/15/2024 10:45 AM CLIENT SUPPORT REPRESENTATIVE Lab [address] [place] [address] Malignant neoplasm of ascending colon (CMS/HCC) (HCC); Iron deficiency anemia, unspecified iron deficiency anemia type 03/15/2024 11:30 AM CLIENT SUPPORT REPRESENTATIVE Clinical Support [address] [place] [address] Encounter for fitting and adjustment of vascular catheter (Primary Dx) 03/15/2024 11:15 AM CLIENT SUPPORT REPRESENTATIVE Office Visit [facility] Oncology [address] [place] [address] Medical Office [address] [place] [address] Rodo Stark MD Other fatigue (Primary Dx); Malignant neoplasm of ascending colon (CMS/HCC) (HCC); Iron deficiency anemia, unspecified iron deficiency anemia type; Stage 3a chronic kidney disease (HCC) 03/09/2024 10:05 AM CLIENT SUPPORT REPRESENTATIVE Lab [address] [address] 03/09/2024 10:07 AM CLIENT SUPPORT REPRESENTATIVE - 03/09/2024 11:59 PM CLIENT SUPPORT REPRESENTATIVE Hospital Encounter [address] [address] Malignant neoplasm of ascending colon (CMS/HCC) (HCC); Encounter for fitting and adjustment of vascular catheter Discharge Disposition: Discharge to home or self care 03/08/[address] [address] hemantmay. 01/30/2024 Telephone [facility] Care Organization [address] [place] [phone] Carmel Nicholas CMA Successful Phone Call ([facility] BP [facility]) from Last 3 Months Allergies No known active allergies Medications metFORMIN [...] Problem Noted Date Diagnosed Date Atherosclerosis of ton[place]anda co ronary artery of ton[place] heart without angina pectoris 08/19/2023 Diabetic ketoacidosis [...] pacemaker in situ 12/06/2022 Overview (12/06/2022): Biotronik Kiora Dual Pacemaker. Dx; Second/Third Degree AVB. DOI 12/03/2022-Juana. [employer] [facility]ly [facility]. Patient to follow with Dr Petersen. CHB (complete heart block) ([facility]) 11/30/2022 Stage 3a chronic kidney disease 10/15/2020 Resolved Problems Problem Noted Date Diagnosed Date Resolved Date Severe protein-calorie malnutrition ([facility]) 01/07/2004/27/2023 Essential hypertension 10/15/202003/15 Immunizations Name Administration Dates Next Due Influenza, Quad, Adjuvantated, Intramuscular Influenza, Unspecified 02/08/2023 Pneumococcal Polysaccharide PPV23 03/29/2016 TD Preservative Free 05/25/2005 Tdap 03/29/2016 Social History Tobacco Use Types Packs/Day Years Used Date Smoking Tobacco: Former Cigarettes 1 12.7 1 - 10/1971 Smokeless Tobacco: Former Quit: 01/10/1974 Tobacco Cessation:Counseling Given: Not Answered [facility] Utilities Answer Date Recorded In the past 12 months has e [facility], gas, oil, or water JANZZ threatened to shut off services in your [...] often do you attend chur ch or mormonism services? Never 04/27/2023 Do you belong to any clubs o r organizations such as sabianism groups, unions, fraternal or athletic groups, or [...] place to sleep or slept in a [place] health care facility (including now)? No 04/27/2023 Personal Safety Answer [...] on file Sexual Orientation Not on file Last Filed Vital Signs Vital Sign Reading Time Taken Comments Blood Pressure 161/87 03/15/2024 11:19 AM CLIENT SUPPORT REPRESENTATIVE Pulse 59 03/15/2024 11:19 AM CLIENT SUPPORT REPRESENTATIVE Temperature 36.3 C (97.3 F) 03/15/2024 11:19 AM CLIENT SUPPORT REPRESENTATIVE Respiratory Rate 20 03/15/2024 11:19 AM CLIENT SUPPORT REPRESENTATIVE Oxygen Saturation 100% 03/15/2024 11:19 AM CLIENT SUPPORT REPRESENTATIVE Inhaled Oxygen Concentration - - Weight 65.9 kg (145 lb 4.8 oz) 03/15/2024 11:19 AM CLIENT SUPPORT REPRESENTATIVE Height 167.6 cm (5' 5.98 ) 03/15/2024 11:19 AM C Body Mass Index 23.46 03/15/2024 11:19 AM CLIENT SUPPORT REPRESENTATIVE Plan of Treatment Not on file Medical Devices Implanted Type Area Strategic Advisor Device Identifier Shelf Expiration Date Model / Serial / Lot Medtronic Card Vasc Surgery 3.5 X 22mm Ismael Shiawassee Rx Coronary Stent [id number] - [id number] - [id number] Implanted:Qty : 1 on 10/17/2023 by Eddie Muinz MD at [facility] Stent Medtronic Card Vasc Surgery 04/13/2026 [id number] / 0 / [id number] [employer] Stent Coronary De Rx Cocr Ors Msn 3.0x40mm [id number] - [id number] - [id number] Implanted:Qty : 1 on 11/07/2023 by Eddie Muniz MD at [facility] Stent N/A: Coronary Artery [employer] Inc 06/01/2025 [id number] / [id number] / [id number] [employer] Stent Coronary De Rx Cocr Ors Msn 3.5x35mm [id number] - [id number] - [id number] Implanted:Qty : 1 on 11/07/2023 by Eddie Muniz MD at [facility] Stent N/A: Coronary Artery [employer] 07/26/2025 [id number] / [id number] / [id number] Procedures Procedure Name Priority Date/Time Associated Diagnosis Comments IRON PROFILE W/ IBC Routine 03/15/2024 1 2:35 PM CLIENT SUPPORT REPRESENTATIVE Iron deficiency anemia, unspecified iron deficiency anemia type FERRITIN Routine 03/15/2024 12:35 PM CLIENT SUPPORT REPRESENTATIVE Iron deficiency anemia, unspecified iron deficiency anemia type EGFR Routine 03/15/2024 10:55 AM CLIENT SUPPORT REPRESENTATIVE Malignant neoplasm of ascending colon (CMS/HCC) (HCC) DIFFERENTIAL AUTO Routine 03/15/2024 10: 55 AM CLIENT SUPPORT REPRESENTATIVE Malignant neoplasm of ascending colon (CMS/HCC) (HCC) CEA Routine 03/15/2024 10:55 AM CLIENT SUPPORT REPRESENTATIVE Malignant neoplasm of ascending colon (CMS/HCC) (HCC) COMPREHENSIVE METABOLIC PANEL Routine 03/15/2024 10:55 AM CLIENT SUPPORT REPRESENTATIVE Malignant neoplasm of ascending colon (CMS/HCC) (HCC) CBC WITH AUTO DIFFERENTIAL Routine 03/15/2024 10:55 AM CLIENT SUPPORT REPRESENTATIVE Malignant neoplasm of ascending colon (CMS/HCC) (HCC) CT CHEST ABDOMEN PELVIS W CONTRAST Schedule Routine, Read Routine (OP Routine) 03/09/2024 11:31 AM CLIENT SUPPORT REPRESENTATIVE Malignant neoplasm of ascending colon (CMS/HCC) (HCC) Encounter for fitting and adjustment of vascular catheter CREATININE, WHOLE BLOOD STAT 03/09/2024 10:22 AM CLIENT SUPPORT REPRESENTATIVE LIPID PANEL Routine 09/05/2023 10:04 AM CDT Atherosclerosis of tonawanda coronary artery of ton[place]anda heart without angina pectoris HEPATITIS PANEL, ACUTE Timed 12/31/2022 8:43 PM CLIENT SUPPORT REPRESENTATIVE HEMOGLOBIN A1C STAT 12/31/2022 6:19 PM CLIENT SUPPORT REPRESENTATIVE from Last 3 Months or Most Recently Relevant to Health Maintenance Results * (ABNORMAL) Iron profile w/ IBC (03/15/2024 12:35 PM CLIENT SUPPORT REPRESENTATIVE) Iron 62 50 - 150 mcg/dL Comment:Testing performed by : [place], [address] TIBC 348 250 - 400 mcg/dL [facility] ([place]) Comment:Testing performed by : [place], [address] Transferrin saturation 18(L) 20 - 50 % [facility] ([place]) Comment:Testing performed by : [place], [address] Blood 03/15/2024 12:3 5 PM CLIENT SUPPORT REPRESENTATIVE 03/15/2024 12:46 PM CLIENT SUPPORT REPRESENTATIVE us Rodo Stark MD LAB BLOOD ORDERABLES Whit l Result [facility] Das[place]) [address] [place] [address] Department [place] [address] * Ferritin (03/15/2024 12:35 PM CLIENT SUPPORT REPRESENTATIVE) Ferritin 207 30 - 400 ng/mL Comment:Testing performed by : [place], [address] Blood 03/15/2024 12:3 5 PM CLIENT SUPPORT REPRESENTATIVE 03/15/2024 12:46 PM CLIENT SUPPORT REPRESENTATIVE us Rodo Stark MD LAB BLOOD ORDERABLES Whit l Result Performing Organization Address City/[facility]/ZIP Co de Phone Number [facility] ([place]) [address] [place] [address] Department [place] [address] * (ABNORMAL) eGFR (03/15/2024 10:55 AM CLIENT SUPPORT REPRESENTATIVE) eGFR 50(L) >=60 mL/min/1. 73 m2 Comment: [...] was last reviewed 2020. Testing performed by: [place], [address] Blood 03/15/2024 10:5 5 AM CLIENT SUPPORT REPRESENTATIVE 03/15/2024 11:19 AM CLIENT SUPPORT REPRESENTATIVE us Kailey Harrison PROMOTIONAL MARKETING AGENT LAB BLOOD ORDERABLES Final Result [facility] ([place]) [facility] Department [place] [address] * Differential, auto (03/15/2024 10:55 AM CLIENT SUPPORT REPRESENTATIVE) Neutrophil abs 5.0 1.5 - 6.5 K/cumm Comment:Testing performed by : [facility] [address], Medical Office [facility] [address], [place] [address] Imm gran abs 0.0 0.0 - 0.1 K/cumm [facility] ([place]) Comment:Testing performed by : [facility] [address], Medical Office [facility] [address], [place] [address] Lymphocyte abs 1.2 0.8 - 3.3 K/cumm [facility] ([place]) Comment:Testing performed by : [facility] [address], Medical Office [facility] [address], [place] [address] Monocyte abs 0.6 0.2 - 0.8 K/cumm [facility] ([place]) Comment:Testing performed by : [facility] [address], Medical Office [facility] [address], [place] [address] Eosinophil abs 0.5 0.0 - 0.5 K/cumm [facility] ([place]) Comment:Testing performed by : [facility] [address], Medical Office [facility] [address], [place] [address] Basophil abs 0.1 0.0 - 0.1 K/cumm [facility] ([place]) Comment:Testing performed by : [facility] [address], Medical Office [facility] [address], [place] [address] Neutrophil pct 68.0 % [facility] ([place]) Comment: Interpretive Data Percent cell count reference ranges are not reported, since discordance with absolute values may lead to misinterpretation of CBC data. Current Interpretive Data was last revised on 2022. Testing performed by: [facility] [address], Medical Office [address], [place] [address] Imm gran pct 0.3 % [facility] ([place]) Comment: Interpretive Data Percent cell count reference ranges are not reported, since discordance with absolute values may lead to misinterpretation of CBC data. Current Interpretive Data was last revised on 2022. Testing performed by: [facility] [address], Medical Office [facility] [address], [place] [address] Lymphocyte pct 16.8 % [facility] ([place]) Comment: Interpretive Data Percent cell count reference ranges are not reported, since discordance with absolute values may lead to misinterpretation of CBC data. Current Interpretive Data was last revised on 2022. Testing performed by: [facility] [address], Medical Office [facility] [address], [place] [address] Monocyte pct 7.5 % [facility] ([place]) Comment: Interpretive Data Percent cell count reference ranges are not reported, since discordance with absolute values may lead to misinterpretation of CBC data. Current Interpretive Data was last revised on 2022. Testing performed by: [facility] [address], Medical Office [facility] [address], [place] [address] Eosinophil pct 6.7 % [facility] ([place]) Comment: Interpretive Data Percent cell count reference ranges are not reported, since discordance with absolute values may lead to misinterpretation of CBC data. Current Interpretive Data was last revised on 2022. Testing performed by: [facility] [address], Medical Office [facility] [address], [place] [address] Basophil pct 0.7 % [facility] ([place]) Comment: Interpretive Data Percent cell count reference ranges are not reported, since discordance with absolute values may lead to misinterpretation of CBC data. Current Interpretive Data was last revised on 2022. Testing performed by: [facility] [address], Medical Office [facility] [address], [place] [address] Blood 03/15/2024 10:5 5 AM CLIENT SUPPORT REPRESENTATIVE 03/15/2024 11:02 AM CLIENT SUPPORT REPRESENTATIVE us Kailey Harrison PROMOTIONAL MARKETING AGENT LAB BLOOD ORDERABLES Final Result [facility] ([place]) 1 [facility] Department [place] [address] * (ABNORMAL) CBC with auto differential (03/15/2024 10:55 AM CLIENT SUPPORT REPRESENTATIVE) WBC 7.3 3.8 - 9.9 K/cumm Comment:Testing performed by : [facility] [address], Medical Office [address], [place] [address] Hgb 11.8(L) 13.0 - 17.5 g/dL [facility] ([place]) Comment:Testing performed by : [facility] [address], Medical Office [facility] [address], [place] [address] Hct 36.6(L) 38.9 - 50.3 % [facility] ([place]) Comment:Testing performed by : [facility] [address], Medical Office [facility] [address], [place] [address] Plt 272 150 - 400 K/cumm [facility] ([place]) Comment:Testing performed by : [facility] [address], Medical Office [facility] [address], [place] [address] MPV 9.5 9.1 - 12.3 fL [facility] ([place]) Comment:Testing performed by : [facility] [address], Medical Office [facility] [address], [place] [address] RBC 4.16(L) 4.30 - 5.80 M/cumm [facility] ([place]) Comment:Testing performed by : [facility] [address], Medical Office [address], [place] [address] MCV 88.0 81.3 - 96.4 fL [facility] ([place]) Comment:Testing performed by : [facility] [address], Medical Office [address], [place] [address] MCH 28.4 27.1 - 33.3 pg [facility] ([place]) Comment:Testing performed by : [facility] [address], Medical Office [facility] [address], [place] [address] MCHC 32.2(L) 32.3 - 35.7 g/dL [facility] ([place]) Comment:Testing performed by : [facility] [address], Medical Office [facility] [address] [facility] [address], [place] [address] RDW CV 15.0(H) 11.1 - 14.9 % [facility] ([place]) Comment:Testing performed by : [facility] [address], Medical Office [facility] [address], [place] [address] RDW SD 49.1(H) 35.7 - 48.1 fL [facility] ([place]) Comment:Testing performed by : [facility] [address], Medical Office [facility] [address], [place] [address] NRBC abs Not Measured 0.00 - 0.01 K/cumm [facility] ([place]) Comment:Testing performed by : [facility] [address], Medical Office [facility] [address], [place] [address] Blood 03/15/2024 10:5 5 AM CLIENT SUPPORT REPRESENTATIVE 03/15/2024 11:02 AM CLIENT SUPPORT REPRESENTATIVE us Kailey Harrison NP LAB BLOOD ORDERABLES Final Result [facility] ([place]) 1 [facility] Department [place] [address] * (ABNORMAL) CEA (03/15/2024 10:55 AM CLIENT SUPPORT REPRESENTATIVE) CEA 7.7(H) 0.1 - 5.0 ng/mL Comment: Interpretive Data The Mignon CEA assay procedure was used. Results from different manufacturers or methods may not be comparable. Serial testing should be performed using the same method. Testing performed by: [facility], [address] [place] [address], [place]., [address] Blood 03/15/2024 10:5 5 AM CLIENT SUPPORT REPRESENTATIVE 03/15/2024 4:30 PM CLIENT SUPPORT REPRESENTATIVE us Kailey D. Biciocchi PROMOTIONAL MARKETING AGENT LAB BLOOD ORDERABLES Final Result [facility] ([place]) 1 [facility] Department [place] [address] * (ABNORMAL) Comprehensive metabolic panel (03/15/2024 10:55 AM CLIENT SUPPORT REPRESENTATIVE) Sodium 141 135 - 145 mmol/L Comment:Testing performed by : [facility], [place], [address] Potassium, pl 4.7 3.3 - 4.9 mmol/L [facility] ([place]) Comment:Testing performed by : [facility], [place], [address] Chloride 103 97 - 110 mmol/L [facility] ([place]) Comment:Testing performed by : [facility], [place], [address] CO2 28 22 - 32 mmol/L [facility] ([place]) Comment:Testing performed by : [facility], [place], [address] Anion gap 10 2 - 15 mmol/L [facility] ([place]) Comment:Testing performed by : [facility], [place], [address] BUN 18 6 - 25 mg/dL [facility] ([place]) Comment:Testing performed by : [facility], [place], [address] Creatinine 1.47(H) 0.80 - 1.30 mg/dL [facility] ([place]) Comment:Testing performed by : [facility], [place], [address] Glucose 129 70 - 199 mg/dL [facility] ([place]) Comment: Interpretive Data Fasting glucose >/= 126 [...] was last revised 2022. Testing performed by: [facility], [place], [address] Calcium 9.8 8.5 - 10.3 mg/dL [facility] ([place]) Comment:Testing performed by : [facility], [place], [address] Bilirubin, total 0.3 0.1 - 1.2 mg/dL [facility] ([place]) Comment:Testing performed by : [facility], [place], [address] Protein, pl 7.5 6.5 - 8.5 g/dL [facility] ([place]) Comment:Testing performed by : [facility], [place], [address] Albumin 4.3 3.5 - 5.0 g/dL [facility] ([place]) Comment:Testing performed by : [facility], [place], [address] Alk phos 107 40 - 130 Units/L [facility] ([place]) Comment:Testing performed by : [facility], [place], [address] ALT 21 7 - 55 Units/L [facility] ([place]) Comment:Testing performed by : [facility], [place], [address] AST 24 10 - 50 Units/L [facility] ([place]) Comment:Testing performed by : [facility], [place], [address] Blood 03/15/2024 10:5 5 AM CLIENT SUPPORT REPRESENTATIVE 03/15/2024 11:19 AM CLIENT SUPPORT REPRESENTATIVE Kailey Harrison PROMOTIONAL MARKETING AGENT LAB BLOOD ORDERABLES Final Result [facility] ([place]) 1 [facility] Department [place] [address] * CT chest abdomen pelvis with contrast (03/09/2024 11:31 AM CLIENT SUPPORT REPRESENTATIVE) Anatomical Region Laterality Modality Body N/A Computed Tomogra phy 03/12/2024 9:49 AM CLIENT SUPPORT REPRESENTATIVE Narrative 03/12/2024 10:08 AM CLIENT SUPPORT REPRESENTATIVE EXAM DESCRIPTION: CT CHEST ABDOMEN PELVIS W [...] CHEST WALL: Unremarkable. HARDWARE/LINES/TUBES: Left-sided pacemaker. Right Nnqoiv-Z-Scdy catheter, distal tip at the cavoatrial junction. [...] Charlee Watson M.D. TW: TW Report ID: [id number] Reading Location: [id number] Procedure Note Charlee Watson MD - 03/12/2024 [...] CHEST WALL: Unremarkable. HARDWARE/LINES/TUBES: Left-sided pacemaker. Right Uljwcq-Z-Vevdbiivldcu, distal tip at the cavoatrial junction. MUSCULOSKELETAL [...] Electronically signed by Charlee Watson M.D. TW: NATALIO Report ID: [id number] Reading Location: [place] [address] Kailey Harrison PROMOTIONAL MARKETING AGENT IMG CT PROCEDURES Final Re sult * (ABNORMAL) Creatinine, whole blood (03/09/2024 10:22 AM CLIENT SUPPORT REPRESENTATIVE) Creatinine, bld 1.85(H) 0.60 - 1.30 mg/dL Blood 03/09/2024 10:2 2 AM CLIENT SUPPORT REPRESENTATIVE 03/09/2024 10:26 AM CLIENT SUPPORT REPRESENTATIVE Kailey Harrison PROMOTIONAL MARKETING AGENT LAB BLOOD ORDERABLES Final Result [facility] ([place]) 1 [facility] Department of Laboratories [place] [id number] * Lipid panel (09/05/2023 10:04 AM CDT) Cholesterol 132 <200 mg/dL [facility] HDL 44 > OR = 40 mg/dL [facility] Triglycerides 107 <150 mg/dL [facility] LDL 69 mg/dL (calc) [facility] Comment: Reference range: <100 Desirable range <100 mg/dL for primary prevention; <70 mg/dL for patients with CHD or diabetic patients with > or = 2 CHD risk factors. LDL-C is now calculated using the Sunny calculation, which is a validated novel method providing better accuracy than the Friedewald equation in the estimation of LDL-C. Edgardo RUIZ et al. DAVID. 2013;310(19): 6353-8302 (http://education.DB3 Mobile/faq/MRA139) Chol/HDL ratio 3.0 <5.0 (calc) [facility] Non-HDL, (LDL+VLDL) 88 <130 mg/dL (calc) [facility] keshav Thakur Comment: For patients with diabetes plus 1 major ASCVD risk factor, treating to a non-HDL-C goal of <100 mg/dL (LDL-C of <70 mg/dL) is considered a therapeutic option. Blood 09/05/2023 10:0 4 AM CDT 09/05/2023 10:05 AM CDT Narrative [facility] - 09/05/2023 8:46 PM CDT FASTING:YES FASTING: YES Eddie Muniz MD LAB BLOOD ORDERABLES Whit l Result Performing Organization Address City/[facility]/ZIP Co de Phone Number [employer] [facility] [address] [place] [address] * (ABNORMAL) Hepatitis panel, acute Blood (12/31/2022 8:43 PM CLIENT SUPPORT REPRESENTATIVE) [facility] Hep A IgM Nonreactive Nonreactive [facility] Hep B core IgM Nonreactive Nonreactive [facility] Hep C Ab Reactive(A) Nonreactive [facility] Comment: Reactive for HCV antibodies. This may represent current or past HCV infection. Supplemental molecular testing will be automatically performed to determine current infection status in accordance with current CDC screening recommendations. Current interpretive data was last revised on 21 HepBsAg Nonreactive Nonreactive [facility] Blood 12/31/2022 8:43 PM CLIENT SUPPORT REPRESENTATIVE 12/31/2022 9:46 PM CLIENT SUPPORT REPRESENTATIVE Maurilio Gonzalez MD LAB MICROBIOLOGY - GENERA L ORDERABLES Final Result Performing Organization Address City/[facility]/ZIP Co de Phone Number [facility] [place] [address] * (ABNORMAL) Hemoglobin A1c (12/31/2022 6:19 PM CLIENT SUPPORT REPRESENTATIVE) [facility] Hgb A1C 7.2(H) 4.0 - 5.6 % [facility] Estimated Average Glucose 160 mg/dL [facility] Comment: The ADA recommends reporting an estimated Average Glucose (eAG) with all Hemoglobin A1c results using the equation derived from a study of 507 normal and diabetic adults. Minority populations were underrepresented and children were not included. (Diabetes Care 2020; 43(S1): S66-S76). The eAG is not equivalent to a fasting glucose. Blood 12/31/2022 6:19 PM CLIENT SUPPORT REPRESENTATIVE 12/31/2022 8:25 PM CLIENT SUPPORT REPRESENTATIVE us Tiff Dean MD LAB BLOOD ORDERABLES Final Result Performing Organization Address City/State/[facility] Co de Phone Number [facility] [place] [address] from Last 3 Months or Most Recently Relevant to Health Maintenance Insurance MEDICARE SOLUTIONS [facility] MEDICARE [id number] [facility] OTHER Address: [address] [place] [address] MEDICARE [employer]UTIONS Advance Directives For more information, please contact: [phone] * Full Code (Latest Code Status on File) Date Activated Date Inactivated Comments 04/27/2023 12:52 AM 04/28/2023 7:25 PM * Full Code Date Activated Date Inactivated Comments 12/31/2022 4:37 PM 01/19/2023 7:47 PM Care Teams Sulphate Tester Relationship Specialty Start Date End Date Francis Otooel NP [address] [place] [address] PCP - General Family Medicine 08/19/23
--- OUTSIDE RECORDS SUMMARY | 2024-04-02 00:24 | XMS_ITS | Encounter Summary ---
Author Organization [facility] Address [address] [place] [id number] Care Team Providers Care Outdoor Studies Professor Name Role Phone Idalims Veronica MD Primary Care Provider [phone] Francis Otoole NP Primary Care Provider [phone] Encounter Details Date Type Department Care Team (Late st Contact Info) Description 07/29/2018 Abstract SFL CONVERSION [address] [place] [address] , Generic Conversion, Social History Tobacco Use Types Packs/Day Years Used Date Smoking Tobacco: Never Assessed Sex and Gender Information Value Date Recorded Sex Assigned at Not on file 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
--- OUTSIDE RECORDS SUMMARY | 2024-04-02 00:24 | XMS_ITS | Clinical Summary ---
Author Organization [facility] Address [address] [place] [address] Care Team Providers Care Counseling Director Name Role Phone Xiang Francis Morales NP Primary Care Provider [phone] Allergies No known active allergies Medications PARoxetine (PAXIL) 40 MG tablet Take 0.5 tablets (20 mg total) by mouth every morning. Active prazosin (MINIPRESS) 1 MG capsule Take 2 capsules (2 mg total) by mouth nightly at bedtime. Active lisinopril (PRINIVIL) 40 MG tablet Take 0.5 tablets (20 mg total) by mouth daily. Active lamoTRIgine (LAMICTAL) 100 MG tablet Take 0.5 tablets (50 mg total) by mouth daily. Active albuterol sulfate HFA 108 (90 Base) MCG/ACT inhaler Inhale 2 puffs into the lungs every 6 (six) hours as needed for Wheezing. Active finasteride (PROSCAR) 5 MG tablet Take 1 tablet (5 mg total) by mouth daily. Active atorvastatin (LIPITOR) 40 MG tablet Take 1 tablet (40 mg total) by mouth nightly at bedtime. Active capecitabine (XELODA) 500 MG tablet Take 1,000 mg/m2 by mouth 2 (two) times daily. Takes the week of and week after chemo Active Cholecalciferol 50 MCG (1999 UT) Tab Take 5,000 Units by mouth daily. Active empagliflozin (JARDIANCE) 10 MG tablet Take 1 tablet (10 mg total) by mouth daily. Active metFORMIN (GLUCOPHAGE) 500 MG tablet Take 4 tablets (2,000 mg total) by mouth once. Active metoprolol tartrate (LOPRESSOR) 50 MG tablet Take by mouth 2 (two) times daily. Active tamsulosin (FLOMAX) 0.4 MG Cap Take 1 capsule (0.4 mg total) by mouth daily. Active aspirin 325 MG tablet Take 1 tablet (325 mg total) by mouth daily. Active insulin glargine (LANTUS) 100 UNIT/ML injection (PEN) Inject 16 Units into the skin nightly at bedtime. Active Active Problems No known active problems Social History Tobacco Use Types Packs/Day Years Used Date Smoking Tobacco: Never Smokeless Tobacco: Never Tobacco Cessation:Counseling Given: Not Answered Alcohol Use Standard Drinks/Week Comments Never 0 (1 standard drink = 0.6 oz pur e alcohol) Sex and Gender Information Value Date Recorded Sex Assigned at Not on file Legal Sex Male 9:53 PM EXECUTIVE VP Gender Identity Not on file Sexual Orientation Not on file Last Filed Vital Signs Vital Sign Reading Time Taken Comments Blood Pressure 189/91 10/12/2023 9:34 AM CDT Pulse 51 10/12/2023 9:34 AM CDT Temperature 36.3 C (97.3 F) 10/12/2023 9:34 AM CDT Respiratory Rate 16 10/12/2023 9:34 AM CDT Oxygen Saturation 98% 10/12/2023 9:34 AM CDT Inhaled Oxygen Concentration - - Weight 67.6 kg (149 lb) 10/12/2023 8:53 AM CDT Height 167.6 cm (5' 6 ) 10/12/2023 8:53 AM CDT Body Mass Index 24.05 10/12/2023 8:53 AM CDT Plan of Treatment Health Maintenance Due Date Last Done Comments Colorectal Cancer Screening Colonoscopy (10 Years) 1950 Hepatitis C 1968 Zoster Vaccines (1 of 2) 2000 Annual Medicare Wellness Visit 05/07/2015 Pneumococcal Vaccine: 65+ Years (2 of 2 - PCV) 03/29/2017 03/29/2016 COVID-19 Vaccine ( season) 2023 02/08/2023, 12/17/2021, 12/24/2020, Additional history exists Influenza Adult (#1) 2023 RSV Immunization or 60+ Years (1 - 1-dose 75+ series) 2025 DTaP, Tdap and Td Vaccines (2 - Td or Tdap) 03/29/2026 03/29/2016, 05/25/2005 Meningococcal B Vaccine Aged Out No l onger eligible based on patient's age to complete this topic Meningococcal Vaccine Aged Out No rajinder jaelyn eligible based on patient's age to complete this topic RSV Immunizations Under 20 Months Aged Out No longer eligible based on patient's age to complete this topic Medical Devices Implanted Type Area Consulting Psychiatrist Device Identifier Shelf Expiration Date Model / Serial / Lot Tecnis Simplicity Delivery System Implanted:Qty: 1 on 08/10/2023 by Marily Rollins MD at [facility] Right: Eye 03/23/2025 [id number] / / [id number] Tecnis Simplicity Delivery System Implanted:Qty: 1 on 10/12/2023 by Marily Rollins MD at [facility] Left: Eye [employer] [id number] 12/27/2025 / [id number] / [id number] Insurance [facility] Care Teams Counseling Director Relationship Specialty Start Date End Date Francis Otoole NP [address] [place] [address] PCP - General NURSE PRACTITIONER 10/12/23
--- OUTSIDE RECORDS SUMMARY | 2024-04-02 00:24 | XMS_ITS | Clinical Summary ---
Author Organization [facility] Address [address] [place] [id number] Phone Care Team Providers Care Applications Sales Representative Name Role Phone Idalmis Veronica MD Primary Care Provider [phone] Allergies No known active allergies Medications Medication Sig Dispensed Refills Start Date End Date Status Blood Glucose Monitoring Suppl (OneTouch Verio Reflect) w/Device kit USE DAILY BEFORE A MEAL DIRECTED 07/14/2020 Active buPROPion XL (WELLBUTRIN XL) 300 MG 24 hr tablet Take 300 mg by mouth 1 (one) time each day 10/07/2020 Active OneTouch Verio test strip USE TO TEST DAILY DIRECTED - FASTING IN THE MORNING 08/04/2020 Active indapamide (LOZOL) 2.5 MG tablet Take 2.5 mg by mouth 1 (one) time each day 10/07/2020 Active lamoTRIgine (LaMICtal) 100 MG tablet Take 100 mg by mouth every night 10/07/2020 Active Lancets (OneTouch Delica Plus [id number]) misc 1 (one) time each day as directed 08/05/2020 Active metFORMIN XR 500 MG 24 hr tablet TAKE 4 TABLETS BY MOUTH EVERY EVENING WITH THE EVENING MEAL 10/07/2020 Active PARoxetine (PAXIL) 10 MG tablet Take 10 mg by mouth 1 (one) time each day 10/07/2020 Active PARoxetine (PAXIL) 40 MG tablet Take 40 mg by mouth 1 (one) time each day 10/07/2020 Active prazosin (MINIPRESS) 1 MG capsule Take 1 mg by mouth every night 10/07/2020 Active simvastatin (ZOCOR) 40 MG tablet Take 40 mg by mouth 1 (one) time each day in the evening 10/07/2020 Active SITagliptin (JANUVIA) 50 MG tablet Take 50 mg by mouth 1 (one) time each day Active lisinopril (PRINIVIL) 40 MG tablet Take 1 tablet (40 mg total) by mouth 1 (one) time each day 90 tablet 3 07/30/2021 Active Active Problems Problem Noted Date Diagnosed Date Diabetes mellitus without me ntion of complication, type II or unspecified type, not stated as uncontrolled 10/15/2020 Stage 3a chronic kidney disease 10/15/2020 Essential hypertension 10/15/2020 Other and unspecified hyperlipidemia 10/15/2020 Resolved Problems Problem Noted Date Diagnosed Date Resolved Date Malignant essential hypertension 10/15/2020 10/15/2020 Immunizations Name Administration Dates Next Due Influenza TIV (IM) 02/08/2022(Deferred: Patient Refused) Pneumococcal Polysaccharide 02/08/2022(Deferred: Patient Refused) Family History Medical History Relation Comments Kidney disease Neg Hx Social History Tobacco Use Types Packs/Day Years Used Date Smoking Tobacco: Former Smokeless Tobacco: Never Alcohol Use Standard Drinks/Week Comments Not Currently 0 (1 standard drink = 0.6 oz pur e alcohol) Sex and Gender Information Value Date Recorded Sex Assigned at Not on file Gender Identity Not on file Sexual Orientation Not on file Last Filed Vital Signs Vital Sign Reading Time Taken Comments Blood Pressure 128/80 02/08/2022 9:35 AM BLOW UP OPERATOR Pulse 72 02/08/2022 9:35 AM BLOW UP OPERATOR Temperature 35.6 C (96.1 F) 02/08/2022 9:35 AM BLOW UP OPERATOR Respiratory Rate - - Oxygen Saturation - - Inhaled Oxygen Concentration - - Weight 63.5 kg (140 lb) 02/08/2022 9:35 AM BLOW UP OPERATOR Height 172.7 cm (5' 8 ) 02/08/2022 9:35 AM BLOW UP OPERATOR Body Mass Index 21.29 02/08/2022 9:35 AM BLOW UP OPERATOR Plan of Treatment Health Maintenance Due Date Last Done Comments Pneumococcal PPSV23/PCV13 65 + Years / High and Highest Risk (1 of 4 - PCV) 1956 Diabetic Foot Exam 1960 Ophthalmology Exam 1960 Influenza Vaccine (#1) 2023 Care Teams Applications Sales Representative Relationship Specialty Start Date End Date Idalmis Veronica MD [address] [place] [address] PCP - General Internal Medicine 07/30/21
[2024-04-02 06:55] VITALS: BP 145/74; PULSE 59; RESP 18; TEMP 36.5; O2SAT 100; BMI 21.8
[2024-04-02] MEDS: LACTATED RINGERS 1,000 ML 150 ML IV CONT (07:18)
[2024-04-02 07:24] LABS: Glucose Point of Care 97 mg/dl (65-105)
--- NOTE | 2024-04-02 07:29 | P.HP_ITS ---
History of Present Illness History of Present Illness Consent: Risks, benefits, and alternatives have been discussed and questions answered. Patient agrees to proceed with procedure. Chief complaint: colon cancer Narrative: Julian Wilson is a 73 year old male with colon cancer in 2022 s/p rt hemicolectomy Review of Systems Review of Systems: All systems reviewed & are unremarkable except as noted in HPI and below PMFSH Past Medical History Medical History Anxiety Cardiomyopathy Chronic kidney disease, stage 3 Baseline creatinine ranges between 1.36 and 1.55. Dementia Hepatitis History of blood transfusion Hyperlipidemia Hypertension Second degree heart block by electrocardiogram (ECG) Type 2 diabetes mellitus Surgical History Surgical History History of appendectomy History of surgery on upper extremity Open reduction internal fixation of left upper extremity fracture. Hx of right hemicolectomy Robotic assisted laparoscopic right hemicolectomy with stapled intracorporeal ileocolic anastomosis 12/10/22 SAW Family History Family History Grandparent Diabetes mellitus Hypertension Asthma Cerebrovascular accident Family history of coronary artery disease Mother Hypertension Family history of cardiovascular disease Family history of lymphoma Family history of rheumatic fever Father Family history of throat cancer Other Family history of alcoholism Family history of mental disorder Social History Social History Social History: Surrogate medical decision maker: Olivia Wilson, spouse. Code status: Full code. Smoking packs per day: 1 Smoking cigarettes per day: 20.0 Years smoked: 20 Smoking pack-years: 20.00 Smoking status: Former smoker Tobacco type: cigarettes Second hand tobacco smoke exposure: Yes Smoking end date: 02/21/77 Alcohol intake: never Substance use: current Substance use type: marijuana Other substance usage details: weekly Last use: 12/08/22 Do You Feel Safe in your Home?: Yes Lack of Transportation: No Lack of Food: Never True Current Housing: I Have Housing Concerned About Future Housing: No Difficulty Paying Gas/Electric Bills: No Difficulty Paying for Meds: No Currently Unemployed: No Education: Decline to Answer Difficulty w/ Childcare or Family Care: No Living arrangements: with family Additional living arrangements comments: LIVES WITH , OLIVIA Occupation/Education: retired 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 Gender identity (if verbalized by the patient): Male Sexual Orientation (if Verbalized by the Patient): Straight or Heterosexual Spiritual care concerns: No Agree to blood products: Yes Meds Home Medications and Allergies Home Medications ?Medication ?Instructions ?Recorded ?Confirmed ?Type lamotrigine 25 mg tablet 50 mg (2 x 25 mg) PO QHS #1 tablet 02/01/23 04/02/24 Rx paroxetine HCl 20 mg tablet 20 mg PO DAILY 02/01/23 04/02/24 History prazosin 1 mg capsule 2 mg PO QHS PTSD 03/02/23 04/02/24 History blood sugar diagnostic (Blood #100 ea 07/07/23 01/20/24 Rx Glucose Test strips) blood-glucose meter #1 ea 07/07/23 01/20/24 Rx lancets #100 ea 07/07/23 01/20/24 Rx tamsulosin 0.4 mg capsule 0.4 mg PO .QEVENING 07/07/23 04/02/24 History lisinopril 40 mg tablet 40 mg PO DAILY #30 tabs 09/05/23 04/02/24 Rx amlodipine 10 mg tablet 10 mg PO DAILY #90 tabs 10/31/23 04/02/24 Rx aspirin 81 mg tablet,delayed 81 mg PO DAILY 10/31/23 04/02/24 History release cholecalciferol (vitamin D3) 10 5,000 unit PO DAILY 10/31/23 04/02/24 History mcg (400 unit) capsule clopidogrel 75 mg tablet 75 mg PO DAILY 10/31/23 04/02/24 History insulin glargine 100 unit/mL (3 22 unit subcut DAILY 10/31/23 04/02/24 History mL) subcutaneous pen (Lantus Solostar U-100 Insulin) metformin 500 mg tablet,extended 1,000 mg PO QPM 10/31/23 04/02/24 History release 24 hr carvedilol 12.5 mg tablet 12.5 mg PO Q12H #60 tabs 02/06/24 04/02/24 Rx atorvastatin 40 mg tablet 40 mg PO QPM 03/26/24 04/02/24 History empagliflozin 10 mg tablet 10 mg PO DAILY 03/26/24 04/02/24 History (Jardiance) finasteride 5 mg tablet 5 mg PO DAILY 03/26/24 04/02/24 History Allergies Allergy/AdvReac Type Severity Reaction Status Date / Time No Known Allergies Allergy Verified 04/02/24 07:00 Vital Signs Vital Signs - 24 hr 04/02/24 06:55 Temperature 97.7 F Pulse Rate 59 L Respiratory Rate 18 Blood Pressure 145/74 H Pulse Oximetry 100 Oxygen Delivery Room Air Exam 2 Const: General: comfortable and no acute distress HENMT: Face/Nose/Sinus: Normal nares present Eyes: General: appearance normal, both eyes and all related structures Neck: Neck: no JVD Resp: Auscultation: clear to auscultation bilaterally Cardio: Rate: regular rate Rhythm: regular rhythm GI: Inspection: non-distended GI Palp: Yes Soft to palpation Skin: General skin exam: normal color Neuro: Speech: normal speech Extrem: General: normal to inspection Psych: Mental Status: mental status grossly normal Assessment and Plan Assessment and plan (1) Cancer of right colon: Code(s): C18.2 - Malignant neoplasm of ascending colon Status: Acute Assessment and Plan: colonoscopy
--- NOTE | 2024-04-02 07:39 | P.PNAN_ITS ---
Anes - Initial Pre Proc Eval Procedure: Operation Date: 04/02/24 08:00 Proposed Procedures p Colonoscopy - Danielito Sandoval MD Date/Time: 04/02/24 07:39 Surgeon: Danielito Sandoval MD Pre Op Diagnosis: colon cancer Patient Data Age: 73 Gender: M Height: 1.7 m Weight: 63.3 kg Last Vital Signs Temp 97.7 F 04/02/24 06:55 Pulse 59 L 04/02/24 06:55 Resp 18 04/02/24 06:55 BP 145/74 H 04/02/24 06:55 Pulse Ox 100 04/02/24 06:55 O2 Del Method Room Air 04/02/24 06:55 Allergies Allergy/AdvReac Type Severity Reaction Status Date / Time No Known Allergies Allergy Verified 04/02/24 07:00 Home Medications ?Medication ?Instructions ?Recorded ?Confirmed ?Type lamotrigine 25 mg tablet 50 mg (2 x 25 mg) PO QHS #1 tablet 02/01/23 04/02/24 Rx paroxetine HCl 20 mg tablet 20 mg PO DAILY 02/01/23 04/02/24 History prazosin 1 mg capsule 2 mg PO QHS PTSD 03/02/23 04/02/24 History blood sugar diagnostic (Blood #100 ea 07/07/23 01/20/24 Rx Glucose Test strips) blood-glucose meter #1 ea 07/07/23 01/20/24 Rx lancets #100 ea 07/07/23 01/20/24 Rx tamsulosin 0.4 mg capsule 0.4 mg PO .QEVENING 07/07/23 04/02/24 History lisinopril 40 mg tablet 40 mg PO DAILY #30 tabs 09/05/23 04/02/24 Rx amlodipine 10 mg tablet 10 mg PO DAILY #90 tabs 10/31/23 04/02/24 Rx aspirin 81 mg tablet,delayed 81 mg PO DAILY 10/31/23 04/02/24 History release cholecalciferol (vitamin D3) 10 5,000 unit PO DAILY 10/31/23 04/02/24 History mcg (400 unit) capsule clopidogrel 75 mg tablet 75 mg PO DAILY 10/31/23 04/02/24 History insulin glargine 100 unit/mL (3 22 unit subcut DAILY 10/31/23 04/02/24 History mL) subcutaneous pen (Lantus Solostar U-100 Insulin) metformin 500 mg tablet,extended 1,000 mg PO QPM 10/31/23 04/02/24 History release 24 hr carvedilol 12.5 mg tablet 12.5 mg PO Q12H #60 tabs 02/06/24 04/02/24 Rx atorvastatin 40 mg tablet 40 mg PO QPM 03/26/24 04/02/24 History empagliflozin 10 mg tablet 10 mg PO DAILY 03/26/24 04/02/24 History (Jardiance) finasteride 5 mg tablet 5 mg PO DAILY 03/26/24 04/02/24 History Laboratory Tests 04/02/24 07:12 POC Capillary Glucose 97 mg/dl (65-105) Patient hx anesthesia problems: none Family hx anesthesia problems: none Results Review: All pre-operative results and documents have been reviewed as part of the pre- operative evaluation. [facility] Past Medical History Medical History Dementia Cardiomyopathy Hepatitis History of blood transfusion Second degree heart block by electrocardiogram (ECG) Type 2 diabetes mellitus Chronic kidney disease, stage 3 Baseline creatinine ranges between 1.36 and 1.55. Anxiety Hyperlipidemia Hypertension Surgical History Surgical History Hx of right hemicolectomy Robotic assisted laparoscopic right hemicolectomy with stapled intracorporeal ileocolic anastomosis 12/10/22 SAW History of surgery on upper extremity Open reduction internal fixation of left upper extremity fracture. History of appendectomy Family History Family History Grandparent Diabetes mellitus Hypertension Asthma Cerebrovascular accident Family history of coronary artery disease Mother Hypertension Family history of cardiovascular disease Family history of lymphoma Family history of rheumatic fever Father Family history of throat cancer Other Family history of alcoholism Family history of mental disorder Social History Social History Social History: Surrogate medical decision maker: Antonia Wilson, spouse. Code status: Full code. Smoking packs per day: 1 Smoking cigarettes per day: 20.0 Years smoked: 20 Smoking pack-years: 20.00 Smoking status: Former smoker Tobacco type: cigarettes Second hand tobacco smoke exposure: Yes Smoking end date: 02/21/77 Alcohol intake: never Substance use: current Substance use type: marijuana Other substance usage details: weekly Last use: 12/08/22 Do You Feel Safe in your Home?: Yes Lack of Transportation: No Lack of Food: Never True Current Housing: I Have Housing Concerned About Future Housing: No Difficulty Paying Gas/Electric Bills: No Difficulty Paying for Meds: No Currently Unemployed: No Education: Decline to Answer Difficulty w/ Childcare or Family Care: No Living arrangements: with family Additional living arrangements comments: LIVES WITH , ANTONIA Occupation/Education: retired 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 ) Neurological: alert and oriented Last oral intake: >/= 8 hours ASA classification: IV Emergent: no Anesthesia type and monitoring: general GIVS and standard monitoring Results Review: All pre-operative results and documents have been reviewed as part of the pre- operative evaluation. S/p PTCA 12/14, SHIMA and given approval by cardio to hold plavix after 3 months. DM, hx of pacemaker. Informed Consent: The patient's anesthetic plan and its attendant risks and benefits were discussed with the patient/family/POA. Questions were solicited and answers provided to the satisfaction of the patient/family/POA.
[2024-04-02 07:53] VITALS: BP 90/57; PULSE 60; RESP 17; O2SAT 96
[2024-04-02 08:03] VITALS: BP 119/69; PULSE 60; RESP 22; O2SAT 99
[2024-04-02 08:13] VITALS: BP 136/73; PULSE 60; RESP 25; O2SAT 100
== END 2024-04-02 08:18 | disposition home or self-care (01) ==
PROVIDERS: PCP Nurse Practitioner Family; Referring Provider Surgery; Visit Provider Internal Medicine Gastroenterology
PROC: 0DJD8ZZ Inspection of Lower Intestinal Tract, Via Natural or Artificial Opening Endoscopic (ICD-10-PCS; CPT 45378; principal; 2024-04-02 08:00)
DX: Z08 Encounter for follow-up examination after completed treatment for malignant neoplasm (principal); K64.8 Other hemorrhoids; K57.30 Diverticulosis of large intestine without perforation or abscess without bleeding; E78.5 Hyperlipidemia, unspecified; E11.22 Type 2 diabetes mellitus with diabetic chronic kidney disease; I12.9 Hypertensive chronic kidney disease with stage 1 through stage 4 chronic kidney disease, or unspecified chronic kidney disease; N18.30 Chronic kidney disease, stage 3 unspecified; F41.9 Anxiety disorder, unspecified; F03.90 Unspecified dementia, unspecified severity, without behavioral disturbance, psychotic disturbance, mood disturbance, and anxiety; Z79.82 Long term (current) use of aspirin; Z79.02 Long term (current) use of antithrombotics/antiplatelets; Z79.4 Long term (current) use of insulin; Z79.84 Long term (current) use of oral hypoglycemic drugs; Z98.890 Other specified postprocedural states; Z98.0 Intestinal bypass and anastomosis status; Z90.49 Acquired absence of other specified parts of digestive tract; Z87.891 Personal history of nicotine dependence; Z86.79 Personal history of other diseases of the circulatory system; Z85.038 Personal history of other malignant neoplasm of large intestine; Z80.1 Family history of malignant neoplasm of trachea, bronchus and lung; Z82.49 Family history of ischemic heart disease and other diseases of the circulatory system
CPT/HCPCS: 45378; 82948; J2003; J2704; J7120

== ENCOUNTER 2024-06-26 13:41 | Outpatient (CLI) | payer MEDICARE, SELFPAY ==
--- OUTSIDE RECORDS SUMMARY | 2024-06-26 13:45 | XMS_ITS ---
Author Organization [facility] [address] Address [address] [place] [address] Care Team Providers Care Cardiovascular Lab Director Name Role Phone Francis Otoole NP Primary Care Provider Rodo Stark MD Unavailable [phone] Active Problems Problem Noted Date Diagnosed Date Atherosclerosis of [place] co ronary artery of [place] heart without angina pectoris 08/19/2023 Diabetic ketoacidosis withou t coma associated with type 2 diabetes mellitus 04/26/2023 Encounter for fitting and adjustment of [...] with Dr Petersen. CHB (complete heart block) 11/30/2022 Stage 3a chronic kidney disease 10/15/2020 Current Treatment and Therapy Plans No current plan information found. Other Current Plans IV Maintenance Therapy Plan* Plan Start Date:02/28/2023 Plan Provider:Jameson Ricks MD Linked Problems Encounter for fitting and ad justment of vascular catheter Treatment Medications No medications scheduled. Past Treatment and Therapy Plans Oncology Chemotherapy Treatment Plan Name Start Date Discontinue Date Treatment Medications Discontinue Reason Plan Provider Cycles XELOX: (Capecitab ine / OXALIplati n) 21 Day Cycles - Colon/Rect al 02/28/2023 08/17/2023 capecitabine (XELODA)oxalipla tin (ELOXATIN) IVPB Therapy Complete Jameson Ricks MD 8 of 8 cycles started Lifetime Dose Tracking * Chemical Lifetime Dose Automatic Entry Manual Entr y Fluoro Time 2 minutes 2 minutes 0 minutes Air kerma at the reference point (Ka,r) 2,603.16 mGy 7 .4 mGy 2,595.76 mGy DLP 1,401 mGycm 1,401 mGycm 0 mGycm Resolved Problems Problem Noted Date Diagnosed Date Resolved Date Severe protein-calorie malnutrition 01/06/2023 04/27/2023 Essential hypertension 10/15/202003/15
--- OUTSIDE RECORDS SUMMARY | 2024-06-26 13:45 | XMS_ITS | Clinical Summary ---
Author Organization [facility] [place] [address] Address [address] [place] [address] Care Team Providers Care Overseer Kosher Kitchen Name Role Phone Francis Otoole NP Primary Care Provider Rodo Stark MD Unavailable [phone] Allergies No known active allergies Medications metFORMIN XR (GLUCOPHAGE XR) 500 mg 24 hr tablet Take 1 tablet (500 mg total) by mouth 2 (two) times a day Active prazosin (MINIPRESS) 1 mg capsule Take 2 capsules (2 mg total) by mouth nightly Active empagliflozin (JARDIANCE) 10 mg tablet Take 1 tablet (10 mg total) by mouth daily 30 tablet 01/12/2023 Active PARoxetine (PAXIL) 20 mg tablet Take 1 tablet (20 mg total) by mouth every morning Active tamsulosin (FLOMAX) 0.4 mg extended release capsule Take 1 capsule (0.4 mg total) by mouth nightly Active atorvastatin (LIPITOR) 40 mg tablet Take 1 tablet (40 mg total) by mouth daily 30 tablet 11 04/29/2023 Active OneTouch Ultra Test strip TEST BLOOD SUGAR 2 TIMES A DAY DIRECTED 07/07/2023 Active OneTouch Ultra2 Meter misc USE DIRECTED TWICE DAILY 07/07/2023 Active finasteride (PROSCAR) 5 mg tablet Take 1 tablet (5 mg total) by mouth daily Active OneTouch Delica Plus Lancet 33 gauge misc TEST BLOOD SUGAR 2 TIMES A DAY DIRECTED 07/07/2023 Active insulin glargine 100 unit/mL (3 mL) pen for injection Inject 22 Units under the skin daily Active TRUEplus Pen Needle 31 gauge x 5/16 needle USE ONCE DAILY WITH INSULIN GLARGINE 07/14/2023 Active aspirin 81 mg chewable tabletIndicatio ns:prevention of thrombosis Take 1 tablet (81 mg total) by mouth daily 90 tablet 3 10/17/2023 Active amLODIPine (NORVASC) 10 mg tablet Take 1 tablet (10 mg total) by mouth daily Active clopidogreL (PLAVIX) 75 mg tablet Take 1 tablet (75 mg total) by mouth daily 30 tablet 11 11/07/2023 11/07/19 25 Active cholecalciferol (VITAMIN D-3) 5,000 unit tablet Take 1 tablet (5,000 Units total) by mouth daily Active lisinopriL (PRINIVIL,ZESTR IL) 40 mg tablet Take 1 tablet (40 mg total) by mouth daily Active carvediloL (COREG) 12.5 mg tablet Take 1 tablet (12.5 mg total) by mouth every 12 (twelve) hours 02/07/2024 Active lamoTRIgine (LaMICtal) 25 mg tablet Take 2 tablets (50 mg total) by mouth daily 02/28/2024 Active Active Problems Problem Noted Date Diagnosed Date Atherosclerosis of [place] co ronary artery of [place] heart without angina pectoris 08/19/2023 Diabetic ketoacidosis [...] Pacemaker. Dx; Second/Third Degree AVB. DOI 12/03/2022-Juana. [employer] Remote. Patient to follow with Dr Petersen. CHB (complete heart block) 11/30/2022 Stage 3a chronic kidney disease 10/15/2020 Resolved Problems Problem Noted Date Diagnosed Date Resolved Date Severe protein-calorie malnutrition 01/06/2023 04/27/2023 Essential hypertension 10/15/202003/15 Encounters Date Type Department Care Team Description 06/14/2024 11:30 AM CDT Clinical Support [address] [place] [address] Encounter for fitting and adjustment of vascular catheter (Primary Dx); Malignant neoplasm of ascending colon (HCC) 06/14/2024 11:00 AM CDT Office Visit [facility] [address] [place] [address] Medical Office [address] [place] [address] Rodo Stark MD Malignant neoplasm of ascending colon (HCC) 06/14/2024 10:30 AM CDT Lab [address] [place] [address] Malignant neoplasm of ascending colon (HCC); Iron deficiency anemia, unspecified iron deficiency anemia type 06/07/2024 8:06 AM CDT - 06/07/2024 11:59 PM CDT Hospital Encounter [address] [address] Malignant neoplasm of ascending colon (HCC) Discharge Disposition: Discharge to home or self care 06/06/[address] [address] Deena Ellison from Last 3 Months Immunizations Immunization Administration Dates Next Due COVID-19 mRNA ([employer]) 0.3 m L (10 mcg) vaccine (5-11 years) 12/28/2023 Influenza, Quad, Adjuvantated, Intramuscular Influenza, Unspecified 12/28/2023,02/08/2023 Pneumococcal Polysaccharide PPV23 03/29/2016 TD Preservative Free 05/25/2005 Tdap 03/29/2016 Surgical History Surgery Date Site/Laterality Comments COLONOSCOPY Medical History Medical History Date Comments Hypertension Diabetes mellitus (HCC) Heart murmur Hyperlipidemia Colon cancer (HCC) Family History Medical History Relation Name Comments Cancer Father Lymphoma Mother Relation Name Status Comments Father Mother Social History Tobacco Use Types Packs/Day Years Used Date Smoking Tobacco: Former Cigarettes 1 12.7 1 960 - 10/1971 Smokeless Tobacco: Former Quit: 01/10/1974 Tobacco Cessation:Counseling Given: Not Answered [facility] Utilities Answer Date Recorded In the past 12 months has th e electric, gas, oil, or water company threatened to shut off services in your [...] often do you attend chur ch or taoist services? Never 04/27/2023 Do you belong to any clubs o r organizations such as yazidi groups, unions, fraternal or athletic groups, or [...] place to sleep or slept in a assisted (including now)? No 04/27/2023 Personal Safety Answer [...] Sign Reading Time Taken Comments Blood Pressure 139/79 06/14/2024 10:38 AM CDT Pulse 60 06/14/2024 10:38 AM CDT Temperature 36.3 C (97.3 F) 06/14/2024 10:38 AM CDT Respiratory Rate 20 06/14/2024 10:38 AM CDT Oxygen Saturation 97% 06/14/2024 10:38 AM CDT Inhaled Oxygen Concentration - - Weight 64.6 kg (142 lb 6.4 oz) 06/14/2024 10:38 AM CDT Height 167.6 cm (5' 5.98 ) 06/14/2024 10:38 AM C DT Body Mass Index 23 06/14/2024 10:38 AM CDT Plan of Treatment Health Maintenance Due Date Last Done Comments Albumin Creatinine Ratio, Urine 1950 Colon Cancer Screening-Colonoscopy 1950 Depression Screening 1950 Dilated Eye Exam 1950 Foot Exam 1950 Hepatitis B Screening 1968 Zoster Vaccine (1 of 2) 2000 Well Visit 65+ 05/07/2015 Pneumococcal vaccine 65+ (2 of 2 - PCV) 03/29/2017 03/29/2016 Hemoglobin A1C 07/01/2023 12/31/2022, 12/31/2022 Covid-19 Vaccine ( - 2023-2 5 season) 2024 12/28/2023, 02/08/2023, 12/17/2021, Additional history exists Fall Risk Assessment 07/25/2024 07/26/2023, 07/04/2023, 06/13/2023, Additional history exists Lipid Panel 09/04/2024 09/05/2023, 12/22, 11/30/2022 eGFR 06/14/2025 06/14/2024, 02/22, 12/15/2023, Additional history exists DTaP/Tdap/Td Vaccine (2 - Td or Tdap) 03/29/2026 03/29/2016, 05/25/2005 Hepatitis C Screening Completed 12/31/2022, 023 Influenza Vaccine Completed 12/28/2023, , 02/08/2023 Abdominal Aortic Aneurysm (A AA) Screen Completed 03/09/2024, 08/23/2023, 07/25/2023, Additional history exists Medical Devices Implanted Type Area Director Visual Device Identifier Shelf Expiration Date Model / Serial / Lot Medtronic Card Vasc Surgery 3.5 X 22mm [place] Rx Coronary Stent [id number] - [id number] - [id number] Implanted:Qty : 1 on 10/17/2023 by Eddie Muniz MD at [facility] Stent Medtronic Card Vasc Surgery 04/13/2026 [id number] / 0 / [id number] [employer] Stent Coronary De Rx Cocr Ors Msn 3.0x40mm [id number] - [id number] - [id number] Implanted:Qty : 1 on 11/07/2023 by Eddie Muniz MD at [facility] Stent N/A: Coronary Artery [employer] 06/01/2025 [id number] / [id number] / [id number] [employer] Stent Coronary De Rx Cocr Ors Msn 3.5x35mm [id number] - [id number] - [id number] Implanted:Qty : 1 on 11/07/2023 by Eddie Muniz MD at [facility] Stent N/A: Coronary Artery [employer] 07/26/2025 [id number] / [id number] / [id number] Procedures Procedure Name Priority Date/Time Associated Diagnosis Comments SOLUBLE TRANSFERRIN Routine 06/14/2024 1 0:25 AM CDT EGFR Routine 06/14/2024 10:25 AM CDT Malignant neoplasm of ascending colon (HCC) DIFFERENTIAL AUTO Routine 06/14/2024 10: 25 AM CDT Malignant neoplasm of ascending colon (HCC) CBC WITH AUTO DIFFERENTIAL Routine 06/14/2024 10:25 AM CDT Malignant neoplasm of ascending colon (HCC) COMPREHENSIVE METABOLIC PANEL Routine 06/14/2024 10:25 AM CDT Malignant neoplasm of ascending colon (HCC) CEA Routine 06/14/2024 10:25 AM CDT Malignant neoplasm of ascending colon (HCC) IRON PROFILE W/ IBC Routine 06/14/2024 1 0:25 AM CDT Iron deficiency anemia, unspecified iron deficiency anemia type FERRITIN Routine 06/14/2024 10:25 AM CDT Iron deficiency anemia, unspecified iron deficiency anemia type CT CHEST WO CONTRAST Schedule Routine, Read Routine (OP Routine) 06/07/2024 8:23 AM CDT Malignant neoplasm of ascending colon (HCC) CT CHEST ABDOMEN PELVIS W CONTRAST Schedule Routine, Read Routine (OP Routine) 03/09/2024 11:31 AM PHOTOGEOLOGIST Malignant neoplasm of ascending colon (HCC) Encounter for fitting and adjustment of vascular catheter LIPID PANEL Routine 09/05/2023 10:04 AM CDT Atherosclerosis of [place] coronary artery of [place] heart without angina pectoris HEPATITIS PANEL, ACUTE Timed 12/31/2022 8:43 PM PHOTOGEOLOGIST HEMOGLOBIN A1C STAT 12/31/2022 6:19 PM PHOTOGEOLOGIST from Last 3 Months or Most Recently Relevant to Health Maintenance Results * (ABNORMAL) eGFR (06/14/2024 10:25 AM CDT) eGFR 49(L) >=60 mL/min/1. 73 m2 Comment: Interpretive Data [...] was last reviewed 2020. Testing performed by: [facility], [facility], [place], [address] Blood 06/14/2024 10:2 5 AM CDT 06/14/2024 10:47 AM CDT us Rodo Stark MD LAB BLOOD ORDERABLES Whit aydin Result BYRON LAYTON ([place]) [address] [facility] Department [place] [address] * Differential, auto (06/14/2024 10:25 AM CDT) Neutrophil abs 6.12 1.50 - 6.50 K/cumm BYRON LAYTON ([place]) Comment:Testing performed by : [facility] [address], Medical Office [address], [place] [address] Imm gran abs 0.03 0.00 - 0.10 K/cumm [facility] ([place]) Comment:Testing performed by : [facility] [address], Medical Office [address], [place] [address] Lymphocyte abs 1.05 0.80 - 3.30 K/cumm [facility] ([place]) Comment:Testing performed by : [facility] [address], Medical Office [address], [place] [address] Monocyte abs 0.65 0.20 - 0.80 K/cumm [facility] ([place]) Comment:Testing performed by : [facility] [address], Medical Office [address], [place] [address] Eosinophil abs 0.48 0.00 - 0.50 K/cumm [facility] ([place]) Comment:Testing performed by : [facility] [address], Medical Office [facility] [address], [place] [address] Basophil abs 0.06 0.00 - 0.10 K/cumm [facility] ([place]) Comment:Testing performed by : [facility] [address], Medical Office [facility] [address], [place] [address] Neutrophil pct 73.0 % [facility] ([place]) Comment: Interpretive Data Percent cell count reference ranges are not reported, since discordance with absolute values may lead to misinterpretation of CBC data. Current Interpretive Data was last revised on 2022. Testing performed by: [facility] [address], Medical Office [facility] [address], [place] [address] Imm gran pct 0.4 % [facility] ([place]) Comment: Interpretive Data Percent cell count reference ranges are not reported, since discordance with absolute values may lead to misinterpretation of CBC data. Current Interpretive Data was last revised on 2022. Testing performed by: [facility] [address], Medical Office [address], [place] [address] Lymphocyte pct 12.5 % [facility] ([place]) Comment: Interpretive Data Percent cell count reference ranges are not reported, since discordance with absolute values may lead to misinterpretation of CBC data. Current Interpretive Data was last revised on 2022. Testing performed by: [facility] [address], Medical Office [facility] B [facility] [address], [place] [address] Monocyte pct 7.7 % BYRON LAYTON ([place]) Comment: Interpretive Data Percent cell count reference ranges are not reported, since discordance with absolute values may lead to misinterpretation of CBC data. Current Interpretive Data was last revised on 2022. Testing performed by: [facility] [address], Medical Office [facility] B [facility] [address], [place] [address] Eosinophil pct 5.7 % NUZHAT LAYTON ([place]) Comment: Interpretive Data Percent cell count reference ranges are not reported, since discordance with absolute values may lead to misinterpretation of CBC data. Current Interpretive Data was last revised on 2022. Testing performed by: [facility] [address], Medical Office [facility] B [facility] [address], [place] [address] Basophil pct 0.7 % BYRON LAYTON ([place]) Comment: Interpretive Data Percent cell count reference ranges are not reported, since discordance with absolute values may lead to misinterpretation of CBC data. Current Interpretive Data was last revised on 2022. Testing performed by: [facility] [address], Medical Office [facility] B [facility] [address], [place] [address] Blood 06/14/2024 10:2 5 AM CDT 06/14/2024 10:27 AM CDT us Rodo Stark MD LAB BLOOD ORDERABLES Whit l Result BYRON LAYTON ([place]) [facility] Department [place] [address] * Soluble Transferrin (06/14/2024 10:25 AM CDT) [facility] Soluble transferrin receptor 2.6 1.8 - 4.6 mg/L [facility] Comment: ADDITIONAL INFORMATION It is reported that Americans may have slightly higher values. Test Performed by: [address] [address] Library Specialist: Lydia Nice Ph.D.; CLIA# [id number] Testing performed by: [place], [address] Blood 06/14/2024 10:2 5 AM CDT 06/14/2024 12:34 PM CDT Rodo Stark MD LAB BLOOD ORDERABLES Whit l Result INDERJITSTEFANY CALIN ([place]) [address] [place] [address] [place] [address] [facility] * (ABNORMAL) Iron profile w/ IBC (06/14/2024 10:25 AM CDT) Iron 43(L) 50 - 150 mcg/dL Comment:Testing performed by : [facility], [place], [address] TIBC 287 250 - 400 mcg/dL BYRON LAYTON ([place]) Comment:Testing performed by : [facility], [place], [address] Transferrin saturation 15(L) 20 - 50 % BYRON LAYTON ([place]) Comment:Testing performed by : [place], [address] Blood 06/14/2024 10:2 5 AM CDT 06/14/2024 10:47 AM CDT Rodo Stark MD LAB BLOOD ORDERABLES Whit l Result [facility] ([place]) [address] [facility] [place] [address] * (ABNORMAL) CBC with auto differential (06/14/2024 10:25 AM CDT) WBC 8.39 3.80 - 9.90 K/cumm BYRON LAYTON ([place]) Comment:Testing performed by : [facility] [address], Medical Office [address], [place] [address] Hgb 11.0(L) 13.0 - 17.5 g/dL [facility] ([place]) Comment:Testing performed by : [facility] [address], Medical Office [address], [place] [address] Hct 34.6(L) 38.9 - 50.3 % [facility] ([place]) Comment:Testing performed by : [facility] [address], Medical Office [address], [place] [address] Plt 294 150 - 400 K/cumm [facility] ([place]) Comment:Testing performed by : [facility] [address], Medical Office [facility] [address], [place] [address] MPV 9.3 9.1 - 12.3 fL [facility] ([place]) Comment:Testing performed by : [facility] [address], Medical Office [facility] [address], [place] [address] RBC 3.86(L) 4.30 - 5.80 M/cumm [facility] ([place]) Comment:Testing performed by : [facility] [address], Medical Office [facility] [address], [place] [address] MCV 89.6 81.3 - 96.4 fL [facility] ([place]) Comment:Testing performed by : [facility] [address], Medical Office [facility] [address], [place] [address] MCH 28.5 27.1 - 33.3 pg [facility] ([place]) Comment:Testing performed by : [facility] [address], Medical Office [address], [place] [address] MCHC 31.8(L) 32.3 - 35.7 g/dL [facility] ([place]) Comment:Testing performed by : [facility] [address], Medical Office [address], [place] [address] RDW CV 14.4 11.1 - 14.9 % [facility] ([place]) Comment:Testing performed by : [facility] [address], Medical Office [address], [place] [address] RDW SD 47.9 35.7 - 48.1 fL BYRON LAYTON ([place]) Comment:Testing performed by : [facility] , Medical Office [facility] B [facility] [address], [place] [address] Blood 06/14/2024 10:2 5 AM CDT 06/14/2024 10:27 AM CDT us Rodo Stark MD LAB BLOOD ORDERABLES Whit l Result BYRON LAYTON ([place]) [address] [facility] Department [place] [address] * Ferritin (06/14/2024 10:25 AM CDT) Ferritin 234 30 - 400 ng/mL Comment:Testing performed by : [facility], [facility], [place], [address] Blood 06/14/2024 10:2 5 AM CDT 06/14/2024 10:47 AM CDT us Rodo Stark MD LAB BLOOD ORDERABLES Whit l Result Performing Organization Address [facility] Co de Phone Number BYRON LAYTON ([place]) [address] [facility] Department [place] [address] * (ABNORMAL) CEA (06/14/2024 10:25 AM CDT) CEA 6.7(H) 0.1 - 5.0 ng/mL Comment: Interpretive Data The Mignon CEA assay procedure was used. Results from different manufacturers or methods may not be comparable. Serial testing should be performed using the same method. Testing performed by: [facility], [address] [place] [address], [place]., [address] Blood 06/14/2024 10:2 5 AM CDT 06/14/2024 3:54 PM CDT us Rodo Stark MD LAB BLOOD ORDERABLES Whit l Result [facility] ([place]) [address] [facility] Department [place] [address] * (ABNORMAL) Comprehensive metabolic panel (06/14/2024 10:25 AM CDT) Sodium 139 135 - 145 mmol/L Comment:Testing performed by : [facility], [facility], [place], [address] Potassium, pl 4.3 3.3 - 4.9 mmol/L [facility] ([place]) Comment:Testing performed by : [facility], [facility], [place], [address] Chloride 101 97 - 110 mmol/L [facility] ([place]) Comment:Testing performed by : [facility], [place], [address] CO2 25 22 - 32 mmol/L [facility] ([place]) Comment:Testing performed by : [facility], [place], [address] Anion gap 13 2 - 15 mmol/L [facility] ([place]) Comment:Testing performed by : [facility], [facility], [place], [address] BUN 21 6 - 25 mg/dL [facility] ([place]) Comment:Testing performed by : [facility], [place], [address] Creatinine 1.49(H) 0.80 - 1.30 mg/dL [facility] ([place]) Comment:Testing performed by : [facility], [place], [address] Glucose 81 70 - 199 mg/dL [facility] ([place] Comment: Interpretive Data Fasting glucose >/= 126 [...] classification and Diagnosis of Diabetes Diabetes Care 202; 46: S19-S40. Current interpretive data was last revised 2022. Testing performed by: [facility], [place], [address] Calcium 9.4 8.5 - 10.3 mg/dL [facility] ([place]) Comment:Testing performed by : [facility], [facility], [place], [address] Bilirubin, total 0.3 0.1 - 1.2 mg/dL [facility] ([place]) Comment:Testing performed by : [facility], [place], [address] Protein, pl 7.2 6.5 - 8.5 g/dL [facility] ([place]) Comment:Testing performed by : [facility], [facility], [place], [address] Albumin 4.1 3.5 - 5.0 g/dL [facility] ([place]) Comment:Testing performed by : [facility], [facility], [place], [address] Alk phos 110 40 - 130 Units/L [facility] ([place]) Comment:Testing performed by : [facility], [place], [address] ALT 13 7 - 55 Units/L [facility] ([place]) Comment:Testing performed by : [facility], [facility], [place], [address] AST 17 10 - 50 Units/L [facility] ([place]) Comment:Testing performed by : [facility], [place], [address] Blood 06/14/2024 10:2 5 AM CDT 06/14/2024 10:47 AM CDT us Rodo Stark MD LAB BLOOD ORDERABLES Whit l Result [facility] ([place]) [facility] Department [place] [address] * CT Chest WO Contrast (06/07/2024 8:23 AM CDT) Anatomical Region Laterality Modality Body N/A Computed Tomogra phy 06/13/2024 4:00 PM CDT Narrative 06/13/2024 4:07 PM CDT EXAM DESCRIPTION: CT CHEST WO CONTRAST REASON FOR STUDY: assess for recurrance of metastic disease Opacity in right lower lung seen on scan done 03/09/24, patient states no chest complaints, hx of metastatic colon cancer TECHNIQUE: CT scan of the chest performed without intravenous contrast using helical scanning technique. Reconstructed coronal and sagittal MPR images reviewed. All images stored on PACS. Automated exposure control was used as a dose optimization technique for this examination. COMPARISON: CT chest abdomen pelvis 03/09/2024 FINDINGS: The sensitivity for detection of solid visceral lesions is diminished without the use of intravenous contrast. LUNGS: Patent central airways. Mild bilateral emphysema. Somewhat nodular subpleural opacity in the peripheral right lower lobe now measures 8 mm, previously 13 mm and consistent with benign scarring/atelectasis (-). Similar subpleural opacity representing scarring/subsegmental atelectasis in the lingula (-) and in the medial right lung base () is also stable-decreased. No new or suspicious pulmonary nodule or mass. PLEURA: No effusion. No pneumothorax. MEDIASTINUM/NANCY: No identified masses or abnormal nodes. HEART: Heart size is normal with no pericardial effusion. CORONARY ARTERY CALCIFICATION: Severe VASCULATURE: Atheromatous disease of the aorta with coronary artery calcification. No aneurysms of the aorta. AXILLA: No adenopathy. CHEST WALL: No masses. No subcutaneous air. HARDWARE/LINES/TUBES: Right Port-A-Cath terminates in the superior cavoatrial junction, stable. UPPER ABDOMEN: No acute findings MUSCULOSKELETAL: Chronic bilateral rib fractures. No acute or suspicious osseous findings OTHER: No other significant abnormality. IMPRESSION: No acute findings in the chest. Subpleural opacities in the right lower lobe and lingula are stable-decreased in size and consistent with scarring/subsegmental atelectasis. No new or suspicious pulmonary nodule or mass. THIS IS AN ELECTRONICALLY VERIFIED FINAL REPORT 06/13/2024 4:07 PM - Electronically signed by Doris Hook M.D. FT: FT Report ID: [id number] Reading Location: [place] [address] Procedure Note Doris Chavez MD - 06/13/2024 EXAM DESCRIPTION: CT CHEST WO CONTRAST REASON FOR STUDY: assess for recurrance of metastic disease Opacity in right lower lung seen on scan done 03/09/24, patient states nochest complaints, hx of metastatic colon cancer TECHNIQUE: CT scan of the chest performed without intravenous contrastusing helical scanning technique. Reconstructed coronal and sagittal MPR images reviewed. All images stored on PACS. Automated exposure control was usedas a dose optimization technique for this examination. COMPARISON: CT chest abdomen pelvis 03/09/2024 FINDINGS: The sensitivity for detection of solid visceral lesions is diminishedwithout the use of intravenous contrast. LUNGS: Patent central airways. Mild bilateral emphysema. Somewhatnodular subpleural opacity in the peripheral right lower lobe now measures 8 mm, previously 13 mm and consistent with benign scarring/atelectasis(-). Similar subpleural opacity representing scarring/subsegmental atelectasisin the lingula (-) and in the medial right lung base () is also stable-decreased. No new or suspicious pulmonary nodule or mass. PLEURA: No effusion. No pneumothorax. MEDIASTINUM/NANCY: No identified masses or abnormal nodes. HEART: Heart size is normal with no pericardial effusion. CORONARY ARTERY CALCIFICATION: Severe VASCULATURE: Atheromatous disease of the aorta with coronary artery calcification. No aneurysms of the aorta. AXILLA: No adenopathy. CHEST WALL: No masses. No subcutaneous air. HARDWARE/LINES/TUBES: Right Port-A-Cath terminates in the superior cavoatrial junction, stable. UPPER ABDOMEN: No acute findings MUSCULOSKELETAL: Chronic bilateral rib fractures. No acute orsuspicious osseous findings OTHER: No other significant abnormality. IMPRESSION: No acute findings in the chest. Subpleural opacities in the right lower lobe and lingula arestable-decreased in size and consistent with scarring/subsegmental atelectasis. No new or suspicious pulmonary nodule or mass. THIS IS AN ELECTRONICALLY VERIFIED FINAL REPORT 06/13/2024 4:07 PM - Electronically signed by Doris Hook M.D. FT: FT Report ID: [id number] Reading Location: [place] [address] us Rodo Stark MD IMG CT PROCEDURES Final R esult * CT chest abdomen pelvis with contrast (03/09/2024 11:31 AM PHOTOGEOLOGIST) Anatomical Region Laterality Modality Body N/A Computed Tomogra phy 03/12/2024 9:49 AM PHOTOGEOLOGIST Narrative 03/12/2024 10:08 AM PHOTOGEOLOGIST EXAM DESCRIPTION: CT CHEST ABDOMEN PELVIS W [...] CHEST WALL: Unremarkable. HARDWARE/LINES/TUBES: Left-sided pacemaker. Right Sfmlri-Z-Ojcg catheter, distal tip at the cavoatrial junction. [...] Charlee Watson M.D. TW: NATALIO Report ID: [id number] Reading Location: [id number] Procedure Note Charlee Watson MD - 03/12/2024 [...] CHEST WALL: Unremarkable. HARDWARE/LINES/TUBES: Left-sided pacemaker. Right Uyrbjq-J-Zcjhwnbsiubi, distal tip at the cavoatrial junction. MUSCULOSKELETAL [...] Charlee Watson M.D. TW: NATALIO Report ID: [id number] Reading Location: [place] [address] us Kailey Harrison NP IMG CT PROCEDURES Final Re sult * Lipid panel (09/05/2023 10:04 AM CDT) Cholesterol 132 <200 mg/dL [facility] HDL 44 > OR = 40 mg/dL [facility] Triglycerides 107 <150 mg/dL [facility] LDL 69 mg/dL (calc) [facility] Comment: Reference range: <100 Desirable range <100 mg/dL for primary prevention; <70 mg/dL for patients with CHD or diabetic patients with > or = 2 CHD risk factors. LDL-C is now calculated using the Edgardo-Jo Ann calculation, which is a validated novel method providing better accuracy than the Friedewald equation in the estimation of LDL-C. Edgardo RUIZ et al. DAVID. 2013;310(19): 9941-2292 (http://education.Plaxica/faq/RQB776) Chol/HDL ratio 3.0 <5.0 (calc) [facility] Non-HDL, (LDL+VLDL) 88 <130 mg/dL (calc) [facility] Comment: For patients with diabetes plus 1 major ASCVD risk factor, treating to a non-HDL-C goal of <100 mg/dL (LDL-C of <70 mg/dL) is considered a therapeutic option. Blood 09/05/2023 10:0 4 AM CDT 09/05/2023 10:05 AM CDT Narrative [facility] - 09/05/2023 8:46 PM CDT FASTING:YES FASTING: YES us Eddie Muniz MD LAB BLOOD ORDERABLES Whit l Result Performing Organization Address City/[facility]/ZIP Co de Phone Number [facility] [address] [place] [address] * (ABNORMAL) Hepatitis panel, acute Blood (12/31/2022 8:43 PM PHOTOGEOLOGIST) Hep A IgM Nonreactive Nonreactive [facility] Hep B core IgM Nonreactive Nonreactive [facility] Hep C Ab Reactive(A) Nonreactive [facility] Comment: Reactive for HCV antibodies. This may represent current or past HCV infection. Supplemental molecular testing will be automatically performed to determine current infection status in accordance with current CDC screening recommendations. Current interpretive data was last revised on 21 HepBsAg Nonreactive Nonreactive [facility] Blood 12/31/2022 8:43 PM PHOTOGEOLOGIST 12/31/2022 9:46 PM PHOTOGEOLOGIST Maurilio Gonzalez MD LAB MICROBIOLOGY - GENERA L ORDERABLES Final Result Performing Organization Address City/[facility] Co de Phone Number [facility] [place] [address] * (ABNORMAL) Hemoglobin A1c (12/31/2022 6:19 PM PHOTOGEOLOGIST) Hgb A1C 7.2(H) 4.0 - 5.6 % [facility] Estimated Average Glucose 160 mg/dL [facility] Comment: The ADA recommends reporting an estimated Average Glucose (eAG) with all Hemoglobin A1c results using the equation derived from a study of 507 normal and diabetic adults. Minority populations were underrepresented and children were not included. (Diabetes Care 2020; 43(S1): S66-S76). The eAG is not equivalent to a fasting glucose. Blood 12/31/2022 6:19 PM PHOTOGEOLOGIST 12/31/2022 8:25 PM PHOTOGEOLOGIST us Tiff Dean MD LAB BLOOD ORDERABLES Final Result [facility] Department [place] [address] from Last 3 Months or Most Recently Relevant to Health Maintenance Insurance [facility] MEDICARE ADVANTAGE [facility] MEDICARE [id number] [facility] MEDICARE ADVANTAGE Advance Directives For more information, please contact: [phone] * Full Code (Latest Code Status on File) Date Activated Date Inactivated Comments 04/27/2023 12:52 AM 04/28/2023 7:25 PM * Full Code Date Activated Date Inactivated Comments 12/31/2022 4:37 PM 01/19/2023 7:47 PM Care Teams Overseer Kosher Kitchen Relationship Specialty Start Date End Date Francis Otoole NP [address] [place] [address] PCP - General Family Medicine 08/19/23 Rodo Stark MD [address] [place] [address] Medical Oncologist/Water Pump Operator Medical Oncology 06/12/24
--- OUTSIDE RECORDS SUMMARY | 2024-06-26 13:45 | XMS_ITS | Clinical Summary ---
Author Organization [facility] Address [address] [place] [id number] Phone Care Team Providers Care Passenger Vessel Chef Name Role Phone Idalmis Veronica MD Primary Care Provider Allergies No known active allergies Medications Blood Glucose Monitoring Suppl (OneTouch Verio Reflect) [...] night 10/07/2020 Active Lancets (OneTouch Delica Plus [id number]) misc 1 (one) time each day as [...] Date Malignant essential hypertension 10/15/2020 10/15/2020 Immunizations Immunization Administration Dates Next Due Influenza TIV (IM) [...] at Not on file Legal Sex Male 1:16 PM MDT Gender Identity Not on file Sexual Orientation Not on file Last Filed Vital Signs Vital Sign Reading Time Taken Comments Blood Pressure 128/80 02/08/2022 9:35 AM POWER SUPPLY ENGINEER Pulse 72 02/08/2022 9:35 AM POWER SUPPLY ENGINEER Temperature 35.6 C (96.1 F) 02/08/2022 9:35 AM POWER SUPPLY ENGINEER Respiratory Rate - - Oxygen Saturation - - Inhaled Oxygen Concentration - - Weight 63.5 kg (140 lb) 02/08/2022 9:35 AM POWER SUPPLY ENGINEER Height 172.7 cm (5' 8 ) 02/08/2022 9:35 AM POWER SUPPLY ENGINEER Body Mass Index 21.29 02/08/2022 9:35 AM POWER SUPPLY ENGINEER Plan of Treatment Health Maintenance Due Date Last Done Comments Diabetic Foot Exam 1960 Ophthalmology Exam 1960 Pneumococcal PPSV23/PCV13 65 + Years / High and Highest Risk (1 of 5 - PCV) 1969 Influenza Vaccine (Season Ended) 2024 Insurance [employer] MEDICARE Care Teams Passenger Vessel Chef Relationship Specialty Start Date End Date Idalmis Veronica MD [address] [place] [address] PCP - General Internal Medicine 07/30/21
--- OUTSIDE RECORDS SUMMARY | 2024-06-26 13:45 | XMS_ITS | Clinical Summary ---
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 Gender Identity Not on file Sexual Orientation [...] Annual Medicare Wellness Visit 05/07/2015 Pneumococcal Vaccine: 50+ Years (2 of 2 - PCV) 03/29/2017 03/29/2016 COVID-19 Vaccine ( season) 2023 02/08/2023, 12/17/2021, 12/24/2020, Additional history exists RSV Immunization or 60+ Years (1 - [...] this topic Medical Devices Implanted Type Area Inspector And Hand Packager Device Identifier Shelf Expiration Date Model / Serial / Lot [employer]ecnis Simplicity Delivery System Implanted:Qty: 1 on 08/10/2023 by Marily Rollins MD at [facility] Right: Eye 03/23/2025 [id number] / / [id number] [employer] Simplicity Delivery System Implanted:Qty: 1 on 10/12/2023 by Marily Rollins MD at [facility] Left: Eye [employer] [facility] [facility] [id number] 12/27/2025 / [id number] / [id number] Insurance [facility] Care Teams Roller Coaster Operator Relationship Specialty Start Date End Date Francis Otoole NP [address] [place] [id number] PCP - General NURSE PRACTITIONER 10/12/23
--- OUTSIDE RECORDS SUMMARY | 2024-06-26 13:45 | XMS_ITS | Referral Summary ---
Author Organization [facility] [address] Address [address] [place] [address] Care Team Providers Care Counter Manager Name Role Phone Francis Otoole NP Primary Care Provider [phone] Rodo Stark MD Unavailable [phone] Encounters Date Type Department Care Team Description 06/14/2024 10:30 AM CDT Lab [address] [place] [phone] Malignant neoplasm of ascending colon (HCC); Iron deficiency anemia, unspecified iron deficiency anemia type 06/14/2024 11:30 AM CDT Clinical Support [address] [place] [phone] Encounter for fitting and adjustment of vascular catheter (Primary Dx); Malignant neoplasm of ascending colon (HCC) 06/14/2024 11:00 AM CDT Office Visit [facility] Physicians [facility] Oncology [address] [place] [address] Medical Office [address] [place] [address] Rodo Stark MD Malignant neoplasm of ascending colon (HCC) 06/07/2024 8:06 AM CDT - 06/07/2024 11:59 PM CDT Hospital Encounter [address] [address] Malignant neoplasm of ascending colon (HCC) Discharge Disposition: Discharge to home or self care 06/06/[address] [address] Deena Ellison from Last 3 Months Allergies No known [...] (5 mg total) by mouth daily Active Motility CountTouch Delica Plus Lancet 33 gauge misc TEST [...] Problem Noted Date Diagnosed Date Atherosclerosis of [place] co ronary artery of [place] heart without angina pectoris 08/19/2023 Diabetic ketoacidosis [...] Cardiac pacemaker in situ 12/06/2022 Overview (12/06/2022): [email or web address] Edora Dual Pacemaker. Dx; Second/Third Degree AVB. DOI 12/03/2022-Juana. [email or web address] Remote. Patient to follow with Dr Petersen. CHB (complete heart block) 11/30/2022 Stage 3a chronic kidney disease 10/15/2020 Resolved Problems Problem Noted Date Diagnosed Date Resolved Date Severe protein-calorie malnutrition 01/06/2023 04/27/2023 Essential hypertension 10/15/202003/15 Immunizations Immunization Administration Dates Next Due COVID-19 mRNA (Mumart) 0.3 m L (10 mcg) vaccine (5-11 years) 12/28/2023 Influenza, Quad, Adjuvantated, Intramuscular Influenza, Unspecified 12/28/2023,02/08/2023 Pneumococcal Polysaccharide PPV23 03/29/2016 TD Preservative Free 05/25/2005 Tdap 03/29/2016 Social History Tobacco Use Types Packs/Day Years Used Date Smoking Tobacco: Former Cigarettes 1 12.7 1 960 - 10/1971 Smokeless Tobacco: Former Quit: 01/10/1974 Tobacco Cessation:Counseling Given: Not Answered [facility] Utilities Answer Date Recorded In [...] often do you attend chur ch or sikhism services? Never 04/27/2023 Do you belong to any clubs o r organizations such as synagogue groups, unions, fraternal or athletic groups, or [...] place to sleep or slept in a fci (including now)? No 04/27/2023 Personal Safety Answer [...] 06/14/2024 10:38 AM CDT Plan of Treatment Not on file Medical Devices Implanted Type Area Music Minister Device Identifier Shelf Expiration Date Model / Serial / Lot Medtronic Card Vasc Surgery 3.[address] [place] Rx Coronary Stent [id number] - [id number] - [id number] Implanted:Qty : 1 on 10/17/2023 by Eddie Muniz MD at [facility] Stent Medtronic Card Vasc Surgery 04/13/2026 [id number] / [id number] / [id number] [employer] Stent Coronary De Rx Cocr Ors Msn 3.0x40mm [id number] - [id number] - [id number] Implanted:Qty : 1 on 11/07/2023 by Eddie Muniz MD at [facility] Stent N/A: Coronary Artery [employer] 06/01/2025 [id number] / [id number] / [id number] [employer] Stent Coronary De Rx Cocr Ors Msn 3.5x35mm [id number] - [id number] - [id number] Implanted:Qty : 1 on 11/07/2023 by Eddie Muniz MD at [facility] Stent N/A: Coronary Artery [employer] 07/26/2025 [id number] / [id number] / [id number] Procedures Procedure Name Priority Date/Time Associated Diagnosis [...] Read Routine (OP Routine) 03/09/2024 11:31 AM SAFE DEPOSIT CLERK Malignant neoplasm of ascending colon (HCC) Encounter for fitting and adjustment of vascular catheter LIPID PANEL Routine 09/05/2023 10:04 AM CDT Atherosclerosis of [place] coronary artery of [place] heart without angina pectoris HEPATITIS PANEL, ACUTE Timed 12/31/2022 8:43 PM SAFE DEPOSIT CLERK HEMOGLOBIN A1C STAT 12/31/2022 6:19 PM SAFE DEPOSIT CLERK from Last 3 Months or Most Recently [...] was last reviewed 2020. Testing performed by: [facility], [facility], [place], [address] Blood 06/14/2024 10:2 5 AM CDT 06/14/2024 10:47 AM CDT us Rodo Stark MD LAB BLOOD ORDERABLES Whit l Result [facility] ([place]) [facility] [place] [address] * Differential, auto (06/14/2024 10:25 AM CDT) Neutrophil abs 6.12 1.50 - 6.50 K/cumm [facility] ([place]) Comment:Testing performed by : [facility] [address], Medical Office [address], [place] [address] Imm gran abs 0.03 0.00 - 0.10 K/cumm [facility] ([place]) Comment:Testing performed by : [facility] [address], Medical Office [facility] [address], [place] [address] Lymphocyte abs 1.05 0.80 - 3.30 K/cumm [facility] ([place]) Comment:Testing performed by : [facility] [address], Medical Office [facility] [address], [place] [address] Monocyte abs 0.65 0.20 - 0.80 K/cumm [facility] ([place]) Comment:Testing performed by : [facility] [address], Medical Office [facility] [address], [place] [address] Eosinophil abs 0.48 0.00 - 0.50 K/cumm [facility] ([place]) Comment:Testing performed by : [facility] [address], Medical Office [facility] [address], [place] [address] Basophil abs 0.06 0.00 - 0.10 K/cumm [facility] ([place]) Comment:Testing performed by : [facility] [address], Medical Office [facility] [address], [place] [address] Neutrophil pct 73.0 % [facility] ([place]) Comment: Interpretive Data Percent cell count reference ranges are not reported, since discordance with absolute values may lead to misinterpretation of CBC data. Current Interpretive Data was last revised on 2022. Testing performed by: [facility] [address], Medical Office [address], [place] [address] Imm gran pct 0.4 % [facility] ([place]) Comment: Interpretive Data Percent cell count reference ranges are not reported, since discordance with absolute values may lead to misinterpretation of CBC data. Current Interpretive Data was last revised on 2022. Testing performed by: [facility] [address], Medical Office [facility] [address], [place] [address] Lymphocyte pct 12.5 % [facility] ([place]) Comment: Interpretive Data Percent cell count reference ranges are not reported, since discordance with absolute values may lead to misinterpretation of CBC data. Current Interpretive Data was last revised on 2022. Testing performed by: [facility] [address], Medical Office [facility] [address], [place] [address] Monocyte pct 7.7 % [facility] ([place]) Comment: Interpretive Data Percent cell count reference ranges are not reported, since discordance with absolute values may lead to misinterpretation of CBC data. Current Interpretive Data was last revised on 2022. Testing performed by: [facility] [address], Medical Office [facility] [address], [place] [address] Eosinophil pct 5.7 % [facility] ([place]) Comment: Interpretive Data Percent cell count reference ranges are not reported, since discordance with absolute values may lead to misinterpretation of CBC data. Current Interpretive Data was last revised on 2022. Testing performed by: [facility] [address], Medical Office [address], [place] [address] Basophil pct 0.7 % [facility] ([place]) Comment: Interpretive Data Percent cell count reference ranges are not reported, since discordance with absolute values may lead to misinterpretation of CBC data. Current Interpretive Data was last revised on 2022. Testing performed by: [facility] [address], Medical Office [facility] [address], [place] [address] Blood 06/14/2024 10:2 5 AM CDT 06/14/2024 10:27 AM CDT us Rodo Stark MD LAB BLOOD ORDERABLES Whit perrin Result [facility] ([place]) [facility] Department [place] [address] * Soluble Transferrin (06/14/2024 10:25 AM CDT) Pathologist [facility] Soluble transferrin receptor 2.6 1.8 - 4.6 mg/L [place] ref Lab Comment: ADDITIONAL INFORMATION It is reported that Americans may have slightly higher values. Test Performed by: [facility] - [address] [address] Technical Support Professional: Lydia Nice Ph.D.; CLIA# [id number] Testing performed by: [place], [address] Blood 06/14/2024 10:2 5 AM CDT 06/14/2024 12:34 PM CDT Rodo Stark MD LAB BLOOD ORDERABLES Whit l Result Performing Organization Address City/[facility]/ZIP Co de Phone Number [facility] ([place] [place] [address] [facility] * (ABNORMAL) Iron profile w/ IBC (06/14/2024 10:25 AM CDT) [facility] Iron 43(L) 50 - 150 mcg/dL Comment:Testing performed by : [place], [address] TIBC 287 250 - 400 mcg/dL [facility] ([place]) Comment:Testing performed by : [place], [address] Transferrin saturation 15(L) 20 - 50 % [facility] ([place]) Comment:Testing performed by : [place], [address] Blood 06/14/2024 10:2 5 AM CDT 06/14/2024 10:47 AM CDT Rodo Stark MD LAB BLOOD ORDERABLES Whit l Result [facility] ([place]) [facility] Department [place] [address] * (ABNORMAL) CBC with auto differential (06/14/2024 10:25 AM CDT) WBC 8.39 3.80 - 9.90 K/cumm [facility] ([place]) Comment:Testing performed by : [facility] [address], Medical Office [address], [place] [address] Hgb 11.0(L) 13.0 - 17.5 g/dL [facility] ([place]) Comment:Testing performed by : [facility] [address], Medical Office [facility] [address], [place] [address] Hct 34.6(L) 38.9 - 50.3 % [facility] ([place]) Comment:Testing performed by : [facility] [address], Medical Office [facility] [address], [place] [address] Plt 294 150 - 400 K/cumm [facility] ([place]) Comment:Testing performed by : [facility] [address], Medical Office [facility] [address], [place] [address] MPV 9.3 9.1 - 12.3 fL [facility] ([place]) Comment:Testing performed by : [facility] [address], Medical Office [facility] [address], [place] [address] RBC 3.86(L) 4.30 - 5.80 M/cumm [facility] ([place]) Comment:Testing performed by : [facility] [address], Medical Office [address], [place] [address] MCV 89.6 81.3 - 96.4 fL [facility] ([place]) Comment:Testing performed by : [facility] [address], Medical Office [address], [place] [address] MCH 28.5 27.1 - 33.3 pg [facility] ([place]) Comment:Testing performed by : [facility] [address], Medical Office [address], [place] [address] MCHC 31.8(L) 32.3 - 35.7 g/dL [facility] ([place]) Comment:Testing performed by : [facility] [address], Medical Office [address], [place] [address] RDW CV 14.4 11.1 - 14.9 % [facility] ([place]) Comment:Testing performed by : [facility] [address], Medical Office [address], [place] [address] RDW SD 47.9 35.7 - 48.1 fL [facility] ([place]) Comment:Testing performed by : [facility] [address], Medical Office [address], [place] [address] Blood 06/14/2024 10:2 5 AM CDT 06/14/2024 10:27 AM CDT us Rodo Stark MD LAB BLOOD ORDERABLES Whit l Result Performing Organization Address City/[facility]/ZIP Co de Phone Number [facility] ([place]) [facility] [place] [address] * Ferritin (06/14/2024 10:25 AM CDT) Ferritin 234 30 - 400 ng/mL Comment:Testing performed by : [facility], [facility], [place], [address] Blood 06/14/2024 10:2 5 AM CDT 06/14/2024 10:47 AM CDT us Rodo Stark MD LAB BLOOD ORDERABLES Whit l Result [facility] ([place]) [facility] [place] [address] * (ABNORMAL) CEA (06/14/2024 10:25 AM CDT) CEA 6.7(H) 0.1 - 5.0 ng/mL Comment: Interpretive Data The Mignon CEA assay procedure was used. Results from different manufacturers or methods may not be comparable. Serial testing should be performed using the same method. Testing performed by: [facility], [address] [place] [address]., [address] Blood 06/14/2024 10:2 5 AM CDT 06/14/2024 3:54 PM CDT us Rodo Stark MD LAB BLOOD ORDERABLES Whit perrin Result [facility] ([place]) [facility] [place] [address] * (ABNORMAL) Comprehensive metabolic panel (06/14/2024 10:25 AM CDT) Sodium 139 135 - 145 mmol/L Comment:Testing performed by : [place], [address] Potassium, pl 4.3 3.3 - 4.9 mmol/L [facility] ([place]) Comment:Testing performed by : [place], [address] Chloride 101 97 - 110 mmol/L [facility] ([place]) Comment:Testing performed by : [facility], [place], [address] CO2 25 22 - 32 mmol/L [facility] ([place]) Comment:Testing performed by : [place], [address] Anion gap 13 2 - 15 mmol/L [facility] ([place]) Comment:Testing performed by : [place], [address] BUN 21 6 - 25 mg/dL [facility] ([place]) Comment:Testing performed by : [place], [address] Creatinine 1.49(H) 0.80 - 1.30 mg/dL [facility] ([place]) Comment:Testing performed by : [place], [address] Glucose 81 70 - 199 mg/dL [facility] ([place]) Comment: Interpretive Data Fasting glucose >/= 126 [...] was last revised 2022. Testing performed by: [place], [address] Calcium 9.4 8.5 - 10.3 mg/dL [facility] ([place]) Comment:Testing performed by : [place], [address] Bilirubin, total 0.3 0.1 - 1.2 mg/dL [facility] ([place]) Comment:Testing performed by : [facility], [place], [address] Protein, pl 7.2 6.5 - 8.5 g/dL [facility] ([place]) Comment:Testing performed by : [facility], [place], [address] Albumin 4.1 3.5 - 5.0 g/dL [facility] ([place]) Comment:Testing performed by : [facility], [place], [address] Alk phos 110 40 - 130 Units/L [facility] ([place]) Comment:Testing performed by : [facility], [place], [address] ALT 13 7 - 55 Units/L [facility] ([place]) Comment:Testing performed by : [place], [address] AST 17 10 - 50 Units/L [facility] ([place]) Comment:Testing performed by : [facility], [place], [address] Blood 06/14/2024 10:2 5 AM CDT 06/14/2024 10:47 AM CDT us Rodo Stark MD LAB BLOOD ORDERABLES Whit perrin Result [facility] ([place]) [facility] [place] [address] * CT Chest WO Contrast (06/07/2024 8:23 [...] 13 mm and consistent with benign scarring/atelectasis (-73). Similar subpleural opacity representing scarring/subsegmental atelectasis in the lingula ( 7-85) and in the medial right lung base [...] Doris Hook M.D. FT: FT Report ID: [id number] Reading Location: [id number] Procedure Note Doris Chavez MD - 06/13/2024 [...] previously 13 mm and consistent with benign scarring/atelectasis(-73). Similar subpleural opacity representing scarring/subsegmental atelectasisin the lingula ( 7-85) and in the medial right lung base [...] Doris Hook M.D. FT: FT Report ID: [id number] Reading Location: [id number] us Rodo Stark MD IMG CT PROCEDURES Final R esult * CT chest abdomen pelvis with contrast (03/09/2024 11:31 AM SAFE DEPOSIT CLERK) Anatomical Region Laterality Modality Body N/A Computed Tomogra phy 03/12/2024 9:49 AM SAFE DEPOSIT CLERK Narrative 03/12/2024 10:08 AM SAFE DEPOSIT CLERK EXAM DESCRIPTION: CT CHEST ABDOMEN PELVIS W [...] CHEST WALL: Unremarkable. HARDWARE/LINES/TUBES: Left-sided pacemaker. Right Xgpuqr-G-Gxko catheter, distal tip at the cavoatrial junction. [...] Charlee Watson M.D. TW: NATALIO Report ID: [id number] Reading Location: [id number] Procedure Note Charlee Watson MD - 03/12/2024 [...] CHEST WALL: Unremarkable. HARDWARE/LINES/TUBES: Left-sided pacemaker. Right Bkwpco-H-Cgregjgbzxeg, distal tip at the cavoatrial junction. MUSCULOSKELETAL [...] Charlee Watson M.D. TW: TW Report ID: [id number] Reading Location: [place] [address] us Kailey Harrison NP IMG CT PROCEDURES Final Re sult * Lipid panel (09/05/2023 10:04 AM CDT) Cholesterol 132 <200 mg/dL [facility] HDL 44 > OR = 40 mg/dL [employer] keshav Thakur Triglycerides 107 <150 mg/dL [facility] LDL 69 mg/dL (calc) [facility] Comment: Reference range: <100 Desirable range <100 mg/dL for primary prevention; <70 mg/dL for patients with CHD or diabetic patients with > or = 2 CHD risk factors. LDL-C is now calculated using the Edgardo-Jo Ann calculation, which is a validated novel method providing better accuracy than the Friedewald equation in the estimation of LDL-C. Edgardo RUIZ et al. DAVID. 2013;310(19): 5807-5350 (http://education.[employer]/faq/GLG609) Chol/HDL ratio 3.0 <5.0 (calc) [facility] Non-HDL, (LDL+VLDL) 88 <130 mg/dL (calc) [facility] Comment: For patients with diabetes plus 1 major ASCVD risk factor, treating to a non-HDL-C goal of <100 mg/dL (LDL-C of <70 mg/dL) is considered a therapeutic option. Blood 09/05/2023 10:0 4 AM CDT 09/05/2023 10:05 AM CDT Narrative [facility] - 09/05/2023 8:46 PM CDT FASTING:YES FASTING: YES Eddie Muniz MD LAB BLOOD ORDERABLES Whit l Result [facility] [address] [place] [address] * (ABNORMAL) Hepatitis panel, acute Blood (12/31/2022 8:43 PM SAFE DEPOSIT CLERK) Pathologist [facility] Hep A IgM Nonreactive Nonreactive [facility] Hep B core IgM Nonreactive Nonreactive [facility] Hep C Ab Reactive(A) Nonreactive [facility] Comment: Reactive for HCV antibodies. This may represent current or past HCV infection. Supplemental molecular testing will be automatically performed to determine current infection status in accordance with current CDC screening recommendations. Current interpretive data was last revised on 21 HepBsAg Nonreactive Nonreactive [facility] Blood 12/31/2022 8:43 PM SAFE DEPOSIT CLERK 12/31/2022 9:46 PM SAFE DEPOSIT CLERK us Maurilio Gonzalez MD LAB MICROBIOLOGY - GENERA L ORDERABLES Final Result [facility] Department [place] [address] * (ABNORMAL) Hemoglobin A1c (12/31/2022 6:19 PM SAFE DEPOSIT CLERK) Pathologist [facility] Hgb A1C 7.2(H) 4.0 - 5.6 % [facility] Estimated Average Glucose 160 mg/dL [facility] Comment: The ADA recommends reporting an estimated Average Glucose (eAG) with all Hemoglobin A1c results using the equation derived from a study of 507 normal and diabetic adults. Minority populations were underrepresented and children were not included. (Diabetes Care 2020; 43(S1): S66-S76). The eAG is not equivalent to a fasting glucose. Blood 12/31/2022 6:19 PM SAFE DEPOSIT CLERK 12/31/2022 8:25 PM SAFE DEPOSIT CLERK us Tiff Dean MD LAB BLOOD ORDERABLES Final Result [facility] Department [place] [address] from Last 3 Months or Most Recently Relevant to Health Maintenance Insurance [facility] MEDIC[facility]AGE [facility] MEDICARE [id number] [facility] MEDICARE ADVANTAGE Advance Directives For more information, please contact: [phone] * Full Code (Latest Code Status on File) Date Activated Date Inactivated Comments 04/27/2023 12:52 AM 04/28/2023 7:25 PM * Full Code Date Activated Date Inactivated Comments 12/31/2022 4:37 PM 01/19/2023 7:47 PM Care Teams Counter Manager Relationship Specialty Start Date End Date Francis Otoole NP [address] [address] PCP - General Family Medicine 08/19/23 Rodo Stark MD [address] [facility] [address] [address] Medical Oncologist/Manager Finance Medical Oncology 06/12/24
--- OUTSIDE RECORDS SUMMARY | 2024-06-26 13:45 | XMS_ITS | Encounter Summary ---
Author Organization [facility] Address [address] [place] [address] Care Team Providers Care Organ Pipe Maker Metal Name Role Phone Idalmis Veronica MD Primary Care Provider [phone] Francis Otoole NP Primary Care Provider [phone] Encounter Details Date Type Department Care Team (Late st Contact Info) Description 07/29/2018 Abstract [facility] CONVERSION [address] [place] [address] , Generic Conversion, Social History Tobacco Use Types Packs/Day Years Used Date Smoking Tobacco: Never Assessed Sex and Gender Information Value Date Recorded Sex Assigned at Not on file Legal Sex Male 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
--- NOTE | 2024-06-26 14:03 | ECHO_ITS ---
Patient Info Name: Julian Wilson Age: 74 years : 1950 Gender: Male Ht: 67 in Wt: 145 lbs BSA: 1.77 m2 HR: 60 bpm BP: 157 / 91 mmHg Technical Quality: Good Exam Date: 06/26/2024 2:17 PM Exam Location: Echo Lab Patient Status: Outpatient Admit Date: 06/26/2024 Staff Ordering Physician: Lenin Petersen DO Sr. Manager: Chelo Fuller RDCS Attending Provider: Lenin Petersen DO Referring Physician: Nicola DUARTE; Exam Type: CA echo doppler color flow Study Info Indications I42.9 - Cardiomyopathy, unspecified Complete two-dimensional, color flow and Doppler transthoracic echocardiogram is performed. History/Risk Factors Hypertension: Yes Dyslipidemia: Yes Diabetes Mellitus: Type II Summary 1. Complete two-dimensional, color flow and Doppler transthoracic echocardiogram is performed. 2. Left ventricular chamber dimension is normal. 3. Left ventricular systolic function is normal, estimated at 55-60%. 4. There is mild concentric increased left ventricular wall thickness. 5. Ventricular septum is sigmoid shaped. 6. The left ventricular diastolic function is grade I diastolic dysfunction. 7. E/e' 14 is mildly elevated. 8. Linear artifact in right ventricle suggestive of catheter(s), pacemaker lead(s), or ICD lead(s). 9. Left atrial chamber dimension is moderately enlarged. 10. Right atrial chamber dimension is mildly enlarged. 11. Linear artifact in the right atrium suggestive of catheter(s), pacemaker lead(s), or ICD lead(s). 12. There is mild aortic valve sclerosis. 13. There is mild mitral valve regurgitation. 14. No pulmonary hypertension, estimated pulmonary arterial systolic pressure is 30 mmHg. Recommendations * Continue medical therapy for diabetes. Left Ventricle E/e' 14 is mildly elevated. Ventricular septum is sigmoid shaped. Left ventricular chamber dimension is normal. Left ventricular systolic function is normal, estimated at 55-60%. There is mild concentric increased left ventricular wall thickness. The left ventricular diastolic function is grade I diastolic dysfunction. Right Ventricle Linear artifact in right ventricle suggestive of catheter(s), pacemaker lead(s), or ICD lead(s). Right ventricular chamber dimension is normal. Right ventricular systolic function is normal. Left Atria Left atrial chamber dimension is moderately enlarged. Right Atria Linear artifact in the right atrium suggestive of catheter(s), pacemaker lead(s), or ICD lead(s). Right atrial chamber dimension is mildly enlarged. Aortic Valve The aortic valve is trileaflet. There is mild aortic valve sclerosis. There is no aortic valve stenosis. There is no aortic valve regurgitation. Pulmonic Valve There is no pulmonic regurgitation. Mitral Valve There is no mitral valve stenosis. There is mild mitral valve regurgitation. Tricuspid Valve There is no tricuspid valve regurgitation. No pulmonary hypertension, estimated pulmonary arterial systolic pressure is 30 mmHg. Pericardium/Pleural There is no pericardial effusion. Inferior Vena Cava Normal inferior vena cava with >50% collapse upon inspiration consistent with normal right atrial pressure, 5 mmHg. Aorta The aortic root size at the sinus of Valsalva is normal. Left Ventricular Outflow Tract Name Value Normal LVOT 2D LVOT Diameter 2.3 cm LVOT Doppler LVOT Peak Gradient 6 mmHg LVOT Mean Gradient 4 mmHg LVOT VTI 25 cm LVOT VTI/AV VTI Ratio 0.6 LVOT Stroke Volume 101 ml LVOT CO 6.0 l/min LVOT CI 3.4 l/min/m2 Pulmonic Valve Name Value Normal RVOT Doppler RVOT Peak Gradient 2 mmHg PV Doppler PV Peak Gradient 4 mmHg Mitral Valve Name Value Normal MV Doppler MV Decel [place] 212 cm/s2 MV PHT 95 ms MV Area (PHT) 2.3 cm2 4.0-5.0 MV Diastolic Function MV E Peak Velocity 69 cm/s MV A Peak Velocity 90 cm/s MV E/A 0.8 MV Decel Time 326 ms Tricuspid Valve Name Value Normal TV Regurgitation Doppler TR Peak Velocity 248 cm/s TR Peak Gradient 25 mmHg Estimated PAP/RSVP RA Pressure 5 mmHg <=5 PA Systolic Pressure 30 mmHg <36 RV Systolic Pressure 30 mmHg <36 Aorta Name Value Normal Ascending Aorta Ao Root Diameter (MM) 3.7 cm Ao Root Diam Index (MM) 2.1 cm/m2 Aortic Valve Name Value Normal AV Doppler AV Peak Velocity 199 cm/s AV Peak Gradient 14 mmHg AV Mean Gradient 8 mmHg AV VTI 42 cm AV Area (Cont Eq VTI) 2.4 cm2 >=3.0 AV Area (Cont Eq Jack) 2.5 cm2 AV Regurgitation 2D LVOT Area 4.0 cm2 Ventricles Name Value Normal LV Dimensions 2D/MM IVS Diastolic Thickness (2D) 1.3 cm 0.6-1.0 IVS Diastole Thickness (MM) 0.9 cm 0.6-1.0 LVID Diastole (2D) 4.8 cm 4.2-5.8 LVID Diastole (MM) 6.3 cm 4.2-5.8 LVIW Diastolic Thickness (2D) 1.0 cm 0.6-1.0 LVIW Diastolic Thickness (MM) 0.9 cm 0.6-1.0 LVID Systole (2D) 3.0 cm 2.5-4.0 LVID Systole (MM) 4.2 cm 2.5-4.0 LVOT Diameter 2.3 cm LV Mass (2D Cubed) 207.03 g 88.00-224.00 LV Mass Index (2D Cubed) 117 g/m2 49-115 Relative Wall Thickness (2D) 0.39 LV Mass (MM Cubed) 234.50 g 88.00-224.00 LV Mass Index (MM Cubed) 133 g/m2 49-115 Relative Wall Thickness (MM) 0.29 LV Fractional Shortening/Ejection Fraction 2D/MM LV Fractional Shortening (2D) 37 % 25-43 LV Fractional Shortening (MM) 34 % 25-43 LV EF (MM Teicholz) 61 % 52-72 LV EF (2D Teicholz) 67 % 52-72 LV Diastolic Volume (4C MOD) 81 ml LV EF (4C MOD) 38 % LV Diastolic Volume (2C MOD) 72 ml LV EF (2C MOD) 63 % LV Diastolic Volume (BP MOD) 77 ml 62-150 LV Diastolic Volume Index (BP MOD) 43 ml/m2 34-74 LV Systolic Volume (BP MOD) 37 ml 21-61 LV Systolic Volume Index (BP MOD) 21 ml/m2 11-31 LV EF (BP MOD) 52 % 52-72 LV Diastolic Length (4C) 8.6 cm LV Systolic Length (4C) 7.3 cm LV Stroke Volume (4C MOD) 31 ml Atria Name Value Normal LA Dimensions LA Dimension (MM) 4.5 cm 3.0-4.1 LA Volume (4C A-L) 82 ml LA Volume (BP A-L) 89 ml RA Dimensions RA Area (4C) 18.7 cm2 <=18.0 Report Signatures
== END 2024-06-26 13:42 | disposition home or self-care (01) ==
PROVIDERS: PCP Nurse Practitioner Family; Visit Provider Internal Medicine Cardiovascular Disease
DX: I42.9 Cardiomyopathy, unspecified (principal); R93.1 Abnormal findings on diagnostic imaging of heart and coronary circulation
CPT/HCPCS: 93306

== ENCOUNTER 2024-11-22 15:29 | Outpatient (CLI) | payer MEDICARE, SELFPAY ==
--- OUTSIDE RECORDS SUMMARY | 2024-11-22 15:35 | XMS_ITS | Clinical Summary ---
Author Organization [facility] Address [address] [place] [id number] Phone Care Team Providers Care Route [employer] Name Role Phone Idalmis Veronica MD Primary Care Provider [phone] Allergies No known active allergies Medications Blood [...] night 10/07/2020 Active Lancets (OneTouch Delica Plus [id number]) misc 1 (one) time each day as [...] Comments Blood Pressure 128/80 02/08/2022 9:35 AM WAREHOUSE HELPER Pulse 72 02/08/2022 9:35 AM [employer]HOUSE HELPER Temperature 35.6 C (96.1 F) 02/08/2022 9:35 AM W[employer]HOUSE HELPER Respiratory Rate - - Oxygen Saturation - - Inhaled Oxygen Concentration - - Weight 63.5 kg (140 lb) 02/08/2022 9:35 AM WAREHOUSE HELPER Height 172.7 cm (5' 8) 02/08/2022 9:35 AM WAREHOUSE HELPER Body Mass Index 21.29 02/08/2022 9:35 AM WAREHOUSE HELPER Plan of Treatment Health Maintenance Due Date Last Done Comments Pneumococcal PPSV23/PCV13 65 + Years / Low and Medium Risk (1 of 2 - PCV) 2000 Influenza Vaccine (#1) 2024 Insurance [employer] Care Teams Route Driver [employer] Relationship Specialty Start Date End Date Idalmis Veronica MD [address] [place] [id number] PCP - General Internal Medicine 07/30/21
--- OUTSIDE RECORDS SUMMARY | 2024-11-22 15:35 | XMS_ITS | Clinical Summary ---
Author Organization [facility] [address] Address [address] [place] [address] Care Team Providers Care Survey Technologist Name Role Phone Francis Otoole NP Primary Care Provider [phone] Rodo Stark MD Unavailable [phone] Allergies No known active allergies Medications metFORMIN [...] by mouth daily 30 tablet 11 11/07/2023 Active cholecalciferol (VITAMIN D-3) 5,000 unit tablet [...] mg total) by mouth daily 02/28/2024 Active gabapentin (NEURONTIN) 100 mg capsule TAKE 1 CAPSULE BY MOUTH THREE TIMES DAILY NEEDED 08/27/2024 Active Active Problems Problem Noted Date Diagnosed Date Atherosclerosis of tonto apache co ronary artery of tonto apache heart without angina pectoris 08/19/2023 Diabetic ketoacidosis [...] Pacemaker. Dx; Second/Third Degree AVB. DOI 12/03/2022-Juana. [employer] Houseron[employer] Remote. Patient to follow with Dr Petersen. CHB (complete heart block) 11/30/2022 Stage 3a chronic kidney disease 10/15/2020 Resolved Problems Problem Noted Date Diagnosed Date Resolved Date Severe protein-calorie malnutrition 01/06/2023 04/27/2023 Essential hypertension 10/15/202003/15 Encounters Date Type Department Care Team Description 11/08/2024 Documentation [facility] Cardiology [address] [place] [id number] Eddie Muniz MD 09/13/2024 11:00 AM CDT Clinical Support [address] [place] [address] Encounter for fitting and adjustment of vascular catheter (Primary Dx); Malignant neoplasm of ascending colon (HCC) 09/13/2024 10:45 AM CDT Office Visit [facility] [address] [place] [address] Medical [address] [place] [address] Kailey Harrison, INTERFACE ENGINEER Malignant neoplasm of ascending colon (HCC) (Primary Dx); Encounter for fitting and adjustment of vascular catheter 09/13/2024 10:15 AM CDT Lab [address] [place] [address] Malignant neoplasm of ascending colon (HCC) 09/12/[address] [facility] [address] [place] [address] Medical [address] [place] [address] Aylin Roberts, LAUROT from Last 3 Months Immunizations Immunization Administration Dates Next Due COVID-19 mRNA (Goodpatch) 0.3 m L (10 mcg) vaccine (5-11 years) 12/28/2023 Influenza, Quad, Adjuvantated, Intramuscular Influenza, Unspecified 12/28/2023,02/08/2023 Pneumococcal Polysaccharide PPV23 03/29/2016 TD Preservative Free 05/25/2005 Tdap 03/29/2016 Surgical History Surgery Date Site/Laterality Comments COLONOSCOPY Medical History Medical History Date Comments Hypertension Diabetes mellitus Heart murmur Hyperlipidemia Colon cancer (HCC) Family History Medical History Relation Name Comments Cancer Father Lymphoma Mother Relation Name Status Comments Father Mother Social History Tobacco Use Types Packs/Day Years Used Date Smoking Tobacco: Former Cigarettes 1 12.7 1 0 - 10/1971 Smokeless Tobacco: Former Quit: 01/10/1974 Tobacco Cessation:Counseling Given: Not Answered [facility] Utilities Answer Date Recorded In the past 12 months has th e electric, gas, oil, or water company threatened to shut off services in your home? No 04/27/2023 Social Connection and Isolation Panel Answer Date Recorded In a typical week, how many times do you talk on the phone with family, friends, or neighbors? Three times a week 04/27/2023 How often do you get togethe r with friends or relatives? Once a week 04/27/2023 How often do you attend chur ch or yarsanism services? Never 04/27/2023 Do you belong to [...] place to sleep or slept in a long term (including now)? No 04/27/2023 Personal Safety Answer [...] Sign Reading Time Taken Comments Blood Pressure 128/67 09/13/2024 10:10 AM CDT Pulse 60 09/13/2024 10:10 AM CDT Temperature 36.3 C (97.3 F) 09/13/2024 10:10 AM CDT Respiratory Rate 20 09/13/2024 10:10 AM CDT Oxygen Saturation 97% 09/13/2024 10:10 AM CDT Inhaled Oxygen Concentration - - Weight 65.4 kg (144 lb 3.2 oz) 09/13/2024 10:10 AM CDT Height 167.6 cm (5' 5.98) 06/14/2024 10:38 AM C DT Body Mass Index 23.29 06/14/2024 10:38 AM CDT Plan of Treatment Health Maintenance Due Date Last Done Comments Albumin Creatinine Ratio, Urine 1950 Colon Cancer Screening-Colonoscopy 1950 Depression Screening 1950 Dilated Eye Exam 1950 Foot Exam 1950 Hepatitis B Screening 1968 Zoster Vaccine (1 of 2) 2000 Well Visit 65+ 05/07/2015 Pneumococcal vaccine 65+ (2 of 2 - PCV) 03/29/2017 03/29/2016 Hemoglobin A1C 07/01/2023 12/31/2022, 12/31/2022 Fall Risk Assessment 07/25/2024 07/26/2023, 07/04/2023, 06/13/2023, Additional history exists Lipid Panel 09/04/2024 09/05/2023, 12/22, 11/30/2022 Covid-19 Vaccine ( - 2024-2 6 season) 2024 12/30/2023, 12/28/2023, 02/08/2023, Additional history exists Influenza Vaccine (#1) 2024 , 12/28/2023, 02/08/2023, Additional history exists eGFR 09/13/2025 09/13/2024, 05/23, 03/15/2024, Additional history exists DTaP/Tdap/Td Vaccine (2 - Td or Tdap) 03/29/2026 03/29/2016, 05/25/2005 Hepatitis C Screening Completed 12/31/2022, 023 Abdominal Aortic Aneurysm (A AA) Screen Completed 03/09/2024, 08/23/2023, 07/25/2023, Additional history exists Medical Devices Implanted Type Area Center Consultant Device Identifier Shelf Expiration Date Model / Serial / Lot Medtronic Card Vas Surgery 3.5 X 22mm Ismael Hereford Rx Coronary Stent [id number] - [id number] - [id number] Implanted:Qty : 1 on 10/17/2023 by Eddie Muniz MD at [facility] Stent Medtronic Card Vasc Surgery 04/13/2026 [id number] / [id number] / [id number] [employer] Stent Coronary De Rx Cocr Ors Msn 3.0x40mm [id number] - [id number] - [id number] Implanted:Qty : 1 on 11/07/2023 by Eddie Muniz MD at [facility] Stent N/A: Coronary Artery Biotronik Inc 06/01/2025 [id number] / [id number] / [id number] Biotronik Inc Stent Coronary De Rx Cocr Ors Msn 3.5x35mm [id number] - [id number] - [id number] Implanted:Qty : 1 on 11/07/2023 by Eddie Muniz MD at [facility] Stent N/A: Coronary Artery Biotronik Inc 07/26/2025 [id number] / [id number] / [id number] Procedures Procedure Name Priority Date/Time Associated Diagnosis Comments EGFR Routine 09/13/2024 10:00 AM CDT Malignant neoplasm of ascending colon (HCC) DIFFERENTIAL AUTO Routine 09/13/2024 10: 00 AM CDT Malignant neoplasm of ascending colon (HCC) CBC WITH AUTO DIFFERENTIAL Routine 09/13/2024 10:00 AM CDT Malignant neoplasm of ascending colon (HCC) COMPREHENSIVE METABOLIC PANEL Routine 09/13/2024 10:00 AM CDT Malignant neoplasm of ascending colon (HCC) CEA Routine 09/13/2024 10:00 AM CDT Malignant neoplasm of ascending colon (HCC) FERRITIN Routine 09/13/2024 10:00 AM CDT Malignant neoplasm of ascending colon (HCC) IRON PROFILE W/ IBC Routine 09/13/2024 1 0:00 AM CDT Malignant neoplasm of ascending colon (HCC) CT CHEST ABDOMEN PELVIS W CONTRAST Schedule Routine, Read Routine (OP Routine) 03/09/2024 11:31 AM VIDEO PRODUCTION ENGINEER Malignant neoplasm of ascending colon (HCC) Encounter for fitting and adjustment of vascular catheter LIPID PANEL Routine 09/05/2023 10:04 AM CDT Atherosclerosis of tonto apache coronary artery of tonto apache heart without angina pectoris HEPATITIS PANEL, ACUTE Timed 12/31/2022 8:43 PM VIDEO PRODUCTION ENGINEER HEMOGLOBIN A1C STAT 12/31/2022 6:19 PM VIDEO PRODUCTION ENGINEER from Last 3 Months or Most Recently Relevant to Health Maintenance Results * (ABNORMAL) eGFR (09/13/2024 10:00 AM CDT) eGFR 47(L) >=60 mL/min/1. 73 m2 Comment: Interpretive Data [...] was last reviewed 2020. Testing performed by: [facility], [address] [facility], [place], [address] Blood 09/13/2024 10:0 0 AM CDT 09/13/2024 10:21 AM CDT us Rodo Stark MD LAB BLOOD ORDERABLES Whit l Result [facility] ([place]) [address] [facility] [place] [address] * (ABNORMAL) Differential, auto (09/13/2024 10:00 AM CDT) Neutrophil abs 5.88 1.50 - 6.50 K/cumm [facility] ([place]) Comment:Testing performed by : [facility] [place], [address] [facility] , Medical Office [address], [place] [address] Imm gran abs 0.05 0.00 - 0.10 K/cumm [facility] ([place]) Comment:Testing performed by : [facility] [address], Medical Office [facility] [address], [place] [address] Lymphocyte abs 1.55 0.80 - 3.30 K/cumm [facility] ([place]) Comment:Testing performed by : [facility] [address], Medical Office [address], [place] [address] Monocyte abs 0.74 0.20 - 0.80 K/cumm [facility] ([place]) Comment:Testing performed by : [facility] [address], Medical Office [facility] [address], [place] [address] Eosinophil abs 0.59(H) 0.00 - 0.50 K/cumm [facility] ([place]) Comment:Testing performed by : [facility] [address], Medical Office [facility] [address], [place] [address] Basophil abs 0.09 0.00 - 0.10 K/cumm [facility] ([place]) Comment:Testing performed by : [facility] [address], Medical Office [facility] [address], [place] [address] Neutrophil pct 66.1 % [facility] ([place]) Comment: Interpretive Data Percent cell count reference ranges are not reported, since discordance with absolute values may lead to misinterpretation of CBC data. Current Interpretive Data was last revised on 2022. Testing performed by: [facility] [address], Medical Office [facility] [address], [place] [address] Imm gran pct 0.6 % [facility] ([place]) Comment: Interpretive Data Percent cell count reference ranges are not reported, since discordance with absolute values may lead to misinterpretation of CBC data. Current Interpretive Data was last revised on 2022. Testing performed by: [facility] [address], Medical Office [facility] [address], [place] [address] Lymphocyte pct 17.4 % [facility] ([place]) Comment: Interpretive Data Percent cell count reference ranges are not reported, since discordance with absolute values may lead to misinterpretation of CBC data. Current Interpretive Data was last revised on 2022. Testing performed by: [facility] [address], Medical Office [address], [place] [address] Monocyte pct 8.3 % [facility] ([place]) Comment: Interpretive Data Percent cell count reference ranges are not reported, since discordance with absolute values may lead to misinterpretation of CBC data. Current Interpretive Data was last revised on 2022. Testing performed by: [facility] [address], Medical Office [address], [place] [address] Eosinophil pct 6.6 % [facility] ([place]) Comment: Interpretive Data Percent cell count reference ranges are not reported, since discordance with absolute values may lead to misinterpretation of CBC data. Current Interpretive Data was last revised on 2022. Testing performed by: [facility] [address], Medical Office [address], [place] [address] Basophil pct 1.0 % [facility] ([place]) Comment: Interpretive Data Percent cell count reference ranges are not reported, since discordance with absolute values may lead to misinterpretation of CBC data. Current Interpretive Data was last revised on 2022. Testing performed by: [facility] [address], Medical Office [facility] [address], [place] [address] Blood 09/13/2024 10:0 0 AM CDT 09/13/2024 10:06 AM CDT us Rodo Stark MD LAB BLOOD ORDERABLES Whit perrin Result [facility] ([place]) [address] [facility] [place] [address] * (ABNORMAL) Iron profile w/ IBC (09/13/2024 10:00 AM CDT) Iron 43(L) 50 - 150 mcg/dL [facility] ([place]) TIBC 310 250 - 400 mcg/dL [facility] ([place]) Transferrin saturation 14(L) 20 - 50 % [facility] ([place]) Blood 09/13/2024 10:0 0 AM CDT 09/13/2024 10:21 AM CDT us Rodo Stark MD LAB BLOOD ORDERABLES Whit perrin Result [facility] ([place]) [address] [facility] [place] [address] * (ABNORMAL) CBC with auto differential (09/13/2024 10:00 AM CDT) WBC 8.90 3.80 - 9.90 K/cumm [facility] ([place]) Comment:Testing performed by : [facility] [address], Medical Office [address], [place] [address] Hgb 11.5(L) 13.0 - 17.5 g/dL [facility] ([place]) Comment:Testing performed by : [facility] [address], Medical Office [facility] [address], [place] [address] Hct 36.4(L) 38.9 - 50.3 % [facility] ([place]) Comment:Testing performed by : [facility] [address], Medical Office [address], [place] [address] Plt 266 150 - 400 K/cumm [facility] ([place]) Comment:Testing performed by : [facility] [address], Medical Office [address], [place] [address] MPV 9.5 9.1 - 12.3 fL [facility] ([place]) Comment:Testing performed by : [facility] [address], Medical Office [address], [place] [address] RBC 3.97(L) 4.30 - 5.80 M/cumm [facility] ([place]) Comment:Testing performed by : [facility] [address], Medical Office [address], [place] [address] MCV 91.7 81.3 - 96.4 fL [facility] ([place]) Comment:Testing performed by : [facility] [address], Medical Office [address], [place] [address] MCH 29.0 27.1 - 33.3 pg [facility] ([place]) Comment:Testing performed by : [facility] [address], Medical Office [address], [place] [address] MCHC 31.6(L) 32.3 - 35.7 g/dL [facility] ([place]) Comment:Testing performed by : [facility] [address], Medical Office [address], [place] [address] RDW CV 14.1 11.1 - 14.9 % [facility] ([place]) Comment:Testing performed by : [facility] [address], Medical Office [address], [place] [address] RDW SD 48.4(H) 35.7 - 48.1 fL [facility] ([place]) Comment:Testing performed by : [facility] [address], Medical Office [facility] [address], [place] [address] Blood 09/13/2024 10:0 0 AM CDT 09/13/2024 10:06 AM CDT us Rodo Stark MD LAB BLOOD ORDERABLES Whit l Result [facility] ([place]) [address] [facility] [place] [address] * Ferritin (09/13/2024 10:00 AM CDT) Ferritin 181 30 - 400 ng/mL [facility] ([place]) Blood 09/13/2024 10:0 0 AM CDT 09/13/2024 10:21 AM CDT Rodo Stark MD LAB BLOOD ORDERABLES Whit l Result [facility] ([place]) [address] [facility] [email or web address] [address] * (ABNORMAL) CEA (09/13/2024 10:00 AM CDT) CEA 7.5(H) 0.1 - 5.0 ng/mL Comment: Interpretive Data The Mignon CEA assay procedure was used. Results from different manufacturers or methods may not be comparable. Serial testing should be performed using the same method. Testing performed by: [facility], [address] [place] [address], [place]., [address] Blood 09/13/2024 10:0 0 AM CDT 09/13/2024 5:10 PM CDT us Rodo Stark MD LAB BLOOD ORDERABLES Whit perrin Result [facility] ([place]) [address] [facility] [place] [address] * (ABNORMAL) Comprehensive metabolic panel (09/13/2024 10:00 AM CDT) Sodium 138 135 - 145 mmol/L [facility] ([place]) Potassium, pl 4.2 3.3 - 4.9 mmol/L [facility] ([place]) Chloride 100 97 - 110 mmol/L [facility] ([place]) CO2 28 22 - 32 mmol/L [facility] ([place]) Anion gap 10 2 - 15 mmol/L [facility] ([place]) BUN 21 6 - 25 mg/dL [facility] ([place]) Creatinine 1.54(H) 0.80 - 1.30 mg/dL [facility] ([place]) Glucose 97 70 - 199 mg/dL [facility] ([place]) Comment: Interpretive Data Fasting glucose >/= 126 [...] Current interpretive data was last revised 2022. Calcium 9.5 8.5 - 10.3 mg/dL [facility] ([place]) Bilirubin, total 0.2 0.1 - 1.2 mg/dL [facility] ([place]) Protein, pl 7.3 6.5 - 8.5 g/dL [facility] ([place]) Albumin 4.3 3.5 - 5.0 g/dL [facility] ([place]) Alk phos 106 40 - 130 Units/L [facility] ([place]) ALT 20 7 - 55 Units/L [facility] ([place]) AST 23 10 - 50 Units/L [facility] ([place]) Blood 09/13/2024 10:0 0 AM CDT 09/13/2024 10:21 AM CDT us Rodo Stark MD LAB BLOOD ORDERABLES Whit l Result [facility] ([place]) [facility] [place] [address] * CT chest abdomen pelvis with contrast (03/09/2024 11:31 AM VIDEO PRODUCTION ENGINEER) Anatomical Region Laterality Modality Body N/A Computed Tomogra phy 03/12/2024 9:49 AM VIDEO PRODUCTION ENGINEER Narrative 03/12/2024 10:08 AM VIDEO PRODUCTION ENGINEER EXAM DESCRIPTION: CT CHEST ABDOMEN PELVIS W [...] CHEST WALL: Unremarkable. HARDWARE/LINES/TUBES: Left-sided pacemaker. Right Kfaghf-X-Nheg catheter, distal tip at the cavoatrial junction. [...] Charlee Watson M.D. TW: NATALIO Report ID: [id number] Reading Location: [id number] Procedure Note Charlee Watson MD - 03/12/2024 [...] CHEST WALL: Unremarkable. HARDWARE/LINES/TUBES: Left-sided pacemaker. Right Ndxecc-T-Svkhhjztmjgw, distal tip at the cavoatrial junction. MUSCULOSKELETAL [...] Charlee Watson M.D. TW: NATALIO Report ID: [id number] Reading Location: [id number] Kailey Harrison NP IMG CT PROCEDURES Final Re sult * Lipid panel (09/05/2023 10:04 AM CDT) Cholesterol 132 <200 mg/dL [facility] HDL 44 > OR = 40 mg/dL [facility] Triglycerides 107 <150 mg/dL [facility] LDL 69 mg/dL (calc) [facility] Comment: Reference range: <100 Desirable range <100 mg/dL for primary prevention; <70 mg/dL for patients with CHD or diabetic patients with > or = 2 CHD risk factors. LDL-C is now calculated using the Sunny calculation, which is a validated novel method providing better accuracy than the Friedewald equation in the estimation of LDL-C. Edgardo RUIZ et al. DAVID. 2013;310(19): 3379-9361 (http://education.aBIZinaBOX/faq/GXU170) Chol/HDL ratio 3.0 <5.0 (calc) [facility] Non-HDL, (LDL+VLDL) 88 <130 mg/dL (calc) [facility] Comment: For patients with diabetes plus 1 major ASCVD risk factor, treating to a non-HDL-C goal of <100 mg/dL (LDL-C of <70 mg/dL) is considered a therapeutic option. Blood 09/05/2023 10:0 4 AM CDT 09/05/2023 10:05 AM CDT Narrative [facility] - 09/05/2023 8:46 PM CDT FASTING:YES FASTING: YES us Eddie Muniz MD LAB BLOOD ORDERABLES Whit l Result Performing Organization Address City/[facility]/ZIP Co de Phone Number [facility] [address] [place] [address] * (ABNORMAL) Hepatitis panel, acute Blood (12/31/2022 8:43 PM VIDEO PRODUCTION ENGINEER) Hep A IgM Nonreactive Nonreactive [facility] Hep B core IgM Nonreactive Nonreactive [facility] Hep C Ab Reactive(A) Nonreactive [facility] Comment: Reactive for HCV antibodies. This may represent current or past HCV infection. Supplemental molecular testing will be automatically performed to determine current infection status in accordance with current CDC screening recommendations. Current interpretive data was last revised on 21 HepBsAg Nonreactive Nonreactive [facility] Blood 12/31/2022 8:43 PM VIDEO PRODUCTION ENGINEER 12/31/2022 9:46 PM VIDEO PRODUCTION ENGINEER us Maurilio Gonzalez MD LAB MICROBIOLOGY - GENERA L ORDERABLES Final Result [facility] Department [place] [address] * (ABNORMAL) Hemoglobin A1c (12/31/2022 6:19 PM VIDEO PRODUCTION ENGINEER) Hgb A1C 7.2(H) 4.0 - 5.6 % [facility] Estimated Average Glucose 160 mg/dL [facility] Comment: The ADA recommends reporting an estimated Average Glucose (eAG) with all Hemoglobin A1c results using the equation derived from a study of 507 normal and diabetic adults. Minority populations were underrepresented and children were not included. (Diabetes Care 2020; 43(S1): S66-S76). The eAG is not equivalent to a fasting glucose. Blood 12/31/2022 6:19 PM VIDEO PRODUCTION ENGINEER 12/31/2022 8:25 PM VIDEO PRODUCTION ENGINEER Tiff Dean MD LAB BLOOD ORDERABLES Final Result Performing Organization Address City/[facility] Co de Phone Number BYRON [facility] Department [place] [address] from Last 3 Months or Most Recently Relevant to Health Maintenance Insurance [employer] MEDICARE [facility]ANT[facility] Address[facility] [address] [place] [address] [facility] MEDIC[facility] [id number] [facility] MEDICARE ADVANTAGE [facility] Address: [address] [address] [place] [address] Advance Directives For more information, please contact: [phone] * Full Code (Latest Code Status on File) Date Activated Date Inactivated Comments 04/27/2023 12:52 AM 04/28/2023 7:25 PM * Full Code Date Activated Date Inactivated Comments 12/31/2022 4:37 PM 01/19/2023 7:47 PM Care Teams Survey Technologist Relationship Specialty Start Date End Date Francis Otoole NP [address] [place] [address] PCP - General Family Medicine 08/19/23 Rodo Stark MD [address] [place] [address] Medical Oncologist/Brazer Helper Induction Medical Oncology 06/12/24
--- OUTSIDE RECORDS SUMMARY | 2024-11-22 15:35 | XMS_ITS | Clinical Summary ---
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 Gender Identity Not on file Sexual Orientation [...] 8:53 AM CDT Height 167.6 cm (5' 6) 10/12/2023 8:53 AM CDT Body Mass Index 24.05 10/12/2023 8:53 AM CDT Plan of Treatment Health Maintenance Due Date Last Done Comments Colorectal Cancer Screening Colonoscopy (10 Years) 1950 Hepatitis C 1968 Zoster Vaccines (1 of 2) 2000 Annual Medicare Wellness Visit 05/07/2015 Pneumococcal Vaccine: 50+ Years (2 of 2 - PCV) 03/29/2017 03/29/2016 COVID-19 Vaccine ( season) 2024 02/08/2023, 12/17/2021, 12/24/2020, Additional history exists RSV [...] this topic Medical Devices Implanted Type Area Conditioning Room Worker Device Identifier Shelf Expiration Date Model / Serial / Lot Tecnis Simplicity Delivery System Implanted:Qty: 1 on 08/10/2023 by Marily Rollins MD at [facility] Right: Eye 03/23/2025 [id number] / / [id number] Tecnis Simplicity Delivery System Implanted:Qty: 1 on 10/12/2023 by Marily Rollins MD at [facility] Left: Eye [employer] [id number] 12/27/2025 / [id number] / [id number] Insurance MEDICARE Care Teams Cement Worker Relationship Specialty Start Date End Date Francis Otoole NP [address] [id number] PCP - General NURSE PRACTITIONER 10/12/23
--- OUTSIDE RECORDS SUMMARY | 2024-11-22 15:35 | XMS_ITS ---
Author Organization [facility] [address] Address [address] [place] [address] Care Team Providers Care Lbd Teacher Name Role Phone Francis Otoole NP Primary Care Provider Rodo Stark MD Unavailable Active Problems Problem Noted Date Diagnosed Date Atherosclerosis of [place] co ronary artery of [place] heart without angina pectoris 08/19/2023 Diabetic ketoacidosis [...] Automatic Entry Manual Entr y Fluoro Time 33.1 minutes 2 minutes 31.1 minutes Air kerma at the reference point (Ka,r) 2,603.16 mGy 7 .4 mGy 2,595.76 mGy DLP 1,401 mGycm 1,401 mGycm 0 mGycm DAP 175.823 Gy-cm2 0 Gy-cm2 175.823 Gy-cm 2 Resolved Problems Problem Noted Date Diagnosed Date Resolved Date Severe protein-calorie malnutrition 01/06/2023 04/27/2023 Essential hypertension 10/15/202003/15
--- OUTSIDE RECORDS SUMMARY | 2024-11-22 15:35 | XMS_ITS | Encounter Summary ---
Author Organization [facility] Address [address] [place] [id number] Care Team Providers Care Fisher Scallop Name Role Phone Idalmis Veronica MD Primary Care Provider [phone] Francis Otoole NP Primary Care Provider [phone] Encounter Details Date Type Department Care Team (Late st Contact Info) Description 07/29/2018 Abstract [facility]FL CONVERSION [address] [place] [address] , Generic Conversion, Social History Tobacco Use Types Packs/Day Years Used Date Smoking Tobacco: Never Assessed Sex and Gender Information Value Date Recorded Sex Assigned at Not on file Legal Sex Male 9:53 PM CLINICAL DERMATOLOGIST Gender Identity Not on file Sexual Orientation Not on file documented as of this encounter Plan of Treatment Not on file documented as of this encounter Visit Diagnoses Not on filedocumented in this encounter Care Teams Fisher Scallop Relationship Specialty Start Date End Date Idalmis Veronica MD [address] [place] [address] PCP - General FAMILY PRACTICE 07/06/23 10/11/23 Francis Otoole NP [address] [place] [address] PCP - General NURSE PRACTITIONER 10/12/23 documented as of this encounter
[2024-11-22 15:42] LABS: Hematocrit 35.4 % (37.0-46.0); Hemoglobin 11.2 g/dL (12.4-15.3); Immature Granulocyte Percent A 0.3 % (0.0-0.0); Lymphocytes Absolute Auto 1.71 K/mm3 (1.10-4.50); Mean Corpuscular HGB Conc 31.6 g/dL (32-36); Mean Corpuscular Hemoglobin 28.4 pg (27.0-31.0); Mean Corpuscular Volume 89.6 fL (78.0-102.0); Nucleated Red Blood Cells Absolute Auto 0.00 K/mm3 (0.00-0.00); Nucleated Red Blood Cells Perc 0.0 % (0-0.0); Platelet Count Result 279 K/mm3 (150-420); Red Blood Count 3.95 M/mm3 (4.70-6.10); White Blood Count 9.3 K/mm3 (4.8-10.8)
[2024-11-22 16:16] LABS: Alanine Aminotransferase 24 U/L (6-50); Albumin Level 4.6 g/dL (3.5-5.1); Alkaline Phosphatase 98 U/L (38-126); Anion Gap 13 mmol/L (4-12); Aspartate Amino Transferase 31 U/L (17-59); Bilirubin,Total 0.4 mg/dL (0.2-1.3); Blood Urea Nitrogen 23 mg/dL (9-20); Calcium 9.7 mg/dL (8.4-10.2); Carbon Dioxide 26 mmol/L (22-30); Chloride 101 mmol/L (98-107); Cholesterol 118 mg/dL (0-200); Estimated Glomerular Filt Rate 42; Glucose 268 mg/dL (65-110); HDL Direct 44 mg/dL; Osmolality Calculated 302 mOsm/kg (285-295); Potassium 4.5 mmol/L (3.4-5.0); Sodium 140 mmol/L (137-145); Total Protein 8.0 g/dL (6.3-8.2); Triglycerides 313 mg/dL (<150)
[2024-11-22 16:42] LABS: Hemoglobin A1C 7.6 % (<5.7)
[2024-11-22 16:46] LABS: Thyroid Stimulating Hormone 1.110 uIU/mL (0.465-4.680)
== END 2024-11-22 15:30 | disposition home or self-care (01) ==
LOC: CHSLAB 15:33
PROVIDERS: PCP Nurse Practitioner Family
DX: Z79.899 Other long term (current) drug therapy (principal)
CPT/HCPCS: 36415; 80053; 80061; 83036; 84443; 85025